=== PATIENT | male | born 1945 | race African-American/Black ===

== ENCOUNTER 2021-03-12 19:00 | Observation (INO) | payer MEDICARE, SELFPAY ==
[2021-02-08 14:55] VITALS: BMI 29.8
[2021-03-12] VITALS (11 sets, daily range): BP systolic 125–146; BP diastolic 75–96; PULSE 77–96; RESP 14–18; TEMP 36.1–37.2; O2SAT 92–100; BMI 26.8
[2021-03-12] MEDS: Lactated Ringers 1,000 ML 100 ML IV ×2 (11:31→14:15)
[2021-03-12 11:46] LABS: Bedside Glucose 103 mg/dL (70-110)
--- NOTE | 2021-03-12 12:00 | PILCYST_PTH ---
PATIENT: PETRA VEE LOC: MS3 U#:[id number] AGE/SX: 75/M ROOM: GA312 RE03/12/[address]: Dr. Mark Anthony Malcolm MD : 1945 BED: 1 DIS: 03/13/2021 SPEC #: [id number] RECD: 03/13/21 07:30 STATUS: SALAS TRINA #: [id number] AIDEN: 03/12/21 12:[address]: Mark Anthony Malcolm DEPT: SURGICAL PATHOLOGY RECD BY: Kailey Henderson ENTERED: 03/13/21 08:31 SP TYPE: Pilonidal OTHR DR: Dr. Patricio Ortega MD Tissues: PILONIDAL TISSUE Procedures: Surgery Specimen Level III HEADER OPERATION: Excision, complicated extensive pilonidal cyst PRE-OP DIAGNOSIS: Complicated extensive pilonidal cyst; hidradenitis bilateral perianal and perineal areas TISSUE SUBMITTED: Excision of complicated extensive pilonidal cyst MICROSCOPIC DIAGNOSIS Complicated and extensive pilonidal cyst, excision: Consistent with inflamed pilonidal cyst. Focal changes consistent with inflamed epidermal inclusion cyst. GABI:yayo 03/14/2021 MICROSCOPIC DESCRIPTION Slides are reviewed. GROSS DESCRIPTION Received in fixative is one container labeled with the patient's name and designated pilonidal cyst. The specimen consists of an irregular fragment of dark galarza skin with attached yellow fatty tissue measuring 12.5 x 7 x 2.5 cm. Sections reveal several subdermal cystic structures ranging in size from 1 to 5 cm in greatest dimension. A focal area of cutaneous ulceration is identified measuring 1.5 cm in greatest dimension. Prepress Specialist sections are submitted in two cassettes. / AM:yayo 03/13/21 TC:5 CPT: 36468
--- NOTE | 2021-03-12 12:54 | HP.PCM_ITS ---
History and Physical Date of Admission: 03/12/21 HISTORY OF PRESENT ILLNESS 75 year old man presents with persistent pain and intermittent drainage in his sacral area where a cyst was present. He also had issues with pain and intermittent drainage in his bilateral perianal and perineal areas but none at the present time. He denies fever. He denies trauma. He has intermittent drainage. He has never had surgery on his pilonidal cyst area. He has had antibiotics intermittently. He has diabetes mellitus and his last HgbA1c is in the 5 range according to the patient. He presents at this time for further evaluation and treatment. PAST MEDICAL HISTORY Cancer Hidradenitis suppurativa of anus History of prostate disorder Pilonidal cyst Smoker PAST SURGICAL HISTORY None. ALLERGIES acetaminophen MEDICATIONS Cialis Lupron Depot Nirav Lemon FAMILY HISTORY Other Cancer Diabetes SOCIAL HISTORY Smoking Status: Current every day smoker alcohol intake: current substance use type: does not use additional social history: Does Not Take Aspirin Does Not Take Ibuprofen REVIEW OF SYSTEMS General - Denies fever, fatigue, and weight loss. Eyes - Denies cataracts and glaucoma. ENT - Denies nasal congestion and sore throat. Endocrine - Denies excessive thirst and urination. Skin - Denies suspicious lesions and skin cancer. Musculoskeletal - Denies joint pain, weakness of muscles and joints, back pain, and arthritis. Has joint stiffness. Neuro - Denies headaches. Cardiovascular - Denies chest pain, fatigue, and shortness of breath with exertion. Psych - Denies anxiety and depression. Respiratory - Has chronic cough. Denies shortness of breath. Patient is a smoker. Gastrointestinal - Denies nausea, vomiting, diarrhea, and constipation. Hematologic - Denies abnormal bruising and bleeding. Genitourinary - Denies hematuria. Has urinary frequency. PHYSICAL EXAMINATION General - Alert and Oriented. HEENT - PERRL. EOMI. Throat is clear. Neck - Supple and nontender. No cervical adenopathy. Lungs - Clear to auscultation. Heart - Regular rate and rhythm. Abdomen - Soft and nondistended. Extremities - FROM. No axillary adenopathy. Radial pulses are palpable. Back - On is lower back in the sacral area is a palpable mass clinically consistent with a pilonidal cyst. Some ulceration noted. Could not express any drainage today. Some extension noted inferiorly. Measures 5 cm. Rectal - On his bilateral perianal areas and perineal area are areas of induration and scarring from previous episodes of hidradenitis. No acute infection noted at this time. Measures 8 cm on each buttock. Approximately 3-4 cm from the anal opening. Minimal tenderness at this time. Neuro - CN II-XII grossly intact. Psych - Normal mood and affect. ASSESSMENT 1. Complicated extensive pilonidal cyst. 2. Hidradenitis bilateral perianal and perineal areas. 3. Diabetes mellitus. 4. Smoker. PLAN Patient has multiple issues on his lower back and perianal areas, pilonidal cyst and hidradenitis. Recommend surgical excision of these areas (pilonidal cyst and hidradenitis). The pilonidal cyst is more symptomatic at the present time and will be done first. So will concentrate on that initially. After healing has occurred, can then address his complex hidradenitis. I am hesitant to do everything at once as it would lead to a much larger wound that would take a lot longer to heal and is at risk to intimidate the patient due to its large size. Surgery will be done under general anesthesia with a surgical observation overnight stay in the hospital. Will send tissue to Pathology for analysis to rule out carcinoma and to Microbiology for culture. A positive culture will necessitate antibiotic therapy. After discharge will followup at the [facility]. During the healing process, there is the risk of developing stool contamination. If that develops, then he will need a diverting colostomy to allow complete healing of the wound. If a colostomy is needed, and if there develops a plateau in the healing process, can proceed with delayed closure with skin grafting. A skin graft in that area is at increased risk for some compromise. He can then be evaluated at the [facility] Center for HBO treatments which are designed to salvag e any compromise to the skin graft. Before surgery and afterwards, will send in script for Doxycycline to be used for intermittent flare ups. He has diabetes mellitus and his last HgbA1c is in the 5 range according to the patient. Will check with his PCP's office. It needs to be less than 8 before proceeding with electivef procedures. Patient was informed of the risks and complications of the procedure including alternatives to surgery. These were discussed with the patient personally. Patient voices understanding and wishes to proceed. Some of the risks and complications were included in a form from the [employer]. Encouraged patient to stop smoking as it may have deleterious effects on wound healing. We discussed the current risks associated with COVID-19. While it is understood that there is a community spread of COVID-19, the risk of marion COVID-19 while at [facility] ([facility]) is very low; however, the risk cannot be completely mitigated because of the community spread of the disease. We discussed in detail the risk of exposure to and/or potential harm posed by the COVID-19 virus with having a surgery/procedure at this time versus the risk of delaying the surgery/procedure. It is not possible to know either the risk of delaying the surgery or procedure or chance of getting an infection with perfect accuracy, but a joint decision was made to proceed at this time with the scheduled surgery/procedure as indicated on the consent form. Patient was notified that we will need to comply with any screening or testing [facility] wishes to perform or that surgery may be delayed for any positive results. Procedure Criteria Procedure Type: Elective COVID Risk Discussion: The surgeon/proceduralist and patient have discussed in detail the risk of exposure to and/or potential harm posed by the COVID-19 virus with having a surgery/procedure at this time versus the risk of delaying the surgery/procedure. It is not possible to know either the risk of delaying the surgery or procedure or chance of getting an infection with perfect accuracy, but a joint decision was made between the patient and the surgeon/proceduralist to proceed at this time with the scheduled surgery/procedure as indicated on the consent form.
[2021-03-12] MEDS: Cefazolin 2 GM in 0.9% Normal Saline 100 ML IV (13:51)
[2021-03-12] MEDS: Lidocaine 1% /Epi 1:100 (50ml) 50 ML VIAL (14:21)
--- NOTE | 2021-03-12 14:53 | PCM.OPRPT ---
Problems Associated Problem List Diagnoses (1) Pilonidal cyst: (2) Open wound of sacroiliac region with complication: (3) Hidradenitis suppurativa of anus: (4) Type 2 diabetes mellitus with diabetic polyneuropathy: (5) Smoker: Report of Operation Date of Procedure: 03/12/21 Pre-Operative Diagnosis: 1. Complicated extensive pilonidal cyst. 2. Hidradenitis bilateral perianal and perineal areas. 3. Diabetes mellitus. 4. Smoker. Post-Operative Diagnosis: 1. Complicated extensive pilonidal cyst. 2. Open wound sacral area. 3. Hidradenitis bilateral perianal and perineal areas. 4. Diabetes mellitus. 5. Smoker. Surgery/Procedure Performed:: Surgical preparation sacral area with excision complicated extensive pilonidal cyst Description of Surgical Findings:: 75 year old man presents with persistent pain and intermittent drainage in his sacral area where a cyst was present. He also had issues with pain and intermittent drainage in his bilateral perianal and perineal areas but none at the present time. He denies fever. He denies trauma. He has intermittent drainage. He has never had surgery on his pilonidal cyst area. He has had antibiotics intermittently. He has diabetes mellitus and his last HgbA1c is in the 5 range according to the patient. Patient was informed of the risks and complications of the procedure including alternatives to surgery. These were discussed with the patient personally. Patient voices understanding and wishes to proceed. Some of the risks and complications were included in a form from the [employer]. Encouraged patient to stop smoking as it may have deleterious effects on wound healing. Size of defect sacral area - 16 x 6 x 3 cm. Surgeon: Mark Anthony Malcolm manager audio: None Type of Anesthesia: General Specimen's removed: Pilonidal cyst to Pathology and Microbiology. Drains: None. Estimated Blood Loss (mL): 50. Description of Procedure: Patient was taken to OR in supine position and was placed under general anesthesia. He was placed in the prone position. The sacral area was prepped and draped in the usual fashion. SCD's were not placed for DVT prophylaxis because of bilateral amputation. Will proceed with chemoprophylaxis with Lovenox after surgery. Perioperative antibiotics were given intravenously. A vasquez catheter was placed. Using xylocaine with epinephrine, the sacral area was infiltrated. After waiting 5 minutes for the anesthetic to take effect, I excised the complicated extensive pilonidal cyst down to the muscle laterally and the bone centrally. A lot of fat necrosis and extensive scar tissue was present and was excised and debrided. No exposed bone was seen. There was more extension on the left. There was also some inferior extension bilaterally. The tissue excised was sent to Pathology for analysis to rule out carcinoma and to Microbiology for culture. A positive culture will necessitate antibiotic therapy. Hemostasis was obtained with electrocautery. The wound was irrigated with saline. The size of the sacral defect after excision of this complicated extensive pilonidal cyst was 16 x 6 x 3 cm or 96 cm2. The wound was dressed with Mepitel nonadherent dressing followed by Kerlix gauze and Betadine and followed with a dry Kerlix gauze and ABD pads compression dressing. Patient tolerated the procedure well and was sent to PACU in satisfactory condition. Patient will be sent upstairs for continued postop care. The VAC will be placed tomorrow. After discharge, followup at the [facility]ound Center. Grafts/Implants Used: None. Complications None. Admit VTE Documentation VTE Present on Admission: No VTE Mechan Device Prophylaxis: SCD's VTE Pharm Prophylaxis ordered?: Yes Addendum Addendum: Surgery Charges CPT - 51063 ICD-10 - L05.91, S31.000A, L73.2, E11.42, F17.200
[2021-03-12 15:41] LABS: Bedside Glucose 86 mg/dL (70-110)
[2021-03-12 18:01] LABS: Bedside Glucose 105 mg/dL (70-110)
[2021-03-12] MEDS: Docusate Sodium 100 MG Capsule PO (20:35)
[2021-03-12] MEDS: Cefazolin 1 GM/50 ML BAG IV (20:54)
[2021-03-12 21:01] LABS: Bedside Glucose 114 mg/dL (70-110)
[2021-03-13 01:33] VITALS: BP 138/89; PULSE 92; RESP 16; TEMP 37.3; O2SAT 95
[2021-03-13] MEDS: oxyCODONE 5 MG Tablet 10 MG PO ×3 (03:10→13:57)
[2021-03-13] MEDS: Lactated Ringers 1,000 ML 60 ML IV (05:33)
[2021-03-13 05:34] VITALS: BP 137/81; PULSE 73; RESP 16; TEMP 36.4; O2SAT 94
[2021-03-13] MEDS: Cefazolin 1 GM/50 ML BAG IV ×2 (05:35→13:49)
[2021-03-13] MEDS: Enoxaparin 40 MG/0.4 ML Syringe SC (05:36)
[2021-03-13 06:35] LABS: Hematocrit 44.8 % (40-54); Hemoglobin 15.1 g/dL (13.0-16.5); Mean Corp Hgb Conc 33.7 g/dL (32-36); Mean Corpuscular Hgb 33.9 pg (27.0-32.0); Mean Corpuscular Volume 100.4 fL (80-94); Mean Platelet Vol. 9.6 fl (6.2-12.0); Platelet Count 126 K/mm3 (150-450); RBC Distribution Width CV 15.9 % (11.6-14.6); RBC Distribution Width SD 58.4 fl (35.1-43.9); Red Blood Count 4.46 M/mm3 (4.6-6.2); White Blood Count 11.9 K/mm3 (4.4-11.0)
[2021-03-13 07:17] LABS: Anion Gap 5 (5-15); BUN 6 mg/dL (7-18); Calcium,Total 8.3 mg/dL (8.5-10.1); Chloride 109 mmol/L (98-107); Creatinine, Serum 0.67 mg/dL (0.70-1.30); EST Glomerular Filtration Rate 124 mL/min (>60); Est Glom Filt Rate - Afr Amer 150 mL/min (>60); Estimated Creatinine Clearance 71.13 ml/min; Glucose 104 mg/dL (74-106); Potassium 3.7 mmol/L (3.5-5.1); Prealbumin 9.4 mg/dL (20.0-40.0); Sodium Level 139 mmol/L (136-145)
[2021-03-13 07:21] LABS: Bedside Glucose 113 mg/dL (70-110)
[2021-03-13] MEDS: Losartan Potassium 50 MG Tablet PO (09:11)
[2021-03-13] MEDS: Docusate Sodium 100 MG Capsule PO (09:11)
[2021-03-13 09:12] VITALS: BP 140/84; PULSE 83; RESP 16; TEMP 36.6; O2SAT 93
--- NOTE | 2021-03-13 09:26 | NURSING ---
wound photo: sacrum
[2021-03-13 11:45] LABS: Bedside Glucose 121 mg/dL (70-110)
--- NOTE | 2021-03-13 13:42 | PCM.WC.PN ---
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 He believes he might have bumped his leg, developed this ulcer, and it has been non-healing. Pt does not check his blood sugar at home. Saw his PCP who Rx clindamycin which he is currently taking along with silvadene. Has been taking clindamycin PO as Rx and applying silvadene with dry dressing daily to the R calf ulcer. Has home health ordered and they are going to start coming to his house this week. Denies N/V/F/C. Denies pain, redness, malodor, pus, increased warmth. Does admit to swelling of the R leg that is improved since starting clindamycin. Admits to smoking 1 pack of cigarettes per day and has done so for the past 50 years. 12/31--Pt has had joann, dry dressing with light compression spandagrip applied 3x/week by home health (once here, twice by home health on /Friday). He states he has tried to decrease smoking as much as possible. Denies N/V/F/C. Denies pain, redness, pus, malodor, warmth. LEAs, venous duplex, x-rays done. X-rays reveal no acute osseous abnormality, LEAs wnl, venous duplex show vein incompetence on the LEFT but not on the right. 01/14--Pt has had joann, dry dressing with spandagrip applied 3x/week by home health (once here, twice by home health on /Friday). He states he has tried to decrease smoking as much as possible. Denies N/V/F/C. Denies pain, redness, pus, malodor, warmth. LEAs, venous duplex, x-rays done. X-rays reveal no acute osseous abnormality, LEAs wnl, venous duplex show vein incompetence on the LEFT but not on the right. Labs drawn reveal elevated WBC, ESR. Forwarded to PCP. 01/21--Pt has had joann, dry dressing with spandagrip applied 3x/week by home health (once here, twice by home health on /Friday). He states he has tried to decrease smoking as much as possible as well as control his blood sugar, elevate his legs, eat more protein, and walk. Denies N/V/F/C. Denies pain, redness, pus, malodor, warmth. 01/28--Pt has had joann, dry dressing with spandagrip applied once this week by home health. He states he has tried to decrease smoking as much as possible as well as control his blood sugar, elevate his legs, eat more protein, and walk. Denies N/V/F/C. Denies pain, redness, pus, malodor, warmth. Objective Data Objective Data Vital Signs: Vital Signs Temp Pulse Resp BP Pulse Ox 97.8 F 83 16 140/84 H 93 03/13/21 09:12 03/13/21 09:12 03/13/21 09:12 03/13/21 09:12 03/13/21 09:12 Oxygen Delivery Method Room Air Weight: 197 lb 12.074 oz Body Mass Index (BMI) 26.8 Intake & Output: Intake and Output for Last 24 Hours 03/11/21 03/12/21 03/13/21 23:59 23:59 23:59 Intake Total 1701.67 / 1701.67 960.33 / 960.33 Output Total 500 / 500 775 / 775 Balance 1201.67 / 1201.67 185.33 / 185.33 Lab / Micro Data Result Diagrams: 03/13/21 06:06 03/13/21 06:06 Labs: Laboratory Results - last 24 hr 03/12/21 15:28: POC Glucose 86 03/12/21 17:57: POC Glucose 105 03/12/21 20:48: POC Glucose 114 H 03/13/21 06:06: WBC 11.9 H, RBC 4.46 L, Hgb 15.1, Hct 44.8, MCV 100.4 H, MCH 33.9 H, MCHC 33.7, RDW Std Deviation 58.4 H, RDW Coeff of Peter 15.9 H, Plt Count 126 L, MPV 9.6 03/13/21 06:06: Sodium 139, Potassium 3.7, Chloride 109 H, Carbon Dioxide 25.0, Anion Gap 5, BUN 6 L, Creatinine 0.67 L, Estim Creat Clear Calc 71.13, Est GFR (MDRD) Af Amer 150, Est GFR (MDRD) Non-Af 124, BUN/Creatinine Ratio 9.0 L, Glucose 104, Calcium 8.3 L, Prealbumin 9.4 L 03/13/21 07:16: POC Glucose 113 H 03/13/21 11:40: POC Glucose 121 H Micro: Microbiology 03/12/21 Unknown Tissue - Buttock Gram Stain - Final
--- NOTE | 2021-03-13 13:43 | PN.SURG_ITS ---
Subjective Subjective Postop #1 Patient sitting up in chair. States pain is well controlled. Objective Data Objective Data Vital Signs: Vital Signs Temp Pulse Resp BP Pulse Ox 97.8 F 83 16 140/84 H 93 03/13/21 09:12 03/13/21 09:12 03/13/21 09:12 03/13/21 09:12 03/13/21 09:12 Oxygen Delivery Method Room Air Weight: 197 lb 12.074 oz Body Mass Index (BMI) 26.8 Intake & Output: Intake and Output for Last 24 Hours 03/11/21 03/12/21 03/13/21 23:59 23:59 23:59 Intake Total 1701.67 / 1701.67 960.33 / 960.33 Output Total 500 / 500 775 / 775 Balance 1201.67 / 1201.67 185.33 / 185.33 Lab / Micro Data Result Diagrams: 03/13/21 06:06 03/13/21 06:06 Labs: Laboratory Results - last 24 hr 03/12/21 15:28: POC Glucose 86 03/12/21 17:57: POC Glucose 105 03/12/21 20:48: POC Glucose 114 H 03/13/21 06:06: WBC 11.9 H, RBC 4.46 L, Hgb 15.1, Hct 44.8, MCV 100.4 H, MCH 33.9 H, MCHC 33.7, RDW Std Deviation 58.4 H, RDW Coeff of Peter 15.9 H, Plt Count 126 L, MPV 9.6 03/13/21 06:06: Sodium 139, Potassium 3.7, Chloride 109 H, Carbon Dioxide 25.0, Anion Gap 5, BUN 6 L, Creatinine 0.67 L, Estim Creat Clear Calc 71.13, Est GFR (MDRD) Af Amer 150, Est GFR (MDRD) Non-Af 124, BUN/Creatinine Ratio 9.0 L, Glucose 104, Calcium 8.3 L, Prealbumin 9.4 L 03/13/21 07:16: POC Glucose 113 H 03/13/21 11:40: POC Glucose 121 H Micro: Microbiology 03/12/21 Unknown Tissue - Buttock Gram Stain - Final Physical Exam Const oriented x3 and no apparent distress Resp normal respiratory effort Cardio regular rate GI non-tender Extremity full ROM Skin Wound Narrative: Operative dressing was removed by wound care nurse. No active bleeding present. Wound is stable. Wound VAC dressing placed. Patient is tolerating it well. Psych Appearance: grossly normal Assessment & Plan Assessment/Plan (1) Pilonidal cyst: (2) Hidradenitis suppurativa of anus: (3) Open wound of sacroiliac region with complication: (4) Type 2 diabetes mellitus with diabetic polyneuropathy: QUALIFIERS: Diabetes mellitus correction insulin use: unspecified correction insulin use status Qualified Code(s): E11.42 - Type 2 diabetes mellitus with diabetic polyneuropathy (5) Smoker: PLAN: Patient is is doing well. Pain controlled on oral pain meds. Operative dressing removed today, no active bleeding. Wound is stable. Wound VAC dressing to 150 mmHg. The plan will be to have home health change it 3 times per week. Operative culture is pending. Currently on Cefazolin. Will plan on starting him on Doxycycline on discharge. Prealbumin 9.4. Encouraged increase protein intake with supplementation and in foods. He will [facility] up next 03[facility]19/[facility]. They will phone patient to discuss his appointment time.
[2021-03-13 13:50] VITALS: BP 130/76; PULSE 72; RESP 18; TEMP 36.7; O2SAT 95
--- NOTE | 2021-03-13 13:52 | CASEMGMT ---
Addendum entered by Jim Barr 03/13/21 15:32: Vinita @ [facility] aware pt being discharged home today. Addendum entered by Jim Barr 03/13/21 14:50: and pt made aware [facility] able to accept pt w/SOC on Friday. They are both aware wound vac approval is still pending and this will determine if pt able to be able to be discharged today or tomorrow. Addendum entered by Jim Barr 03/13/21 14:38: VM received from Vinita @ [facility]. They are able to accept pt w/SOC Friday. Call placed to [facility] wound nurse. Wound vac approval is still pending. Original Note: RN CM MATERIAL DAMAGE ADJUSTER CM to room to meet with patient for initial transition planning/care coordination assessment. TINY NIELSEN introduced self and role at [facility]. Pt voices understanding and consents to assessment at this time. Pt sitting up in recliner chair in room in no distress at this time. @ bedside. Pt is A/O at this time and answers all questions appropriately. Care providers, pharmacy, and demographics verified/updated at this time. PCP: Dr Ortega Specialists: Dr Malcolm--@ [facility]. Dr Ferrara-gato in [place] Preferred Pharmacy: [facility] Insurance: [employer] [facility] Prescription Benefit: Yes Living Will/HPOA: States does not have LW or HCPOA . Interested in more information and would like to talk to SW to complete paperwork. Provided information on advanced directives and given Social Service rac card with number to call if as an Out-pt, if SW is unable to meet w/him prior to pt being discharged to utilize [facility] social work for advanced directive completion. LNOK:, Rosamaria. 5 adult children Living Arrangements: Lives w/his in one-story duplex w/no steps to enter. Independent w/ADL's. completes home mgmt tasks and manages pt's medications and appts. Transportation: drives and states no transportation concerns at this time. DME: States has the following DME: shower chair, cane, hand held shower, glucometer, walker, rollator. Pt states no need for further DME at this time. HHC/SNF: No history of SNF. Has had HHC in the past. Pt/ would like for pt to have HHC @ d/c. They were provided with list of HHC providers including quality and resource use data and consistent with the patient's preferred geographic region, medical needs, and insurance network. Their preferred provider is [facility]. TC angel Talamantes @ [facility] and left w/referral and made aware anticipate pt will be ready for discharge home today. Wound vac was just applied today. Per [facility] wound nurse, [facility]HC for next would vac change could be either or Friday, w/ being preferable, and this info was provided on as well. Pt/ wish for pt to return home and state has no concerns with going home at time of discharge. CM to follow for any further discharge planning/needs. Pt/ voice no further concerns/needs at this time. Advised them to ask for CM if any further questions/concerns/needs arise. They voice understanding. PLAN[facility], PT/OT, pending acceptance. Robert HINKLEN RN CM
--- NOTE | 2021-03-13 14:41 | PCM.DC ---
Discharge Instructions Diet Discharge Diet: Carb Control Diet Activity Discharge Activity: Return to Normal Activity and May Not Shower May resume sexual activity in: No Restrictions Lifting Restrictions: 20 lb weight lifting restriction Dressing / Incision Call your doctor if your incision/area has: Continuous Slow Oozing, Sudden Increased Bleeding, Increased Pain/ Swelling, Increased Redness, Foul Smelling Discharge and Swelling at the incision site Call your doctor if you observe: Fever of 101 or Higher, Coldness, Increased Pain, Change in Color, Inability to urinate, Inability to have a bowel movement, Shortness of breath, Dizziness, Chest pain, Calf discomfort and Uncontrolled pain Change Dressing in: 2 days (Home health to change the wound VAC dressing in 1-2 days.) Cleanse incision/area with: Soap & Water and Keep Dressing Clean & Dry Additional Dressing/Incision Instructions:: Wound VAC dressing changes 3 times per week. At the time of dressing change, may remove wound VAC and shower. Wash wound and skin surrounding wound with soap and water at the time of dressing change. IF lose seal on wound VAC, notify home health. Follow Up Care Please Follow Up With: Lesa Benedict When: Friday, March 19, 2021. Wound center should call you with your appointment time. If you have not heard from them by 03/15/21, then call [phone] Test Results: Test results from this visit will be discussed in further detail at your follow-up appointment, if applicable. Pending Tests Upon Discharge: Operative cultures. Discharge Plan Admission Admit Date/Time: 03/12/21 19:00 Attending Provider: Mark Anthony Malcolm Primary Care Provider: Patricio Ortega Discharge Orders/Prescriptions Prescriptions: New oxycodone-acetaminophen [Percocet] 5-325 mg tablet 1 tab PO Q4H PRN (Reason: pain (scale score 7-10)) 7 Days Qty: 40 RF: 0 diazepam [Valium] 5 mg tablet 5 mg PO Q6H PRN (Reason: muscle spasm) 7 Days Qty: 30 RF: 0 doxycycline hyclate 100 mg tablet 100 mg PO BID 14 Days Qty: 28 RF: 0 Continued Cialis 10 mg PO PRN PRN (Reason: Erectile Dysfunction) RF: 0 losartan 50 mg Tablet 50 mg PO DAILY RF: 0 multivitamin Capsule 1 cap PO DAILY RF: 0 Referrals / Follow Up: Patricio Ortega MD [Primary Care Provider] - Disposition Disposition (needs filled in before D/C Order can be placed): Home, Self Care
--- NOTE | 2021-03-13 15:37 | CASEMGMT ---
Social Work Note SW received consult for Advanced Directives. SW in to speak with pt. SW introduced self and role at [facility]. Pt's Rosamaria present at [facility]. Pt agreeable to completing advanced directives. Pt completed documents, original provided back to pt and copy on pt's chart. Rosamaria asked this worker how she can complete documents. SAMMI encouraged Rosamaria to call number on [facility] Social Service rac card and schedule an outpatient appointment to complete documents. Rosamaria states understanding. Stephanie Abraham FOOD SAFETY TECHNICIAN, COOKIE BREAKER
--- NOTE | 2021-03-13 15:46 | NURSING ---
Home VAC approved. pt switched over to the home VAC at this time. reviewed alarms, etc. with patient and . both deny questions. proof of delivery form signed and faxed back to [facility]. Home health care had been arranged by [facility].
== END 2021-03-13 16:50 | disposition home health service (06) ==
LOC: SDC 22:06 → MS3 22:06
PROVIDERS: Admitting Provider Surgery; PCP Family Medicine; Referring Provider Surgery; Visit Provider Surgery
PROC: (CPT 11772; principal; 2021-03-12 11:45)
DX: L05.91 Pilonidal cyst without abscess (principal); E11.42 Type 2 diabetes mellitus with diabetic polyneuropathy; L73.2 Hidradenitis suppurativa; Z79.899 Other long term (current) drug therapy; F17.210 Nicotine dependence, cigarettes, uncomplicated
CPT/HCPCS: 00300; 11772; 36415; 80048; 82962; 84134; 85027; 87070; 87075; 87077; 87102; 87205; 87206; 88304; 96365; 96366; 96372; 97163; 97166; 97802; 99218; 99251; 99406; J7120; G0378; G0379; G0463; J2405

== ENCOUNTER 2021-03-26 13:30 | Outpatient (RCR) | payer MEDICARE, SELFPAY ==
[2021-03-12 17:42] VITALS: BMI 26.8
[2021-03-15 14:53] VITALS: BMI 26.8
[2021-03-19 14:12] VITALS: BP 138/80; PULSE 91; RESP 16; TEMP 36.3; BMI 26.7
--- NOTE | 2021-03-19 15:48 | PCM.WC.HP ---
History of Present Illness Date of Service: 03/19/21 Chief Complaint: Sacral wound after excision of pilonidal cyst History of Wound: 75 year old man presents with persistent pain and intermittent drainage in his sacral area where a cyst was present. He also had issues with pain and intermittent drainage in his bilateral perianal and perineal areas but none at the present time. He denies fever. He denies trauma. He has intermittent drainage. He has never had surgery on his pilonidal cyst area. He has had antibiotics intermittently. He has diabetes mellitus and his last HgbA1c is in the 5 range according to the patient. Surgery 03/12/21 - Surgical preparation sacral area with excision complicated extensive pilonidal cyst. Wound care - Wound VAC at 150 mmHg. Home health with assist with the dressing changes 3 times per week. Operative cultures were positive for Proprionibacterium acnes and Corynebacterium amycolatum. The Doxycycline he was on was discontinued and he was started on Augmentin. Prealbumin 9.4 on 03/13/21. Today he denies fever, chills, nausea. States his appetite is ok. Progress of Wound: Stable. [facility] Medical History Alcohol use Ambulates with cane Cancer Diabetes Dietary restriction Hidradenitis suppurativa of anus History of edema History of prostate disorder History of stress test Hypertension Pilonidal cyst Smoker Smoker Wears dentures Home Medications Cialis 10 mg PO PRN PRN 12/24/16 [History Last Taken Unknown] losartan 50 mg PO DAILY 03/07/21 [History Last Taken 03/12/21 10:00 50 mg] multivitamin 1 cap PO DAILY 03/07/21 [History Last Taken Unknown] diazepam [Valium] 5 mg PO Q6H PRN 7 Days #30 tab 03/13/21 [Rx Last Taken Unknown] doxycycline hyclate 100 mg PO BID 14 Days #28 tab 03/13/21 [Rx Last Taken Unknown] oxycodone-acetaminophen [Percocet] 1 tab PO Q4H PRN 7 Days #40 tab 03/13/21 [Rx Last Taken Unknown] amoxicillin-pot clavulanate [Augmentin] 1 tab PO BID 14 Days #28 tab 03/20/21 [Rx Last Taken Unknown] Allergy/AdvReac Type Severity Reaction Status Date / Time acetaminophen AdvReac Vomiting Verified 03/19/21 14:28 Family History (Reviewed 03/22/21 @ 18:06 by Lesa Benedict MANAGER DIGITAL AD OPERATIONS, MANAGER [employer]IG[employer]PERATIONS-C) Other Cancer Diabetes Surgical History (Reviewed 03/22/21 @ 18:06 by Lesa Benedict MANAGER DIGITAL AD OPERATIONS, MANAGER DIGITAL AD OPERATIONS-C) History of transurethral resection of prostate Hx of colonoscopy Hx of laparoscopic partial gastrectomy Social History (Reviewed 03/22/21 @ 18:06 by Lesa Benedict MANAGER DIGITAL AD OPERATIONS, MANAGER DIGITAL AD OPERATIONS-C) Smoking Status: Current every day smoker tobacco type: cigarettes alcohol intake: current substance use type: does not use additional social history: Does Not Take Aspirin Does Not Take Ibuprofen ROS Constitutional Constitutional: Reports fatigue Eyes Eyes: Reports none ENT HEENT: Reports none Cardiovascular Cardiovascular: Reports none Respiratory/Chest Respiratory/Chest: Reports none Gastrointestinal Gastrointestinal: Reports constipation Musculoskeletal Musculoskeletal: Reports joint stiffness and muscle spasms Integumentary Integumentary: Reports wounds Neurologic Neurologic: Reports none Psychiatric Psychiatric: Reports none Vital Signs Vital Signs Vital Signs: 03/19/21 14:12 Temperature 97.3 F L Temperature Source Temporal Pulse Rate 91 Respiratory Rate 16 Blood Pressure 138/80 H Blood Pressure Mean 99 Blood Pressure Source Monitor Blood Pressure Position Sitting Blood Pressure Location Left Arm Oxygen Delivery Method Room Air Weight Weight: 197 lb Body Mass Index (BMI) 26.7 Physical Exam Const alert and oriented x3 General Appearance: cooperative HEENT normocephalic Eyes PERRL Lymph Lymphatic: no lymphedema noted Resp normal air movement Effort and Inspection: able to speak in complete sentences Cardio regular rate GI soft to palpation and non-tender Extremity normal capillary refill Skin Wound Narrative: Sacral wound is pink, stable. No active bleeding. Neuro oriented x3 Psych mental status grossly normal Debridement Note Debridement Note Post-Debridement Measurements and Additional Note: Post-Debridement Measurements/Treatment - Nurse 1 - General Ulcer Assessment Start: 03/19/21 14:09 Freq: Status: Active Protocol: SUSY Activity Type Activity Date Activity User E-Sign Co-Sign Detail Recorded Client Recorded Date Recorded By Document 03/19/21 14:12 [facility] [id number] 03/19/21 14:27 [facility] 03/19/21 14:12 - Today's Visit Information Type of service Initial Visit Arrival Mode Ambulatory,Cane Transfer Assistance None Accompanied by Patient Identification Verified (Name & Yes ) Patient Requires Transmission-Based No Precautions Height and Weight Height 6 ft Weight 197 lb Weight in Pounds 197.0 lbs Weight Measurement Method Stated by Patient Body Mass Index (BMI) 26.7 BMI Classification Overweight BSA - Adeola 2.12 Vital Signs Temperature (97.8 F-99.1 F) 97.3 F L Temperature Source Temporal Pulse Rate (60-100) 91 Pulse Location Monitor Respiratory Rate (12-18) 16 Respiratory rate source Observation Oxygen Delivery Method Room Air Blood Pressure (90/60-120/80) 138/80 H Blood Pressure Mean 99 Source Monitor Position Sitting Blood Pressure Location Left Arm History Since Last Visit- (Skip if this is Patient's initial visit) Left Footwear Regular Shoe Right Footwear Regular Shoe WC - Nurse 1 - General Ulcer Measurement Start: 03/19/21 14:09 Freq: Status: Active Protocol: Activity Type Activity Date Activity User E-Sign Co-Sign Detail Recorded Client Recorded Date Recorded By Document 03/19/21 14:12 [facility] [id number] 03/19/21 14:27 [facility] 03/19/21 14:12 Wound Center Nurse 1 #2- PILONIDAL POST OP -Combined with other wound No -Current Size (cm) - Length 8.3 -Current Size (cm) - Width 12.2 -Current Size (cm) - Depth 3.6 -Total Square Cm 101.26 -Date of Last Picture (Recall this 03/19/21 field) -Photo Taken Yes -Epithelialization None Present -Tunneling No -Undermining/Tunneling No -Circular Undermining No -Exudate Amt Large -Exudate Type Sanguineous -Wound Margin Distinct, Outline Attached -Granulation Amt Large (67-100%) -Granulation Quality Red -Slough/Fibrin Yes -Necrosis Amt Small (1-33%) -Necrotic Tissue Type Adherent Slough -Texture (Sandi-wound Skin Appearance) Assessed, Scarring -Moisture (Sandi-wound Skin Appearance) Assessed -Color (Sandi-wound Skin Appearance) Assessed -Temperature (Sandi-wound Skin No Abnormality Appearance) (Pt Warm) -Tenderness on Palpation (Sandi-wound Yes Skin Appearance) -Ulcer Cleansing SOAPY WATER -Foul Odor after Cleansing No -Anesthetic Used 4% Lidocaine Solution WC - Nurse 3 - General Ulcer D/C NN Start: 03/19/21 14:09 Freq: Status: Active Protocol: Activity Type Activity Date Activity User E-Sign Co-Sign Detail Recorded Client Recorded Date Recorded By Document 03/19/21 14:55 [facility] [id number] 03/19/21 14:55 [facility] 03/19/21 14:55 Wound Care Nurse 3 -Ulcer Cleansing Rinsed/ Irrigated with Saline -Foul Odor after Cleansing No -Primary Dressing Applied Aquacel AG 4x4 -Primary Dressing Covered/Secured with Dry Gauze, Secured with Tape,Other -Other Covering ABD -Aquacel AG 4x4 1 Treatment Response Procedure Tolerated Well Pain Scale: 0-10 Numeric Is Patient Pain Free? Yes WC - Visit Discharge Discharge Condition Stable Ambulatory Status Ambulatory,Cane Transportation Private Auto Accompanied by Facility Type Home Health No debridement was completed: No debridement was completed today Charges/Coding Procedures Integumentary 111xxx-113xx: 64881 Global Visit Assessment/Plan Assessment/Plan (1) Open wound of sacroiliac region with complication: CODE(S): S31.000A - Unspecified open wound of lower back and pelvis without penetration into retroperitoneum, initial encounter QUALIFIERS: Encounter type: initial encounter Qualified Code(s): S31.000A - Unspecified open wound of lower back and pelvis without penetration into retroperitoneum, initial encounter (2) Hidradenitis suppurativa of anus: CODE(S): L73.2 - Hidradenitis suppurativa (3) Pilonidal cyst: CODE(S): L05.91 - Pilonidal cyst without abscess (4) Other acute postprocedural pain: CODE(S): G89.18 - Other acute postprocedural pain (5) Type 2 diabetes mellitus with diabetic polyneuropathy: CODE(S): E11.42 - Type 2 diabetes mellitus with diabetic polyneuropathy QUALIFIERS: Diabetes mellitus predatory animal exterminator insulin use: unspecified correction insulin use status Qualified Code(s): E11.42 - Type 2 diabetes mellitus with diabetic polyneuropathy (6) Smoker: CODE(S): F17.200 - Nicotine dependence, unspecified, uncomplicated (7) Malnutrition: CODE(S): E46 - Unspecified protein-calorie malnutrition QUALIFIERS: Malnutrition type: protein-calorie malnutrition Protein-calorie malnutrition severity: moderate Qualified Code(s): E44.0 - Moderate protein-calorie malnutrition PLAN: Wound care - Wound VAC at 150 mmHg. Will have home health apply either later today or tomorrow since he forgot his wound VAC supplies. Today we will place a Silver alginate dressing covered by ABDs. Continue Augmentin. Encouraged increase protein intake to help with wound healing. Prealbumin was 9.4 on 03/13/2021. Encouraged patient to stop smoking as it may have deleterious effects on wound healing. Follow up one week.
[2021-03-26 13:43] VITALS: BP 98/60; PULSE 100; TEMP 36.3; BMI 26.7
--- NOTE | 2021-03-26 14:54 | PN.PCM_ITS ---
History of Present Illness Date of Service: 03/26/21 Chief Complaint: Sacral wound after excision of pilonidal cyst History of Wound: 75 year old man presents with persistent pain and intermittent drainage in his sacral area where a cyst was present. He also had issues with pain and intermittent drainage in his bilateral perianal and perineal areas but none at the present time. He denies fever. He denies trauma. He has intermittent drainage. He has never had surgery on his pilonidal cyst area. He has had antibiotics intermittently. He has diabetes mellitus and his last HgbA1c is in the 5 range according to the patient. Surgery 03/12/21 - Surgical preparation sacral area with excision complicated extensive pilonidal cyst. Wound care - Wound VAC at 150 mmHg. Home health with assist with the dressing changes 3 times per week. Operative cultures were positive for Proprionibacterium acnes and Corynebacterium amycolatum. The Doxycycline he was on was discontinued and he was started on Augmentin. Prealbumin 9.4 on 03/13/21. Today he denies fever, chills, nausea. States his appetite is ok. Progress of Wound: Improved. Objective Data Objective Data Vital Signs: Vital Signs Temp Pulse Resp BP 97.4 F L 100 16 98/60 03/26/21 13:43 03/26/21 13:43 03/19/21 14:12 03/26/21 13:43 Oxygen Delivery Method Room Air Weight: 197 lb Body Mass Index (BMI) 26.7 Charges/Coding Procedures Integumentary 111xxx-113xx: 60689 Global Visit Physical Exam Const alert and oriented x3 General Appearance: cooperative HEENT normocephalic Eyes PERRL Lymph Lymphatic: no lymphedema noted Resp normal respiratory effort Cardio regular rate GI non-tender Palpation: soft Extremity normal capillary refill Skin Wound Narrative: Sacral wound is pink, stable. NO active bleeding. Into the muscle. Periwound is clean and dry. Neuro CN's II-XII intact bilaterally Psych Appearance: grossly normal Debridement Note Debridement Note Post-Debridement Measurements and Additional Note: Post-Debridement Measurements/Treatment PLACIDO - Nurse 1 - General Ulcer Assessment Start: 03/19/21 14:09 Freq: Status: Active Protocol: SUSY Activity Type Activity Date Activity User E-Sign Co-Sign Detail Recorded Client Recorded Date Recorded By Document 03/19/21 14:12 [facility] [id number] 03/19/21 14:27 [facility] Document 03/26/21 13:43 [place] [id number] 03/26/21 13:53 [facility] 03/19/21 03/26/21 14:12 13:43 - Today's Visit Information Type of service Initial Visit Follow-up Visit (Physician/STALLION KEEPER ) Arrival Mode Ambulatory,Cane Ambulatory Transfer Assistance None Accompanied by Patient Identification Verified (Name & Yes Yes ) Patient Requires Transmission-Based No Precautions Height and Weight Height 6 ft Weight 197 lb Weight in Pounds 197.0 lbs Weight Measurement Method Stated by Patient Body Mass Index (BMI) 26.7 26.7 BMI Classification Overweight Overweight BSA - Adeola 2.12 Vital Signs Temperature (97.8 F-99.1 F) 97.3 F L 97.4 F L Temperature Source Temporal Temporal Pulse Rate (60-100) 91 100 Pulse Location Monitor Monitor Respiratory Rate (12-18) 16 Respiratory rate source Observation Oxygen Delivery Method Room Air Blood Pressure (90/60-120/80) 138/80 H 98/60 Blood Pressure Mean (mm Hg) 99 72 Source Monitor Monitor Position Sitting Semi-Fowlers Blood Pressure Location Left Arm Left Arm Have you changed medications since your No last visit? Any new allergies or adverse reactions No Had a fall/change in ADL's that may No increase risk of falls Signs or symptoms of abuse and/or No neglect since last visit Have you been in the hospital since your No last visit? Has dressing in place as prescribed Yes Has compression in place as prescribed N/A Has offloadiing in place as prescribed N/A Experienced any changes in pain level or No management History Since Last Visit- (Skip if this is Patient's initial visit) Left Footwear Regular Shoe Regular Shoe Right Footwear Regular Shoe Regular Shoe Pain Scale: 0-10 Numeric Is Patient Pain Free? Yes - Nurse 1 - General Ulcer Measurement Start: 03/19/21 14:09 Freq: Status: Active Protocol: Activity Type Activity Date Activity User E-Sign Co-Sign Detail Recorded Client Recorded Date Recorded By Document 03/19/21 14:12 [facility] [id number] 03/19/21 14:27 [facility] Document 03/26/21 13:43 [facility] [id number] 03/26/21 13:53 [place] 03/19/21 03/26/21 14:12 13:43 Wound Center Nurse 1 #3 PILONIDAL POST OP -Combined with other wound No -Current Size (cm) - Length 8.3 8 -Current Size (cm) - Width 12.2 10 -Current Size (cm) - Depth 3.6 5 -Total Square Cm 101.26 80 -Date of Last Picture (Recall this 03/19/21 field) -Photo Taken Yes -Epithelialization None Present -Tunneling No -Undermining/Tunneling No -Circular Undermining No -Exudate Amt Large Large -Exudate Type Sanguineous Serosanguineous -Wound Margin Distinct, Distinct, Outline Outline Attached Attached -Granulation Amt Large (67-100%) Large (67-100%) -Granulation Quality Red Red -Slough/Fibrin Yes No -Necrosis Amt Small (1-33%) -Necrotic Tissue Type Adherent Slough -Structure Exposed Fat Layer Exposed -Texture (Sandi-wound Skin Appearance) Assessed, Assessed, Scarring Scarring -Moisture (Sandi-wound Skin Appearance) Assessed No Abnormality, Assessed -Color (Sandi-wound Skin Appearance) Assessed No Abnormality, Assessed -Temperature (Sandi-wound Skin No Abnormality No Abnormality Appearance) (Pt Warm) (Pt Warm) -Tenderness on Palpation (Sandi-wound Yes No Skin Appearance) -Ulcer Cleansing SOAPY WATER soap and water -Foul Odor after Cleansing No No -Anesthetic Used 4% Lidocaine 4% Lidocaine Solution Solution,5% Lidocaine Gel WC - Nurse 2 - General Ulcer CM Notes Start: 03/19/21 14:09 Freq: Status: Active Protocol: Activity Type Activity Date Activity User E-Sign Co-Sign Detail Recorded Client Recorded Date Recorded By Document 03/19/21 16:14 [facility] [id number] 03/19/21 16:14 PL Document 03/26/21 14:16 J[facility] [id number] 03/26/21 14:20 03/19/21 03/26/21 16:14 14:16 Wound Center Nurse 2 -Time 14:16 -Correct Patient Yes -Correct Side, Site, Position Yes -Correct Procedure Yes -Procedure Performed No Yes -Type of Procedure Debridement -Clinical Debridement Muscle / Fascia -Tissue Removed Muscle,Fascia -Post Debridement (cm) - Length 9 -Post Debridement (cm) - Width 12.3 -Post Debridement (cm) - Depth 5 -Total Square (Post) (cm) 110.7 -Area of Debridement (cm) - Length 9 -Area of Debridement (cm) - Width 12.3 -Total Square (Area) (cm) 110.7 -Tunneling No -Circular Undermining No -Wound/Ulcer Outcome Not Healed -Ulcer Cleansing Rinsed/ Irrigated with Saline -Foul Odor after Cleansing No -Bioengineered Tissue No -Bleeding Controlled with Pressure -Offloading No -Treatment Response Procedure Tolerated Well -Debridement - Muscle / Fascia, 1st Yes 20sq cm -Debridement, Muscle/Fascia, ea addt'l 5 20sq cm or part thereof Pain Scale: 0-10 Numeric Is Patient Pain Free? Yes - Nurse 3 - General Ulcer D/C NN Start: 03/19/21 14:09 Freq: Status: Active Protocol: Activity Type Activity Date Activity User E-Sign Co-Sign Detail Recorded Client Recorded Date Recorded By Document 03/19/21 14:55 [facility] [id number] 03/19/21 14:55 [facility] Document 03/26/21 14:38 [id number] 03/26/21 14:39 03/19/21 03/26/21 14:55 14:38 Wound Care Nurse 3 #3 PILONIDAL POST OP -Ulcer Cleansing Rinsed/ Irrigated with Saline -Foul Odor after Cleansing No Yes -Negative Pressure Wound Therapy Continue -Setting (mmHg) 150 -Negative Pressure is Continuous -Primary Dressing Applied Aquacel AG 4x4 -Primary Dressing Covered/Secured with Dry Gauze, Secured with Tape,Other -Other Covering ABD -NPWT Application Charge ($) NPWT </= 50 sq cm -Aquacel AG 4x4 1 Treatment Response Procedure Tolerated Well Pain Scale: 0-10 Numeric Is Patient Pain Free? Yes Yes - Visit Discharge Discharge Condition Stable Stable Ambulatory Status Ambulatory,Cane Ambulatory Transportation Private Auto Private Auto Accompanied by Facility Type Home Health Wound debrided: Sacral wound Laterality: Not Applicable Type of Debridement: Excisional debridement Anesthesia Used: 5% Lidocaine Gel Depth: Down to and including healthy tissue, in the subcutaneous layer and to muscle Percentage of wound debrided: 100 Instrument Used: 7mm curette Tissue Removed: Subcutaneous tissue and slough into the muscle. Severity: Fat Layer Exposed Amount of bleeding with debridement: Mild Bleeding Controlled with: Pressure Patient tolerated procedure: Patient tolerated procedure well Assessment/Plan Assessment/Plan (1) Open wound of sacroiliac region with complication: CODE(S): S31.000A - Unspecified open wound of lower back and pelvis without penetration into retroperitoneum, initial encounter QUALIFIERS: Encounter type: initial encounter Qualified Code(s): S31.000A - Unspecified open wound of lower back and pelvis without penetration into retroperitoneum, initial encounter (2) Hidradenitis suppurativa of anus: CODE(S): L73.2 - Hidradenitis suppurativa (3) Pilonidal cyst: CODE(S): L05.91 - Pilonidal cyst without abscess (4) Type 2 diabetes mellitus with diabetic polyneuropathy: CODE(S): E11.42 - Type 2 diabetes mellitus with diabetic polyneuropathy QUALIFIERS: Diabetes mellitus rn long term care insulin use: unspecified rn long term care insulin use status Qualified Code(s): E11.42 - Type 2 diabetes mellitus with diabetic polyneuropathy (5) Smoker: CODE(S): F17.200 - Nicotine dependence, unspecified, uncomplicated (6) Other acute postprocedural pain: CODE(S): G89.18 - Other acute postprocedural pain (7) Malnutrition: CODE(S): E46 - Unspecified protein-calorie malnutrition QUALIFIERS: Malnutrition type: protein-calorie malnutrition Protein-calorie malnutrition severity: moderate Qualified Code(s): E44.0 - Moderate protein-calorie malnutrition PLAN: Wound care - Wound VAC at 150 mmHg. The dressing will be changed three times per week. Continue Augmentin. Encouraged increase protein intake to help with wound healing. Prealbumin was 9.4 on 03/13/2021. Encouraged patient to stop smoking as it may have deleterious effects on wound healing. Follow up one week.
== END 2021-03-31 23:59 ==
LOC: WC 13:30
PROVIDERS: PCP Family Medicine; Visit Provider Nurse Practitioner Family
DX: L05.91 Pilonidal cyst without abscess (principal); L73.2 Hidradenitis suppurativa; I10 Essential (primary) hypertension; F17.210 Nicotine dependence, cigarettes, uncomplicated; E11.42 Type 2 diabetes mellitus with diabetic polyneuropathy; Z79.899 Other long term (current) drug therapy; S31.000A Unspecified open wound of lower back and pelvis without penetration into retroperitoneum, initial encounter; X58.XXXA Exposure to other specified factors, initial encounter
CPT/HCPCS: 11043; 11046; 97605; 97606; 99213; G0463

== ENCOUNTER 2021-04-30 14:00 | Outpatient (RCR) | payer MEDICARE, SELFPAY ==
[2021-04-01 00:38] VITALS: BP 98/60; PULSE 100; RESP 16; TEMP 36.3
[2021-04-02 14:02] VITALS: BP 108/70; PULSE 83; TEMP 36.2; BMI 26.7
--- NOTE | 2021-04-02 15:11 | PN.PCM_ITS ---
History of Present Illness Date of Service: 04/02/21 Chief Complaint: Sacral wound after excision of pilonidal cyst History of Wound: 75 year old man presents with persistent pain and intermittent drainage in his sacral area where a cyst was present. He also had issues with pain and intermittent drainage in his bilateral perianal and perineal areas but none at the present time. He denies fever. He denies trauma. He has intermittent drainage. He has never had surgery on his pilonidal cyst area. He has had antibiotics intermittently. He has diabetes mellitus and his last HgbA1c is in the 5 range according to the patient. Surgery 03/12/21 - Surgical preparation sacral area with excision complicated extensive pilonidal cyst. Wound care - Wound VAC at 150 mmHg. Home health with assist with the dressing changes 3 times per week. Operative cultures were positive for Proprionibacterium acnes and Corynebacterium amycolatum. The Doxycycline he was on was discontinued and he was started on Augmentin. Prealbumin 9.4 on 03/13/21. Today he denies fever, chills, nausea. States his appetite is ok. Progress of Wound: Improved Objective Data Objective Data Vital Signs: Vital Signs Temp Pulse Resp BP 97.2 F L 83 16 108/70 04/02/21 14:02 04/02/21 14:02 04/01/21 00:38 04/02/21 14:02 Weight: 197 lb Body Mass Index (BMI) 26.7 Charges/Coding Procedures Integumentary 111xxx-113xx: 15281 Global Visit Physical Exam Const alert and oriented x3 General Appearance: cooperative HEENT normocephalic Head and Scalp: atraumatic Eyes PERRL Lymph Lymphatic: no lymphedema noted Resp normal respiratory effort Cardio regular rate GI non-tender Palpation: soft Extremity normal capillary refill Skin Skin Narrative: Sacral ulcer is beefy pink. Granulation tissue visible. Periwound is clear. Neuro CN's II-XII intact bilaterally Psych Appearance: grossly normal Debridement Note Debridement Note Post-Debridement Measurements and Additional Note: Post-Debridement Measurements/Treatment PLACIDO - Nurse 1 - General Ulcer Assessment Start: 04/02/21 14:02 Freq: Status: Active Protocol: SUSY Activity Type Activity Date Activity User E-Sign Co-Sign Detail Recorded Client Recorded Date Recorded By Document 04/02/21 14:02 DL [id number] 04/02/21 14:15 DL 04/02/21 14:02 WC - Today's Visit Information Type of service Follow-up Visit (Physician/STUDIO ENGINEER ) Arrival Mode Ambulatory,Cane Patient Identification Verified (Name & Yes ) Height and Weight Body Mass Index (BMI) 26.7 BMI Classification Overweight Vital Signs Temperature (97.8 F-99.1 F) 97.2 F L Temperature Source Temporal Pulse Rate (60-100) 83 Pulse Location Monitor Blood Pressure (90/60-120/80) 108/70 Blood Pressure Mean (mm Hg) 82 Source Monitor History Since Last Visit- (Skip if this is Patient's initial visit) Have you changed medications since your No last visit? Any new allergies or adverse reactions No Had a fall/change in ADL's that may No increase risk of falls Signs or symptoms of abuse and/or No neglect since last visit Have you been in the hospital since your No last visit? Has dressing in place as prescribed Yes Has compression in place as prescribed N/A Has offloadiing in place as prescribed N/A Left Footwear Regular Shoe Right Footwear Regular Shoe Pain Scale: 0-10 Numeric Is Patient Pain Free? Yes - Nurse 1 - General Ulcer Measurement Start: 04/02/21 14:02 Freq: Status: Active Protocol: Activity Type Activity Date Activity User E-Sign Co-Sign Detail Recorded Client Recorded Date Recorded By Document 04/02/21 14:02 DL [id number] 04/02/21 14:15 04/02/21 14:02 Wound Center Nurse 1 #3 PILONIDAL POST OP -Combined with other wound No -Current Size (cm) - Length 7.7 -Current Size (cm) - Width 11.7 -Current Size (cm) - Depth 4 -Total Square Cm 90.09 -Photo Taken No -Epithelialization Medium 34-66% -Tunneling No -Undermining/Tunneling No -Exudate Amt Large -Exudate Type Serosanguineous -Wound Margin Distinct, Outline Attached -Granulation Amt Large (67-100%) -Granulation Quality Red -Slough/Fibrin No -Necrosis Amt None Present (0 %) -Texture (Sandi-wound Skin Appearance) Assessed, Scarring -Moisture (Sandi-wound Skin Appearance) No Abnormality, Assessed -Color (Sandi-wound Skin Appearance) No Abnormality, Assessed -Temperature (Sandi-wound Skin No Abnormality Appearance) (Pt Warm) -Tenderness on Palpation (Sandi-wound No Skin Appearance) -Ulcer Cleansing Rinsed/ Irrigated with Saline -Foul Odor after Cleansing No -Anesthetic Used 4% Lidocaine Solution - Nurse 2 - General Ulcer CM Notes Start: 04/02/21 14:02 Freq: Status: Active Protocol: Activity Type Activity Date Activity User E-Sign Co-Sign Detail Recorded Client Recorded Date Recorded By Document 04/02/21 14:32 ASHLEY [id number] 04/02/21 14:37 ASHLEY 04/02/21 14:32 Wound Center Nurse 2 -Time 14:34 -Correct Patient Yes -Correct Side, Site, Position Yes -Correct Procedure Yes -Procedure Performed Yes -Type of Procedure Debridement -Clinical Debridement Muscle / Fascia -Tissue Removed Muscle -Post Debridement (cm) - Length 8 -Post Debridement (cm) - Width 11.4 -Post Debridement (cm) - Depth 2.5 -Total Square (Post) (cm) 91.2 -Area of Debridement (cm) - Length 8 -Area of Debridement (cm) - Width 11.4 -Total Square (Area) (cm) 91.2 -Tunneling No -Undermining/Tunneling No -Circular Undermining No -Wound/Ulcer Outcome Not Healed -Ulcer Cleansing Rinsed/ Irrigated with Saline -Foul Odor after Cleansing No -Bioengineered Tissue No -Bleeding Controlled with Pressure -Offloading No -Treatment Response Procedure Tolerated Well -Debridement - Muscle / Fascia, 1st Yes 20sq cm -Debridement, Muscle/Fascia, ea addt'l 4 20sq cm or part thereof Pain Scale: 0-10 Numeric Is Patient Pain Free? Yes - Nurse 3 - General Ulcer D/C NN Start: 04/02/21 14:02 Freq: Status: Active Protocol: Activity Type Activity Date Activity User E-Sign Co-Sign Detail Recorded Client Recorded Date Recorded By Document 04/02/21 15:02 HARSHAL [id number] 04/02/21 15:07 HARSHAL 04/02/21 15:02 Wound Care Nurse 3 #3 PILONIDAL POST OP -Ulcer Cleansing Rinsed/ Irrigated with Saline -Foul Odor after Cleansing No -Other Dressing vac attached WC - Visit Discharge Discharge Condition Unstable Ambulatory Status Ambulatory, Walker Clinical Summary of Care Provided Yes Wound debrided: Sacral wound Laterality: Not Applicable Type of Debridement: Excisional debridement Anesthesia Used: 5% Lidocaine Gel Depth: Down to and including healthy tissue, in the subcutaneous layer and to muscle Percentage of wound debrided: 100 Instrument Used: 7mm curette Tissue Removed: Subcutaneous tissue and slough into the muscle Severity: Fat Layer Exposed Amount of bleeding with debridement: Mild Bleeding Controlled with: Pressure Patient tolerated procedure: Patient tolerated procedure well Assessment/Plan Assessment/Plan (1) Open wound of sacroiliac region with complication: CODE(S): S31.000A - Unspecified open wound of lower back and pelvis without penetration into retroperitoneum, initial encounter QUALIFIERS: Encounter type: initial encounter Qualified Code(s): S31.000A - Unspecified open wound of lower back and pelvis without penetration into retroperitoneum, initial encounter (2) Hidradenitis suppurativa of anus: CODE(S): L73.2 - Hidradenitis suppurativa (3) Pilonidal cyst: CODE(S): L05.91 - Pilonidal cyst without abscess (4) Type 2 diabetes mellitus with diabetic polyneuropathy: CODE(S): E11.42 - Type 2 diabetes mellitus with diabetic polyneuropathy QUALIFIERS: Diabetes mellitus senior living insulin use: unspecified senior living insulin use status Qualified Code(s): E11.42 - Type 2 diabetes mellitus with diabetic polyneuropathy (5) Other acute postprocedural pain: CODE(S): G89.18 - Other acute postprocedural pain (6) Malnutrition: CODE(S): E46 - Unspecified protein-calorie malnutrition QUALIFIERS: Malnutrition type: protein-calorie malnutrition Protein-calorie malnutrition severity: moderate Qualified Code(s): E44.0 - Moderate protein-calorie malnutrition PLAN: Wound care - Wound VAC at 150 mmHg. The dressing will be changed three times per week. Continue Augmentin. Encouraged increase protein intake to help with wound healing. Prealbumin was 9.4 on 03/13/2021. Encouraged patient to stop smoking as it may have deleterious effects on wound healing. Follow up two weeks.
[2021-04-16 14:04] VITALS: BP 125/79; PULSE 99; TEMP 36.1; BMI 26.7
--- NOTE | 2021-04-16 15:14 | PN.PCM_ITS ---
History of Present Illness Date of Service: 04/16/21 Chief Complaint: Sacral wound after excision of pilonidal cyst History of Wound: 75 year old man presents with persistent pain and intermittent drainage in his sacral area where a cyst was present. He also had issues with pain and intermittent drainage in his bilateral perianal and perineal areas but none at the present time. He denies fever. He denies trauma. He has intermittent drainage. He has never had surgery on his pilonidal cyst area. He has had antibiotics intermittently. He has diabetes mellitus and his last HgbA1c is in the 5 range according to the patient. Surgery 03/12/21 - Surgical preparation sacral area with excision complicated extensive pilonidal cyst. Wound care - Wound VAC at 150 mmHg. Vac holiday this week due to some matilde wound excoriation. Will do daily Aqucel- Ag covered by gauze or ABD daily after washi ng ulcer with soap and water. Operative cultures were positive for Proprionibacterium acnes and Corynebacterium amycolatum. The Doxycycline he was on was discontinued and he was started on Augmentin. Prealbumin 9.4 on 03/13/21. Today he denies fever, chills, nausea. States his appetite is ok. Progress of Wound: Improved Objective Data Objective Data Vital Signs: Vital Signs Temp Pulse Resp BP 96.9 F L 99 16 125/79 H 04/16/21 14:04 04/16/21 14:04 04/01/21 00:38 04/16/21 14:04 Weight: 197 lb Body Mass Index (BMI) 26.7 Charges/Coding Procedures Integumentary 111xxx-113xx: [id number] Global Visit Physical Exam Const alert and oriented x3 General Appearance: cooperative HEENT normocephalic Head and Scalp: atraumatic Eyes PERRL Lymph Lymphatic: no lymphedema noted Resp normal respiratory effort Cardio regular rate GI non-tender Palpation: soft Extremity normal capillary refill Skin Wound Narrative: Sacral ulcer is beefy pink. He has some mild excoriation of the matilde wound caused by removing tape. Neuro CN's II-XII intact bilaterally Psych Appearance: grossly normal Debridement Note Debridement Note Post-Debridement Measurements and Additional Note: Post-Debridement Measurements/Treatment WC - Nurse 1 - General Ulcer Assessment Start: 04/02/21 14:02 Freq: Status: Active Protocol: SUSY Activity Type Activity Date Activity User E-Sign Co-Sign Detail Recorded Client Recorded Date Recorded By Document 04/02/21 14:02 DL [id number] 04/02/21 14:15 DL Document 04/16/21 14:04 KR [id number] 04/16/21 14:21 KR 04/02/21 04/16/21 14:02 14:04 WC - Today's Visit Information Type of service Follow-up Visit Follow-up Visit (Physician/GENERAL LEDGER ACCOUNTANT (Physician/GENERAL LEDGER ACCOUNTANT ) ) Arrival Mode Ambulatory,Cane Ambulatory,Cane Patient Identification Verified (Name & Yes Yes ) Height and Weight Body Mass Index (BMI) 26.7 26.7 BMI Classification Overweight Overweight Vital Signs Temperature (97.8 F-99.1 F) 97.2 F L 96.9 F L Temperature Source Temporal Temporal Pulse Rate (60-100) 83 99 Pulse Location Monitor Monitor Blood Pressure (90/60-120/80) 108/70 125/79 H Blood Pressure Mean (mm Hg) 82 94 Source Monitor Monitor Position Semi-Fowlers Blood Pressure Location Right Arm History Since Last Visit- (Skip if this is Patient's initial visit) Have you changed medications since your No No last visit? Any new allergies or adverse reactions No No Had a fall/change in ADL's that may No No increase risk of falls Signs or symptoms of abuse and/or No No neglect since last visit Have you been in the hospital since your No No last visit? Has dressing in place as prescribed Yes Yes Has compression in place as prescribed N/A N/A Has offloadiing in place as prescribed N/A N/A Experienced any changes in pain level or No management Left Footwear Regular Shoe Regular Shoe Right Footwear Regular Shoe Regular Shoe Pain Scale: 0-10 Numeric Is Patient Pain Free? Yes Yes - Nurse 1 - General Ulcer Measurement Start: 04/02/21 14:02 Freq: Status: Active Protocol: Activity Type Activity Date Activity User E-Sign Co-Sign Detail Recorded Client Recorded Date Recorded By Document 04/02/21 14:02 DL [id number] 04/02/21 14:15 DL Document 04/16/21 14:04 KR [id number] 04/16/21 14:21 KR 08/02/21 08/16/21 14:02 14:04 Wound Center Nurse 1 #3 PILONIDAL POST OP -Combined with other wound No -Current Size (cm) - Length 7.7 6 -Current Size (cm) - Width 11.7 9 -Current Size (cm) - Depth 4 1.5 -Total Square Cm 90.09 54 -Photo Taken No -Epithelialization Medium 34-66% -Tunneling No -Undermining/Tunneling No -Exudate Amt Large Medium -Exudate Type Serosanguineous Serosanguineous -Wound Margin Distinct, Distinct, Outline Outline Attached Attached -Granulation Amt Large (67-100%) Large (67-100%) -Granulation Quality Red Red -Slough/Fibrin No -Necrosis Amt None Present (0 None Present (0 %) %) -Texture (Matilde-wound Skin Appearance) Assessed, Assessed,Not Scarring Assessed, Scarring -Moisture (Matilde-wound Skin Appearance) No Abnormality, Assessed -Color (Matilde-wound Skin Appearance) No Abnormality, No Abnormality, Assessed Assessed -Temperature (Matilde-wound Skin No Abnormality No Abnormality Appearance) (Pt Warm) (Pt Warm) -Tenderness on Palpation (Matilde-wound No No Skin Appearance) -Ulcer Cleansing Rinsed/ Rinsed/ Irrigated with Irrigated with Saline Saline -Foul Odor after Cleansing No No -Anesthetic Used 4% Lidocaine 5% Lidocaine Solution Gel - Nurse 2 - General Ulcer CM Notes Start: 04/02/21 14:02 Freq: Status: Active Protocol: Activity Type Activity Date Activity User E-Sign Co-Sign Detail Recorded Client Recorded Date Recorded By Document 04/02/21 14:32 [id number] 04/02/21 14:37 Document 04/16/21 14:26 [id number] 04/16/21 14:36 04/02/21 04/16/21 14:32 14:26 Wound Center Nurse 2 #3 PILONIDAL POST OP -Time 14:34 14:26 -Correct Patient Yes Yes -Correct Side, Site, Position Yes Yes -Correct Procedure Yes Yes -Procedure Performed Yes Yes -Type of Procedure Debridement Debridement -Clinical Debridement Muscle / Fascia Subcutaneous -Tissue Removed Muscle Subcutaneous -Post Debridement (cm) - Length 8 7 -Post Debridement (cm) - Width 11.4 10 -Post Debridement (cm) - Depth 2.5 0.8 -Total Square (Post) (cm) 91.2 70 -Area of Debridement (cm) - Length 8 7 -Area of Debridement (cm) - Width 11.4 10 -Total Square (Area) (cm) 91.2 70 -Tunneling No No -Undermining/Tunneling No No -Circular Undermining No No -Wound/Ulcer Outcome Not Healed Not Healed -Ulcer Cleansing Rinsed/ Rinsed/ Irrigated with Irrigated with Saline Saline -Foul Odor after Cleansing No No -Bioengineered Tissue No No -Bleeding Controlled with Pressure Pressure -Offloading No No -Treatment Response Procedure Procedure Tolerated Well Tolerated Well -Debridement - Subq, 1st 20sq cm Yes -Debridement, SubQ, ea addt'l 20sq cm 3 or part thereof -Debridement - Muscle / Fascia, 1st Yes 20sq cm -Debridement, Muscle/Fascia, ea addt'l 4 20sq cm or part thereof Pain Scale: 0-10 Numeric Is Patient Pain Free? Yes Yes WC - Nurse 3 - General Ulcer D/C NN Start: 04/02/21 14:02 Freq: Status: Active Protocol: Activity Type Activity Date Activity User E-Sign Co-Sign Detail Recorded Client Recorded Date Recorded By Document 04/02/21 15:02 AK [id number] 04/02/21 15:07 AK Edit Result 04/02/21 15:02 AK (1) [id number] 04/05/21 14:14 PL (1) #3 PILONIDAL POST OP - Negative Pressure Wound Therapy => Continue - Setting (mmHg) => 150 - Negative Pressure is => Continuous - NPWT Application Charge ($) => NPWT > 50 sq cm 04/02/21 15:02 Wound Care Nurse 3 #3 PILONIDAL POST OP -Ulcer Cleansing Rinsed/ Irrigated with Saline -Foul Odor after Cleansing No -Negative Pressure Wound Therapy Continue -Setting (mmHg) 150 -Negative Pressure is Continuous -Other Dressing vac attached -NPWT Application Charge ($) NPWT > 50 sq cm WC - Visit Discharge Discharge Condition Unstable Ambulatory Status Ambulatory, Walker Clinical Summary of Care Provided Yes Wound debrided: Sacral ulcer Type of Debridement: Excisional debridement Anesthesia Used: 5% Lidocaine Gel Depth: Down to and including healthy tissue and in the subcutaneous layer Percentage of wound debrided: 100 Instrument Used: 7mm curette Tissue Removed: Subcutaneous tissue and slough Severity: Fat Layer Exposed Amount of bleeding with debridement: Mild Bleeding Controlled with: Pressure and Compression and gauze Patient tolerated procedure: Patient tolerated procedure well Assessment/Plan Assessment/Plan (1) Ulcer of sacral region: CODE(S): L98.429 - Non-pressure chronic ulcer of back with unspecified severity (2) Type 2 diabetes mellitus with diabetic polyneuropathy: CODE(S): E11.42 - Type 2 diabetes mellitus with diabetic polyneuropathy QUALIFIERS: Diabetes mellitus fpc insulin use: unspecified middle or intermediate school principal insulin use status Qualified Code(s): E11.42 - Type 2 diabetes mellitus with diabetic polyneuropathy (3) Hidradenitis suppurativa of anus: CODE(S): L73.2 - Hidradenitis suppurativa (4) Pilonidal cyst: CODE(S): L05.91 - Pilonidal cyst without abscess (5) Smoker: CODE(S): F17.200 - Nicotine dependence, unspecified, uncomplicated PLAN: Wound care - Wound VAC holiday for one week. Will do daily Aquacel- Ag dressing changes covered by gauze. He may shower daily. Taking a break from the wound VAC to help clear up his periwound area. Will have home health restart his wound VAC on Friday04/23/21. Completed Augmentin. Encouraged increase protein intake to help with wound healing. Prealbumin was 9.4 on 03/13/2021. Encouraged patient to stop smoking as it may have deleterious effects on wound healing. Follow up two weeks.
[2021-04-30 13:57] VITALS: BP 114/81; PULSE 94; RESP 20; TEMP 36.4; BMI 26.7
--- NOTE | 2021-04-30 15:12 | PCM.WC.PN ---
History of Present Illness Date of Service: 04/30/21 Chief Complaint: Sacral wound after excision of pilonidal cyst History of Wound: 75 year old man presents with persistent pain and intermittent drainage in his sacral area where a cyst was present. He also had issues with pain and intermittent drainage in his bilateral perianal and perineal areas but none at the present time. He denies fever. He denies trauma. He has intermittent drainage. He has never had surgery on his pilonidal cyst area. He has had antibiotics intermittently. He has diabetes mellitus and his last HgbA1c is in the 5 range according to the patient. Surgery 03/12/21 - Surgical preparation sacral area with excision complicated extensive pilonidal cyst. Wound care - Stop the Wound VAC and start Dakin's 0.25% moistened gauze covered with ABD daily and as needed. Operative cultures were positive for Proprionibacterium acnes and Corynebacterium amycolatum. The Doxycycline he was on was discontinued and he was started on Augmentin. Prealbumin 9.4 on 03/13/21. Today he denies fever, chills, nausea. States his appetite is ok. Progress of Wound: Improved Objective Data Objective Data Vital Signs: Vital Signs Temp Pulse Resp BP 97.5 F L 94 20 H 114/81 H 04/30/21 13:57 04/30/21 13:57 04/30/21 13:57 04/30/21 13:57 Weight: 197 lb Body Mass Index (BMI) 26.7 Charges/Coding Procedures Integumentary 111xxx-113xx: 24681 Global Visit Physical Exam Const alert and oriented x3 General Appearance: cooperative HEENT normocephalic Head and Scalp: atraumatic Eyes PERRL Lymph Lymphatic: no lymphedema noted Resp normal respiratory effort Cardio regular rate GI non-tender Palpation: soft Extremity normal capillary refill Skin Wound Narrative: Sacral ulcer is beefy pink and depth is decreasing. It is no longer into the muscle but it is full thickness. Granulation tissue present. Stage IV ulcer. Periwound is clean and dry. Neuro CN's II-XII intact bilaterally Psych Appearance: grossly normal Debridement Note Debridement Note Post-Debridement Measurements and Additional Note: Post-Debridement Measurements/Treatment PLACIDO - Nurse 1 - General Ulcer Assessment Start: 04/02/21 14:02 Freq: Status: Active Protocol: PLACIDO.LOWEXT Activity Type Activity Date Activity User E-Sign Co-Sign Detail Recorded Client Recorded Date Recorded By Document 04/02/21 14:02 DL [id number] 04/02/21 14:15 DL Document 04/16/21 14:04 KR [id number] 04/16/21 14:21 KR Document 04/30/21 13:57 DL [id number] 04/30/21 14:04 DL 04/02/21 04/16/21 04/30/21 14:02 14:04 13:57 WC - Today's Visit Information Type of service Follow-up Visit Follow-up Visit Follow-up Visit (Physician/FIRE INFORMATION OFFICER (Physician/FIRE INFORMATION OFFICER (Physician/FIRE INFORMATION OFFICER ) ) ) Arrival Mode Ambulatory,Cane Ambulatory,Cane Ambulatory Transfer Assistance None Patient Identification Verified (Name & Yes Yes Yes ) Patient Requires Transmission-Based No Precautions Finger Stick Blood Sugar(mg/dl) (if not checked indicated): Blood Sugar Stated by Patient Height and Weight Body Mass Index (BMI) 26.7 26.7 26.7 BMI Classification Overweight Overweight Overweight Vital Signs Temperature (97.8 F-99.1 F) 97.2 F L 96.9 F L 97.5 F L Temperature Source Temporal Temporal Temporal Pulse Rate (60-100) 83 99 94 Pulse Location Monitor Monitor Monitor Respiratory Rate (12-18) 20 H Respiratory rate source Observation Blood Pressure (90/60-120/80) 108/70 125/79 H 114/81 H Blood Pressure Mean (mm Hg) 82 94 92 Source Monitor Monitor Monitor Position Semi-Fowlers Blood Pressure Location Right Arm History Since Last Visit- (Skip if this is Patient's initial visit) Have you changed medications since your No No No last visit? Any new allergies or adverse reactions No No No Had a fall/change in ADL's that may No No No increase risk of falls Signs or symptoms of abuse and/or No No No neglect since last visit Have you been in the hospital since your No No No last visit? Has dressing in place as prescribed Yes Yes Yes Has compression in place as prescribed N/A N/A N/A Has offloadiing in place as prescribed N/A N/A Yes Experienced any changes in pain level or No No management Left Footwear Regular Shoe Regular Shoe Right Footwear Regular Shoe Regular Shoe Pain Scale: 0-10 Numeric Is Patient Pain Free? Yes Yes Yes WC - Nurse 1 - General Ulcer Measurement Start: 04/02/21 14:02 Freq: Status: Active Protocol: Activity Type Activity Date Activity User E-Sign Co-Sign Detail Recorded Client Recorded Date Recorded By Document 04/02/21 14:02 DL [id number] 04/02/21 14:15 DL Document 04/16/21 14:04 KR [id number] 04/16/21 14:21 KR Document 04/30/21 13:57 DL [id number] 04/30/21 14:04 DL 04/02/21 04/16/21 04/30/21 14:02 14:04 13:57 Wound Center Nurse 1 #3 PILONIDAL POST OP -Combined with other wound No -Current Size (cm) - Length 7.7 6 5.7 -Current Size (cm) - Width 11.7 9 8 -Current Size (cm) - Depth 4 1.5 0.8 -Total Square Cm 90.09 54 45.6 -Photo Taken No No -Epithelialization Medium 34-66% -Tunneling No -Undermining/Tunneling No -Exudate Amt Large Medium Medium -Exudate Type Serosanguineous Serosanguineous Serosanguineous -Wound Margin Distinct, Distinct, Thickened & Outline Outline Rolled Under Attached Attached -Granulation Amt Large (67-100%) Large (67-100%) Large (67-100%) -Granulation Quality Red Red [place],Red -Slough/Fibrin No -Necrosis Amt None Present (0 None Present (0 Small (1-33%) %) %) -Necrotic Tissue Type Adherent Slough -Structure Exposed N/A -Texture (Snadi-wound Skin Appearance) Assessed, Assessed,Not Scarring Scarring Assessed, Scarring -Moisture (Sandi-wound Skin Appearance) No Abnormality, No Abnormality Assessed -Color (Sandi-wound Skin Appearance) No Abnormality, No Abnormality, No Abnormality Assessed Assessed -Temperature (Sandi-wound Skin No Abnormality No Abnormality No Abnormality Appearance) (Pt Warm) (Pt Warm) (Pt Warm) -Tenderness on Palpation (Sandi-wound No No No Skin Appearance) -Ulcer Cleansing Rinsed/ Rinsed/ Wound Cleanser Irrigated with Irrigated with Saline Saline -Foul Odor after Cleansing No No Yes, Due to Product Use -Anesthetic Used 4% Lidocaine 5% Lidocaine 4% Lidocaine Solution Gel Solution - Nurse 2 - General Ulcer CM Notes Start: 04/02/21 14:02 Freq: Status: Active Protocol: Activity Type Activity Date Activity User E-Sign Co-Sign Detail Recorded Client Recorded Date Recorded By Document 04/02/21 14:32 [id number] 04/02/21 14:37 Document 04/16/21 14:26 [id number] 04/16/21 14:36 Document 04/30/21 14:19 [id number] 04/30/21 14:21 04/02/21 04/16/21 04/30/21 14:32 14:26 14:19 Wound Center Nurse 2 #3 PILONIDAL POST OP -Time 14:34 14:26 14:19 -Correct Patient Yes Yes Yes -Correct Side, Site, Position Yes Yes Yes -Correct Procedure Yes Yes Yes -Procedure Performed Yes Yes Yes -Type of Procedure Debridement Debridement Incision & Drainage -Clinical Debridement Muscle / Fascia Subcutaneous Subcutaneous -Tissue Removed Muscle Subcutaneous Subcutaneous -Post Debridement (cm) - Length 8 7 5.2 -Post Debridement (cm) - Width 11.4 10 7.2 -Post Debridement (cm) - Depth 2.5 0.8 0.5 -Total Square (Post) (cm) 91.2 70 37.44 -Area of Debridement (cm) - Length 8 7 5.2 -Area of Debridement (cm) - Width 11.4 10 7.2 -Total Square (Area) (cm) 91.2 70 37.44 -Tunneling No No No -Undermining/Tunneling No No No -Circular Undermining No No No -Wound/Ulcer Outcome Not Healed Not Healed Not Healed -Ulcer Cleansing Rinsed/ Rinsed/ Rinsed/ Irrigated with Irrigated with Irrigated with Saline Saline Saline -Foul Odor after Cleansing No No No -Bioengineered Tissue No No No -Bleeding Controlled with Pressure Pressure Pressure -Offloading No No No -Treatment Response Procedure Procedure Procedure Tolerated Well Tolerated Well Tolerated Well -Debridement - Subq, 1st 20sq cm Yes Yes -Debridement, SubQ, ea addt'l 20sq cm 3 1 or part thereof -Debridement - Muscle / Fascia, 1st Yes 20sq cm -Debridement, Muscle/Fascia, ea addt'l 4 20sq cm or part thereof Pain Scale: 0-10 Numeric Is Patient Pain Free? Yes Yes Yes - Nurse 3 - General Ulcer D/C NN Start: 04/02/21 14:02 Freq: Status: Active Protocol: Activity Type Activity Date Activity User E-Sign Co-Sign Detail Recorded Client Recorded Date Recorded By Document 04/02/21 15:02 AK [id number] 04/02/21 15:07 AK Edit Result 04/02/21 15:02 AK (1) [id number] 04/05/21 14:14 PL Document 04/16/21 15:14 AK [id number] 04/16/21 15:15 AK (1) #3 PILONIDAL POST OP - Negative Pressure Wound Therapy => Continue - Setting (mmHg) => 150 - Negative Pressure is => Continuous - NPWT Application Charge ($) => NPWT > 50 sq cm 04/02/21 04/16/21 15:02 15:14 Wound Care Nurse 3 #3 PILONIDAL POST OP -Ulcer Cleansing Rinsed/ Rinsed/ Irrigated with Irrigated with Saline Saline -Foul Odor after Cleansing No No -Negative Pressure Wound Therapy Continue N/A -Setting (mmHg) 150 -Negative Pressure is Continuous -Primary Dressing Applied Aquacel AG 4x4 -Other Dressing vac attached -Primary Dressing Covered/Secured with Dry Gauze, Secured with Tape -Other Covering ABD -NPWT Application Charge ($) NPWT > 50 sq cm -Aquacel AG 4x4 2 WC - Visit Discharge Discharge Condition Unstable Stable Ambulatory Status Ambulatory, Ambulatory,Cane Walker Transportation Private Auto Accompanied by & nurse Clinical Summary of Care Provided Yes Yes Wound debrided: Sacral ulcer Laterality: Not Applicable Wound Grade/Stage: Stage IV Type of Debridement: Excisional debridement Anesthesia Used: 5% Lidocaine Gel Depth: Down to and including healthy tissue and in the subcutaneous layer Percentage of wound debrided: 100 Instrument Used: 7mm curette Tissue Removed: Subcutaneous tissue and slough Severity: Fat Layer Exposed Amount of bleeding with debridement: Mild Bleeding Controlled with: Pressure Patient tolerated procedure: Patient tolerated procedure well Assessment/Plan Assessment/Plan (1) Ulcer of sacral region: CODE(S): L98.429 - Non-pressure chronic ulcer of back with unspecified severity (2) Type 2 diabetes mellitus with diabetic polyneuropathy: CODE(S): E11.42 - Type 2 diabetes mellitus with diabetic polyneuropathy QUALIFIERS: Diabetes mellitus terminal operator insulin use: unspecified mcc insulin use status Qualified Code(s): E11.42 - Type 2 diabetes mellitus with diabetic polyneuropathy (3) Pilonidal cyst: CODE(S): L05.91 - Pilonidal cyst without abscess (4) Hidradenitis suppurativa of anus: CODE(S): L73.2 - Hidradenitis suppurativa (5) Smoker: CODE(S): F17.200 - Nicotine dependence, unspecified, uncomplicated PLAN: Wound care - Discontinue the Wound VAC. Will start daily Dakin's 0.25 % moistened gauze covered by gauze/ABD. Will do daily and PRN. Completed Augmentin. Encouraged increase protein intake to help with wound healing. Prealbumin was 9.4 on 03/13/2021. Encouraged patient to stop smoking as it may have deleterious effects on wound healing. Follow up two weeks
== END 2021-05-01 23:59 ==
LOC: WC 14:00
PROVIDERS: PCP Family Medicine; Visit Provider Nurse Practitioner Family
DX: L05.91 Pilonidal cyst without abscess (principal); E11.42 Type 2 diabetes mellitus with diabetic polyneuropathy; S31.000A Unspecified open wound of lower back and pelvis without penetration into retroperitoneum, initial encounter; X58.XXXA Exposure to other specified factors, initial encounter; L73.2 Hidradenitis suppurativa; E44.0 Moderate protein-calorie malnutrition; S30.810A Abrasion of lower back and pelvis, initial encounter; L98.422 Non-pressure chronic ulcer of back with fat layer exposed; F17.200 Nicotine dependence, unspecified, uncomplicated
CPT/HCPCS: 11042; 11043; 11045; 11046; 97606

== ENCOUNTER 2021-05-21 14:23 | Outpatient (RCR) | payer MEDICARE, SELFPAY ==
[2021-05-02 00:40] VITALS: BP 114/81; PULSE 94; RESP 20; TEMP 36.4; BMI 26.7
[2021-05-21 14:18] VITALS: BP 146/89; PULSE 99; RESP 16; TEMP 36.3; BMI 26.7
[2021-05-21 14:55] VITALS: BMI 26.7
--- NOTE | 2021-05-21 15:28 | PN.PCM_ITS ---
History of Present Illness Date of Service: 05/21/21 Chief Complaint: Sacral wound after excision of pilonidal cyst History of Wound: 75 year old man presents with persistent pain and intermittent drainage in his sacral area where a cyst was present. He also had issues with pain and intermittent drainage in his bilateral perianal and perineal areas but none at the present time. He denies fever. He denies trauma. He has intermittent drainage. He has never had surgery on his pilonidal cyst area. He has had antibiotics intermittently. He has diabetes mellitus and his last HgbA1c is in the 5 range according to the patient. Surgery 03/12/21 - Surgical preparation sacral area with excision complicated extensive pilonidal cyst. Wound care - Discontinue wound VAC. Daily Dakins 0.25% moistened covered by ABD daily after washing ulcer with soap and water. Operative cultures were positive for Proprionibacterium acnes and Corynebacterium amycolatum. The Doxycycline he was on was discontinued and he was started on Augmentin. Prealbumin 9.4 on 03/13/21. Today he denies fever, chills, nausea. States his appetite is ok. Progress of Wound: Improved ulcer. Objective Data Objective Data Vital Signs: Vital Signs Temp Pulse Resp BP 97.4 F L 99 16 146/89 H 05/21/21 14:18 05/21/21 14:18 05/21/21 14:18 05/21/21 14:18 Oxygen Delivery Method Room Air Weight: 197 lb Body Mass Index (BMI) 26.7 Charges/Coding Procedures Integumentary 111xxx-113xx: 21561 Global Visit Physical Exam Const alert and oriented x3 General Appearance: cooperative HEENT normocephalic Eyes PERRL Resp normal respiratory effort Cardio regular rate GI non-tender Palpation: soft Extremity normal capillary refill Skin Wound Narrative: Coccyx ulcer is beefy pink and improving in size. Neuro CN's II-XII intact bilaterally Psych Appearance: grossly normal Debridement Note Debridement Note Wound debrided: Sacral ulcer Laterality: Not Applicable Type of Debridement: Excisional debridement Anesthesia Used: 5% Lidocaine Gel Depth: Down to and including healthy tissue and in the subcutaneous layer Percentage of wound debrided: 100 Instrument Used: 5mm curette Tissue Removed: Subcutaneous tissue and slough Severity: Limited To Skin Breakdown Amount of bleeding with debridement: Mild Bleeding Controlled with: Pressure Patient tolerated procedure: Patient tolerated procedure well Post-Debridement Measurements and Additional Note: Post-Debridement Measurements/Treatment WC - Nurse 1 - General Ulcer Assessment Start: 05/21/21 14:17 Freq: Status: Active Protocol: SUSY Activity Type Activity Date Activity User E-Sign Co-Sign Detail Recorded Client Recorded Date Recorded By Document 05/21/21 14:18 [facility] [id number] 05/21/21 14:24 [facility] Document 05/21/21 14:55 CT [id number] 05/21/21 14:56 CT 05/21/21 05/21/21 14:18 14:55 WC - Today's Visit Information Type of service Follow-up Visit Follow-up Visit (Physician/AGRICULTURE EXTENSION SPECIALIST (Physician/AGRICULTURE EXTENSION SPECIALIST ) ) Arrival Mode Ambulatory Ambulatory, Walker Transfer Assistance None Accompanied by Patient Identification Verified (Name & Yes Yes ) Patient Requires Transmission-Based No No Precautions Safety Precautions NA Height and Weight Body Mass Index (BMI) 26.7 26.7 BMI Classification Overweight Overweight Vital Signs Temperature (97.8 F-99.1 F) 97.4 F L Temperature Source Temporal Pulse Rate (60-100) 99 Pulse Location Monitor Respiratory Rate (12-18) 16 Respiratory rate source Observation Oxygen Delivery Method Room Air Blood Pressure (90/60-120/80) 146/89 H Blood Pressure Mean (mm Hg) 108 Source Monitor Position Sitting Blood Pressure Location Left Arm History Since Last Visit- (Skip if this is Patient's initial visit) Have you changed medications since your Yes No last visit? Any new allergies or adverse reactions No No Had a fall/change in ADL's that may No No increase risk of falls Signs or symptoms of abuse and/or No No neglect since last visit Have you been in the hospital since your Yes No last visit? Has dressing in place as prescribed Yes Yes Has compression in place as prescribed N/A N/A Has offloadiing in place as prescribed N/A Yes Experienced any changes in pain level or No No management Left Footwear Diabetic Shoe Regular Shoe Right Footwear Diabetic Shoe Regular Shoe Pain Scale: 0-10 Numeric Is Patient Pain Free? Yes PLACIDO - Nurse 1 - General Ulcer Measurement Start: 05/21/21 14:17 Freq: Status: Active Protocol: Activity Type Activity Date Activity User E-Sign Co-Sign Detail Recorded Client Recorded Date Recorded By Document 05/21/21 14:18 [facility] [id number] 05/21/21 14:24 [facility] 05/21/21 14:18 Wound Center Nurse 1 #3 PILONIDAL POST OP -Combined with other wound No -Current Size (cm) - Length 4.8 -Current Size (cm) - Width 7 -Current Size (cm) - Depth 2.2 -Total Square Cm 33.6 -Epithelialization Small 1-33% -Tunneling No -Undermining/Tunneling No -Exudate Amt Medium -Exudate Type Serosanguineous -Wound Margin Distinct, Outline Attached -Granulation Amt Large (67-100%) -Granulation Quality Pale,Red -Slough/Fibrin Yes -Necrosis Amt Small (1-33%) -Necrotic Tissue Type Adherent Slough -Texture (Sandi-wound Skin Appearance) Assessed, Scarring -Moisture (Sandi-wound Skin Appearance) Assessed -Color (Sandi-wound Skin Appearance) Assessed -Temperature (Sandi-wound Skin No Abnormality Appearance) (Pt Warm) -Tenderness on Palpation (Sandi-wound No Skin Appearance) -Ulcer Cleansing Rinsed/ Irrigated with Saline -Foul Odor after Cleansing No -Anesthetic Used 4% Lidocaine Solution WC - Nurse 2 - General Ulcer CM Notes Start: 05/21/21 14:17 Freq: Status: Active Protocol: Activity Type Activity Date Activity User E-Sign Co-Sign Detail Recorded Client Recorded Date Recorded By Document 05/21/21 14:45 [id number] 05/21/21 14:46 05/21/21 14:45 Wound Center Nurse 2 -Time 14:45 -Correct Patient Yes -Correct Side, Site, Position Yes -Correct Procedure Yes -Procedure Performed Yes -Type of Procedure Debridement -Clinical Debridement Subcutaneous -Tissue Removed Subcutaneous -Post Debridement (cm) - Length 4 -Post Debridement (cm) - Width 5.5 -Post Debridement (cm) - Depth 0.5 -Total Square (Post) (cm) 22.0 -Area of Debridement (cm) - Length 4 -Area of Debridement (cm) - Width 5.5 -Total Square (Area) (cm) 22.0 -Tunneling No -Undermining/Tunneling No -Circular Undermining No -Wound/Ulcer Outcome Not Healed -Ulcer Cleansing Rinsed/ Irrigated with Saline -Foul Odor after Cleansing No -Bioengineered Tissue No -Bleeding Controlled with Pressure -Offloading No -Treatment Response Procedure Tolerated Well -Debridement - Subq, 1st 20sq cm Yes -Debridement, SubQ, ea addt'l 20sq cm 1 or part thereof Pain Scale: 0-10 Numeric Is Patient Pain Free? Yes - Nurse 3 - General Ulcer D/C NN Start: 05/21/21 14:17 Freq: Status: Active Protocol: Activity Type Activity Date Activity User E-Sign Co-Sign Detail Recorded Client Recorded Date Recorded By Document 05/21/21 14:56 HARSHAL [id number] 05/21/21 14:57 HARSHAL 05/21/21 14:56 Wound Care Nurse 3 #3 PILONIDAL POST OP -Ulcer Cleansing Rinsed/ Irrigated with Saline -Foul Odor after Cleansing No -Negative Pressure Wound Therapy N/A -Primary Dressing Covered/Secured with Dry Gauze, Secured with Tape WC - Visit Discharge Discharge Condition Stable Ambulatory Status Ambulatory, Walker Transportation Private Auto Accompanied by Medication Reconcilliation completed & No provided to patient/care provider Clinical Summary of Care Provided Yes Assessment/Plan Assessment/Plan (1) Ulcer of sacral region: CODE(S): L98.429 - Non-pressure chronic ulcer of back with unspecified severity (2) Malnutrition: CODE(S): E46 - Unspecified protein-calorie malnutrition QUALIFIERS: Malnutrition type: protein-calorie malnutrition Protein-calorie malnutrition severity: moderate Qualified Code(s): E44.0 - Moderate protein-calorie malnutrition (3) Type 2 diabetes mellitus with diabetic polyneuropathy: CODE(S): E11.42 - Type 2 diabetes mellitus with diabetic polyneuropathy QUALIFIERS: Diabetes mellitus nursing home insulin use: unspecified nursing home insulin use status Qualified Code(s): E11.42 - Type 2 diabetes mellitus with diabetic polyneuropathy (4) Pilonidal cyst: CODE(S): L05.91 - Pilonidal cyst without abscess (5) Hidradenitis suppurativa of anus: CODE(S): L73.2 - Hidradenitis suppurativa (6) Smoker: CODE(S): F17.200 - Nicotine dependence, unspecified, uncomplicated PLAN: Wound care - Daily Dakin's 0.25 % moistened gauze covered by gauze/ABD. Will do daily and PRN. Today will place Aquacel-ag covered with gauze since they didn't bring his Dakin's with them. Completed Augmentin. Encouraged increase protein intake to help with wound healing. Prealbumin was 9.4 on 03/13/2021. Encouraged patient to stop smoking as it may have deleterious effects on wound healing. Follow up two weeks
== END 2021-05-31 23:59 ==
LOC: WC 14:23
PROVIDERS: PCP Family Medicine; Visit Provider Nurse Practitioner Family
DX: L05.91 Pilonidal cyst without abscess (principal); E11.42 Type 2 diabetes mellitus with diabetic polyneuropathy; L98.421 Non-pressure chronic ulcer of back limited to breakdown of skin; E11.622 Type 2 diabetes mellitus with other skin ulcer; L73.2 Hidradenitis suppurativa; F17.200 Nicotine dependence, unspecified, uncomplicated
CPT/HCPCS: 11042; 11045

== ENCOUNTER 2021-06-18 14:00 | Outpatient (RCR) | payer MEDICARE, SELFPAY ==
[2021-06-01 00:30] VITALS: BP 146/89; PULSE 99; RESP 16; TEMP 36.3; BMI 26.7
[2021-06-04 14:04] VITALS: BP 134/77; PULSE 94; TEMP 35.8; BMI 26.7
--- NOTE | 2021-06-04 15:06 | PCM.WC.PN ---
History of Present Illness Date of Service: 06/04/21 Chief Complaint: Sacral wound after excision of pilonidal cyst History of Wound: 75 year old man presents with persistent pain and intermittent drainage in his sacral area where a cyst was present. He also had issues with pain and intermittent drainage in his bilateral perianal and perineal areas but none at the present time. He denies fever. He denies trauma. He has intermittent drainage. He has never had surgery on his pilonidal cyst area. He has had antibiotics intermittently. He has diabetes mellitus and his last HgbA1c is in the 5 range according to the patient. Surgery 03/12/21 - Surgical preparation sacral area with excision complicated extensive pilonidal cyst. Wound care - Stop dakins and start Jannet covered with foam silicone boarder daily or every other day. Operative cultures were positive for Proprionibacterium acnes and Corynebacterium amycolatum. The Doxycycline he was on was discontinued and he was started on Augmentin. Prealbumin 9.4 on 03/13/21. Today he denies fever, chills, nausea. States his appetite is ok. Progress of Wound: Improved. Objective Data Objective Data Vital Signs: Vital Signs Temp Pulse Resp BP 96.5 F L 94 16 134/77 H 06/04/21 14:04 06/04/21 14:04 06/01/21 00:30 06/04/21 14:04 Weight: 197 lb Body Mass Index (BMI) 26.7 Charges/Coding Procedures Integumentary 111xxx-113xx: 61499 Global Visit Physical Exam Const alert and oriented x3 General Appearance: cooperative HEENT normocephalic Resp normal respiratory effort Cardio regular rate GI non-tender Palpation: soft Extremity normal capillary refill Skin Wound Narrative: Sacral ulcer is beefy pink and improving in size. Neuro CN's II-XII intact bilaterally Psych Appearance: grossly normal Debridement Note Debridement Note Wound debrided: Sacral ulcer Laterality: Not Applicable Type of Debridement: Excisional debridement Anesthesia Used: 5% Lidocaine Gel Depth: Down to and including healthy tissue and in the subcutaneous layer Percentage of wound debrided: 100 Instrument Used: 5mm curette Tissue Removed: Subcutaneous tissue and slough Severity: Fat Layer Exposed Amount of bleeding with debridement: Mild Bleeding Controlled with: Pressure Patient tolerated procedure: Patient tolerated procedure well Post-Debridement Measurements and Additional Note: Post-Debridement Measurements/Treatment - Nurse 1 - General Ulcer Assessment Start: 06/04/21 14:03 Freq: Status: Active Protocol: SUSY Activity Type Activity Date Activity User E-Sign Co-Sign Detail Recorded Client Recorded Date Recorded By Document 06/04/21 14:04 HARSHAL [id number] 06/04/21 14:11 HARSHAL 06/04/21 14:04 WC - Today's Visit Information Type of service 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-up Visit (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 ) Arrival Mode Ambulatory, Walker Patient Identification Verified (Name & Yes ) Patient Requires Transmission-Based No Precautions Safety Precautions NA Finger Stick Blood Sugar(mg/dl) (if 102 indicated): Height and Weight Body Mass Index (BMI) 26.7 BMI Classification Overweight Vital Signs Temperature (97.8 F-99.1 F) 96.5 F L Temperature Source Temporal Pulse Rate (60-100) 94 Pulse Location Monitor Blood Pressure (90/60-120/80) 134/77 H Blood Pressure Mean (mm Hg) 96 Source Monitor History Since Last Visit- (Skip if this is Patient's initial visit) Have you changed medications since your No last visit? Any new allergies or adverse reactions No Had a fall/change in ADL's that may No increase risk of falls Signs or symptoms of abuse and/or No neglect since last visit Have you been in the hospital since your No last visit? Has dressing in place as prescribed Yes Has compression in place as prescribed N/A Has offloadiing in place as prescribed Yes Experienced any changes in pain level or No management Left Footwear Regular Shoe Right Footwear Regular Shoe - Nurse 1 - General Ulcer Measurement Start: 06/04/21 14:03 Freq: Status: Active Protocol: Activity Type Activity Date Activity User E-Sign Co-Sign Detail Recorded Client Recorded Date Recorded By Document 06/04/21 14:04 HARSHAL [id number] 06/04/21 14:11 HARSHAL 06/04/21 14:04 Wound Center Nurse 1 #3 PILONIDAL POST OP -Combined with other wound No -Current Size (cm) - Length 3 -Current Size (cm) - Width 4 -Current Size (cm) - Depth 2.8 -Total Square Cm 12 -Photo Taken No -Epithelialization Medium 34-66% -Tunneling No -Undermining/Tunneling No -Circular Undermining No -Classification - Thickness Full Thickness with Exposed Support Structure -Exudate Amt Medium -Exudate Type Serosanguineous -Wound Margin Distinct, Outline Attached -Granulation Amt Medium (34-66%) -Granulation Quality [place],Red -Slough/Fibrin Yes -Necrosis Amt Medium (34-66%) -Structure Exposed N/A -Texture (Sandi-wound Skin Appearance) No Abnormality, Assessed -Moisture (Sandi-wound Skin Appearance) No Abnormality, Assessed -Color (Sandi-wound Skin Appearance) No Abnormality, Assessed -Temperature (Sandi-wound Skin No Abnormality Appearance) (Pt Warm) -Tenderness on Palpation (Sandi-wound No Skin Appearance) -Ulcer Cleansing Soap and Water -Foul Odor after Cleansing No -Anesthetic Used 4% Lidocaine Solution PLACIDO - Nurse 2 - General Ulcer CM Notes Start: 06/04/21 14:03 Freq: Status: Active Protocol: Activity Type Activity Date Activity User E-Sign Co-Sign Detail Recorded Client Recorded Date Recorded By Document 06/04/21 14:40 ASHLEY [id number] 06/04/21 14:43 ASHLEY 06/04/21 14:40 Wound Center Nurse 2 -Time 14:40 -Correct Patient Yes -Correct Side, Site, Position Yes -Correct Procedure Yes -Procedure Performed Yes -Type of Procedure Debridement -Clinical Debridement Subcutaneous -Tissue Removed Subcutaneous -Post Debridement (cm) - Length 2.8 -Post Debridement (cm) - Width 4.3 -Post Debridement (cm) - Depth 0.3 -Total Square (Post) (cm) 12.04 -Area of Debridement (cm) - Length 2.8 -Area of Debridement (cm) - Width 4.3 -Total Square (Area) (cm) 12.04 -Tunneling No -Undermining/Tunneling No -Circular Undermining No -Wound/Ulcer Outcome Not Healed -Ulcer Cleansing Rinsed/ Irrigated with Saline -Foul Odor after Cleansing No -Bioengineered Tissue No -Bleeding Controlled with Pressure -Offloading No -Treatment Response Procedure Tolerated Well -Debridement - Subq, 1st 20sq cm Yes Pain Scale: 0-10 Numeric Is Patient Pain Free? Yes PLACIDO - Nurse 3 - General Ulcer D/C NN Start: 06/04/21 14:03 Freq: Status: Active Protocol: Activity Type Activity Date Activity User E-Sign Co-Sign Detail Recorded Client Recorded Date Recorded By Document 06/04/21 14:47 [id number] 06/04/21 14:47 JF 06/04/21 14:47 Wound Care Nurse 3 #3 PILONIDAL POST OP -Ulcer Cleansing Rinsed/ Irrigated with Saline -Foul Odor after Cleansing No -Primary Dressing Applied Mepilex Border, Promogran Jannet Matter -Mepilex Border 1 -Promogran Jannet Matter 1 Pain Scale: 0-10 Numeric Is Patient Pain Free? Yes WC - Visit Discharge Discharge Condition Stable Ambulatory Status Ambulatory, Walker Transportation Private Auto Medication Reconcilliation completed & Yes provided to patient/care provider Clinical Summary of Care Provided Yes Assessment/Plan Assessment/Plan (1) Ulcer of sacral region: CODE(S): L98.429 - Non-pressure chronic ulcer of back with unspecified severity (2) Malnutrition: CODE(S): E46 - Unspecified protein-calorie malnutrition QUALIFIERS: Malnutrition type: protein-calorie malnutrition Protein-calorie malnutrition severity: moderate Qualified Code(s): E44.0 - Moderate protein-calorie malnutrition (3) Type 2 diabetes mellitus with diabetic polyneuropathy: CODE(S): E11.42 - Type 2 diabetes mellitus with diabetic polyneuropathy QUALIFIERS: Diabetes mellitus vp platforms insulin use: unspecified intermediate insulin use status Qualified Code(s): E11.42 - Type 2 diabetes mellitus with diabetic polyneuropathy (4) Hidradenitis suppurativa of anus: CODE(S): L73.2 - Hidradenitis suppurativa (5) Pilonidal cyst: CODE(S): L05.91 - Pilonidal cyst without abscess (6) Smoker: CODE(S): F17.200 - Nicotine dependence, unspecified, uncomplicated PLAN: Wound care - Stop Dakin's moistened gauze and will start Jannet covered with mepilex daily or every other day. Completed Augmentin. Encouraged increase protein intake to help with wound healing. Prealbumin was 9.4 on 03/13/2021. Encouraged patient to stop smoking as it may have deleterious effects on wound healing. Follow up two weeks
[2021-06-18 14:06] VITALS: BP 114/57; PULSE 87; RESP 18; TEMP 36.1; BMI 26.7
--- NOTE | 2021-06-18 16:27 | PN.PCM_ITS ---
History of Present Illness Date of Service: 06/18/21 Chief Complaint: Sacral wound after excision of pilonidal cyst History of Wound: 75 year old man presents with persistent pain and intermittent drainage in his sacral area where a cyst was present. He also had issues with pain and intermittent drainage in his bilateral perianal and perineal areas but none at the present time. He denies fever. He denies trauma. He has intermittent drainage. He has never had surgery on his pilonidal cyst area. He has had antibiotics intermittently. He has diabetes mellitus and his last HgbA1c is in the 5 range according to the patient. Surgery 03/12/21 - Surgical preparation sacral area with excision complicated extensive pilonidal cyst. Wound care - Jannet (may moisten with saline if ulcer is dry)covered with foam silicone boarder daily or every other day. Operative cultures were positive for Proprionibacterium acnes and Corynebacterium amycolatum. The Doxycycline he was on was discontinued and he was started on Augmentin. Prealbumin 9.4 on 03/13/21. Today he denies fever, chills, nausea. States his appetite is ok. Progress of Wound: Improved. Objective Data Objective Data Vital Signs: Vital Signs Temp Pulse Resp BP 97 F L 87 18 114/57 L 06/18/21 14:06 06/18/21 14:06 06/18/21 14:06 06/18/21 14:06 Weight: 197 lb Body Mass Index (BMI) 26.7 Charges/Coding Procedures Integumentary 111xxx-113xx: 47382 Dena subq tissue 20 sq cm/< Physical Exam Const alert and oriented x3 General Appearance: cooperative HEENT normocephalic Resp normal respiratory effort Cardio regular rate GI non-tender Palpation: soft Extremity normal capillary refill Skin Wound Narrative: Sacral ulcer is beefy pink and improving in size. Neuro CN's II-XII intact bilaterally Psych Appearance: grossly normal Debridement Note Debridement Note Wound debrided: Sacral ulcer Laterality: Not Applicable Type of Debridement: Excisional debridement Anesthesia Used: 5% Lidocaine Gel Depth: Down to and including healthy tissue and in the subcutaneous layer Percentage of wound debrided: 100 Instrument Used: 5mm curette Tissue Removed: Subcutaneous tissue and slough Severity: Fat Layer Exposed Amount of bleeding with debridement: Mild Bleeding Controlled with: Pressure Patient tolerated procedure: Patient tolerated procedure well Post-Debridement Measurements and Additional Note: Post-Debridement Measurements/Treatment WC - Nurse 1 - General Ulcer Assessment Start: 06/04/21 14:03 Freq: Status: Active Protocol: SUSY Activity Type Activity Date Activity User E-Sign Co-Sign Detail Recorded Client Recorded Date Recorded By Document 06/04/21 14:04 AK [id number] 06/04/21 14:11 AK Document 06/18/21 14:06 DL [id number] 06/18/21 14:12 DL 06/04/21 06/18/21 14:04 14:06 WC - Today's Visit Information Type of service Follow-up Visit Follow-up Visit (Physician/CONFLICTS ANALYST (Physician/CONFLICTS ANALYST ) ) Arrival Mode Ambulatory, Ambulatory, Walker Walker Transfer Assistance None Patient Identification Verified (Name & Yes Yes ) Patient Requires Transmission-Based No No Precautions Safety Precautions NA Finger Stick Blood Sugar(mg/dl) (if 102 indicated): Height and Weight Body Mass Index (BMI) 26.7 26.7 BMI Classification Overweight Overweight Vital Signs Temperature (97.8 F-99.1 F) 96.5 F L 97 F L Temperature Source Temporal Temporal Pulse Rate (60-100) 94 87 Pulse Location Monitor Monitor Respiratory Rate (12-18) 18 Respiratory rate source Observation Blood Pressure (90/60-120/80) 134/77 H 114/57 L Blood Pressure Mean (mm Hg) 96 76 Source Monitor Monitor History Since Last Visit- (Skip if this is Patient's initial visit) Have you changed medications since your No No last visit? Any new allergies or adverse reactions No No Had a fall/change in ADL's that may No No increase risk of falls Signs or symptoms of abuse and/or No No neglect since last visit Have you been in the hospital since your No No last visit? Has dressing in place as prescribed Yes Yes Has compression in place as prescribed N/A N/A Has offloadiing in place as prescribed Yes Yes Experienced any changes in pain level or No No management Left Footwear Regular Shoe Right Footwear Regular Shoe Pain Scale: 0-10 Numeric Is Patient Pain Free? Yes PLACIDO - Nurse 1 - General Ulcer Measurement Start: 06/04/21 14:03 Freq: Status: Active Protocol: Activity Type Activity Date Activity User E-Sign Co-Sign Detail Recorded Client Recorded Date Recorded By Document 06/04/21 14:04 AK [id number] 06/04/21 14:11 AK Document 06/18/21 14:06 DL [id number] 06/18/21 14:12 DL 06/04/21 06/18/21 14:04 14:06 Wound Center Nurse 1 #3 PILONIDAL POST OP -Combined with other wound No -Current Size (cm) - Length 3 1.6 -Current Size (cm) - Width 4 1.6 -Current Size (cm) - Depth 2.8 0.1 -Total Square Cm 12 2.56 -Photo Taken No No -Epithelialization Medium 34-66% -Tunneling No -Undermining/Tunneling No -Circular Undermining No -Classification - Thickness Full Thickness with Exposed Support Structure -Exudate Amt Medium Small -Exudate Type Serosanguineous -Wound Margin Distinct, Distinct, Outline Outline Attached Attached -Granulation Amt Medium (34-66%) Large (67-100%) -Granulation Quality [place],Red [place] -Slough/Fibrin Yes -Necrosis Amt Medium (34-66%) Small (1-33%) -Necrotic Tissue Type Adherent Slough -Structure Exposed N/A N/A -Texture (Sandi-wound Skin Appearance) No Abnormality, Scarring Assessed -Moisture (Sandi-wound Skin Appearance) No Abnormality, No Abnormality Assessed -Color (Sandi-wound Skin Appearance) No Abnormality, No Abnormality Assessed -Temperature (Sandi-wound Skin No Abnormality No Abnormality Appearance) (Pt Warm) (Pt Warm) -Tenderness on Palpation (Sandi-wound No No Skin Appearance) -Ulcer Cleansing Soap and Water Rinsed/ Irrigated with Saline -Foul Odor after Cleansing No No -Anesthetic Used 4% Lidocaine 4% Lidocaine Solution Solution WC - Nurse 2 - General Ulcer CM Notes Start: 06/04/21 14:03 Freq: Status: Active Protocol: Activity Type Activity Date Activity User E-Sign Co-Sign Detail Recorded Client Recorded Date Recorded By Document 06/04/21 14:40 ASHLEY [id number] 06/04/21 14:43 Document 06/18/21 14:41 [id number] 06/18/21 14:43 JF 06/04/21 06/18/21 14:40 14:41 Wound Center Nurse 2 #3 PILONIDAL POST OP -Time 14:40 14:41 -Correct Patient Yes Yes -Correct Side, Site, Position Yes Yes -Correct Procedure Yes Yes -Procedure Performed Yes Yes -Type of Procedure Debridement Debridement -Clinical Debridement Subcutaneous Subcutaneous -Tissue Removed Subcutaneous Subcutaneous -Post Debridement (cm) - Length 2.8 2.4 -Post Debridement (cm) - Width 4.3 1.5 -Post Debridement (cm) - Depth 0.3 0.2 -Total Square (Post) (cm) 12.04 3.60 -Area of Debridement (cm) - Length 2.8 2.4 -Area of Debridement (cm) - Width 4.3 1.5 -Total Square (Area) (cm) 12.04 3.60 -Tunneling No No -Undermining/Tunneling No No -Circular Undermining No No -Wound/Ulcer Outcome Not Healed Not Healed -Ulcer Cleansing Rinsed/ Rinsed/ Irrigated with Irrigated with Saline Saline -Foul Odor after Cleansing No No -Bioengineered Tissue No No -Bleeding Controlled with Pressure Pressure -Offloading No No -Treatment Response Procedure Procedure Tolerated Well Tolerated Well -Debridement - Subq, 1st 20sq cm Yes Yes Pain Scale: 0-10 Numeric Is Patient Pain Free? Yes Yes - Nurse 3 - General Ulcer D/C NN Start: 06/04/21 14:03 Freq: Status: Active Protocol: Activity Type Activity Date Activity User E-Sign Co-Sign Detail Recorded Client Recorded Date Recorded By Document 06/04/21 14:47 [id number] 06/04/21 14:47 Document 06/18/21 14:47 ML [id number] 06/18/21 14:49 ML 06/04/21 06/18/21 14:47 14:47 Wound Care Nurse 3 #3 PILONIDAL POST OP -Ulcer Cleansing Rinsed/ Rinsed/ Irrigated with Irrigated with Saline Saline -Foul Odor after Cleansing No No -Primary Dressing Applied Mepilex Border, Promogran Promogran Jannet Matter Jannet Matter -Other Dressing bordered adhesive -Mepilex Border 1 -Promogran Jannet Matter 1 1 Pain Scale: 0-10 Numeric Is Patient Pain Free? Yes - Visit Discharge Discharge Condition Stable Stable Ambulatory Status Ambulatory, Ambulatory, Walker Walker Transportation Private Auto Private Auto Medication Reconcilliation completed & Yes No provided to patient/care provider Clinical Summary of Care Provided Yes Yes Assessment/Plan Assessment/Plan (1) Ulcer of sacral region: CODE(S): L98.429 - Non-pressure chronic ulcer of back with unspecified severity (2) Malnutrition: CODE(S): E46 - Unspecified protein-calorie malnutrition QUALIFIERS: Malnutrition type: protein-calorie malnutrition Protein-calorie malnutrition severity: moderate Qualified Code(s): E44.0 - Moderate protein-calorie malnutrition (3) Type 2 diabetes mellitus with diabetic polyneuropathy: CODE(S): E11.42 - Type 2 diabetes mellitus with diabetic polyneuropathy QUALIFIERS: Diabetes mellitus correction insulin use: unspecified [place] insulin use status Qualified Code(s): E11.42 - Type 2 diabetes mellitus with diabetic polyneuropathy (4) Hidradenitis suppurativa of anus: CODE(S): L73.2 - Hidradenitis suppurativa (5) Pilonidal cyst: CODE(S): L05.91 - Pilonidal cyst without abscess (6) Smoker: CODE(S): F17.200 - Nicotine dependence, unspecified, uncomplicated PLAN: Wound care - Jannet (may moisten with saline if ulcer is dry) covered with mepilex daily or every other day. Completed Augmentin. Encouraged increase protein intake to help with wound healing. Prealbumin was 9.4 on 03/13/2021. Encouraged patient to stop smoking as it may have deleterious effects on wound healing. Follow up two weeks
== END 2021-07-01 23:59 ==
LOC: WC 14:00
PROVIDERS: PCP Family Medicine; Visit Provider Nurse Practitioner Family
DX: L05.91 Pilonidal cyst without abscess (principal); L98.422 Non-pressure chronic ulcer of back with fat layer exposed; E11.42 Type 2 diabetes mellitus with diabetic polyneuropathy; L73.2 Hidradenitis suppurativa; E66.3 Overweight; Z68.26 Body mass index [BMI] 26.0-26.9, adult; F17.200 Nicotine dependence, unspecified, uncomplicated; Z79.899 Other long term (current) drug therapy
CPT/HCPCS: 11042

== ENCOUNTER 2021-07-16 13:15 | Outpatient (RCR) | payer MEDICARE, SELFPAY ==
[2021-07-02 00:24] VITALS: BP 114/57; PULSE 87; RESP 18; TEMP 36.1; BMI 26.7
[2021-07-02 14:08] VITALS: BP 132/89; PULSE 90; TEMP 35.9; BMI 26.7
--- NOTE | 2021-07-02 14:37 | PCM.WC.PN ---
History of Present Illness Date of Service: 07/02/21 Chief Complaint: Sacral wound after excision of pilonidal cyst History of Wound: 75 year old man presents with persistent pain and intermittent drainage in his sacral area where a cyst was present. He also had issues with pain and intermittent drainage in his bilateral perianal and perineal areas but none at the present time. He denies fever. He denies trauma. He has intermittent drainage. He has never had surgery on his pilonidal cyst area. He has had antibiotics intermittently. He has diabetes mellitus and his last HgbA1c is in the 5 range according to the patient. Surgery 03/12/21 - Surgical preparation sacral area with excision complicated extensive pilonidal cyst. Wound care - Jannet (may moisten with saline if ulcer is dry)covered with foam silicone boarder daily or every other day. Operative cultures were positive for Proprionibacterium acnes and Corynebacterium amycolatum. The Doxycycline he was on was discontinued and he was started on Augmentin. Prealbumin 9.4 on 03/13/21. Today he denies fever, chills, nausea. States his appetite is ok. Progress of Wound: Improved Objective Data Objective Data Vital Signs: Vital Signs Temp Pulse Resp BP 96.7 F L 90 18 132/89 H 07/02/21 14:08 07/02/21 14:08 07/02/21 00:24 07/02/21 14:08 Weight: 197 lb Body Mass Index (BMI) 26.7 Charges/Coding Multi Select Codes Integumentary Integumentary CPT Codes: 12357 Dena subq tissue 20 sq cm/< Physical Exam Const alert and oriented x3 General Appearance: cooperative HEENT normocephalic Head and Scalp: atraumatic Resp normal respiratory effort Cardio regular rate GI Palpation: soft Extremity normal capillary refill Skin Wound Narrative: Sacral ulcer is improving in size, it is much smaller today, it is beefy pink in color. Neuro CN's II-XII intact bilaterally Psych Appearance: grossly normal Debridement Note Debridement Note Wound debrided: Sacral ulcer Laterality: Not Applicable Type of Debridement: Excisional debridement Anesthesia Used: 5% Lidocaine Gel Depth: Down to and including healthy tissue and in the subcutaneous layer Percentage of wound debrided: 100 Instrument Used: 3mm curette Tissue Removed: Subcutaneous tissue and slough Severity: Fat Layer Exposed Amount of bleeding with debridement: Mild Bleeding Controlled with: Pressure Patient tolerated procedure: Patient tolerated procedure well Post-Debridement Measurements and Additional Note: Post-Debridement Measurements/Treatment - Nurse 1 - General Ulcer Assessment Start: 07/02/21 14:08 Freq: Status: Active Protocol: SUSY Activity Type Activity Date Activity User E-Sign Co-Sign Detail Recorded Client Recorded Date Recorded By Document 07/02/21 14:08 ALEXSANDRA [id number] 07/02/21 14:09 ALEXSANDRA 07/02/21 14:08 - Today's Visit Information Type of service Initial Visit Arrival Mode Ambulatory, Walker Patient Identification Verified (Name & Yes ) Height and Weight Body Mass Index (BMI) 26.7 BMI Classification Overweight Vital Signs Temperature (97.8 F-99.1 F) 96.7 F L Temperature Source Oral Pulse Rate (60-100) 90 Pulse Location Monitor Blood Pressure (90/60-120/80) 132/89 H Blood Pressure Mean (mm Hg) 103 Source Monitor Position Semi-Fowlers Blood Pressure Location Left Arm History Since Last Visit- (Skip if this is Patient's initial visit) Have you changed medications since your No last visit? Any new allergies or adverse reactions No Had a fall/change in ADL's that may No increase risk of falls Signs or symptoms of abuse and/or No neglect since last visit Have you been in the hospital since your No last visit? Has dressing in place as prescribed Yes Has compression in place as prescribed N/A Has offloadiing in place as prescribed N/A Experienced any changes in pain level or No management Left Footwear Regular Shoe Right Footwear Regular Shoe Pain Scale: 0-10 Numeric Is Patient Pain Free? Yes - Nurse 1 - General Ulcer Measurement Start: 07/02/21 14:08 Freq: Status: Active Protocol: Activity Type Activity Date Activity User E-Sign Co-Sign Detail Recorded Client Recorded Date Recorded By Document 07/02/21 14:08 ALEXSANDRA [id number] 07/02/21 14:09 ALEXSANDRA 07/02/21 14:08 Wound Center Nurse 1 #3 PILONIDAL POST OP -Current Size (cm) - Length 2.3 -Current Size (cm) - Width 1.2 -Current Size (cm) - Depth 0.2 -Total Square Cm 2.76 -Exudate Amt Small -Exudate Type Serosanguineous -Wound Margin Distinct, Outline Attached -Granulation Amt Small (1-33%) -Granulation Quality [place] -Necrosis Amt Small (1-33%) -Necrotic Tissue Type Adherent Slough -Texture (Sandi-wound Skin Appearance) Assessed, Scarring -Moisture (Sandi-wound Skin Appearance) Assessed,Dry/ Scaly -Color (Sandi-wound Skin Appearance) No Abnormality, Assessed -Temperature (Sandi-wound Skin No Abnormality Appearance) (Pt Warm) -Tenderness on Palpation (Sandi-wound No Skin Appearance) -Ulcer Cleansing Rinsed/ Irrigated with Saline -Foul Odor after Cleansing No -Anesthetic Used 5% Lidocaine Gel WC - Nurse 2 - General Ulcer CM Notes Start: 07/02/21 14:08 Freq: Status: Active Protocol: Activity Type Activity Date Activity User E-Sign Co-Sign Detail Recorded Client Recorded Date Recorded By Document 07/02/21 14:16 ASHLEY [id number] 07/02/21 14:18 ASHLEY 07/02/21 14:16 Wound Center Nurse 2 -Time 14:17 -Correct Patient Yes -Correct Side, Site, Position Yes -Correct Procedure Yes -Procedure Performed Yes -Type of Procedure Debridement -Clinical Debridement Subcutaneous -Tissue Removed Subcutaneous -Post Debridement (cm) - Length 1.8 -Post Debridement (cm) - Width 1.2 -Post Debridement (cm) - Depth 0.2 -Total Square (Post) (cm) 2.16 -Area of Debridement (cm) - Length 1.8 -Area of Debridement (cm) - Width 1.2 -Total Square (Area) (cm) 2.16 -Tunneling No -Undermining/Tunneling No -Circular Undermining No -Wound/Ulcer Outcome Not Healed -Ulcer Cleansing Rinsed/ Irrigated with Saline -Foul Odor after Cleansing Yes, Due to Product Use -Bioengineered Tissue No -Bleeding Controlled with Pressure -Offloading No -Treatment Response Procedure Tolerated Well -Debridement - Subq, 1st 20sq cm Yes Pain Scale: 0-10 Numeric Is Patient Pain Free? Yes PLACIDO - Nurse 3 - General Ulcer D/C NN Start: 07/02/21 14:08 Freq: Status: Active Protocol: Activity Type Activity Date Activity User E-Sign Co-Sign Detail Recorded Client Recorded Date Recorded By Document 07/02/21 14:28 TRISTEN [id number] 07/02/21 14:28 DL 07/02/21 14:28 Wound Care Nurse 3 #3 PILONIDAL POST OP -Ulcer Cleansing Wound Cleanser -Negative Pressure Wound Therapy Discontinue -Primary Dressing Applied Promogran Jannet Matter -Primary Dressing Covered/Secured with Dry Gauze, Secured with Tape -Promogran Jannet Matter 1 Treatment Response Procedure Tolerated Well Pain Scale: 0-10 Numeric Is Patient Pain Free? Yes WC - Visit Discharge Discharge Condition Stable Ambulatory Status Ambulatory Assessment/Plan Assessment/Plan (1) Ulcer of sacral region: CODE(S): L98.429 - Non-pressure chronic ulcer of back with unspecified severity (2) Type 2 diabetes mellitus with diabetic polyneuropathy: CODE(S): E11.42 - Type 2 diabetes mellitus with diabetic polyneuropathy QUALIFIERS: Diabetes mellitus termite control service representative insulin use: unspecified termite control service representative insulin use status Qualified Code(s): E11.42 - Type 2 diabetes mellitus with diabetic polyneuropathy (3) Hidradenitis suppurativa of anus: CODE(S): L73.2 - Hidradenitis suppurativa (4) Pilonidal cyst: CODE(S): L05.91 - Pilonidal cyst without abscess PLAN: Wound care - Jannet (may moisten with saline if ulcer is dry) covered with mepilex daily or every other day. Completed Augmentin. Encouraged increase protein intake to help with wound healing. Prealbumin was 9.4 on 03/13/2021. Encouraged patient to stop smoking as it may have deleterious effects on wound healing. Follow up two weeks
[2021-07-16 13:22] VITALS: BP 130/64; PULSE 94; TEMP 36.4; BMI 26.7
--- NOTE | 2021-07-16 15:35 | PN.PCM_ITS ---
History of Present Illness Date of Service: 07/16/21 Chief Complaint: Sacral wound after excision of pilonidal cyst History of Wound: 75 year old man presents with persistent pain and intermittent drainage in his sacral area where a cyst was present. He also had issues with pain and intermittent drainage in his bilateral perianal and perineal areas but none at the present time. He denies fever. He denies trauma. He has intermittent drainage. He has never had surgery on his pilonidal cyst area. He has had antibiotics intermittently. He has diabetes mellitus and his last HgbA1c is in the 5 range according to the patient. Surgery 03/12/21 - Surgical preparation sacral area with excision complicated extensive pilonidal cyst. Wound care - Collagen hydrogel covered with gauze daily. Operative cultures were positive for Proprionibacterium acnes and Corynebacterium amycolatum. The Doxycycline he was on was discontinued and he was started on Augmentin. Prealbumin 9.4 on 03/13/21. Today he denies fever, chills, nausea. States his appetite is ok. Progress of Wound: Improved Objective Data Objective Data Vital Signs: Vital Signs Temp Pulse Resp BP 97.5 F L 94 18 130/64 H 07/16/21 13:22 07/16/21 13:22 07/02/21 00:24 07/16/21 13:22 Weight: 197 lb Body Mass Index (BMI) 26.7 Charges/Coding Procedures Integumentary 111xxx-113xx: [id number] Dena subq tissue 20 sq cm/< Physical Exam Const alert and oriented x3 General Appearance: cooperative HEENT normocephalic Resp normal respiratory effort Cardio regular rate GI non-tender Extremity normal to inspection Skin Wound Narrative: Sacral ulcer is improving is size and depth. Neuro CN's II-XII intact bilaterally Psych Appearance: grossly normal Debridement Note Debridement Note Wound debrided: Sacral ulcer Laterality: Not Applicable Type of Debridement: Excisional debridement Anesthesia Used: 4% Lidocaine Solution Depth: Down to and including healthy tissue and in the subcutaneous layer Percentage of wound debrided: 100 Instrument Used: 3mm curette Tissue Removed: Subcutaneous tissue and slough Severity: Fat Layer Exposed Amount of bleeding with debridement: Mild Bleeding Controlled with: Pressure Patient tolerated procedure: Patient tolerated procedure well Post-Debridement Measurements and Additional Note: Post-Debridement Measurements/Treatment WC - Nurse 1 - General Ulcer Assessment Start: 07/02/21 14:08 Freq: Status: Active Protocol: SUSY Activity Type Activity Date Activity User E-Sign Co-Sign Detail Recorded Client Recorded Date Recorded By Document 07/02/21 14:08 ALEXSANDRA [id number] 07/02/21 14:09 KR Document 07/16/21 13:22 KR [id number] 07/16/21 13:24 KR 07/02/21 07/16/21 14:08 13:22 - Today's Visit Information Type of service Initial Visit Follow-up Visit (Physician/FIELD SERVICE CONSULTANT ) Arrival Mode Ambulatory, Walker Walker Patient Identification Verified (Name & Yes Yes ) Height and Weight Body Mass Index (BMI) 26.7 26.7 BMI Classification Overweight Overweight Vital Signs Temperature (97.8 F-99.1 F) 96.7 F L 97.5 F L Temperature Source Oral Temporal Pulse Rate (60-100) 90 94 Pulse Location Monitor Monitor Blood Pressure (90/60-120/80) 132/89 H 130/64 H Blood Pressure Mean (mm Hg) 103 86 Source Monitor Monitor Position Semi-Fowlers Sitting Blood Pressure Location Left Arm Right Arm History Since Last Visit- (Skip if this is Patient's initial visit) Have you changed medications since your No No last visit? Any new allergies or adverse reactions No No Had a fall/change in ADL's that may No No increase risk of falls Signs or symptoms of abuse and/or No No neglect since last visit Have you been in the hospital since your No No last visit? Has dressing in place as prescribed Yes Yes Has compression in place as prescribed N/A N/A Has offloadiing in place as prescribed N/A N/A Experienced any changes in pain level or No No management Left Footwear Regular Shoe Regular Shoe Right Footwear Regular Shoe Regular Shoe Pain Scale: 0-10 Numeric Is Patient Pain Free? Yes Yes - Nurse 1 - General Ulcer Measurement Start: 07/02/21 14:08 Freq: Status: Active Protocol: Activity Type Activity Date Activity User E-Sign Co-Sign Detail Recorded Client Recorded Date Recorded By Document 07/02/21 14:08 ALEXSANDRA [id number] 07/02/21 14:09 KR Document 07/16/21 13:22 KR [id number] 07/16/21 13:24 KR 07/02/21 07/16/21 14:08 13:22 Wound Center Nurse 1 #3 PILONIDAL POST OP -Current Size (cm) - Length 2.3 1.5 -Current Size (cm) - Width 1.2 1.3 -Current Size (cm) - Depth 0.2 0.2 -Total Square Cm 2.76 1.95 -Exudate Amt Small None Present -Exudate Type Serosanguineous -Wound Margin Distinct, Distinct, Outline Outline Attached Attached -Granulation Amt Small (1-33%) Medium (34-66%) -Granulation Quality [place] Pale -Necrosis Amt Small (1-33%) Small (1-33%) -Necrotic Tissue Type Adherent Slough Adherent Slough -Texture (Sandi-wound Skin Appearance) Assessed, Assessed, Scarring Scarring -Moisture (Sandi-wound Skin Appearance) Assessed,Dry/ Assessed,Dry/ Scaly Scaly -Color (Sandi-wound Skin Appearance) No Abnormality, No Abnormality, Assessed Assessed -Temperature (Sandi-wound Skin No Abnormality No Abnormality Appearance) (Pt Warm) (Pt Warm) -Tenderness on Palpation (Sandi-wound No No Skin Appearance) -Ulcer Cleansing Rinsed/ Rinsed/ Irrigated with Irrigated with Saline Saline -Foul Odor after Cleansing No No -Anesthetic Used 5% Lidocaine 5% Lidocaine Gel Gel WC - Nurse 2 - General Ulcer CM Notes Start: 07/02/21 14:08 Freq: Status: Active Protocol: Activity Type Activity Date Activity User E-Sign Co-Sign Detail Recorded Client Recorded Date Recorded By Document 07/02/21 14:16 [email or web address] 07/02/21 14:18 Document 07/16/21 13:33 [id number] 07/16/21 13:37 07/02/21 07/16/21 14:16 13:33 Wound Center Nurse 2 #3 PILONIDAL POST OP -Time 14:17 13:34 -Correct Patient Yes Yes -Correct Side, Site, Position Yes Yes -Correct Procedure Yes Yes -Procedure Performed Yes Yes -Type of Procedure Debridement Debridement -Clinical Debridement Subcutaneous Subcutaneous -Tissue Removed Subcutaneous Subcutaneous -Post Debridement (cm) - Length 1.8 0.9 -Post Debridement (cm) - Width 1.2 0.5 -Post Debridement (cm) - Depth 0.2 0.1 -Total Square (Post) (cm) 2.16 0.45 -Area of Debridement (cm) - Length 1.8 0.9 -Area of Debridement (cm) - Width 1.2 0.5 -Total Square (Area) (cm) 2.16 0.45 -Tunneling No No -Undermining/Tunneling No No -Circular Undermining No No -Wound/Ulcer Outcome Not Healed Not Healed -Ulcer Cleansing Rinsed/ Rinsed/ Irrigated with Irrigated with Saline Saline -Foul Odor after Cleansing Yes, Due to No Product Use -Bioengineered Tissue No No -Bleeding Controlled with Pressure Pressure -Offloading No No -Treatment Response Procedure Procedure Tolerated Well Tolerated Well -Debridement - Subq, 1st 20sq cm Yes Yes Pain Scale: 0-10 Numeric Is Patient Pain Free? Yes Yes - Nurse 3 - General Ulcer D/C NN Start: 07/02/21 14:08 Freq: Status: Active Protocol: Activity Type Activity Date Activity User E-Sign Co-Sign Detail Recorded Client Recorded Date Recorded By Document 07/02/21 14:28 DL [id number] 07/02/21 14:28 DL 07/02/21 14:28 Wound Care Nurse 3 #3 PILONIDAL POST OP -Ulcer Cleansing Wound Cleanser -Negative Pressure Wound Therapy Discontinue -Primary Dressing Applied Promogran Jannet Matter -Primary Dressing Covered/Secured with Dry Gauze, Secured with Tape -Promogran Jannet Matter 1 Treatment Response Procedure Tolerated Well Pain Scale: 0-10 Numeric Is Patient Pain Free? Yes - Visit Discharge Discharge Condition Stable Ambulatory Status Ambulatory Assessment/Plan Assessment/Plan (1) Ulcer of sacral region: CODE(S): L98.429 - Non-pressure chronic ulcer of back with unspecified severity (2) Type 2 diabetes mellitus with diabetic polyneuropathy: CODE(S): E11.42 - Type 2 diabetes mellitus with diabetic polyneuropathy QUALIFIERS: Diabetes mellitus computer terminal operator insulin use: unspecified computer terminal operator insulin use status Qualified Code(s): E11.42 - Type 2 diabetes mellitus with diabetic polyneuropathy (3) Hidradenitis suppurativa of anus: CODE(S): L73.2 - Hidradenitis suppurativa (4) Pilonidal cyst: CODE(S): L05.91 - Pilonidal cyst without abscess PLAN: Wound care - Start Collagen hydrogel covered with gauze daily. Completed Augmentin. Encouraged increase protein intake to help with wound healing. Prealbumin was 9.4 on 03/13/2021. Encouraged patient to stop smoking as it may have deleterious effects on wound healing. Follow up two weeks
== END 2021-07-31 23:59 ==
LOC: WC 13:15
PROVIDERS: PCP Family Medicine; Visit Provider Nurse Practitioner Family
DX: L05.91 Pilonidal cyst without abscess (principal); L98.422 Non-pressure chronic ulcer of back with fat layer exposed; L73.2 Hidradenitis suppurativa; E11.42 Type 2 diabetes mellitus with diabetic polyneuropathy; E66.3 Overweight; Z68.26 Body mass index [BMI] 26.0-26.9, adult; F17.200 Nicotine dependence, unspecified, uncomplicated; Z79.899 Other long term (current) drug therapy
CPT/HCPCS: 11042

== ENCOUNTER 2021-08-06 14:00 | Outpatient (RCR) | payer MEDICARE, SELFPAY ==
[2021-08-01 00:29] VITALS: BP 130/64; PULSE 94; RESP 18; TEMP 36.4; BMI 26.7
--- NOTE | 2021-08-06 14:39 | PCM.WC.PN ---
History of Present Illness Date of Service: 08/06/21 Chief Complaint: Sacral wound after excision of pilonidal cyst History of Wound: 75 year old man presents with persistent pain and intermittent drainage in his sacral area where a cyst was present. He also had issues with pain and intermittent drainage in his bilateral perianal and perineal areas but none at the present time. He denies fever. He denies trauma. He has intermittent drainage. He has never had surgery on his pilonidal cyst area. He has had antibiotics intermittently. He has diabetes mellitus and his last HgbA1c is in the 5 range according to the patient. Surgery 03/12/21 - Surgical preparation sacral area with excision complicated extensive pilonidal cyst. Wound care - He is healed today. Operative cultures were positive for Proprionibacterium acnes and Corynebacterium amycolatum. The Doxycycline he was on was discontinued and he was started on Augmentin. Prealbumin 9.4 on 03/13/21. Today he denies fever, chills, nausea. States his appetite is ok. Progress of Wound: He is healed today. Objective Data Objective Data Vital Signs: Vital Signs Temp Pulse Resp BP 97.5 F L 94 18 130/64 H 08/01/21 00:29 08/01/21 00:29 08/01/21 00:29 08/01/21 00:29 Weight: 197 lb Body Mass Index (BMI) 26.7 Charges/Coding Visit Charges Office Visits / Consults: 35660 OV L3 Est Physical Exam Const alert and oriented x3 HEENT normocephalic Eyes PERRL Lymph Lymphatic: no lymphedema noted Resp normal respiratory effort Cardio regular rate GI non-tender Palpation: soft Extremity normal capillary refill Skin Wound Narrative: sacral ulcer is healed today Neuro CN's II-XII intact bilaterally Psych Appearance: grossly normal Debridement Note Debridement Note No debridement was completed: No debridement was completed today Assessment/Plan Assessment/Plan (1) Ulcer of sacral region: CODE(S): L98.429 - Non-pressure chronic ulcer of back with unspecified severity (2) Hidradenitis suppurativa of anus: CODE(S): L73.2 - Hidradenitis suppurativa (3) Pilonidal cyst: CODE(S): L05.91 - Pilonidal cyst without abscess (4) Smoker: CODE(S): F17.200 - Nicotine dependence, unspecified, uncomplicated PLAN: He is healed today. Instructed him to massage lotion into the area 1-2 times per day to help soften scarring. Encouraged patient to stop smoking as it may have deleterious effects on wound healing. Follow up as needed.
== END 2021-08-06 14:24 | disposition home or self-care (01) ==
LOC: WC 14:00
PROVIDERS: PCP Family Medicine; Visit Provider Nurse Practitioner Family
DX: Z09 Encounter for follow-up examination after completed treatment for conditions other than malignant neoplasm (principal); E11.9 Type 2 diabetes mellitus without complications; F17.200 Nicotine dependence, unspecified, uncomplicated; Z79.899 Other long term (current) drug therapy
CPT/HCPCS: 99213; G0463

== ENCOUNTER 2021-10-01 13:00 | Outpatient (RCR) | payer MEDICARE, SELFPAY ==
[2021-10-01 13:12] VITALS: BP 138/78; PULSE 95; TEMP 35.9
--- NOTE | 2021-10-01 17:32 | PN.PCM_ITS ---
History of Present Illness Date of Service: 10/01/21 Chief Complaint: Sacral wound after excision of pilonidal cyst, which the ulcer has reopened after healing History of Wound: 76 year old man presents with persistent pain and intermittent drainage in his sacral area where a cyst was present. He also had issues with pain and intermittent drainage in his bilateral perianal and perineal areas but none at the present time. He denies fever. He denies trauma. He has intermittent drainage. He has never had surgery on his pilonidal cyst area. He has had antibiotics intermittently. He has diabetes mellitus and his last HgbA1c is in the 5 range according to the patient. Surgery 03/12/21 - Surgical preparation sacral area with excision complicated extensive pilonidal cyst. He was healed and his ulcer has recently reopened. Wound care - Collagen hydrogel covered with gauze daily. Operative cultures were positive for Proprionibacterium acnes and Corynebacterium amycolatum. The Doxycycline he was on was discontinued and he was started on Augmentin. Prealbumin 9.4 on 03/13/21. Today he denies fever, chills, nausea. States his appetite is ok. Progress of Wound: Sacral/pilonidal ulcer has reopened. It is very dry, scabby and painful. Objective Data Objective Data Vital Signs: Vital Signs Temp Pulse BP 96.6 F L 95 138/78 H 10/01/21 13:12 10/01/21 13:12 10/01/21 13:12 Charges/Coding Visit Charges Office Visits / Consults: 22078 OV L3 Est (25 modifier) Procedures Integumentary 111xxx-113xx: 89401 Dena subq tissue 20 sq cm/< Physical Exam Const alert and oriented x3 General Appearance: cooperative HEENT normocephalic Head and Scalp: atraumatic Resp normal respiratory effort and clear to auscultation bilaterally Cardio regular rate and regular rhythm GI normal to inspection, nondistended, normoactive bowel sounds Palpation: soft Extremity normal capillary refill General Extremity: Negative for edema Skin Wound Narrative: sacral/pilonidal ulcer has large dry scabbing that was able to be debrided off. There is a small ulcer present that is pink. He has pulling scar tissue surrounding the ulcer. Neuro CN's II-XII intact bilaterally Psych Appearance: grossly normal Debridement Note Debridement Note Wound debrided: sacral ulcer Laterality: Not Applicable Type of Debridement: Excisional debridement Anesthesia Used: 5% Lidocaine Gel Depth: Down to and including healthy tissue and in the subcutaneous layer Percentage of wound debrided: 100 Instrument Used: 3mm curette Tissue Removed: Non viable tissue and slough, dry scabbing. Severity: Fat Layer Exposed Amount of bleeding with debridement: Mild Bleeding Controlled with: Pressure Patient tolerated procedure: Patient tolerated procedure well Post-Debridement Measurements and Additional Note: Post-Debridement Measurements/Treatment - Nurse 1 - General Ulcer Assessment Start: 09/24/21 11:12 Freq: Status: Active Protocol: SUSY Activity Type Activity Date Activity User E-Sign Co-Sign Detail Recorded Client Recorded Date Recorded By Document 10/01/21 13:12 HARSHAL [id number] 10/01/21 13:16 HARSHAL 10/01/21 13:12 WC - Today's Visit Information Type of service Initial Visit Arrival Mode Ambulatory Patient Identification Verified (Name & Yes ) Patient Requires Transmission-Based No Precautions Safety Precautions NA Vital Signs Temperature (97.8 F-99.1 F) 96.6 F L Temperature Source Temporal Pulse Rate (60-100) 95 Pulse Location Monitor Blood Pressure (90/60-120/80) 138/78 H Blood Pressure Mean (mm Hg) 98 Source Monitor History Since Last Visit- (Skip if this is Patient's initial visit) Have you changed medications since your No last visit? Any new allergies or adverse reactions No Had a fall/change in ADL's that may No increase risk of falls Signs or symptoms of abuse and/or No neglect since last visit Have you been in the hospital since your No last visit? Has dressing in place as prescribed No Has compression in place as prescribed N/A Has offloadiing in place as prescribed N/A Experienced any changes in pain level or No management Left Footwear Regular Shoe Right Footwear Regular Shoe Pain Scale: 0-10 Numeric Is Patient Pain Free? Yes [facility] Nurse 1 - General Ulcer Measurement Start: 09/24/21 11:12 Freq: Status: Active Protocol: Activity Type Activity Date Activity User E-Sign Co-Sign Detail Recorded Client Recorded Date Recorded By Document 10/01/21 13:16 HARSHAL [id number] 10/01/21 13:17 AK 10/01/21 13:16 Wound Center Nurse 1 #4 Sacral -Current Size (cm) - Length 1.5 -Current Size (cm) - Width 1.5 -Current Size (cm) - Depth 0.1 -Total Square Cm 2.25 -Photo Taken No -Epithelialization None Present -Tunneling No -Undermining/Tunneling No -Circular Undermining No -Change in Wound Grade/Stage No -Exudate Amt None Present -Wound Margin Distinct, Outline Attached -Granulation Amt Small (1-33%) -Granulation Quality Pale,Coates -Slough/Fibrin No -Necrosis Amt None Present (0 %) -Structure Exposed N/A -Texture (Sandi-wound Skin Appearance) Assessed, Scarring -Moisture (Sandi-wound Skin Appearance) No Abnormality, Assessed -Color (Sandi-wound Skin Appearance) No Abnormality, Assessed -Temperature (Sandi-wound Skin No Abnormality Appearance) (Pt Warm) -Tenderness on Palpation (Sandi-wound No Skin Appearance) -Ulcer Cleansing Rinsed/ Irrigated with Saline -Foul Odor after Cleansing No -Anesthetic Used 5% Lidocaine Gel WC - Nurse 2 - General Ulcer CM Notes Start: 09/24/21 11:12 Freq: Status: Active Protocol: Activity Type Activity Date Activity User E-Sign Co-Sign Detail Recorded Client Recorded Date Recorded By Document 10/01/21 13:42 [id number] 10/01/21 13:46 ASHLEY 10/01/21 13:42 Wound Center Nurse 2 -Time 13:44 -Correct Patient Yes -Correct Side, Site, Position Yes -Correct Procedure Yes -Procedure Performed Yes -Type of Procedure Debridement -Clinical Debridement Subcutaneous -Tissue Removed Subcutaneous -Post Debridement (cm) - Length 0.4 -Post Debridement (cm) - Width 0.2 -Post Debridement (cm) - Depth 0.1 -Total Square (Post) (cm) 0.08 -Area of Debridement (cm) - Length 0.4 -Area of Debridement (cm) - Width 0.2 -Total Square (Area) (cm) 0.08 -Tunneling No -Undermining/Tunneling No -Circular Undermining No -Wound/Ulcer Outcome Not Healed -Ulcer Cleansing Rinsed/ Irrigated with Saline -Foul Odor after Cleansing No -Bioengineered Tissue No -Bleeding Controlled with Pressure -Offloading No -Treatment Response Procedure Tolerated Well -Debridement - Subq, 1st 20sq cm Yes Pain Scale: 0-10 Numeric Is Patient Pain Free? Yes - Nurse 3 - General Ulcer D/C NN Start: 09/24/21 11:12 Freq: Status: Active Protocol: Activity Type Activity Date Activity User E-Sign Co-Sign Detail Recorded Client Recorded Date Recorded By Document 10/01/21 14:37 [facility] [id number] 10/01/21 14:37 [facility] 10/01/21 14:37 Wound Care Nurse 3 #4 Sacral -Ulcer Cleansing Rinsed/ Irrigated with Saline -Foul Odor after Cleansing No -Primary Dressing Applied C Hydrogel ($) -Primary Dressing Covered/Secured with Dry Gauze, Secured with Tape Treatment Response Procedure Tolerated Well Pain Scale: 0-10 Numeric Is Patient Pain Free? Yes - Visit Discharge Discharge Condition Stable Ambulatory Status Ambulatory, Walker Transportation Private Auto Accompanied by Assessment/Plan Assessment/Plan (1) Ulcer of sacral region: CODE(S): L98.429 - Non-pressure chronic ulcer of back with unspecified severity (2) Type 2 diabetes mellitus with diabetic peripheral angiopathy without gangrene: CODE(S): E11.51 - Type 2 diabetes mellitus with diabetic peripheral angiopathy without gangrene QUALIFIERS: Diabetes mellitus intermodal customer service insulin use: without skilled nursing use Qualified Code(s): E11.51 - Type 2 diabetes mellitus with diabetic peripheral angiopathy without gangrene (3) Smoker: CODE(S): F17.200 - Nicotine dependence, unspecified, uncomplicated (4) Hidradenitis suppurativa of anus: CODE(S): L73.2 - Hidradenitis suppurativa (5) Pilonidal cyst: CODE(S): L05.91 - Pilonidal cyst without abscess PLAN: Patient was seen and evaluated at the wound healing center today for his sacral/pilonidal ulcer that has re-opened several weeks ago. They have used antibiotic ointment on the area which has been dry and scabby and pulling causing pain. A subcutaneous debridement was performed today. Wound care - Collagen hydrogel daily covered with gauze. Encouraged to massage the surrounding scar tissue with lotion daily. Stressed the importance of the manual massage to help soften the scarring to help prevent the scabbing and reopening of the ulcer. Patient and his verbalized understanding. Follow up 2 weeks, per patient and his 's choice not coming back next week.
== END 2021-10-01 23:59 ==
LOC: WC 13:00
PROVIDERS: PCP Family Medicine; Visit Provider Nurse Practitioner Family
DX: L73.2 Hidradenitis suppurativa (principal); E11.51 Type 2 diabetes mellitus with diabetic peripheral angiopathy without gangrene; L98.429 Non-pressure chronic ulcer of back with unspecified severity; L05.91 Pilonidal cyst without abscess; F17.200 Nicotine dependence, unspecified, uncomplicated
CPT/HCPCS: 11042; 99212; G0463

== ENCOUNTER 2021-10-29 09:15 | Outpatient (RCR) | payer MEDICARE, SELFPAY ==
[2021-10-02 00:49] VITALS: BP 138/78; PULSE 95; TEMP 35.9
[2021-10-22 13:14] VITALS: BP 133/83; PULSE 92; RESP 20; TEMP 37.1
--- NOTE | 2021-10-22 14:04 | PCM.WC.PN ---
History of Present Illness Date of Service: 10/22/21 Chief Complaint: Sacral wound after excision of pilonidal cyst, which the ulcer has reopened after healing History of Wound: 76 year old man presents with persistent pain and intermittent drainage in his sacral area where a cyst was present. He also had issues with pain and intermittent drainage in his bilateral perianal and perineal areas but none at the present time. He denies fever. He denies trauma. He has intermittent drainage. He has never had surgery on his pilonidal cyst area. He has had antibiotics intermittently. He has diabetes mellitus and his last HgbA1c is in the 5 range according to the patient. Surgery 03/12/21 - Surgical preparation sacral area with excision complicated extensive pilonidal cyst. He was healed and his ulcer has recently reopened. Wound care - Antibiotic ointment covered with gauze daily and as needed. Operative cultures were positive for Proprionibacterium acnes and Corynebacterium amycolatum. The Doxycycline he was on was discontinued and he was started on Augmentin. Prealbumin 9.4 on 03/13/21. Today he denies fever, chills, nausea. States his appetite is ok. Progress of Wound: He continues to get thick scabbing on the ulcer even with the collagen hydrogel. They state they are washing it daily with soap and water. There is a very small opening after the scabbing was removed. Will apply antibiotic ointment to the area to see if this will prevent it from scabbing over. Objective Data Objective Data Vital Signs: Vital Signs Temp Pulse Resp BP 98.7 F 92 20 H 133/83 H 10/22/21 13:14 10/22/21 13:14 10/22/21 13:14 10/22/21 13:14 Charges/Coding Procedures Integumentary 111xxx-113xx: 58621 Dena subq tissue 20 sq cm/< Physical Exam Const alert and oriented x3 HEENT normocephalic Resp normal respiratory effort Cardio regular rate Extremity normal capillary refill General Extremity: edema Skin Wound Narrative: Sacral ulcer is pink and almost healed with only a small opening present. Neuro CN's II-XII intact bilaterally Psych Appearance: grossly normal Debridement Note Debridement Note Wound debrided: sacaral ulcer Laterality: Not Applicable Type of Debridement: Excisional debridement Anesthesia Used: 5% Lidocaine Gel Depth: Down to and including healthy tissue and in the subcutaneous layer Percentage of wound debrided: 100 Instrument Used: 3mm curette Tissue Removed: Slough and nonviable tissue. Severity: Limited To Skin Breakdown Amount of bleeding with debridement: Mild Bleeding Controlled with: Pressure Patient tolerated procedure: Patient tolerated procedure well Post-Debridement Measurements and Additional Note: Post-Debridement Measurements/Treatment WC - Nurse 1 - General Ulcer Assessment Start: 10/22/21 13:14 Freq: Status: Active Protocol: SUSY Activity Type Activity Date Activity User E-Sign Co-Sign Detail Recorded Client Recorded Date Recorded By Document 10/22/21 13:14 DL [id number] 10/22/21 13:20 DL 10/22/21 13:14 WC - Today's Visit Information Type of service Follow-up Visit (Physician/NATURAL RESOURCES EXTENSION EDUCATOR ) Arrival Mode Ambulatory Transfer Assistance None Patient Identification Verified (Name & Yes ) Patient Requires Transmission-Based No Precautions Vital Signs Temperature (97.8 F-99.1 F) 98.7 F Temperature Source Temporal Pulse Rate (60-100) 92 Pulse Location Monitor Respiratory Rate (12-18) 20 H Respiratory rate source Observation Blood Pressure (90/60-120/80) 133/83 H Blood Pressure Mean (mm Hg) 99 Source Monitor History Since Last Visit- (Skip if this is Patient's initial visit) Have you changed medications since your No last visit? Any new allergies or adverse reactions No Had a fall/change in ADL's that may No increase risk of falls Signs or symptoms of abuse and/or No neglect since last visit Have you been in the hospital since your No last visit? Has dressing in place as prescribed Yes Has compression in place as prescribed N/A Has offloadiing in place as prescribed Yes Experienced any changes in pain level or No management Pain Scale: 0-10 Numeric Is Patient Pain Free? Yes - Nurse 1 - General Ulcer Measurement Start: 10/22/21 13:14 Freq: Status: Active Protocol: Activity Type Activity Date Activity User E-Sign Co-Sign Detail Recorded Client Recorded Date Recorded By Document 10/22/21 13:14 DL [id number] 10/22/21 13:20 DL 10/22/21 13:14 Wound Center Nurse 1 #4 Sacral -Current Size (cm) - Length 1.5 -Current Size (cm) - Width 1.5 -Current Size (cm) - Depth 0.1 -Total Square Cm 2.25 -Photo Taken No -Exudate Amt None Present -Wound Margin Thickened -Granulation Amt None Present (0 %) -Necrosis Amt Large (67-100%) -Necrotic Tissue Type Eschar -Structure Exposed N/A -Texture (Sandi-wound Skin Appearance) Scarring -Moisture (Sandi-wound Skin Appearance) Dry/Scaly -Color (Sandi-wound Skin Appearance) No Abnormality -Temperature (Sandi-wound Skin No Abnormality Appearance) (Pt Warm) -Ulcer Cleansing Soap and Water -Foul Odor after Cleansing No -Anesthetic Used 5% Lidocaine Gel WC - Nurse 2 - General Ulcer CM Notes Start: 10/22/21 13:14 Freq: Status: Active Protocol: Activity Type Activity Date Activity User E-Sign Co-Sign Detail Recorded Client Recorded Date Recorded By Document 10/22/21 13:41 [id number] 10/22/21 13:47 ASHLEY 10/22/21 13:41 Wound Center Nurse 2 -Time 13:46 -Correct Patient Yes -Correct Side, Site, Position Yes -Correct Procedure Yes -Procedure Performed Yes -Type of Procedure Debridement -Clinical Debridement Subcutaneous -Tissue Removed Subcutaneous -Post Debridement (cm) - Length 0.2 -Post Debridement (cm) - Width 0.2 -Post Debridement (cm) - Depth 0.1 -Total Square (Post) (cm) 0.04 -Area of Debridement (cm) - Length 0.2 -Area of Debridement (cm) - Width 0.2 -Total Square (Area) (cm) 0.04 -Tunneling No -Undermining/Tunneling No -Circular Undermining No -Wound/Ulcer Outcome Not Healed -Ulcer Cleansing Rinsed/ Irrigated with Saline -Foul Odor after Cleansing No -Bioengineered Tissue No -Bleeding Controlled with Pressure -Offloading No -Treatment Response Procedure Tolerated Well -Debridement - Subq, 1st 20sq cm Yes Pain Scale: 0-10 Numeric Is Patient Pain Free? Yes WC - Nurse 3 - General Ulcer D/C NN Start: 10/22/21 13:14 Freq: Status: Active Protocol: Activity Type Activity Date Activity User E-Sign Co-Sign Detail Recorded Client Recorded Date Recorded By Document 10/22/21 13:47 [id number] 10/22/21 13:47 JF 10/22/21 13:47 Wound Care Nurse 3 #4 Sacral -Ulcer Cleansing Wound Cleanser -Foul Odor after Cleansing No -Other Dressing bacitracin -Primary Dressing Covered/Secured with Dry Gauze Pain Scale: 0-10 Numeric Is Patient Pain Free? Yes WC - Visit Discharge Discharge Condition Stable Ambulatory Status Ambulatory Transportation Private Auto Accompanied by Medication Reconcilliation completed & Yes provided to patient/care provider Clinical Summary of Care Provided Yes Assessment/Plan Assessment/Plan (1) Ulcer of sacral region: CODE(S): L98.429 - Non-pressure chronic ulcer of back with unspecified severity (2) Type 2 diabetes mellitus with diabetic polyneuropathy: CODE(S): E11.42 - Type 2 diabetes mellitus with diabetic polyneuropathy QUALIFIERS: Diabetes mellitus decorator street and building insulin use: unspecified custodial insulin use status Qualified Code(s): E11.42 - Type 2 diabetes mellitus with diabetic polyneuropathy (3) Hidradenitis suppurativa of anus: CODE(S): L73.2 - Hidradenitis suppurativa (4) Pilonidal cyst: CODE(S): L05.91 - Pilonidal cyst without abscess (5) Smoker: CODE(S): F17.200 - Nicotine dependence, unspecified, uncomplicated PLAN: Patient was seen and evaluated at the wound healing center today for his sacral/pilonidal ulcer that has re-opened several weeks ago. They have used antibiotic ointment on the area which has been dry and scabby and pulling causing pain. A subcutaneous debridement was performed today. Wound care - Antibiotic ointment covered with gauze daily and as needed Encouraged to massage the surrounding scar tissue with lotion daily. Stressed the importance of the manual massage to help soften the scarring to help prevent the scabbing and reopening of the ulcer. Patient and his verbalized understanding. Follow up 1 week.
[2021-10-29 08:51] VITALS: BP 130/86; PULSE 94; RESP 16; TEMP 36.3
--- NOTE | 2021-10-29 13:47 | PN.PCM_ITS ---
History of Present Illness Date of Service: 10/29/21 Chief Complaint: Sacral wound after excision of pilonidal cyst, which the ulcer has reopened after healing History of Wound: 76 year old man presents with persistent pain and intermittent drainage in his sacral area where a cyst was present. He also had issues with pain and intermittent drainage in his bilateral perianal and perineal areas but none at the present time. He denies fever. He denies trauma. He has intermittent drainage. He has never had surgery on his pilonidal cyst area. He has had antibiotics intermittently. He has diabetes mellitus and his last HgbA1c is in the 5 range according to the patient. Surgery 03/12/21 - Surgical preparation sacral area with excision complicated extensive pilonidal cyst. He was healed and his ulcer has recently reopened. Wound care - Antibiotic ointment covered with gauze daily and as needed. Operative cultures were positive for Proprionibacterium acnes and Corynebacterium amycolatum. The Doxycycline he was on was discontinued and he was started on Augmentin. Prealbumin 9.4 on 03/13/21. Today he denies fever, chills, nausea. States his appetite is ok. Progress of Wound: He is healed today. I did have to remove the thickened scabb ing from around the ulcer to see that it was healed underneath. Objective Data Objective Data Vital Signs: Vital Signs Temp Pulse Resp BP 97.3 F L 94 16 130/86 H 10/29/21 08:51 10/29/21 08:51 10/29/21 08:51 10/29/21 08:51 Oxygen Delivery Method Room Air Charges/Coding Visit Charges Office Visits / Consults: 32995 OV L3 Est Physical Exam Const alert and oriented x3 General Appearance: cooperative HEENT normocephalic Resp normal respiratory effort Cardio regular rate GI non-tender Palpation: soft Extremity normal capillary refill Skin Wound Narrative: Sacral ulcer is healed today. There was dry scabbing that was easily removed and the ulcer was healed underneath. Neuro CN's II-XII intact bilaterally Psych Appearance: grossly normal Debridement Note Debridement Note No debridement was completed: No debridement was completed today Post-Debridement Measurements and Additional Note: Post-Debridement Measurements/Treatment PLACIDO - Nurse 1 - General Ulcer Assessment Start: 10/22/21 13:14 Freq: Status: Active Protocol: SUSY Activity Type Activity Date Activity User E-Sign Co-Sign Detail Recorded Client Recorded Date Recorded By Document 10/22/21 13:14 DL [id number] 10/22/21 13:20 DL Document 10/29/21 08:51 [facility] [id number] 10/29/21 08:55 BMF 10/22/21 10/29/21 13:14 08:51 - Today's Visit Information Type of service Follow-up Visit Follow-up Visit (Physician/CERTIFIED INDUSTRIAL HYGIENIST (Physician/CERTIFIED INDUSTRIAL HYGIENIST ) ) Arrival Mode Ambulatory Ambulatory, Walker Transfer Assistance None None Accompanied by Patient Identification Verified (Name & Yes Yes ) Patient Requires Transmission-Based No No Precautions Vital Signs Temperature (97.8 F-99.1 F) 98.7 F 97.3 F L Temperature Source Temporal Temporal Pulse Rate (60-100) 92 94 Pulse Location Monitor Monitor Respiratory Rate (12-18) 20 H 16 Respiratory rate source Observation Observation Oxygen Delivery Method Room Air Blood Pressure (90/60-120/80) 133/83 H 130/86 H Blood Pressure Mean (mm Hg) 99 100 Source Monitor Monitor Position Sitting Blood Pressure Location Left Arm History Since Last Visit- (Skip if this is Patient's initial visit) Have you changed medications since your No No last visit? Any new allergies or adverse reactions No No Had a fall/change in ADL's that may No No increase risk of falls Signs or symptoms of abuse and/or No No neglect since last visit Have you been in the hospital since your No No last visit? Has dressing in place as prescribed Yes Yes Has compression in place as prescribed N/A N/A Has offloadiing in place as prescribed Yes N/A Experienced any changes in pain level or No No management Left Footwear Regular Shoe Right Footwear Regular Shoe Pain Scale: 0-10 Numeric Is Patient Pain Free? Yes Yes - Nurse 1 - General Ulcer Measurement Start: 10/22/21 13:14 Freq: Status: Active Protocol: Activity Type Activity Date Activity User E-Sign Co-Sign Detail Recorded Client Recorded Date Recorded By Document 10/22/21 13:14 DL [id number] 10/22/21 13:20 DL Document 10/29/21 08:51 [facility] [id number] 10/29/21 08:55 BMF 10/22/21 10/29/21 13:14 08:51 Wound Center Nurse 1 #4 Sacral -Combined with other wound No -Current Size (cm) - Length 1.5 0 -Current Size (cm) - Width 1.5 0 -Current Size (cm) - Depth 0.1 0 -Total Square Cm 2.25 0 -Date of Last Picture (Recall this 10/29/21 field) -Photo Taken No Yes -Epithelialization Large 67-100% -Tunneling No -Undermining/Tunneling No -Circular Undermining No -Exudate Amt None Present None Present -Wound Margin Thickened -Granulation Amt None Present (0 %) -Necrosis Amt Large (67-100%) -Necrotic Tissue Type Eschar -Structure Exposed N/A -Texture (Sandi-wound Skin Appearance) Scarring Assessed, Scarring -Moisture (Sandi-wound Skin Appearance) Dry/Scaly Assessed,Dry/ Scaly -Color (Sandi-wound Skin Appearance) No Abnormality Assessed -Temperature (Sandi-wound Skin No Abnormality No Abnormality Appearance) (Pt Warm) (Pt Warm) -Tenderness on Palpation (Sandi-wound No Skin Appearance) -Ulcer Cleansing Soap and Water Rinsed/ Irrigated with Saline -Foul Odor after Cleansing No No -Anesthetic Used 5% Lidocaine 5% Lidocaine Gel Gel WC - Nurse 2 - General Ulcer CM Notes Start: 10/22/21 13:14 Freq: Status: Active Protocol: Activity Type Activity Date Activity User E-Sign Co-Sign Detail Recorded Client Recorded Date Recorded By Document 10/22/21 13:41 [id number] 10/22/21 13:47 Document 10/29/21 09:16 [id number] 10/29/21 09:19 10/22/21 10/29/21 13:41 09:16 Wound Center Nurse 2 #4 Sacral -Time 13:46 -Correct Patient Yes No -Correct Side, Site, Position Yes No -Correct Procedure Yes No -Procedure Performed Yes No -Type of Procedure Debridement -Clinical Debridement Subcutaneous -Tissue Removed Subcutaneous -Post Debridement (cm) - Length 0.2 0 -Post Debridement (cm) - Width 0.2 0 -Post Debridement (cm) - Depth 0.1 0 -Total Square (Post) (cm) 0.04 0 -Area of Debridement (cm) - Length 0.2 0 -Area of Debridement (cm) - Width 0.2 0 -Total Square (Area) (cm) 0.04 0 -Tunneling No No -Undermining/Tunneling No No -Circular Undermining No -Wound/Ulcer Outcome Not Healed Healed- Epithelialized -Ulcer Cleansing Rinsed/ Irrigated with Saline -Foul Odor after Cleansing No -Bioengineered Tissue No -Bleeding Controlled with Pressure -Offloading No -Treatment Response Procedure Tolerated Well -Debridement - Subq, 1st 20sq cm Yes Pain Scale: 0-10 Numeric Is Patient Pain Free? Yes Yes - Nurse 3 - General Ulcer D/C NN Start: 10/22/21 13:14 Freq: Status: Active Protocol: Activity Type Activity Date Activity User E-Sign Co-Sign Detail Recorded Client Recorded Date Recorded By Document 10/22/21 13:47 [id number] 10/22/21 13:47 Document 10/29/21 09:19 [id number] 10/29/21 09:19 10/22/21 10/29/21 13:47 09:19 Wound Care Nurse 3 #4 Sacral -Ulcer Cleansing Wound Cleanser -Foul Odor after Cleansing No -Other Dressing bacitracin -Primary Dressing Covered/Secured with Dry Gauze Pain Scale: 0-10 Numeric Is Patient Pain Free? Yes Yes - Visit Discharge Discharge Condition Stable Stable Ambulatory Status Ambulatory Ambulatory Transportation Private Auto Private Auto Accompanied by Medication Reconcilliation completed & Yes Yes provided to patient/care provider Clinical Summary of Care Provided Yes Yes Assessment/Plan Assessment/Plan (1) Ulcer of sacral region: CODE(S): L98.429 - Non-pressure chronic ulcer of back with unspecified severity (2) Pilonidal cyst: CODE(S): L05.91 - Pilonidal cyst without abscess (3) Hidradenitis suppurativa of anus: CODE(S): L73.2 - Hidradenitis suppurativa (4) Type 2 diabetes mellitus with diabetic polyneuropathy: CODE(S): E11.42 - Type 2 diabetes mellitus with diabetic polyneuropathy QUALIFIERS: Diabetes mellitus prison insulin use: unspecified prison insulin use status Qualified Code(s): E11.42 - Type 2 diabetes mellitus with diabetic polyneuropathy (5) Smoker: CODE(S): F17.200 - Nicotine dependence, unspecified, uncomplicated PLAN: Patient was seen and evaluated at the wound healing center today for his sacral/pilonidal ulcer that has re-opened several weeks ago. He is healed today. No debridement was performed. Encouraged to massage the surrounding scar tissue with lotion/aquaphor/vasoline 1-2 times a day. Stressed the importance of the manual massage to help soften the scarring to help prevent the scabbing and reopening of the ulcer. Patient and his verbalized understanding. Follow up as needed.
== END 2021-10-29 14:39 | disposition home or self-care (01) ==
LOC: WC 09:15
PROVIDERS: PCP Family Medicine; Visit Provider Nurse Practitioner Family
DX: L73.2 Hidradenitis suppurativa (principal); L97.421 Non-pressure chronic ulcer of left heel and midfoot limited to breakdown of skin; E11.42 Type 2 diabetes mellitus with diabetic polyneuropathy; L05.91 Pilonidal cyst without abscess; F17.200 Nicotine dependence, unspecified, uncomplicated
CPT/HCPCS: 11042; 99213; G0463

== ENCOUNTER 2022-06-26 09:21 | Outpatient (RCR) | payer MEDICARE, SELFPAY ==
[2022-06-26 10:15] VITALS: BP 132/75; PULSE 83; RESP 18
--- NOTE | 2022-06-26 12:35 | PCM.WC.HP ---
History of Present Illness Date of Service: 06/26/22 Chief Complaint: Sacral wound after excision of pilonidal cyst, which the ulcer has reopened after healing History of Wound: 76 year old man presents with persistent pain and intermittent drainage in his sacral area where a cyst was present. He also had issues with pain and intermittent drainage in his bilateral perianal and perineal areas but none at the present time. He denies fever. He denies trauma. He has intermittent drainage. He has never had surgery on his pilonidal cyst area. He has had antibiotics intermittently. He has diabetes mellitus and his last HgbA1c is in the 5 range according to the patient. Surgery 03/12/21 - Surgical preparation sacral area with excision complicated extensive pilonidal cyst. He was healed and his ulcer developed a scab several weeks ago. The scab recently fell off and there was an ulcer underneath it. Wound care - Dakin's moistened gauze covered with dry gauze or a superabsorber. Operative cultures were positive for Proprionibacterium acnes and Corynebacterium amycolatum. The Doxycycline he was on was discontinued and he was started on Augmentin. Prealbumin 9.4 on 03/13/21. Today he denies fever, chills, nausea. States his appetite is ok. Progress of Wound: Ulcer has some depth, the wound bed is pink. Sandi wound is stable. [facility] Medical History Acute and subacute hepatic failure without coma Alcohol dependence Alcohol use Altered mental status Ambulates with cane Cancer Chronic pain of left knee Diabetes Dietary restriction Erectile dysfunction Hidradenitis suppurativa of anus History of edema History of prostate disorder History of stress test Hx of completed stroke Hypertension Hyponatremia Microalbuminuria Open wound of sacroiliac region with complication PAD (peripheral artery disease) Pilonidal cyst Smoker Smoker Urinary retention Wears dentures Home Medications Cialis 10 mg PO PRN PRN Erectile Dysfunction 12/24/16 [History Last Taken Unknown] losartan 50 mg tablet 50 mg PO DAILY 03/07/21 [History Last Taken 03/12/21 10:00 50 mg] multivitamin 1 cap PO DAILY 03/07/21 [History Last Taken Unknown] diazepam 5 mg tablet (Valium) 5 mg PO Q6H PRN muscle spasm 7 days #30 tabs 03/13/21 [Rx Last Taken Unknown] doxycycline hyclate 100 mg tablet 100 mg PO BID 14 days #28 tabs 03/13/21 [Rx Last Taken Unknown] oxycodone-acetaminophen 5 mg-325 mg tablet (Percocet) 1 tab PO Q4H PRN pain (scale score 7-10) 7 days #40 tabs 03/13/21 [Rx Last Taken Unknown] amoxicillin 875 mg-potassium clavulanate 125 mg tablet (Augmentin) 1 tab PO BID 14 days #28 tabs 03/20/21 [Rx Last Taken Unknown] polyethylene glycol 3350 17 gram/dose oral powder 4 g PO DAILY 06/20/22 [History Last Taken Unknown] Allergy/AdvReac Type Severity Reaction Status Date / Time acetaminophen AdvReac Vomiting Verified 06/20/22 16:35 Family History Father Colon cancer Prostate cancer Mother CVA (cerebral vascular accident) Other Cancer Diabetes Surgical History History of transurethral resection of prostate Hx of colonoscopy Hx of laparoscopic partial gastrectomy Social History Smoking Status: Current every day smoker tobacco type: cigarettes alcohol intake: current alcohol intake frequency: 3 or more drinks per day Alcohol type: beer substance use type: does not use additional social history: Does Not Take Aspirin Does Not Take Ibuprofen ROS Constitutional Constitutional: Denies fever(s) or frequent falls Eyes Eyes: Reports systems reviewed and no addt'l complaints, except as documented ENT HEENT: Reports systems reviewed and no addt'l complaints, except as documented Cardiovascular Cardiovascular: Reports systems reviewed and no addt'l complaints, except as documented Respiratory/Chest Respiratory/Chest: Reports systems reviewed and no addt'l complaints, except as documented Gastrointestinal Gastrointestinal: Reports systems reviewed and no addt'l complaints, except as documented Genitourinary Genitourinary: Reports systems reviewed and no addt'l complaints, except as documented Musculoskeletal Musculoskeletal: Reports joint pain, joint stiffness and stiffness; Denies joint swelling Integumentary Integumentary: Reports skin ulcer Neurologic Neurologic: Reports systems reviewed and no addt'l complaints, except as documented Psychiatric Psychiatric: Reports systems reviewed and no addt'l complaints, except as documented Endocrine Endocrinology: Reports systems reviewed and no addt'l complaints, except as documented Hematologic/Lymphatic Hematologic/Lymphatic: Reports systems reviewed and no addt'l complaints, except as documented Vital Signs Vital Signs Vital Signs: 06/26/22 10:15 Temperature Source Temporal Pulse Rate 83 Respiratory Rate 18 Blood Pressure 132/75 H Blood Pressure Mean 94 Blood Pressure Source Monitor Blood Pressure Position Sitting Blood Pressure Location Right Arm Oxygen Delivery Method Room Air Physical Exam Const alert, oriented x3 and no apparent distress General Appearance: cooperative and well kempt Orientation / Consciousness: awake HEENT normocephalic and head/scalp atraumatic Eyes EOMs intact bilaterally General Eye: normal appearance of both eyes Neck full ROM Lymph Lymphatic: no lymphedema noted Resp normal respiratory effort, normal air movement and clear to auscultation bilaterally Effort and Inspection: able to speak in complete sentences Cardio regular rate and regular rhythm Peripheral Pulses: dorsalis pedis pulses present GI normal to inspection, nondistended, normoactive bowel sounds, soft to palpation and non-tender Extremity full ROM and normal capillary refill Skin Wound Narrative: Sacral ulcer with beefy pink wound bed with some depth. Neuro oriented x3 and moves all extremities Sensorium / Orientation: awake and alert Psych mental status grossly normal, thought process normal, cooperative and affect normal Debridement Note Debridement Note Wound debrided: Sacral ulcer Laterality: Not Applicable Wound Grade/Stage: Stage III Type of Debridement: Excisional debridement Anesthesia Used: 5% Lidocaine Gel Depth: Down to and including healthy tissue and in the subcutaneous layer Percentage of wound debrided: 100 Instrument Used: 5mm curette Tissue Removed: Devitalized tissue and slough Severity: Fat Layer Exposed Amount of bleeding with debridement: Mild Bleeding Controlled with: Compression and gauze Patient tolerated procedure: Patient tolerated procedure well Post-Debridement Measurements and Additional Note: Post-Debridement Measurements/Treatment PLACIDO - Nurse 1 - General Ulcer Assessment Start: 06/26/22 10:09 Freq: Status: Active Protocol: SUSY Activity Type Activity Date Activity User E-sign Co-sign Detail Recorded Client Recorded Date Recorded By Document 06/26/22 10:15 GA [id number] 06/26/22 10:34 GA 06/26/22 10:15 - Today's Visit Information Type of service Initial Visit Arrival Mode Ambulatory Patient Identification Verified (Name & Yes ) Vital Signs Temperature Source Temporal Pulse Rate (60-100) 83 Pulse Location Monitor Respiratory Rate (12-18) 18 Respiratory rate source Observation Oxygen Delivery Method Room Air Blood Pressure (90/60-120/80) 132/75 H Blood Pressure Mean 94 Source Monitor Position Sitting Blood Pressure Location Right Arm History Since Last Visit- (Skip if this is Patient's initial visit) Left Footwear Regular Shoe Right Footwear Regular Shoe Pain Scale: 0-10 Numeric Is Patient Pain Free? Yes WC - Nurse 1 - General Ulcer Measurement Start: 06/26/22 10:09 Freq: Status: Active Protocol: Activity Type Activity Date Activity User E-sign Co-sign Detail Recorded Client Recorded Date Recorded By Document 06/26/22 10:15 GA [id number] 06/26/22 10:34 GA 06/26/22 10:15 Wound Center Nurse 1 #5 Sacral -Current Size (cm) - Length 1.5 -Current Size (cm) - Width 1.4 -Current Size (cm) - Depth 0.7 -Total Square Cm 2.10 -Undermining/Tunneling Yes -Undermining/Tunneling Starts (O'clock 12 ) -Undermining/Tunneling Ends (O'clock) 12 -Maximum Distance (cm) 1.4 -Exudate Amt None Present -Wound Margin Flat & Intact -Granulation Amt Medium (34-66%) -Granulation Quality Pale,[place] -Necrosis Amt Small (1-33%) -Necrotic Tissue Type Adherent Slough -Texture (Sandi-wound Skin Appearance) Assessed -Moisture (Sandi-wound Skin Appearance) Assessed, Maceration -Color (Sandi-wound Skin Appearance) Assessed -Temperature (Sandi-wound Skin No Abnormality Appearance) (Pt Warm) -Tenderness on Palpation (Sandi-wound No Skin Appearance) -Ulcer Cleansing Rinsed/ Irrigated with Saline -Foul Odor after Cleansing No -Anesthetic Used 5% Lidocaine Gel Lower Limb Edema Present NA WC - Nurse 2 - General Ulcer CM Notes Start: 06/26/22 10:09 Freq: Status: Active Protocol: Activity Type Activity Date Activity User E-sign Co-sign Detail Recorded Client Recorded Date Recorded By Document 06/26/22 10:48 Laptop 06/26/22 10:52 06/26/22 10:48 Wound Center Nurse 2 #5 Sacral -Time 10:51 -Correct Patient Yes -Correct Side, Site, Position Yes -Correct Procedure Yes -Procedure Performed Yes -Type of Procedure Debridement -Clinical Debridement Subcutaneous -Tissue Removed Subcutaneous -Post Debridement (cm) - Length 1.5 -Post Debridement (cm) - Width 1.3 -Post Debridement (cm) - Depth 1.4 -Total Square (Post) (cm) 1.95 -Area of Debridement (cm) - Length 1.5 -Area of Debridement (cm) - Width 1.3 -Total Square (Area) (cm) 1.95 -Tunneling Yes -Tunneling Position (O'clock) 6 -Tunneling Distance (cm) 1 -Circular Undermining Yes -Wound/Ulcer Outcome Not Healed -Ulcer Cleansing Rinsed/ Irrigated with Saline -Foul Odor after Cleansing No -Bioengineered Tissue No -Bleeding Controlled with Pressure -Treatment Response Procedure Tolerated Well -Offloading No -Debridement - Subq, 1st 20sq cm Yes Pain Scale: 0-10 Numeric Is Patient Pain Free? Yes - Nurse 3 - General Ulcer D/C NN Start: 06/26/22 10:09 Freq: Status: Active Protocol: Activity Type Activity Date Activity User E-sign Co-sign Detail Recorded Client Recorded Date Recorded By Document 06/26/22 11:19 [id number] 06/26/22 11:20 06/26/22 11:19 Wound Care Nurse 3 #5 Sacral -Ulcer Cleansing Rinsed/ Irrigated with Saline -Primary Dressing Applied Hysept ($) -Primary Dressing Covered/Secured with Dry Gauze, Secured with Tape Treatment Response Procedure Tolerated Well Pain Scale: 0-10 Numeric Is Patient Pain Free? Yes Teaching: Wound Center Dressing Your Wound -Person Taught Patient,Family, Primary Caregiver -Teaching Method Discussion, Demonstration -Response to teaching Verbalize understanding WC - Visit Discharge Discharge Condition Stable Ambulatory Status Ambulatory, Walker Transportation Private Auto Medication Reconcilliation completed & No provided to patient/care provider Clinical Summary of Care Provided Yes Charges/Coding Visit Charges Office Visits / Consults: 84548 OV L3 Est (25 modifier) Procedures Integumentary 111xxx-113xx: [id number] Dena subq tissue 20 sq cm/< Assessment/Plan Assessment/Plan (1) Ulcer of sacral region: CODE(S): L98.429 - Non-pressure chronic ulcer of back with unspecified severity (2) Type 2 diabetes mellitus with diabetic polyneuropathy: CODE(S): E11.42 - Type 2 diabetes mellitus with diabetic polyneuropathy QUALIFIERS: Diabetes mellitus mcc insulin use: unspecified termite treater helper insulin use status Qualified Code(s): E11.42 - Type 2 diabetes mellitus with diabetic polyneuropathy (3) Smoker: CODE(S): F17.200 - Nicotine dependence, unspecified, uncomplicated (4) History of excision of pilonidal cyst: CODE(S): Z98.890 - Other specified postprocedural states (5) History of hidradenitis suppurativa: CODE(S): Z87.2 - Personal history of diseases of the skin and subcutaneous tissue PLAN: Plan Patient was evaluated at the wound center today. A subcutaneous debridement was performed. Wound care - To the sacral ulcer place moistened Dakins 0.25% gauze into the base of the ulcer and cover with dry gauze/ABD/Super absorber after washing the ulcer with soap and water daily. Wound culture obtained today, 06/26/22, depending on the results of the culture, it may necessitate the need for treatment with antibiotics. Encouraged patient to stop smoking as it may have deleterious effects on wound healing. Follow up one week. 25 minutes was spent with patient, reviewing records, planning care and documenting.
== END 2022-07-01 23:59 | disposition home or self-care (01) ==
LOC: WC 09:21
PROVIDERS: PCP Family Medicine; Visit Provider Nurse Practitioner Family
DX: L98.422 Non-pressure chronic ulcer of back with fat layer exposed (principal); E11.51 Type 2 diabetes mellitus with diabetic peripheral angiopathy without gangrene; E11.42 Type 2 diabetes mellitus with diabetic polyneuropathy; I10 Essential (primary) hypertension; M53.3 Sacrococcygeal disorders, not elsewhere classified; F17.210 Nicotine dependence, cigarettes, uncomplicated; Z79.899 Other long term (current) drug therapy; Z98.890 Other specified postprocedural states; Z87.2 Personal history of diseases of the skin and subcutaneous tissue
CPT/HCPCS: 11042; 87070; 87075; 87077; 87186; 87205; 99213; G0463

== ENCOUNTER 2022-07-31 11:15 | Outpatient (RCR) | payer MEDICARE, SELFPAY ==
[2022-07-02 00:43] VITALS: BP 132/75; PULSE 83; RESP 18
[2022-07-10 11:04] VITALS: BP 116/78; PULSE 78; RESP 18; TEMP 36.4
--- NOTE | 2022-07-10 12:43 | PN.PCM_ITS ---
History of Present Illness Date of Service: 07/10/22 Chief Complaint: Sacral wound after excision of pilonidal cyst, which the ulcer has reopened after healing History of Wound: 76 year old man presents with persistent pain and intermittent drainage in his sacral area where a cyst was present. He also had issues with pain and intermittent drainage in his bilateral perianal and perineal areas but none at the present time. He denies fever. He denies trauma. He has intermittent drainage. He has never had surgery on his pilonidal cyst area. He has had antibiotics intermittently. He has diabetes mellitus and his last HgbA1c is in the 5 range according to the patient. Surgery 03/12/21 - Surgical preparation sacral area with excision complicated extensive pilonidal cyst. He was healed and his ulcer has recently reopened. Wound care - Dakin's moistened gauze covered with dry gauze daily. Today he denies fever, chills, nausea. States his appetite is ok. Progress of Wound: Sacral ulcer is pink in the base, there is undermining around the entire ulcer. No odor present. Objective Data Objective Data Vital Signs: Vital Signs Temp Pulse Resp BP 97.5 F L 78 18 116/78 07/10/22 11:04 07/10/22 11:04 07/10/22 11:04 07/10/22 11:04 Charges/Coding Procedures Integumentary 111xxx-113xx: 96272 Dena subq tissue 20 sq cm/< Debridement Note Debridement Note Wound debrided: Sacral ulcer Laterality: Not Applicable Wound Grade/Stage: Stage III Type of Debridement: Excisional debridement Anesthesia Used: 5% Lidocaine Gel Depth: Down to and including healthy tissue and in the subcutaneous layer Percentage of wound debrided: 100 Instrument Used: 5mm curette Tissue Removed: Devitalized tissue and slough Severity: Fat Layer Exposed Amount of bleeding with debridement: Mild Bleeding Controlled with: Compression and gauze Patient tolerated procedure: Patient tolerated procedure well Post-Debridement Measurements and Additional Note: Post-Debridement Measurements/Treatment PLACIDO - Nurse 1 - General Ulcer Assessment Start: 07/10/22 11:04 Freq: Status: Active Protocol: SUSY Activity Type Activity Date Activity User E-sign Co-sign Detail Recorded Client Recorded Date Recorded By Document 07/10/22 11:04 TRISTEN [id number] 07/10/22 11:09 07/10/22 11:04 - Today's Visit Information Type of service Follow-up Visit (Physician/MOBILE HOME MECHANIC ) Arrival Mode Ambulatory, Walker Transfer Assistance None Patient Identification Verified (Name & Yes ) Patient Requires Transmission-Based No Precautions Vital Signs Temperature (97.8 F-99.1 F) 97.5 F L Temperature Source Temporal Pulse Rate (60-100) 78 Pulse Location Monitor Respiratory Rate (12-18) 18 Respiratory rate source Observation Blood Pressure (90/60-120/80) 116/78 Blood Pressure Mean (mm Hg) 90 Source Monitor History Since Last Visit- (Skip if this is Patient's initial visit) Have you changed medications since your No last visit? Any new allergies or adverse reactions No Had a fall/change in ADL's that may No increase risk of falls Signs or symptoms of abuse and/or No neglect since last visit Have you been in the hospital since your No last visit? Has dressing in place as prescribed Yes Has compression in place as prescribed N/A Has offloadiing in place as prescribed Yes Experienced any changes in pain level or No management Pain Scale: 0-10 Numeric Is Patient Pain Free? Yes - Nurse 1 - General Ulcer Measurement Start: 07/10/22 11:04 Freq: Status: Active Protocol: Activity Type Activity Date Activity User E-sign Co-sign Detail Recorded Client Recorded Date Recorded By Document 07/10/22 11:04 [id number] 07/10/22 11:09 07/10/22 11:04 Wound Center Nurse 1 #5 Sacral -Current Size (cm) - Length 1.6 -Current Size (cm) - Width 1.3 -Current Size (cm) - Depth 0.4 -Total Square Cm 2.08 -Photo Taken No -Maximum Distance #2 (cm) 1 -Circular Undermining Yes -Exudate Amt Medium -Exudate Type Serosanguineous -Wound Margin Distinct, Outline Attached -Granulation Amt Large (67-100%) -Granulation Quality [address] -Necrosis Amt Small (1-33%) -Necrotic Tissue Type Adherent Slough -Structure Exposed N/A -Texture (Sandi-wound Skin Appearance) Scarring -Moisture (Sandi-wound Skin Appearance) Maceration -Color (Sandi-wound Skin Appearance) No Abnormality -Temperature (Sandi-wound Skin No Abnormality Appearance) (Pt Warm) -Tenderness on Palpation (Sandi-wound No Skin Appearance) -Ulcer Cleansing Rinsed/ Irrigated with Saline -Anesthetic Used 5% Lidocaine Gel WC - Nurse 2 - General Ulcer CM Notes Start: 07/10/22 11:04 Freq: Status: Active Protocol: Activity Type Activity Date Activity User E-sign Co-sign Detail Recorded Client Recorded Date Recorded By Document 07/10/22 11:34 MW [id number] 07/10/22 11:40 MW 07/10/22 11:34 Wound Center Nurse 2 -Time 11:34 -Correct Patient Yes -Correct Side, Site, Position Yes -Correct Procedure Yes -Procedure Performed Yes -Type of Procedure Debridement -Clinical Debridement Subcutaneous -Tissue Removed Subcutaneous -Post Debridement (cm) - Length 2.0 -Post Debridement (cm) - Width 1.4 -Post Debridement (cm) - Depth 0.5 -Total Square (Post) (cm) 2.80 -Area of Debridement (cm) - Length 2.0 -Area of Debridement (cm) - Width 1.4 -Total Square (Area) (cm) 2.80 -Tunneling No -Undermining/Tunneling No -Circular Undermining Yes -Wound/Ulcer Outcome Not Healed -Ulcer Cleansing Rinsed/ Irrigated with Saline -Foul Odor after Cleansing No -Bioengineered Tissue No -Bleeding Controlled with Pressure -Treatment Response Procedure Tolerated Well -Offloading No -Debridement - Subq, 1st 20sq cm Yes Pain Scale: 0-10 Numeric Is Patient Pain Free? Yes WC - Nurse 3 - General Ulcer D/C NN Start: 07/10/22 11:04 Freq: Status: Active Protocol: Activity Type Activity Date Activity User E-sign Co-sign Detail Recorded Client Recorded Date Recorded By Document 07/10/22 11:50 RB [id number] 07/10/22 11:51 RB 07/10/22 11:50 Wound Care Nurse 3 #5 Sacral -Primary Dressing Applied Mepilex Border -Other Dressing dakins moistened gauze packed into wound -Mepilex Border 1 Treatment Response Procedure Tolerated Well Pain Scale: 0-10 Numeric Is Patient Pain Free? Yes Teaching: Wound Center Dressing Your Wound -Person Taught Patient,Family -Teaching Method Discussion, Demonstration -Response to teaching Verbalize understanding WC - Visit Discharge Discharge Condition Stable Ambulatory Status Ambulatory, Walker Transportation Private Auto Medication Reconcilliation completed & No provided to patient/care provider Clinical Summary of Care Provided Yes Assessment/Plan Assessment/Plan (1) Ulcer of sacral region: CODE(S): L98.429 - Non-pressure chronic ulcer of back with unspecified severity (2) Type 2 diabetes mellitus with diabetic polyneuropathy: CODE(S): E11.42 - Type 2 diabetes mellitus with diabetic polyneuropathy QUALIFIERS: Diabetes mellitus residential insulin use: 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 A subcutaneous debridement was performed. Wound care - To the sacral ulcer place moistened Dakins 0.25% gauze into the base of the ulcer and cover with dry gauze/ABD/Super absorber after washing the ulcer with soap and water daily. Wound culture obtained on 06/26/22 which was positive for Streptococcus agalactiae (B) and Corynebacterium striatum. He was started on Augmentin. Encouraged to increase his protein intake to help with wound healing and to eat yogurt or take a probiotic to reduce side effects from the antibiotic. Encouraged patient to stop smoking as it may have deleterious effects on wound healing. Follow up one week.
[2022-07-17 11:15] VITALS: BP 141/71; PULSE 88; RESP 20; TEMP 35.9
--- NOTE | 2022-07-17 11:57 | PN.PCM_ITS ---
History of Present Illness Date of Service: 07/17/22 Chief Complaint: Sacral wound after excision of pilonidal cyst, which the ulcer has reopened after healing History of Wound: 76 year old man presents with persistent pain and intermittent drainage in his sacral area where a cyst was present. He also had issues with pain and intermittent drainage in his bilateral perianal and perineal areas but none at the present time. He denies fever. He denies trauma. He has intermittent drainage. He has never had surgery on his pilonidal cyst area. He has had antibiotics intermittently. He has diabetes mellitus and his last HgbA1c is in the 5 range according to the patient. Surgery 03/12/21 - Surgical preparation sacral area with excision complicated extensive pilonidal cyst. He was healed and his ulcer has recently reopened. Wound care - Dakin's moistened gauze covered with dry gauze daily. Today he denies fever, chills, nausea. States his appetite is ok. Progress of Wound: Sacral ulcer is pink in the base, there is undermining around the entire ulcer. No odor present. Objective Data Objective Data Vital Signs: Vital Signs Temp Pulse Resp BP 96.7 F L 88 20 H 141/71 H 07/17/22 11:15 07/17/22 11:15 07/17/22 11:15 07/17/22 11:15 Charges/Coding Procedures Integumentary 111xxx-113xx: [id number] Dena subq tissue 20 sq cm/< Debridement Note Debridement Note Wound debrided: Sacral ulcer Laterality: Not Applicable Wound Grade/Stage: Stage III Type of Debridement: Excisional debridement Anesthesia Used: 5% Lidocaine Gel Depth: Down to and including healthy tissue and in the subcutaneous layer Percentage of wound debrided: 100 Instrument Used: 5mm curette Tissue Removed: Devitalized tissue and slough Severity: Fat Layer Exposed Amount of bleeding with debridement: Mild Bleeding Controlled with: Compression and gauze Patient tolerated procedure: Patient tolerated procedure well Post-Debridement Measurements and Additional Note: Post-Debridement Measurements/Treatment PLACIDO - Nurse 1 - General Ulcer Assessment Start: 07/10/22 11:04 Freq: Status: Active Protocol: SUSY Activity Type Activity Date Activity User E-sign Co-sign Detail Recorded Client Recorded Date Recorded By Document 07/10/22 11:04 TRISTEN [id number] 07/10/22 11:09 DL Document 07/17/22 11:15 DL [id number] 07/17/22 11:24 DL 07/10/22 07/17/22 11:04 11:15 - Today's Visit Information Type of service Follow-up Visit Follow-up Visit (Physician/PSYCH THERAPIST (Physician/PSYCH THERAPIST ) ) Arrival Mode Ambulatory, Ambulatory, Walker Walker Transfer Assistance None None Patient Identification Verified (Name & Yes Yes ) Patient Requires Transmission-Based No No Precautions Vital Signs Temperature (97.8 F-99.1 F) 97.5 F L 96.7 F L Temperature Source Temporal Temporal Pulse Rate (60-100) 78 88 Pulse Location Monitor Monitor Respiratory Rate (12-18) 18 20 H Respiratory rate source Observation Observation Blood Pressure (90/60-120/80) 116/78 141/71 H Blood Pressure Mean (mm Hg) 90 94 Source Monitor Monitor History Since Last Visit- (Skip if this is Patient's initial visit) Have you changed medications since your No No last visit? Any new allergies or adverse reactions No No Had a fall/change in ADL's that may No No increase risk of falls Signs or symptoms of abuse and/or No No neglect since last visit Have you been in the hospital since your No No last visit? Has dressing in place as prescribed Yes Yes Has compression in place as prescribed N/A No Has offloadiing in place as prescribed Yes Yes Experienced any changes in pain level or No No management Pain Scale: 0-10 Numeric Is Patient Pain Free? Yes Yes - Nurse 1 - General Ulcer Measurement Start: 07/10/22 11:04 Freq: Status: Active Protocol: Activity Type Activity Date Activity User E-sign Co-sign Detail Recorded Client Recorded Date Recorded By Document 07/10/22 11:04 DL [id number] 07/10/22 11:09 DL Document 07/17/22 11:15 DL [id number] 07/17/22 11:24 DL 07/10/22 07/17/22 11:04 11:15 Wound Center Nurse 1 #5 Sacral -Current Size (cm) - Length 1.6 1.6 -Current Size (cm) - Width 1.3 1.4 -Current Size (cm) - Depth 0.4 0.5 -Total Square Cm 2.08 2.24 -Photo Taken No Yes -Maximum Distance #2 (cm) 1 -Circular Undermining Yes -Exudate Amt Medium Medium -Exudate Type Serosanguineous Serosanguineous -Wound Margin Distinct, Thickened & Outline Rolled Under Attached -Granulation Amt Large (67-100%) Large (67-100%) -Granulation Quality [place],Red -Necrosis Amt Small (1-33%) Small (1-33%) -Necrotic Tissue Type Adherent Slough Adherent Slough -Structure Exposed N/A N/A -Texture (Sandi-wound Skin Appearance) Scarring Scarring -Moisture (Sandi-wound Skin Appearance) Maceration Maceration -Color (Sandi-wound Skin Appearance) No Abnormality No Abnormality -Temperature (Sandi-wound Skin No Abnormality No Abnormality Appearance) (Pt Warm) (Pt Warm) -Tenderness on Palpation ([place]ndi-wound No No Skin Appearance) -Ulcer Cleansing Rinsed/ Soap and Water Irrigated with Saline -Foul Odor after Cleansing No -Anesthetic Used 5% Lidocaine 5% Lidocaine Gel Gel WC - Nurse 2 - General Ulcer CM Notes Start: 07/10/22 11:04 Freq: Status: Active Protocol: Activity Type Activity Date Activity User E-sign Co-sign Detail Recorded Client Recorded Date Recorded By Document 07/10/22 11:34 MW [id number] 07/10/22 11:40 MW Document 07/17/22 11:46 [id number] 07/17/22 11:49 07/10/22 07/17/22 11:34 11:46 Wound Center Nurse 2 #5 Sacral -Time 11:34 11:46 -Correct Patient Yes Yes -Correct Side, Site, Position Yes Yes -Correct Procedure Yes Yes -Procedure Performed Yes Yes -Type of Procedure Debridement Debridement -Clinical Debridement Subcutaneous Subcutaneous -Tissue Removed Subcutaneous Subcutaneous -Post Debridement (cm) - Length 2.0 1.7 -Post Debridement (cm) - Width 1.4 1.7 -Post Debridement (cm) - Depth 0.5 0.4 -Total Square (Post) (cm) 2.80 2.89 -Area of Debridement (cm) - Length 2.0 1.7 -Area of Debridement (cm) - Width 1.4 1.7 -Total Square (Area) (cm) 2.80 2.89 -Tunneling No Yes -Tunneling Position (O'clock) 3 -Tunneling Distance (cm) 1.3 -Undermining/Tunneling No No -Circular Undermining Yes Yes -Wound/Ulcer Outcome Not Healed Not Healed -Ulcer Cleansing Rinsed/ Rinsed/ Irrigated with Irrigated with Saline Saline -Foul Odor after Cleansing No No -Bioengineered Tissue No No -Bleeding Controlled with Pressure Pressure -Treatment Response Procedure Procedure Tolerated Well Tolerated Well -Offloading No No -Debridement - Subq, 1st 20sq cm Yes Yes Pain Scale: 0-10 Numeric Is Patient Pain Free? Yes Yes - Nurse 3 - General Ulcer D/C NN Start: 07/10/22 11:04 Freq: Status: Active Protocol: Activity Type Activity Date Activity User E-sign Co-sign Detail Recorded Client Recorded Date Recorded By Document 07/10/22 11:50 RB [id number] 07/10/22 11:51 RB 07/10/22 11:50 Wound Care Nurse 3 #5 Sacral -Primary Dressing Applied Mepilex Border -Other Dressing dakins moistened gauze packed into wound -Mepilex Border 1 Treatment Response Procedure Tolerated Well Pain Scale: 0-10 Numeric Is Patient Pain Free? Yes Teaching: Wound Center Dressing Your Wound -Person Taught Patient,Family -Teaching Method Discussion, Demonstration -Response to teaching Verbalize understanding WC - Visit Discharge Discharge Condition Stable Ambulatory Status Ambulatory, Walker Transportation Private Auto Medication Reconcilliation completed & No provided to patient/care provider Clinical Summary of Care Provided Yes Assessment/Plan Assessment/Plan (1) Ulcer of sacral region: CODE(S): L98.429 - Non-pressure chronic ulcer of back with unspecified severity (2) Type 2 diabetes mellitus with diabetic polyneuropathy: CODE(S): E11.42 - Type 2 diabetes mellitus with diabetic polyneuropathy QUALIFIERS: Diabetes mellitus skilled nursing insulin use: 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 A subcutaneous debridement was performed. Wound care - To the sacral ulcer place moistened Dakins 0.25% gauze into the base of the ulcer and cover with dry gauze/ABD/Super absorber after washing the ulcer with soap and water daily. Concerned that he may need an operative debridement due to the amount of undermining that is present. Patient really does not want to have another surgery. Instructed patient's how to pack the gauze into the undermined area. Wound culture obtained on 06/26/22 which was positive for Streptococcus agalactiae (B) and Corynebacterium striatum. He is taking Augmentin. Encouraged to increase his protein intake to help with wound healing and to eat yogurt or take a probiotic to reduce side effects from the antibiotic. Encouraged patient to stop smoking as it may have deleterious effects on wound healing. Follow up two weeks, due to the holiday. Call or come in sooner if develop any concerns.
[2022-07-31 11:22] VITALS: BP 130/71; PULSE 84; RESP 18; TEMP 36.1
--- NOTE | 2022-07-31 14:34 | PN.PCM_ITS ---
History of Present Illness Date of Service: 07/31/22 Chief Complaint: Sacral wound after excision of pilonidal cyst, which the ulcer has reopened after healing History of Wound: 76 year old man presents with persistent pain and intermittent drainage in his sacral area where a cyst was present. He also had issues with pain and intermittent drainage in his bilateral perianal and perineal areas but none at the present time. He denies fever. He denies trauma. He has intermittent drainage. He has never had surgery on his pilonidal cyst area. He has had antibiotics intermittently. He has diabetes mellitus and his last HgbA1c is in the 5 range according to the patient. Surgery 03/12/21 - Surgical preparation sacral area with excision complicated extensive pilonidal cyst. He was healed and his ulcer has recently reopened. Wound care - Dakin's moistened gauze covered with dry gauze daily. Today he denies fever, chills, nausea. States his appetite is ok. Progress of Wound: Sacral ulcer is beefy pink in the base, the undermining has decreased. Objective Data Objective Data Vital Signs: Vital Signs Temp Pulse Resp BP 97 F L 84 18 130/71 H 07/31/22 11:22 07/31/22 11:22 07/31/22 11:22 07/31/22 11:22 Charges/Coding Procedures Integumentary 111xxx-113xx: [id number] Dena subq tissue 20 sq cm/< Debridement Note Debridement Note Wound debrided: Sacral ulcer Laterality: Not Applicable Wound Grade/Stage: Stage III Type of Debridement: Excisional debridement Anesthesia Used: 5% Lidocaine Gel Depth: Down to and including healthy tissue and in the subcutaneous layer Percentage of wound debrided: 100 Instrument Used: 5mm curette Tissue Removed: Devitalized tissue and slough Severity: Fat Layer Exposed Amount of bleeding with debridement: Mild Bleeding Controlled with: Compression and gauze Patient tolerated procedure: Patient tolerated procedure well Post-Debridement Measurements and Additional Note: Post-Debridement Measurements/Treatment PLACIDO - Nurse 1 - General Ulcer Assessment Start: 07/10/22 11:04 Freq: Status: Active Protocol: SUSY Activity Type Activity Date Activity User E-sign Co-sign Detail Recorded Client Recorded Date Recorded By Document 07/10/22 11:04 TRISTEN [id number] 07/10/22 11:09 DL Document 07/17/22 11:15 DL [id number] 07/17/22 11:24 DL Document 07/31/22 11:22 RB [id number] 07/31/22 11:24 RB 07/10/22 07/17/22 07/31/22 11:04 11:15 11:22 - Today's Visit Information Type of service Follow-up Visit Follow-up Visit Follow-up Visit (Physician/PUBLICATIONS DISTRIBUTION CLERK (Physician/PUBLICATIONS DISTRIBUTION CLERK (Physician/PUBLICATIONS DISTRIBUTION CLERK ) ) ) Arrival Mode Ambulatory, Ambulatory, Ambulatory Walker Walker Transfer Assistance None None None Patient Identification Verified (Name & Yes Yes Yes ) Patient Requires Transmission-Based No No No Precautions Vital Signs Temperature (97.8 F-99.1 F) 97.5 F L 96.7 F L 97 F L Temperature Source Temporal Temporal Temporal Pulse Rate (60-100) 78 88 84 Pulse Location Monitor Monitor Monitor Respiratory Rate (12-18) 18 20 H 18 Respiratory rate source Observation Observation Observation Blood Pressure (90/60-120/80) 116/78 141/71 H 130/71 H Blood Pressure Mean (mm Hg) 90 94 90 Source Monitor Monitor Monitor Position Semi-Fowlers Blood Pressure Location Left Arm History Since Last Visit- (Skip if this is Patient's initial visit) Have you changed medications since your No No No last visit? Any new allergies or adverse reactions No No No Had a fall/change in ADL's that may No No No increase risk of falls Signs or symptoms of abuse and/or No No No neglect since last visit Have you been in the hospital since your No No No last visit? Has dressing in place as prescribed Yes Yes Yes Has compression in place as prescribed N/A No No Has offloadiing in place as prescribed Yes Yes No Experienced any changes in pain level or No No No management Pain Scale: 0-10 Numeric Is Patient Pain Free? Yes Yes Yes - Nurse 1 - General Ulcer Measurement Start: 07/10/22 11:04 Freq: Status: Active Protocol: Activity Type Activity Date Activity User E-sign Co-sign Detail Recorded Client Recorded Date Recorded By Document 07/10/22 11:04 DL [id number] 07/10/22 11:09 DL Document 07/17/22 11:15 DL [id number] 07/17/22 11:24 DL Document 07/31/22 11:22 RB [id number] 07/31/22 11:24 RB 07/10/22 07/17/22 07/31/22 11:04 11:15 11:22 Wound Center Nurse 1 #5 Sacral -Combined with other wound No -Current Size (cm) - Length 1.6 1.6 1 -Current Size (cm) - Width 1.3 1.4 0.8 -Current Size (cm) - Depth 0.4 0.5 0.8 -Total Square Cm 2.08 2.24 0.8 -Photo Taken No Yes Yes -Tunneling No -Undermining/Tunneling No -Maximum Distance #2 (cm) 1 -Circular Undermining Yes No -Exudate Amt Medium Medium Medium -Exudate Type Serosanguineous Serosanguineous Serosanguineous -Wound Margin Distinct, Thickened & Distinct, Outline Rolled Under Outline Attached Attached -Granulation Amt Large (67-100%) Large (67-100%) Medium (34-66%) -Granulation Quality Oretta Oretta,Red Oretta,Red -Slough/Fibrin Yes -Necrosis Amt Small (1-33%) Small (1-33%) Small (1-33%) -Necrotic Tissue Type Adherent Slough Adherent Slough Adherent Slough -Structure Exposed N/A N/A N/A -Texture (Sandi-wound Skin Appearance) Scarring Scarring Assessed -Moisture (Sandi-wound Skin Appearance) Maceration Maceration Assessed -Color (Asndi-wound Skin Appearance) No Abnormality No Abnormality Assessed -Temperature (Sandi-wound Skin No Abnormality No Abnormality No Abnormality Appearance) (Pt Warm) (Pt Warm) (Pt Warm) -Tenderness on Palpation (Sandi-wound No No No Skin Appearance) -Ulcer Cleansing Rinsed/ Soap and Water Wound Cleanser Irrigated with Saline -Foul Odor after Cleansing No No -Anesthetic Used 5% Lidocaine 5% Lidocaine 5% Lidocaine Gel Gel Gel WC - Nurse 2 - General Ulcer CM Notes Start: 07/10/22 11:04 Freq: Status: Active Protocol: Activity Type Activity Date Activity User E-sign Co-sign Detail Recorded Client Recorded Date Recorded By Document 07/10/22 11:34 MW [id number] 07/10/22 11:40 MW Document 07/17/22 11:46 [id number] 07/17/22 11:49 JF Document 07/31/22 11:41 [id number] 07/31/22 11:42 JF 07/10/22 07/17/22 07/31/22 11:34 11:46 11:41 Wound Center Nurse 2 #5 Sacral -Time 11:34 11:46 11:42 -Correct Patient Yes Yes Yes -Correct Side, Site, Position Yes Yes Yes -Correct Procedure Yes Yes Yes -Procedure Performed Yes Yes Yes -Type of Procedure Debridement Debridement Debridement -Clinical Debridement Subcutaneous Subcutaneous Subcutaneous -Tissue Removed Subcutaneous Subcutaneous Subcutaneous -Post Debridement (cm) - Length 2.0 1.7 1.3 -Post Debridement (cm) - Width 1.4 1.7 1.0 -Post Debridement (cm) - Depth 0.5 0.4 0.4 -Total Square (Post) (cm) 2.80 2.89 1.30 -Area of Debridement (cm) - Length 2.0 1.7 1.3 -Area of Debridement (cm) - Width 1.4 1.7 1.0 -Total Square (Area) (cm) 2.80 2.89 1.30 -Tunneling No Yes No -Tunneling Position (O'clock) 3 -Tunneling Distance (cm) 1.3 -Undermining/Tunneling No No No -Circular Undermining Yes Yes No -Wound/Ulcer Outcome Not Healed Not Healed Not Healed -Ulcer Cleansing Rinsed/ Rinsed/ Rinsed/ Irrigated with Irrigated with Irrigated with Saline Saline Saline -Foul Odor after Cleansing No No No -Bioengineered Tissue No No No -Bleeding Controlled with Pressure Pressure Pressure -Treatment Response Procedure Procedure Procedure Tolerated Well Tolerated Well Tolerated Well -Offloading No No No -Debridement - Subq, 1st 20sq cm Yes Yes Yes Pain Scale: 0-10 Numeric Is Patient Pain Free? Yes Yes Yes WC - Nurse 3 - General Ulcer D/C NN Start: 07/10/22 11:04 Freq: Status: Active Protocol: Activity Type Activity Date Activity User E-sign Co-sign Detail Recorded Client Recorded Date Recorded By Document 07/10/22 11:50 RB [id number] 07/10/22 11:51 RB Document 07/17/22 12:04 DL [id number] 07/17/22 12:05 DL 07/10/22 07/17/22 11:50 12:04 Wound Care Nurse 3 #5 Sacral -Ulcer Cleansing Rinsed/ Irrigated with Saline -Foul Odor after Cleansing No -Primary Dressing Applied Mepilex Border -Other Dressing dakins dankins moistened gauze packed into wound -Primary Dressing Covered/Secured with Dry Gauze, Secured with Tape -Mepilex Border 1 Treatment Response Procedure Procedure Tolerated Well Tolerated Well Pain Scale: 0-10 Numeric Is Patient Pain Free? Yes Yes Teaching: Wound Center Dressing Your Wound -Person Taught Patient,Family -Teaching Method Discussion, Demonstration -Response to teaching Verbalize understanding WC - Visit Discharge Discharge Condition Stable Stable Ambulatory Status Ambulatory, Ambulatory, Walker Walker Transportation Private Auto Private Auto Medication Reconcilliation completed & No provided to patient/care provider Clinical Summary of Care Provided Yes Notes: Dressing applied per today. Assessment/Plan Assessment/Plan (1) Ulcer of sacral region: CODE(S): L98.429 - Non-pressure chronic ulcer of back with unspecified severity (2) Type 2 diabetes mellitus with diabetic polyneuropathy: CODE(S): E11.42 - Type 2 diabetes mellitus with diabetic polyneuropathy QUALIFIERS: Diabetes mellitus detention insulin use: unspecified long distance operator insulin use status Qualified Code(s): E11.42 - Type 2 diabetes mellitus with diabetic polyneuropathy (3) Smoker: CODE(S): F17.200 - Nicotine dependence, unspecified, uncomplicated (4) History of excision of pilonidal cyst: CODE(S): Z98.890 - Other specified postprocedural states (5) History of hidradenitis suppurativa: CODE(S): Z87.2 - Personal history of diseases of the skin and subcutaneous tissue PLAN: Plan Patient was evaluated at the wound center today. A subcutaneous debridement was performed. Wound care - To the sacral ulcer place moistened Dakins 0.25% gauze into the base of the ulcer and cover with dry gauze/ABD/Super absorber after washing the ulcer with soap and water daily. Patient's is doing a good job packing the gauze into the undermined area. Wound culture obtained on 06/26/22 which was positive for Streptococcus agalactiae (B) and Corynebacterium striatum. He completed Augmentin. Encouraged to increase his protein intake to help with wound healing and to eat yogurt or take a probiotic to reduce side effects from the antibiotic. Encouraged patient to stop smoking as it may have deleterious effects on wound healing. Follow up two weeks. Call or come in sooner if develop any concerns.
== END 2022-07-31 23:59 | disposition home or self-care (01) ==
LOC: WC 11:15
PROVIDERS: PCP Family Medicine; Visit Provider Nurse Practitioner Family
DX: L98.422 Non-pressure chronic ulcer of back with fat layer exposed (principal); E11.42 Type 2 diabetes mellitus with diabetic polyneuropathy; L05.91 Pilonidal cyst without abscess; F17.200 Nicotine dependence, unspecified, uncomplicated; Z79.899 Other long term (current) drug therapy; Z98.890 Other specified postprocedural states
CPT/HCPCS: 11042

== ENCOUNTER 2022-08-28 10:30 | Outpatient (RCR) | payer MEDICARE, SELFPAY ==
[2022-08-01 00:36] VITALS: BP 130/71; PULSE 84; RESP 18; TEMP 36.1
[2022-08-14 10:59] VITALS: RESP 18; TEMP 36.3
--- NOTE | 2022-08-14 13:01 | PCM.WC.PN ---
History of Present Illness Date of Service: 08/14/22 Chief Complaint: Sacral wound after excision of pilonidal cyst, which the ulcer has reopened after healing History of Wound: 76 year old man presents with persistent pain and intermittent drainage in his sacral area where a cyst was present. He also had issues with pain and intermittent drainage in his bilateral perianal and perineal areas but none at the present time. He denies fever. He denies trauma. He has intermittent drainage. He has never had surgery on his pilonidal cyst area. He has had antibiotics intermittently. He has diabetes mellitus and his last HgbA1c is in the 5 range according to the patient. Surgery 03/12/21 - Surgical preparation sacral area with excision complicated extensive pilonidal cyst. He was healed and his ulcer has recently reopened. Wound care - Dakin's moistened gauze covered with dry gauze daily. Today he denies fever, chills, nausea. States his appetite is ok. Progress of Wound: Sacral ulcer is beefy pink in the base, continues to have undermining. Objective Data Objective Data Vital Signs: Vital Signs Temp Pulse Resp BP 97.3 F L 84 18 130/71 H 08/14/22 10:59 08/01/22 00:36 08/14/22 10:59 08/01/22 00:36 Charges/Coding Procedures Integumentary 111xxx-113xx: [id number] Dena subq tissue 20 sq cm/< Debridement Note Debridement Note Wound debrided: Sacral ulcer Laterality: Not Applicable Wound Grade/Stage: Stage III Type of Debridement: Excisional debridement Anesthesia Used: 5% Lidocaine Gel Depth: Down to and including healthy tissue and in the subcutaneous layer Percentage of wound debrided: 100 Instrument Used: 5mm curette Tissue Removed: Devitalized tissue and slough Severity: Fat Layer Exposed Amount of bleeding with debridement: Mild Bleeding Controlled with: Compression and gauze Patient tolerated procedure: Patient tolerated procedure well Post-Debridement Measurements and Additional Note: Post-Debridement Measurements/Treatment PLACIDO - Nurse 1 - General Ulcer Assessment Start: 08/14/22 10:59 Freq: Status: Active Protocol: SUSY Activity Type Activity Date Activity User E-sign Co-sign Detail Recorded Client Recorded Date Recorded By Document 08/14/22 10:59 DL [id number] 08/14/22 11:05 DL 12/14/22 10:59 - Today's Visit Information Type of service Follow-up Visit (Physician/GRINDING MILL OPERATOR ) Arrival Mode Ambulatory, Walker Transfer Assistance None Patient Identification Verified (Name & Yes ) Patient Requires Transmission-Based No Precautions Vital Signs Temperature (97.8 F-99.1 F) 97.3 F L Temperature Source Temporal Respiratory Rate (12-18) 18 Respiratory rate source Observation History Since Last Visit- (Skip if this is Patient's initial visit) Have you changed medications since your No last visit? Any new allergies or adverse reactions No Had a fall/change in ADL's that may No increase risk of falls Signs or symptoms of abuse and/or No neglect since last visit Have you been in the hospital since your No last visit? Has dressing in place as prescribed Yes Has compression in place as prescribed N/A Has offloadiing in place as prescribed Yes Experienced any changes in pain level or No management Pain Scale: 0-10 Numeric Is Patient Pain Free? Yes - Nurse 1 - General Ulcer Measurement Start: 08/14/22 10:59 Freq: Status: Active Protocol: Activity Type Activity Date Activity User E-sign Co-sign Detail Recorded Client Recorded Date Recorded By Document 08/14/22 10:59 [id number] 08/14/22 11:05 08/14/22 10:59 Wound Center Nurse 1 #5 Sacral -Current Size (cm) - Length 1 -Current Size (cm) - Width 0.9 -Current Size (cm) - Depth 0.3 -Total Square Cm 0.9 -Photo Taken Yes -Undermining/Tunneling Starts (O'clock 1 ) -Undermining/Tunneling Ends (O'clock) 5 -Maximum Distance (cm) 1.1 -Exudate Amt Medium -Exudate Type Serous -Wound Margin Thickened & Rolled Under -Granulation Amt Medium (34-66%) -Granulation Quality Red -Necrosis Amt Medium (34-66%) -Necrotic Tissue Type Adherent Slough -Structure Exposed N/A -Texture (Sandi-wound Skin Appearance) Scarring -Moisture (Sandi-wound Skin Appearance) Maceration -Color (Sandi-wound Skin Appearance) No Abnormality -Temperature (Sandi-wound Skin No Abnormality Appearance) (Pt Warm) -Tenderness on Palpation (Sandi-wound No Skin Appearance) -Ulcer Cleansing Soap and Water -Foul Odor after Cleansing No -Anesthetic Used 4% Lidocaine Solution - Nurse 2 - General Ulcer CM Notes Start: 08/14/22 10:59 Freq: Status: Active Protocol: Activity Type Activity Date Activity User E-sign Co-sign Detail Recorded Client Recorded Date Recorded By Document 08/14/22 11:17 [id number] 08/14/22 11:20 ASHLEY 08/14/22 11:17 Wound Center Nurse 2 -Time 11:17 -Correct Patient Yes -Correct Side, Site, Position Yes -Correct Procedure Yes -Procedure Performed Yes -Type of Procedure Debridement -Clinical Debridement Subcutaneous -Tissue Removed Subcutaneous -Post Debridement (cm) - Length 1.9 -Post Debridement (cm) - Width 0.9 -Post Debridement (cm) - Depth 0.2 -Total Square (Post) (cm) 1.71 -Area of Debridement (cm) - Length 1.9 -Area of Debridement (cm) - Width 0.9 -Total Square (Area) (cm) 1.71 -Tunneling No -Undermining/Tunneling Yes -Undermining/Tunneling Starts (O'clock 1 ) -Undermining/Tunneling Ends (O'clock) 5 -Maximum Distance (cm) 0.8 -Circular Undermining No -Wound/Ulcer Outcome Not Healed -Ulcer Cleansing Rinsed/ Irrigated with Saline -Bioengineered Tissue No -Bleeding Controlled with Pressure -Treatment Response Procedure Tolerated Well -Debridement - Subq, 1st 20sq cm Yes Pain Scale: 0-10 Numeric Is Patient Pain Free? Yes - Nurse 3 - General Ulcer D/C NN Start: 08/14/22 10:59 Freq: Status: Active Protocol: Activity Type Activity Date Activity User E-sign Co-sign Detail Recorded Client Recorded Date Recorded By Document 08/14/22 12:23 [id number] 08/14/22 12:24 RB 08/14/22 12:23 Wound Care Nurse 3 #5 Sacral -Ulcer Cleansing Rinsed/ Irrigated with Saline -Other Dressing dakin moistened gauze -Primary Dressing Covered/Secured with Dry Gauze, Secured with Tape Treatment Response Procedure Tolerated Well Pain Scale: 0-10 Numeric Is Patient Pain Free? Yes - Visit Discharge Discharge Condition Stable Ambulatory Status Ambulatory, Wheelchair Transportation Private Auto Medication Reconcilliation completed & No provided to patient/care provider Clinical Summary of Care Provided Yes Assessment/Plan Assessment/Plan (1) Ulcer of sacral region: CODE(S): L98.429 - Non-pressure chronic ulcer of back with unspecified severity (2) Type 2 diabetes mellitus with diabetic polyneuropathy: CODE(S): E11.42 - Type 2 diabetes mellitus with diabetic polyneuropathy QUALIFIERS: Diabetes mellitus [facility] insulin use: unspecified terminal supervisor insulin use status Qualified Code(s): E11.42 - Type 2 diabetes mellitus with diabetic polyneuropathy (3) Smoker: CODE(S): F17.200 - Nicotine dependence, unspecified, uncomplicated (4) History of excision of pilonidal cyst: CODE(S): Z98.890 - Other specified postprocedural states (5) History of hidradenitis suppurativa: CODE(S): Z87.2 - Personal history of diseases of the skin and subcutaneous tissue PLAN: Plan Patient was evaluated at the wound center today. Wound care - To the sacral ulcer place moistened Dakins 0.25% gauze into the base of the ulcer and cover with dry gauze/ABD/Super absorber after washing the ulcer with soap and water daily. Will plan on removing the undermining at his next appointment. This should expose the entire ulcer and help with wound care. Wound culture obtained on 06/26/22 which was positive for Streptococcus agalactiae (B) and Corynebacterium striatum. He completed Augmentin. Encouraged to increase his protein intake to help with wound healing and to eat yogurt or take a probiotic to reduce side effects from the antibiotic. Encouraged patient to stop smoking as it may have deleterious effects on wound healing. Follow up two weeks. Call or come in sooner if develop any concerns.
[2022-08-28 10:27] VITALS: BP 129/89; PULSE 86; RESP 18; TEMP 36.8
--- NOTE | 2022-08-28 12:02 | PCM.WC.PN ---
History of Present Illness Date of Service: 08/28/22 Chief Complaint: Sacral wound after excision of pilonidal cyst, which the ulcer has reopened after healing History of Wound: 76 year old man presents with persistent pain and intermittent drainage in his sacral area where a cyst was present. He also had issues with pain and intermittent drainage in his bilateral perianal and perineal areas but none at the present time. He denies fever. He denies trauma. He has intermittent drainage. He has never had surgery on his pilonidal cyst area. He has had antibiotics intermittently. He has diabetes mellitus and his last HgbA1c is in the 5 range according to the patient. Surgery 03/12/21 - Surgical preparation sacral area with excision complicated extensive pilonidal cyst. He was healed and his ulcer has recently reopened. Wound care - Dakin's moistened gauze covered with dry gauze daily. Today he denies fever, chills, nausea. States his appetite is ok. Progress of Wound: Sacral ulcer is beefy pink in the base, continues to have undermining. Ulcer is in the center of his scar tissue. His states that he does sit a lot without moving when asking if he is off loading. Objective Data Objective Data Vital Signs: Vital Signs Temp Pulse Resp BP O2 Del Method 98.2 F 86 18 129/89 H Room Air 08/28/22 10:27 08/28/22 10:27 08/28/22 10:27 08/28/22 10:27 08/28/22 10:27 Oxygen Delivery Method Room Air Charges/Coding Procedures Integumentary 111xxx-113xx: 57233 Dena subq tissue 20 sq cm/< Debridement Note Debridement Note Wound debrided: Sacral ulcer Laterality: Not Applicable Wound Grade/Stage: Stage III Type of Debridement: Excisional debridement Anesthesia Used: 5% Lidocaine Gel and - (Lidocaine 2 % - 5 ml injected in the surrounding tissue, waited 15 minutes before debridement) Depth: Down to and including healthy tissue and in the subcutaneous layer Percentage of wound debrided: 100 Instrument Used: 5mm curette, #15 blade and - (scissors and pickups) Tissue Removed: Devitalized tissue and slough Severity: Fat Layer Exposed Amount of bleeding with debridement: Mild Bleeding Controlled with: Pressure, Compression and gauze and Silver Nitrate Patient tolerated procedure: Patient tolerated procedure well Debridement Free Text: Unroofed the undermining that is surrounding the ulcer after injecting the surrounding tissue with lidocaine 2%, 5 ml and waiting 15 minutes for full numbing effect to take place. Using #15 blade and pickups and then sharp scissors and pickups, able to remove the majority of the tissue causing the undermining. Used compression and then silver nitrate to help control the bleeding. Patient tolerated the procedure well. Post-Debridement Measurements and Additional Note: Post-Debridement Measurements/Treatment - Nurse 1 - General Ulcer Assessment Start: 08/14/22 10:59 Freq: Status: Active Protocol: WC.LOWEXT Activity Type Activity Date Activity User E-sign Co-sign Detail Recorded Client Recorded Date Recorded By Document 08/14/22 10:59 DL [id number] 08/14/22 11:05 DL Document 08/28/22 10:27 BM [id number] 08/28/22 10:36 BMF 08/14/22 08/28/22 10:59 10:27 - Today's Visit Information Type of service Follow-up Visit Follow-up Visit (Physician/ART THERAPY CERTIFIED SUPERVISOR (Physician/ART THERAPY CERTIFIED SUPERVISOR ) ) Arrival Mode Ambulatory, Ambulatory, Walker Walker Transfer Assistance None None Accompanied by Patient Identification Verified (Name & Yes Yes ) Patient Requires Transmission-Based No No Precautions Vital Signs Temperature (97.8 F-99.1 F) 97.3 F L 98.2 F Temperature Source Temporal Temporal Pulse Rate (60-100) 86 Pulse Location Monitor Respiratory Rate (12-18) 18 18 Respiratory rate source Observation Observation Oxygen Delivery Method Room Air Blood Pressure (90/60-120/80) 129/89 H Blood Pressure Mean (mm Hg) 102 Source Monitor Position Sitting Blood Pressure Location Left Arm History Since Last Visit- (Skip if this is Patient's initial visit) Have you changed medications since your No No last visit? Any new allergies or adverse reactions No No Had a fall/change in ADL's that may No No increase risk of falls Signs or symptoms of abuse and/or No No neglect since last visit Have you been in the hospital since your No No last visit? Has dressing in place as prescribed Yes Yes Has compression in place as prescribed N/A N/A Has offloadiing in place as prescribed Yes N/A Experienced any changes in pain level or No No management Left Footwear Regular Shoe Right Footwear Regular Shoe Pain Scale: 0-10 Numeric Is Patient Pain Free? Yes Yes WC - Nurse 1 - General Ulcer Measurement Start: 08/14/22 10:59 Freq: Status: Active Protocol: Activity Type Activity Date Activity User E-sign Co-sign Detail Recorded Client Recorded Date Recorded By Document 08/14/22 10:59 DL [id number] 08/14/22 11:05 DL Document 08/28/22 10:27 BM [id number] 08/28/22 10:36 BMF 08/14/22 08/28/22 10:59 10:27 Wound Center Nurse 1 #5 Sacral -Combined with other wound No -Current Size (cm) - Length 1 0.6 -Current Size (cm) - Width 0.9 0.3 -Current Size (cm) - Depth 0.3 0.1 -Total Square Cm 0.9 0.18 -Date of Last Picture (Recall this 08/28/22 field) -Photo Taken Yes Yes -Epithelialization None Present -Tunneling No -Undermining/Tunneling No -Undermining/Tunneling Starts (O'clock 1 ) -Undermining/Tunneling Ends (O'clock) 5 -Maximum Distance (cm) 1.1 -Circular Undermining No -Exudate Amt Medium Small -Exudate Type Serous Serosanguineous -Wound Margin Thickened & Thickened Rolled Under -Granulation Amt Medium (34-66%) Large (67-100%) -Granulation Quality Red Red -Slough/Fibrin No -Necrosis Amt Medium (34-66%) None Present (0 %) -Necrotic Tissue Type Adherent Slough -Structure Exposed N/A -Texture (Sandi-wound Skin Appearance) Scarring Assessed -Moisture (Sandi-wound Skin Appearance) Maceration Assessed,Dry/ Scaly -Color (Sandi-wound Skin Appearance) No Abnormality Assessed -Temperature (Sandi-wound Skin No Abnormality No Abnormality Appearance) (Pt Warm) (Pt Warm) -Tenderness on Palpation (Sandi-wound No No Skin Appearance) -Ulcer Cleansing Soap and Water Rinsed/ Irrigated with Saline -Foul Odor after Cleansing No No -Anesthetic Used 4% Lidocaine 5% Lidocaine Solution Gel WC - Nurse 2 - General Ulcer CM Notes Start: 08/14/22 10:59 Freq: Status: Active Protocol: Activity Type Activity Date Activity User E-sign Co-sign Detail Recorded Client Recorded Date Recorded By Document 08/14/22 11:17 [id number] 08/14/22 11:20 JF Document 08/28/22 11:19 [id number] 08/28/22 11:35 JF 08/14/22 08/28/22 11:17 11:19 Wound Center Nurse 2 #5 Sacral -Time 11:17 11:20 -Correct Patient Yes Yes -Correct Side, Site, Position Yes Yes -Correct Procedure Yes Yes -Procedure Performed Yes Yes -Type of Procedure Debridement Debridement -Clinical Debridement Subcutaneous Subcutaneous -Tissue Removed Subcutaneous Subcutaneous -Post Debridement (cm) - Length 1.9 1.5 -Post Debridement (cm) - Width 0.9 1.8 -Post Debridement (cm) - Depth 0.2 0.9 -Total Square (Post) (cm) 1.71 2.70 -Area of Debridement (cm) - Length 1.9 1.5 -Area of Debridement (cm) - Width 0.9 1.8 -Total Square (Area) (cm) 1.71 2.70 -Tunneling No No -Undermining/Tunneling Yes No -Undermining/Tunneling Starts (O'clock 1 ) -Undermining/Tunneling Ends (O'clock) 5 -Maximum Distance (cm) 0.8 -Circular Undermining No No -Wound/Ulcer Outcome Not Healed Not Healed -Ulcer Cleansing Rinsed/ Rinsed/ Irrigated with Irrigated with Saline Saline -Foul Odor after Cleansing Yes, Due to Product Use -Bioengineered Tissue No No -Bleeding Controlled with Pressure Pressure,Silver Nitrate -Treatment Response Procedure Procedure Tolerated Well Tolerated Well -Offloading No -Debridement - Subq, 1st 20sq cm Yes Yes Pain Scale: 0-10 Numeric Is Patient Pain Free? Yes Yes WC - Nurse 3 - General Ulcer D/C NN Start: 08/14/22 10:59 Freq: Status: Active Protocol: Activity Type Activity Date Activity User E-sign Co-sign Detail Recorded Client Recorded Date Recorded By Document 08/14/22 12:23 RB [id number] 08/14/22 12:24 RB Document 08/28/22 11:42 DL [id number] 08/28/22 11:43 DL 08/14/22 08/28/22 12:23 11:42 Wound Care Nurse 3 #5 Sacral -Ulcer Cleansing Rinsed/ Rinsed/ Irrigated with Irrigated with Saline Saline -Foul Odor after Cleansing No -Other Dressing dakin moistened dakins gauze -Primary Dressing Covered/Secured with Dry Gauze, Dry Gauze, Secured with Secured with Tape Tape Treatment Response Procedure Procedure Tolerated Well Tolerated Well Pain Scale: 0-10 Numeric Is Patient Pain Free? Yes Yes WC - Visit Discharge Discharge Condition Stable Stable Ambulatory Status Ambulatory, Ambulatory Wheelchair Transportation Private Auto Private Auto Medication Reconcilliation completed & No provided to patient/care provider Clinical Summary of Care Provided Yes Assessment/Plan Assessment/Plan (1) Ulcer of sacral region: CODE(S): L98.429 - Non-pressure chronic ulcer of back with unspecified severity (2) Type 2 diabetes mellitus with diabetic polyneuropathy: CODE(S): E11.42 - Type 2 diabetes mellitus with diabetic polyneuropathy QUALIFIERS: Diabetes mellitus retirement insulin use: unspecified salvage determiner insulin use status Qualified Code(s): E11.42 - Type 2 diabetes mellitus with diabetic polyneuropathy (3) Smoker: CODE(S): F17.200 - Nicotine dependence, unspecified, uncomplicated (4) History of excision of pilonidal cyst: CODE(S): Z98.890 - Other specified postprocedural states (5) History of hidradenitis suppurativa: CODE(S): Z87.2 - Personal history of diseases of the skin and subcutaneous tissue PLAN: Plan Patient was evaluated at the wound center today. Wound care - To the sacral ulcer place moistened Dakins 0.25% gauze into the base of the ulcer and cover with dry gauze/ABD/Super absorber after washing the ulcer with soap and water daily. He tolerated the unroofing of the ulcer to remove the tissue causing the undermining. Wound culture obtained on 06/26/22 which was positive for Streptococcus agalactiae (B) and Corynebacterium striatum. He completed Augmentin. Encouraged to increase his protein intake to help with wound healing and to eat yogurt or take a probiotic to reduce side effects from the antibiotic. Encouraged patient to stop smoking as it may have deleterious effects on wound healing. Will prescribe Percocet (8 tabs) for pain. Follow up two weeks. Call or come in sooner if develop any concerns.
== END 2022-08-31 23:59 | disposition home or self-care (01) ==
LOC: WC 10:30
PROVIDERS: PCP Family Medicine; Visit Provider Nurse Practitioner Family
DX: L98.422 Non-pressure chronic ulcer of back with fat layer exposed (principal); E11.42 Type 2 diabetes mellitus with diabetic polyneuropathy; M53.3 Sacrococcygeal disorders, not elsewhere classified; L90.5 Scar conditions and fibrosis of skin; F17.200 Nicotine dependence, unspecified, uncomplicated; Z79.899 Other long term (current) drug therapy; Z98.890 Other specified postprocedural states; Z87.2 Personal history of diseases of the skin and subcutaneous tissue
CPT/HCPCS: 11042

== ENCOUNTER 2022-09-18 09:30 | Outpatient (RCR) | payer MEDICARE, SELFPAY ==
[2022-09-01 00:29] VITALS: BP 129/89; PULSE 86; RESP 18; TEMP 36.8
[2022-09-11 11:00] VITALS: BP 140/65; PULSE 89; RESP 16; TEMP 35.4
--- NOTE | 2022-09-11 12:15 | PN.PCM_ITS ---
History of Present Illness Date of Service: 09/11/22 Chief Complaint: Sacral wound after excision of pilonidal cyst, which the ulcer has reopened after healing History of Wound: 77 year old man presents with persistent pain and intermittent drainage in his sacral area where a cyst was present. He also had issues with pain and intermittent drainage in his bilateral perianal and perineal areas but none at the present time. He denies fever. He denies trauma. He has intermittent drainage. He has never had surgery on his pilonidal cyst area. He has had antibiotics intermittently. He has diabetes mellitus and his last HgbA1c is in the 5 range according to the patient. Surgery 03/12/21 - Surgical preparation sacral area with excision complicated extensive pilonidal cyst. He was healed and his ulcer has recently reopened. Wound care - Dakin's moistened gauze covered with dry gauze daily. Today he denies fever, chills, nausea. States his appetite is ok. Progress of Wound: Sacral ulcer is beefy pink in the base, undermining was removed. He does have thickened scar tissue surrounding the ulcer. Objective Data Objective Data Vital Signs: Vital Signs Temp Pulse Resp BP 95.8 F L 89 16 140/65 H 09/11/22 11:00 09/11/22 11:00 09/11/22 11:00 09/11/22 11:00 Lab / Micro Data Result Diagrams: 09/11/22 13:31 09/11/22 13:31 Charges/Coding Procedures Integumentary 111xxx-113xx: 53187 Dena subq tissue 20 sq cm/< Debridement Note Debridement Note Wound debrided: Sacral ulcer Laterality: Not Applicable Wound Grade/Stage: Stage III Type of Debridement: Excisional debridement Anesthesia Used: 5% Lidocaine Gel Depth: Down to and including healthy tissue and in the subcutaneous layer Percentage of wound debrided: 100 Instrument Used: 5mm curette Tissue Removed: Devitalized tissue and slough Severity: Fat Layer Exposed Amount of bleeding with debridement: Mild Bleeding Controlled with: Pressure, Compression and gauze and Silver Nitrate Patient tolerated procedure: Patient tolerated procedure well Post-Debridement Measurements and Additional Note: Post-Debridement Measurements/Treatment PLACIDO - Nurse 1 - General Ulcer Assessment Start: 09/11/22 10:58 Freq: Status: Active Protocol: SUSY Activity Type Activity Date Activity User E-sign Co-sign Detail Recorded Client Recorded Date Recorded By Document 09/11/22 11:00 [id number] 09/11/22 11:02 09/11/22 11:00 - Today's Visit Information Type of service Follow-up Visit (Physician/PHARMACEUTICAL SALES REPRESENTATIVE ) Arrival Mode Ambulatory, Walker Transfer Assistance Manual Accompanied by daughter and Patient Identification Verified (Name & Yes ) Patient Requires Transmission-Based No Precautions Vital Signs Temperature (97.8 F-99.1 F) 95.8 F L Temperature Source Temporal Pulse Rate (60-100) 89 Pulse Location Monitor Respiratory Rate (12-18) 16 Respiratory rate source Observation Blood Pressure (90/60-120/80) 140/65 H Blood Pressure Mean (mm Hg) 90 Source Monitor Position Sitting Blood Pressure Location Left Arm History Since Last Visit- (Skip if this is Patient's initial visit) Have you changed medications since your No last visit? Any new allergies or adverse reactions No Had a fall/change in ADL's that may No increase risk of falls Signs or symptoms of abuse and/or No neglect since last visit Have you been in the hospital since your No last visit? Has dressing in place as prescribed Yes Has compression in place as prescribed N/A Has offloadiing in place as prescribed N/A Experienced any changes in pain level or No management Left Footwear Regular Shoe Right Footwear Regular Shoe Pain Scale: 0-10 Numeric Is Patient Pain Free? Yes - Nurse 1 - General Ulcer Measurement Start: 09/11/22 10:58 Freq: Status: Active Protocol: Activity Type Activity Date Activity User E-sign Co-sign Detail Recorded Client Recorded Date Recorded By Document 09/11/22 11:00 [id number] 09/11/22 11:02 JF 09/11/22 11:00 Wound Center Nurse 1 #5 Sacral -Combined with other wound No -Current Size (cm) - Length 1.8 -Current Size (cm) - Width 2.0 -Current Size (cm) - Depth 0.5 -Total Square Cm 3.60 -Photo Taken Yes -Epithelialization Small 1-33% -Tunneling No -Undermining/Tunneling No -Circular Undermining No -Exudate Amt Small -Exudate Type Sanguineous -Wound Margin Thickened & Rolled Under -Granulation Amt Large (67-100%) -Granulation Quality Red -Slough/Fibrin Yes -Necrosis Amt Small (1-33%) -Necrotic Tissue Type Adherent Slough -Structure Exposed N/A -Texture (Sandi-wound Skin Appearance) Assessed -Moisture (Sandi-wound Skin Appearance) Assessed,Dry/ Scaly -Color (Sandi-wound Skin Appearance) Assessed -Temperature (Sandi-wound Skin No Abnormality Appearance) (Pt Warm) -Tenderness on Palpation (Sandi-wound Yes Skin Appearance) -Ulcer Cleansing Rinsed/ Irrigated with Saline -Foul Odor after Cleansing No -Anesthetic Used 5% Lidocaine Gel Lower Limb Edema Present NA PLACIDO - Nurse 2 - General Ulcer CM Notes Start: 09/11/22 10:58 Freq: Status: Active Protocol: Activity Type Activity Date Activity User E-sign Co-sign Detail Recorded Client Recorded Date Recorded By Document 09/11/22 11:02 ASHLEY [id number] 09/11/22 11:06 ASHLEY 09/11/22 11:02 Wound Center Nurse 2 #5 Sacral -Time 11:02 -Correct Patient Yes -Correct Side, Site, Position Yes -Correct Procedure Yes -Procedure Performed Yes -Type of Procedure Debridement -Clinical Debridement Subcutaneous -Tissue Removed Subcutaneous -Post Debridement (cm) - Length 2.0 -Post Debridement (cm) - Width 2.4 -Post Debridement (cm) - Depth 0.7 -Total Square (Post) (cm) 4.80 -Area of Debridement (cm) - Length 2.0 -Area of Debridement (cm) - Width 2.4 -Total Square (Area) (cm) 4.80 -Tunneling No -Undermining/Tunneling No -Circular Undermining No -Wound/Ulcer Outcome Not Healed -Ulcer Cleansing Rinsed/ Irrigated with Saline -Foul Odor after Cleansing No -Bioengineered Tissue No -Bleeding Controlled with Pressure -Treatment Response Procedure Tolerated Well -Offloading No -Debridement - Subq, 1st 20sq cm Yes Pain Scale: 0-10 Numeric Is Patient Pain Free? Yes - Nurse 3 - General Ulcer D/C NN Start: 09/11/22 10:58 Freq: Status: Active Protocol: Activity Type Activity Date Activity User E-sign Co-sign Detail Recorded Client Recorded Date Recorded By Document 09/11/22 11:23 TRISTEN [id number] 09/11/22 11:24 DL 09/11/22 11:23 Wound Care Nurse 3 #5 Sacral -Ulcer Cleansing Rinsed/ Irrigated with Saline -Foul Odor after Cleansing No -Primary Dressing Applied Mepilex Border, Promogran Jannet Matter -Mepilex Border 1 -Promogran Jannet Matter 1 Treatment Response Procedure Tolerated Well Pain Scale: 0-10 Numeric Is Patient Pain Free? Yes WC - Visit Discharge Discharge Condition Stable Ambulatory Status Ambulatory, Walker Transportation Private Auto Facility Type Home Health Orders Sent Yes Assessment/Plan Assessment/Plan (1) Ulcer of sacral region: CODE(S): L98.429 - Non-pressure chronic ulcer of back with unspecified severity (2) Type 2 diabetes mellitus with diabetic polyneuropathy: CODE(S): E11.42 - Type 2 diabetes mellitus with diabetic polyneuropathy QUALIFIERS: Diabetes mellitus residential insulin use: unspecified terminal supervisor insulin use status Qualified Code(s): E11.42 - Type 2 diabetes mellitus with diabetic polyneuropathy (3) Smoker: CODE(S): F17.200 - Nicotine dependence, unspecified, uncomplicated (4) History of excision of pilonidal cyst: CODE(S): Z98.890 - Other specified postprocedural states (5) History of hidradenitis suppurativa: CODE(S): Z87.2 - Personal history of diseases of the skin and subcutaneous tissue PLAN: Plan Patient was evaluated at the wound center today. Wound care - To the sacral ulcer place Jannet covered by [employer] daily. Had an extensive conversation with patient about off loading and avoiding sitting for long periods of time. Wound culture obtained on 06/26/22 which was positive for Streptococcus agalactiae (B) and Corynebacterium striatum. He completed Augmentin. Encouraged to increase his protein intake to help with wound healing and to eat yogurt or take a probiotic to reduce side effects from the antibiotic. Encouraged patient to stop smoking as it may have deleterious effects on wound healing. Follow up one week. Call or come in sooner if develop any concerns.
[2022-09-11 14:31] LABS: Erythrocyte Sedimentation Rate 88 mm/hr (0-20)
[2022-09-11 14:33] LABS: Absolute Lymphocyte Count 1.85 X10^3/uL (0.83-4.51); Absolute Neutrophil Count 10.1 X10^3/uL (2.0-7.7); Basophil# 0.09 X10^3/uL; Basophil% 0.7 % (0-1); Eosinophils% 1.5 % (0-5); Hematocrit 39.8 % (40-54); Hemoglobin 13.5 g/dL (13.0-16.5); Lymphocyte # 1.85 X10^3/ul (0.83-4.51); Lymphocyte % 13.9 % (19-41); Mean Corp Hgb Conc 33.9 g/dL (32-36); Mean Corpuscular Hgb 32.8 pg (27.0-32.0); Mean Corpuscular Volume 96.6 fL (80-94); Mean Platelet Vol. 9.7 fl (6.2-12.0); Monocyte# 0.99 X10^3/uL; Monocyte% 7.5 % (0-10); NRBC Flagged by Analyzer 0 % (0-5); Neutrophil # 10.09 X10^3/uL (2.7-7.7); Neutrophil % 75.9 % (47-70); Platelet Count 198 K/mm3 (150-450); RBC Distribution Width CV 14.5 % (11.6-14.6); RBC Distribution Width SD 51.3 fl (35.1-43.9); Red Blood Count 4.12 M/mm3 (4.6-6.2); White Blood Count 13.3 K/mm3 (4.4-11.0)
[2022-09-11 14:42] LABS: International Normalized Ratio 1.1; Prothrombin Time (Protime)PT. 14.1 SECONDS (11.7-14.9)
[2022-09-11 15:17] LABS: ALB/GLOB Ratio 0.7 RATIO (0.9-2.4); AST(SGOT) 12 U/L (15-37); Alanine Aminotransfer ALT/SGPT 13 U/L (16-61); Alkaline Phosphatase 98 U/L (45-117); Anion Gap 7 (5-15); BUN 11 mg/dL (7-18); BUN/Creat Ratio 12.4 RATIO (10-20); Calcium,Total 8.9 mg/dL (8.5-10.1); Chloride 110 mmol/L (98-107); Creatinine, Serum 0.89 mg/dL (0.70-1.30); EST Glomerular Filtration Rate 88 mL/min (>60); Est Glom Filt Rate - Afr Amer 107 mL/min (>60); Ferritin 252 ng/mL (26-388); Globulin 4.6 g/dL (2.2-4.2); Glucose 111 mg/dL (74-106); LDH 202 U/L (87-241); Potassium 3.7 mmol/L (3.5-5.1); Protein, Total 7.6 g/dL (6.4-8.2); Sodium Level 142 mmol/L (136-145)
[2022-09-11 15:23] LABS: Hemoglobin A1c 5.3 % (3.8-5.6)
[2022-09-11 15:30] LABS: HIV - WCH Non-Reactive (Nonreactive)
[2022-09-11 15:45] LABS: Prealbumin 11.8 mg/dL (20.0-40.0)
[2022-09-13 15:08] LABS: Anti-Centromere B Ab <0.2 AI (0.0-0.9); Anti-Chromatin <0.2 AI (0.0-0.9); Anti-Jo <0.2 AI (0.0-0.9); Anti-Scleroderma-70 AB <0.2 AI (0.0-0.9); RNP Ab 0.2 AI (0.0-0.9); SJOGREN'S Anti-SS-A test < 0.2 AI (0.0-0.9); SJOGREN'S Anti-SS-B test < 0.2 AI (0.0-0.9); Smith Ab <0.2 AI (0.0-0.9)
[2022-09-13 17:16] LABS: Anti-Mitochondrial AB <20.0 Units (0.0-20.0); Anti-dsDNA Ab <1 IU/mL (0-9)
[2022-09-18 04:03] LABS: Angiotensin Convert Enzyme 49 U/L (14-82); Ceruloplasmin 29.1 mg/dL (16.0-31.0); HEPATITIS B SURFACE AG Negative (Negative); Hep C Antibodies <0.1 s/co ratio (0.0-0.9); Hepatitis A IgM Antibody Negative (Negative); Hepatitis B Core AB IgM Negative (Negative)
[2022-09-18 09:29] VITALS: BP 148/79; PULSE 86; RESP 18; TEMP 35.7
[2022-09-18 09:39] LABS: Anti-Smooth Muscle ABS 33 Units (0-19); Copper, Serum or Plasma 116 ug/dL (69-132); Haptoglobin 224 mg/dL (34-355); Perinuclear Ab (P-ANCA) <1:20 titer (Neg:<1:20)
--- NOTE | 2022-09-18 12:14 | PCM.WC.PN ---
History of Present Illness Date of Service: 09/18/22 Chief Complaint: Sacral wound after excision of pilonidal cyst, which the ulcer has reopened after healing History of Wound: 77 year old man presents with persistent pain and intermittent drainage in his sacral area where a cyst was present. He also had issues with pain and intermittent drainage in his bilateral perianal and perineal areas but none at the present time. He denies fever. He denies trauma. He has intermittent drainage. He has never had surgery on his pilonidal cyst area. He has had antibiotics intermittently. He has diabetes mellitus and his last HgbA1c is in the 5 range according to the patient. Surgery 03/12/21 - Surgical preparation sacral area with excision complicated extensive pilonidal cyst. He was healed and his ulcer has recently reopened. Wound care - Dakin's moistened gauze covered with dry gauze daily. Today he denies fever, chills, nausea. States his appetite is ok. Progress of Wound: Sacral ulcer is beefy pink in the base. He does have thickened scar tissue surrounding the ulcer. He does state that he sits a lot without off loading. Objective Data Objective Data Vital Signs: Vital Signs Temp Pulse Resp BP 96.3 F L 86 18 148/79 H 09/18/22 09:29 09/18/22 09:29 09/18/22 09:29 09/18/22 09:29 Lab / Micro Data Result Diagrams: 09/11/22 13:31 09/11/22 13:31 Labs: Laboratory Results - last 24 hr 09/11/22 13:31: Haptoglobin 224, Ceruloplasmin 29.1, Angiotensin Convert Enz 49, Serum Copper 116, c-ANCA Antibody 1:80 H, Atypical p-ANCA <1:20, p-ANCA Antibody <1:20, Anti-Smooth Muscle Ab 33 H, Hepatitis A IgM Ab Negative, Hep Bs Antigen Negative, Hep B Core IgM Ab Negative, Hepatitis C Ab (EIA) <0.1, Hep C Ab Comment Comment Charges/Coding Procedures Integumentary 111xxx-113xx: [id number] Dena subq tissue 20 sq cm/< Debridement Note Debridement Note Wound debrided: Sacral ulcer Laterality: Not Applicable Wound Grade/Stage: Stage III Type of Debridement: Excisional debridement Anesthesia Used: 5% Lidocaine Gel Depth: Down to and including healthy tissue and in the subcutaneous layer Percentage of wound debrided: 100 Instrument Used: 5mm curette Tissue Removed: Devitalized tissue and slough Severity: Fat Layer Exposed Amount of bleeding with debridement: Mild Bleeding Controlled with: Pressure, Compression and gauze and Silver Nitrate Patient tolerated procedure: Patient tolerated procedure well Post-Debridement Measurements and Additional Note: Post-Debridement Measurements/Treatment PLACIDO - Nurse 1 - General Ulcer Assessment Start: 09/11/22 10:58 Freq: Status: Active Protocol: SUSY Activity Type Activity Date Activity User E-sign Co-sign Detail Recorded Client Recorded Date Recorded By Document 09/11/22 11:00 JF [id number] 09/11/22 11:02 JF Document 09/18/22 09:29 DL [id number] 09/18/22 09:37 DL 09/11/22 09/18/22 11:00 09:29 PLACIDO - Today's Visit Information Type of service Follow-up Visit Follow-up Visit (Physician/CUPOLA TAPPER HELPER (Physician/CUP[employer]A TAPPER HELPER ) ) Arrival Mode Ambulatory, Ambulatory Walker Transfer Assistance Manual None Accompanied by daughter and Patient Identification Verified (Name & Yes Yes ) Patient Requires Transmission-Based No No Precautions Vital Signs Temperature (97.8 F-99.1 F) 95.8 F L 96.3 F L Temperature Source Temporal Temporal Pulse Rate (60-100) 89 86 Pulse Location Monitor Monitor Respiratory Rate (12-18) 16 18 Respiratory rate source Observation Observation Blood Pressure (90/60-120/80) 140/65 H 148/79 H Blood Pressure Mean (mm Hg) 90 102 Source Monitor Monitor Position Sitting Sitting Blood Pressure Location Left Arm Left Arm History Since Last Visit- (Skip if this is Patient's initial visit) Have you changed medications since your No No last visit? Any new allergies or adverse reactions No No Had a fall/change in ADL's that may No No increase risk of falls Signs or symptoms of abuse and/or No No neglect since last visit Have you been in the hospital since your No No last visit? Has dressing in place as prescribed Yes Yes Has compression in place as prescribed N/A No Has offloadiing in place as prescribed N/A Experienced any changes in pain level or No No management Left Footwear Regular Shoe Right Footwear Regular Shoe Pain Scale: 0-10 Numeric Is Patient Pain Free? Yes Yes WC - Nurse 1 - General Ulcer Measurement Start: 09/11/22 10:58 Freq: Status: Active Protocol: Activity Type Activity Date Activity User E-sign Co-sign Detail Recorded Client Recorded Date Recorded By Document 09/11/22 11:00 JF [id number] 09/11/22 11:02 JF Document 09/18/22 09:29 DL [id number] 09/18/22 09:37 DL 09/11/22 09/18/22 11:00 09:29 Wound Center Nurse 1 #5 Sacral -Combined with other wound No No -Current Size (cm) - Length 1.8 1.5 -Current Size (cm) - Width 2.0 1.8 -Current Size (cm) - Depth 0.5 0.6 -Total Square Cm 3.60 2.70 -Photo Taken Yes Yes -Epithelialization Small 1-33% -Tunneling No No -Undermining/Tunneling No Yes -Undermining/Tunneling Starts (O'clock 12 ) -Undermining/Tunneling Ends (O'clock) 12 -Maximum Distance (cm) 1 -Circular Undermining No Yes -Exudate Amt Small Large -Exudate Type Sanguineous Serosanguineous -Wound Margin Thickened & Thickened & Rolled Under Rolled Under -Granulation Amt Large (67-100%) Medium (34-66%) -Granulation Quality Red [place] -Slough/Fibrin Yes Yes -Necrosis Amt Small (1-33%) Medium (34-66%) -Necrotic Tissue Type Adherent Slough Adherent Slough -Structure Exposed N/A N/A -Texture (Sandi-wound Skin Appearance) Assessed Assessed, Scarring -Moisture (Sandi-wound Skin Appearance) Assessed,Dry/ Assessed Scaly -Color (Sandi-wound Skin Appearance) Assessed Assessed -Temperature (Sandi-wound Skin No Abnormality No Abnormality Appearance) (Pt Warm) (Pt Warm) -Tenderness on Palpation (Sandi-wound Yes No Skin Appearance) -Ulcer Cleansing Rinsed/ Wound Cleanser Irrigated with Saline -Foul Odor after Cleansing No No -Anesthetic Used 5% Lidocaine 5% Lidocaine Gel Gel Lower Limb Edema Present NA WC - Nurse 2 - General Ulcer CM Notes Start: 09/11/22 10:58 Freq: Status: Active Protocol: Activity Type Activity Date Activity User E-sign Co-sign Detail Recorded Client Recorded Date Recorded By Document 09/11/22 11:02 [id number] 09/11/22 11:06 JF Document 09/18/22 09:45 JF [id number] 09/18/22 09:54 JF 09/11/22 09/18/22 11:02 09:45 Wound Center Nurse 2 #5 Sacral -Time 11:02 09:45 -Correct Patient Yes Yes -Correct Side, Site, Position Yes Yes -Correct Procedure Yes Yes -Procedure Performed Yes Yes -Type of Procedure Debridement Debridement -Clinical Debridement Subcutaneous Subcutaneous -Tissue Removed Subcutaneous Subcutaneous -Post Debridement (cm) - Length 2.0 2.0 -Post Debridement (cm) - Width 2.4 2.0 -Post Debridement (cm) - Depth 0.7 0.6 -Total Square (Post) (cm) 4.80 4.00 -Area of Debridement (cm) - Length 2.0 2.0 -Area of Debridement (cm) - Width 2.4 2.0 -Total Square (Area) (cm) 4.80 4.00 -Tunneling No No -Undermining/Tunneling No No -Circular Undermining No No -Wound/Ulcer Outcome Not Healed Not Healed -Ulcer Cleansing Rinsed/ Rinsed/ Irrigated with Irrigated with Saline Saline -Foul Odor after Cleansing No No -Bioengineered Tissue No No -Bleeding Controlled with Pressure Pressure -Treatment Response Procedure Procedure Tolerated Well Tolerated Well -Offloading No No -Debridement - Subq, 1st 20sq cm Yes Yes Pain Scale: 0-10 Numeric Is Patient Pain Free? Yes Yes WC - Nurse 3 - General Ulcer D/C NN Start: 09/11/22 10:58 Freq: Status: Active Protocol: Activity Type Activity Date Activity User E-sign Co-sign Detail Recorded Client Recorded Date Recorded By Document 09/11/22 11:23 [id number] 09/11/22 11:24 DL Document 09/18/22 09:55 JF [id number] 09/18/22 09:56 JF 09/11/22 09/18/22 11:23 09:55 Wound Care Nurse 3 #5 Sacral -Ulcer Cleansing Rinsed/ Rinsed/ Irrigated with Irrigated with Saline Saline -Foul Odor after Cleansing No No -Primary Dressing Applied Mepilex Border, Mepilex Border, Promogran Promogran Jannet Matter Jannet Matter -Mepilex Border 1 1 -Promogran Jannet Matter 1 1 Treatment Response Procedure Tolerated Well Pain Scale: 0-10 Numeric Is Patient Pain Free? Yes Yes WC - Visit Discharge Discharge Condition Stable Stable Ambulatory Status Ambulatory, Ambulatory, Walker Wheelchair Transportation Private Auto Private Auto Accompanied by Medication Reconcilliation completed & Yes provided to patient/care provider Clinical Summary of Care Provided Yes Facility Type Home Health Orders Sent Yes Assessment/Plan Assessment/Plan (1) Ulcer of sacral region: CODE(S): L98.429 - Non-pressure chronic ulcer of back with unspecified severity (2) Type 2 diabetes mellitus with diabetic polyneuropathy: CODE(S): E11.42 - Type 2 diabetes mellitus with diabetic polyneuropathy QUALIFIERS: Diabetes mellitus [facility] insulin use: unspecified superintendent container terminal insulin use status Qualified Code(s): E11.42 - Type 2 diabetes mellitus with diabetic polyneuropathy (3) Smoker: CODE(S): F17.200 - Nicotine dependence, unspecified, uncomplicated (4) History of excision of pilonidal cyst: CODE(S): Z98.890 - Other specified postprocedural states (5) History of hidradenitis suppurativa: CODE(S): Z87.2 - Personal history of diseases of the skin and subcutaneous tissue PLAN: Plan Patient was evaluated at the wound center today. Wound care - To the sacral ulcer place Jannet covered by [employer] daily. Had an extensive conversation with patient about off loading and avoiding sitting for long periods of time. (His states that he has not been off loading) Wound culture obtained on 06/26/22 which was positive for Streptococcus agalactiae (B) and Corynebacterium striatum. He completed Augmentin. Prealbumin 11.8 from 09/11/22. Encouraged to increase his protein intake to help with wound healing. Discussed what are protein sources and why he needs to increase his protein intake. He has been drinking 1-2 Ensure shakes per day. Stressed that eating food is the important nutritional source and to supplement after meals. Encouraged patient to stop smoking as it may have deleterious effects on wound healing. Follow up two weeks. Call or come in sooner if develop any concerns.
== END 2022-10-01 23:59 | disposition home or self-care (01) ==
LOC: WC 09:30
PROVIDERS: Internal Medicine Gastroenterology; PCP Family Medicine; Visit Provider Nurse Practitioner Family
DX: L98.412 Non-pressure chronic ulcer of buttock with fat layer exposed (principal); E11.51 Type 2 diabetes mellitus with diabetic peripheral angiopathy without gangrene; E44.0 Moderate protein-calorie malnutrition; E11.42 Type 2 diabetes mellitus with diabetic polyneuropathy; M53.3 Sacrococcygeal disorders, not elsewhere classified; B19.20 Unspecified viral hepatitis C without hepatic coma; K76.9 Liver disease, unspecified; F17.200 Nicotine dependence, unspecified, uncomplicated; Z79.899 Other long term (current) drug therapy; Z98.890 Other specified postprocedural states; Z87.2 Personal history of diseases of the skin and subcutaneous tissue
CPT/HCPCS: 11042; 36415; 80053; 80074; 82140; 82164; 82390; 82525; 82728; 83010; 83036; 83516; 83615; 84134; 85025; 85610; 85652; 86140; 86225; 86235; 86256; 86703

== ENCOUNTER → 2022-09-24 | Outpatient (CLI) | payer MEDICARE, SELFPAY ==
--- NOTE | 2022-09-24 08:30 | US_ITS ---
STUDY: ABDOMINAL ULTRASOUND - ELASTOGRAPHY REASON FOR VISIT: Male, 77 years old. Viral hepatitis. TECHNIQUE: Liver stiffness measurements were obtained on a [employer] RS 85 ultrasound machine using a CA 1-7 probe following the SRU guidelines. 3 measurements were obtained using a 2-D-SWE method. The IQR/M was 14 % suggesting a quality data set. TECHNICAL QUALITY: Adequate. COMPARISON: None. FINDINGS: Liver: There is no demonstrated mass lesion. Median liver stiffness measured 9.5 kPa. US/Elastography Parenchyma/Organ IMPRESSION: Liver stiffness measures 9.5 kPa compatible with F2-F3 (Mild to moderate liver fibrosis) Metavir score. Electronically Signed: Hebert Cruz MD at 15:35 EST ,
--- NOTE | 2022-09-24 08:30 | US_ITS ---
STUDY: ABDOMINAL ULTRASOUND - RIGHT UPPER QUADRANT REASON FOR VISIT: Male, 77 years old . History of hepatitis C. TECHNIQUE: Ultrasound evaluation of the right upper quadrant was performed with real-time and static joshi-scale imaging. TECHNICAL QUALITY: Adequate. COMPARISON: None. FINDINGS: Liver: The liver measures 16 cm. There is a heterogeneous echogenicity of the liver. The bile ducts are within normal limits. There is hepatic color flow. The direction of portal flow is hepatopetal. There is no demonstrated mass lesion. Gallbladder: Normal distended gallbladder. The gallbladder wall measures 1 mm. There is a negative sonographic Clinton''s sign. There is no pericholecystic fluid. There are multiple echogenic structures within the gallbladder, consistent with multiple gallstones. Common Bile Duct (C.B.D.): The common bile duct measures 9 mm. Pancreas: Normal size of the head, body and tail of the pancreas. There is heterogeneous echogenicity of the pancreas. There is no demonstrated pancreatic mass or cyst. Right Kidney: Normal size of the right kidney. The right kidney measures 10.3 cm x 5.7 cm x 5.6 cm. Normal renal cortex. The right cortex measures 1.7 cm. There is no demonstrated renal mass or cyst. There is no right hydronephrosis. US/Abdomen Limited IMPRESSION: Heterogeneous hepatic echotexture. Multiple gallstones. Electronically Signed: Hebert Cruz MD at 14:45 EST ,
== END | disposition home or self-care (01) ==
PROVIDERS: PCP Family Medicine; Referring Provider Internal Medicine Gastroenterology; Visit Provider Internal Medicine Gastroenterology
DX: B19.20 Unspecified viral hepatitis C without hepatic coma (principal); K76.9 Liver disease, unspecified
CPT/HCPCS: 76705; 76981

== ENCOUNTER 2022-10-23 10:30 | Outpatient (RCR) | payer MEDICARE, SELFPAY ==
[2022-10-02 00:32] VITALS: BP 148/79; PULSE 86; RESP 18; TEMP 35.7
[2022-10-09 09:59] VITALS: BP 128/53; PULSE 42; RESP 20; TEMP 36.4
--- NOTE | 2022-10-09 10:44 | PCM.WC.PN ---
History of Present Illness Date of Service: 10/09/22 Chief Complaint: Sacral wound after excision of pilonidal cyst, which the ulcer has reopened after healing History of Wound: 77 year old man presents with persistent pain and intermittent drainage in his sacral area where a cyst was present. He also had issues with pain and intermittent drainage in his bilateral perianal and perineal areas but none at the present time. He denies fever. He denies trauma. He has intermittent drainage. He has never had surgery on his pilonidal cyst area. He has had antibiotics intermittently. He has diabetes mellitus and his last HgbA1c is in the 5 range according to the patient. Surgery 03/12/21 - Surgical preparation sacral area with excision complicated extensive pilonidal cyst. He was healed and his ulcer has recently reopened. Today he denies fever, chills, nausea. States his appetite is ok. Progress of Wound: Sacral ulcer is beefy pink in the base. He does have thickened scar tissue surrounding the ulcer. He states he has been trying to off load. Objective Data Objective Data Vital Signs: Vital Signs Temp Pulse Resp BP 97.6 F L 42 L 20 H 128/53 H 10/09/22 09:59 10/09/22 09:59 10/09/22 09:59 10/09/22 09:59 Charges/Coding Procedures Integumentary 111xxx-113xx: [id number] Dena subq tissue 20 sq cm/< Debridement Note Debridement Note Wound debrided: Sacral ulcer Laterality: Not Applicable Wound Grade/Stage: Stage III Type of Debridement: Excisional debridement Anesthesia Used: 5% Lidocaine Gel Depth: Down to and including healthy tissue and in the subcutaneous layer Percentage of wound debrided: 100 Instrument Used: 5mm curette Tissue Removed: Devitalized tissue and slough Severity: Fat Layer Exposed Amount of bleeding with debridement: Mild Bleeding Controlled with: Pressure, Compression and gauze and Silver Nitrate Patient tolerated procedure: Patient tolerated procedure well Post-Debridement Measurements and Additional Note: Post-Debridement Measurements/Treatment PLACIDO - Nurse 1 - General Ulcer Assessment Start: 10/09/22 09:58 Freq: Status: Active Protocol: SUSY Activity Type Activity Date Activity User E-sign Co-sign Detail Recorded Client Recorded Date Recorded By Document 10/09/22 09:59 DL [id number] 10/09/22 10:07 DL 10/09/22 09:59 - Today's Visit Information Type of service Follow-up Visit (Physician/[employer]ER ) Arrival Mode Ambulatory Transfer Assistance None Patient Identification Verified (Name & Yes ) Patient Requires Transmission-Based No Precautions Vital Signs Temperature (97.8 F-99.1 F) 97.6 F L Temperature Source Temporal Pulse Rate (60-100) 42 L Pulse Location Monitor Respiratory Rate (12-18) 20 H Respiratory rate source Observation Blood Pressure (90/60-120/80) 128/53 H Blood Pressure Mean (mm Hg) 78 Source Monitor History Since Last Visit- (Skip if this is Patient's initial visit) Have you changed medications since your No last visit? Any new allergies or adverse reactions No Had a fall/change in ADL's that may No increase risk of falls Signs or symptoms of abuse and/or No neglect since last visit Have you been in the hospital since your No last visit? Has dressing in place as prescribed Yes Has compression in place as prescribed N/A Has offloadiing in place as prescribed Yes Experienced any changes in pain level or No management Pain Scale: 0-10 Numeric Is Patient Pain Free? Yes - Nurse 1 - General Ulcer Measurement Start: 10/09/22 09:58 Freq: Status: Active Protocol: Activity Type Activity Date Activity User E-sign Co-sign Detail Recorded Client Recorded Date Recorded By Document 10/09/22 09:59 DL [id number] 10/09/22 10:07 DL 10/09/22 09:59 Wound Center Nurse 1 #5 Sacral -Current Size (cm) - Length 1 -Current Size (cm) - Width 0.4 -Current Size (cm) - Depth 0.8 -Total Square Cm 0.4 -Photo Taken Yes -Exudate Amt Small -Exudate Type Serosanguineous -Wound Margin Thickened & Rolled Under -Granulation Amt Large (67-100%) -Granulation Quality Red -Necrosis Amt None Present (0 %) -Structure Exposed N/A -Texture (Sandi-wound Skin Appearance) Scarring -Moisture (Sandi-wound Skin Appearance) No Abnormality -Color (Sandi-wound Skin Appearance) No Abnormality -Temperature (Sandi-wound Skin No Abnormality Appearance) (Pt Warm) -Tenderness on Palpation (Sandi-wound No Skin Appearance) -Ulcer Cleansing Rinsed/ Irrigated with Saline -Foul Odor after Cleansing No -Anesthetic Used 5% Lidocaine Gel WC - Nurse 2 - General Ulcer CM Notes Start: 10/09/22 09:58 Freq: Status: Active Protocol: Activity Type Activity Date Activity User E-sign Co-sign Detail Recorded Client Recorded Date Recorded By Document 10/09/22 10:28 ASHLEY [id number] 10/09/22 10:31 ASHLEY 10/09/22 10:28 Wound Center Nurse 2 -Time 10:30 -Correct Patient Yes -Correct Side, Site, Position Yes -Correct Procedure Yes -Procedure Performed Yes -Type of Procedure Debridement -Clinical Debridement Subcutaneous -Tissue Removed Subcutaneous -Post Debridement (cm) - Length 1.5 -Post Debridement (cm) - Width 0.8 -Post Debridement (cm) - Depth 0.9 -Total Square (Post) (cm) 1.20 -Area of Debridement (cm) - Length 1.5 -Area of Debridement (cm) - Width 0.8 -Total Square (Area) (cm) 1.20 -Tunneling No -Undermining/Tunneling No -Circular Undermining No -Wound/Ulcer Outcome Not Healed -Ulcer Cleansing Rinsed/ Irrigated with Saline -Foul Odor after Cleansing No -Bioengineered Tissue No -Bleeding Controlled with Pressure -Treatment Response Procedure Tolerated Well -Offloading No -Debridement - Subq, 1st 20sq cm Yes Pain Scale: 0-10 Numeric Is Patient Pain Free? 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 Wound care - To the sacral ulcer place Jannet covered by [employer] daily. Stressed importance of continuing to off load. Wound culture obtained on 06/26/22 which was positive for Streptococcus agalactiae (B) and Corynebacterium striatum. He completed Augmentin. Prealbumin 11.8 from 09/11/22. Encouraged to increase his protein intake to help with wound healing. Discussed what are protein sources and why he needs to increase his protein intake. He has been drinking 1-2 Ensure shakes per day. Stressed that eating food is the important nutritional source and to supplement after meals. Encouraged patient to stop smoking as it may have deleterious effects on wound healing. Follow up two weeks. Call or come in sooner if develop any concerns.
[2022-10-23 10:34] VITALS: BP 133/83; PULSE 83; RESP 16; TEMP 36.4
--- NOTE | 2022-10-23 11:25 | PCM.WC.PN ---
History of Present Illness Date of Service: 10/23/22 Chief Complaint: Sacral wound after excision of pilonidal cyst, which the ulcer has reopened after healing History of Wound: 77 year old man presents with persistent pain and intermittent drainage in his sacral area where a cyst was present. He also had issues with pain and intermittent drainage in his bilateral perianal and perineal areas but none at the present time. He denies fever. He denies trauma. He has intermittent drainage. He has never had surgery on his pilonidal cyst area. He has had antibiotics intermittently. He has diabetes mellitus and his last HgbA1c is in the 5 range according to the patient. Surgery 03/12/21 - Surgical preparation sacral area with excision complicated extensive pilonidal cyst. He was healed and his ulcer has recently reopened. Today he denies fever, chills, nausea. States his appetite is ok. Progress of Wound: Sacral ulcer is beefy pink in the base. It is smaller in size but there is undermining from 1-6 o'clock. Objective Data Objective Data Vital Signs: Vital Signs Temp Pulse Resp BP 97.5 F L 83 16 133/83 H 10/23/22 10:34 10/23/22 10:34 10/23/22 10:34 10/23/22 10:34 Charges/Coding Procedures Integumentary 111xxx-113xx: 15044 Dena subq tissue 20 sq cm/< Debridement Note Debridement Note Wound debrided: Sacral ulcer Laterality: Not Applicable Wound Grade/Stage: Stage III Type of Debridement: Excisional debridement Anesthesia Used: 5% Lidocaine Gel Depth: Down to and including healthy tissue and in the subcutaneous layer Percentage of wound debrided: 100 Instrument Used: 3mm curette Tissue Removed: Devitalized tissue and slough Severity: Fat Layer Exposed Amount of bleeding with debridement: Mild Bleeding Controlled with: Pressure, Compression and gauze and Silver Nitrate Patient tolerated procedure: Patient tolerated procedure well Post-Debridement Measurements and Additional Note: Post-Debridement Measurements/Treatment PLACIDO - Nurse 1 - General Ulcer Assessment Start: 10/09/22 09:58 Freq: Status: Active Protocol: SUSY Activity Type Activity Date Activity User E-sign Co-sign Detail Recorded Client Recorded Date Recorded By Document 10/09/22 09:59 DL [id number] 10/09/22 10:07 DL Document 10/23/22 10:34 ML [id number] 10/23/22 10:40 ML 10/09/22 10/23/22 09:59 10:34 - Today's Visit Information Type of service Follow-up Visit Follow-up Visit (Physician/CRYSTAL ATTACHER (Physician/CRYSTAL ATTACHER ) ) Arrival Mode Ambulatory Walker Transfer Assistance None None Patient Identification Verified (Name & Yes Yes ) Patient Requires Transmission-Based No No Precautions Safety Precautions NA Vital Signs Temperature (97.8 F-99.1 F) 97.6 F L 97.5 F L Temperature Source Temporal Temporal Pulse Rate (60-100) 42 L 83 Pulse Location Monitor Monitor Respiratory Rate (12-18) 20 H 16 Respiratory rate source Observation Observation Blood Pressure (90/60-120/80) 128/53 H 133/83 H Blood Pressure Mean (mm Hg) 78 99 Source Monitor Monitor Position Sitting Blood Pressure Location Left Arm History Since Last Visit- (Skip if this is Patient's initial visit) Have you changed medications since your No No last visit? Any new allergies or adverse reactions No No Had a fall/change in ADL's that may No No increase risk of falls Signs or symptoms of abuse and/or No No neglect since last visit Have you been in the hospital since your No No last visit? Has dressing in place as prescribed Yes No Has compression in place as prescribed N/A N/A Has offloadiing in place as prescribed Yes N/A Experienced any changes in pain level or No No management Left Footwear Regular Shoe Right Footwear Regular Shoe Pain Scale: 0-10 Numeric Is Patient Pain Free? Yes Yes - Nurse 1 - General Ulcer Measurement Start: 10/09/22 09:58 Freq: Status: Active Protocol: Activity Type Activity Date Activity User E-sign Co-sign Detail Recorded Client Recorded Date Recorded By Document 10/09/22 09:59 DL [id number] 10/09/22 10:07 DL Document 10/23/22 10:34 ML [id number] 10/23/22 10:40 ML 10/09/22 10/23/22 09:59 10:34 Wound Center Nurse 1 #5 Sacral -Current Size (cm) - Length 1 0.5 -Current Size (cm) - Width 0.4 0.5 -Current Size (cm) - Depth 0.8 1 -Total Square Cm 0.4 0.25 -Photo Taken Yes -Undermining/Tunneling Yes -Undermining/Tunneling Starts (O'clock 1 ) -Undermining/Tunneling Ends (O'clock) 4 -Maximum Distance (cm) 0.7 -Exudate Amt Small Medium -Exudate Type Serosanguineous Serosanguineous -Wound Margin Thickened & Distinct, Rolled Under Outline Attached -Granulation Amt Large (67-100%) -Granulation Quality Red -Slough/Fibrin Yes -Necrosis Amt None Present (0 Small (1-33%) %) -Necrotic Tissue Type Adherent Slough -Structure Exposed N/A -Texture (Sandi-wound Skin Appearance) Scarring Assessed -Moisture (Sandi-wound Skin Appearance) No Abnormality Assessed -Color (Sandi-wound Skin Appearance) No Abnormality Assessed -Temperature (Sandi-wound Skin No Abnormality No Abnormality Appearance) (Pt Warm) (Pt Warm) -Tenderness on Palpation (Sandi-wound No No Skin Appearance) -Ulcer Cleansing Rinsed/ Rinsed/ Irrigated with Irrigated with Saline Saline -Foul Odor after Cleansing No No -Anesthetic Used 5% Lidocaine 5% Lidocaine Gel Gel WC - Nurse 2 - General Ulcer CM Notes Start: 10/09/22 09:58 Freq: Status: Active Protocol: Activity Type Activity Date Activity User E-sign Co-sign Detail Recorded Client Recorded Date Recorded By Document 10/09/22 10:28 [id number] 10/09/22 10:31 Document 10/23/22 11:09 [id number] 10/23/22 11:14 10/09/22 10/23/22 10:28 11:09 Wound Center Nurse 2 #5 Sacral -Time 10:30 11:10 -Correct Patient Yes Yes -Correct Side, Site, Position Yes Yes -Correct Procedure Yes Yes -Procedure Performed Yes Yes -Type of Procedure Debridement Debridement -Clinical Debridement Subcutaneous Subcutaneous -Tissue Removed Subcutaneous Subcutaneous -Post Debridement (cm) - Length 1.5 1.3 -Post Debridement (cm) - Width 0.8 1.0 -Post Debridement (cm) - Depth 0.9 0.5 -Total Square (Post) (cm) 1.20 1.30 -Area of Debridement (cm) - Length 1.5 1.3 -Area of Debridement (cm) - Width 0.8 1.0 -Total Square (Area) (cm) 1.20 1.30 -Tunneling No No -Undermining/Tunneling No Yes -Undermining/Tunneling Starts (O'clock 1 ) -Undermining/Tunneling Ends (O'clock) 6 -Maximum Distance (cm) 1.1 -Circular Undermining No No -Wound/Ulcer Outcome Not Healed Not Healed -Ulcer Cleansing Rinsed/ Rinsed/ Irrigated with Irrigated with Saline Saline -Foul Odor after Cleansing No No -Bioengineered Tissue No No -Bleeding Controlled with Pressure Pressure -Treatment Response Procedure Procedure Tolerated Well Tolerated Well -Offloading No No -Debridement - Subq, 1st 20sq cm Yes Yes Pain Scale: 0-10 Numeric Is Patient Pain Free? Yes Yes - Nurse 3 - General Ulcer D/C NN Start: 10/09/22 09:58 Freq: Status: Active Protocol: Activity Type Activity Date Activity User E-sign Co-sign Detail Recorded Client Recorded Date Recorded By Document 10/09/22 10:45 [id number] 10/09/22 10:46 RB Document 10/23/22 11:14 [id number] 10/23/22 11:15 10/09/22 10/23/22 10:45 11:14 Wound Care Center Nurse 3 #5 Sacral -Ulcer Cleansing Rinsed/ Rinsed/ Irrigated with Irrigated with Saline Saline -Foul Odor after Cleansing No -Primary Dressing Applied Promogran Promogran Jannet Matter, Jannet Matter, Mepilex Border Mepilex Border -Mepilex Border 1 1 -Promogran Jannet Matter 1 1 Treatment Response Procedure Tolerated Well Pain Scale: 0-10 Numeric Is Patient Pain Free? Yes Yes - Visit Discharge Discharge Condition Stable Stable Ambulatory Status Ambulatory, Ambulatory, Walker Walker Transportation Private Auto Private Auto Accompanied by Medication Reconcilliation completed & No Yes provided to patient/care provider Clinical Summary of Care Provided Yes Yes Assessment/Plan Assessment/Plan (1) Ulcer of sacral region: CODE(S): L98.429 - Non-pressure chronic ulcer of back with unspecified severity (2) Type 2 diabetes mellitus with diabetic polyneuropathy: CODE(S): E11.42 - Type 2 diabetes mellitus with diabetic polyneuropathy QUALIFIERS: Diabetes mellitus nursing home insulin use: unspecified long chain beamer insulin use status Qualified Code(s): E11.42 - Type 2 diabetes mellitus with diabetic polyneuropathy (3) Smoker: CODE(S): F17.200 - Nicotine dependence, unspecified, uncomplicated (4) History of excision of pilonidal cyst: CODE(S): Z98.890 - Other specified postprocedural states (5) History of hidradenitis suppurativa: CODE(S): Z87.2 - Personal history of diseases of the skin and subcutaneous tissue PLAN: Plan Patient was evaluated at the wound center today. Wound care - To the sacral ulcer place moistened Jannet covered by [place] [employer] daily. Continues to have undermining from 1-6 o'clock. Stressed importance of continuing to off load. Wound culture obtained on 06/26/22 which was positive for Streptococcus agalactiae (B) and Corynebacterium striatum. He completed Augmentin. Prealbumin 11.8 from 09/11/22. Encouraged to increase his protein intake to help with wound healing. Discussed what are protein sources and why he needs to increase his protein intake. He has been drinking 1-2 Ensure shakes per day. Stressed that eating food is the important nutritional source and to supplement after meals. Encouraged patient to stop smoking as it may have deleterious effects on wound healing. Follow up two weeks. Call or come in sooner if develop any concerns.
== END 2022-10-29 23:59 | disposition home or self-care (01) ==
LOC: WC 10:30
PROVIDERS: PCP Family Medicine; Visit Provider Nurse Practitioner Family
DX: L98.422 Non-pressure chronic ulcer of back with fat layer exposed (principal); E11.42 Type 2 diabetes mellitus with diabetic polyneuropathy; M53.3 Sacrococcygeal disorders, not elsewhere classified; F17.200 Nicotine dependence, unspecified, uncomplicated; Z79.899 Other long term (current) drug therapy; Z79.890 Hormone replacement therapy; Z87.2 Personal history of diseases of the skin and subcutaneous tissue
CPT/HCPCS: 11042

== ENCOUNTER 2022-11-13 10:30 | Outpatient (RCR) | payer MEDICARE, SELFPAY ==
[2022-10-30 00:22] VITALS: BP 133/83; PULSE 83; RESP 16; TEMP 36.4
[2022-11-06 11:19] VITALS: BP 145/76; PULSE 80; RESP 18; TEMP 36.1
--- NOTE | 2022-11-06 11:56 | PN.PCM_ITS ---
History of Present Illness Date of Service: 11/06/22 Chief Complaint: Sacral wound after excision of pilonidal cyst, which the ulcer has reopened after healing History of Wound: 77 year old man presents with persistent pain and intermittent drainage in his sacral area where a cyst was present. He also had issues with pain and intermittent drainage in his bilateral perianal and perineal areas but none at the present time. He denies fever. He denies trauma. He has intermittent drainage. He has never had surgery on his pilonidal cyst area. He has had antibiotics intermittently. He has diabetes mellitus and his last HgbA1c is in the 5 range according to the patient. Surgery 03/12/21 - Surgical preparation sacral area with excision complicated extensive pilonidal cyst. He was healed and his ulcer has recently reopened. Today he denies fever, chills, nausea. States his appetite is ok. Progress of Wound: Sacral ulcer is beefy pink in the base. It is smaller in size but there is undermining is now circumferential. Objective Data Objective Data Vital Signs: Vital Signs Temp Pulse Resp BP 97 F L 80 18 145/76 H 11/06/22 11:19 11/06/22 11:19 11/06/22 11:19 11/06/22 11:19 Charges/Coding Procedures Integumentary 111xxx-113xx: 33160 Dena subq tissue 20 sq cm/< Debridement Note Debridement Note Wound debrided: Sacral ulcer Laterality: Not Applicable Wound Grade/Stage: Stage III Type of Debridement: Excisional debridement Anesthesia Used: 5% Lidocaine Gel Depth: Down to and including healthy tissue and in the subcutaneous layer Percentage of wound debrided: 100 Instrument Used: 3mm curette Tissue Removed: Devitalized tissue and slough Severity: Fat Layer Exposed Amount of bleeding with debridement: Mild Bleeding Controlled with: Pressure, Compression and gauze and Silver Nitrate Patient tolerated procedure: Patient tolerated procedure well Debridement Free Text: Focused on the edges of the ulcer opening to help prevent the edges from curving in. Post-Debridement Measurements and Additional Note: Post-Debridement Measurements/Treatment PLACIDO - Nurse 1 - General Ulcer Assessment Start: 11/06/22 11:19 Freq: Status: Active Protocol: SUSY Activity Type Activity Date Activity User E-sign Co-sign Detail Recorded Client Recorded Date Recorded By Document 11/06/22 11:19 RB [id number] 11/06/22 11:21 11/06/22 11:19 WC - Today's Visit Information Type of service Follow-up Visit (Physician/PULLEY MAN ) Arrival Mode Ambulatory, Walker Transfer Assistance None Patient Identification Verified (Name & Yes ) Patient Requires Transmission-Based No Precautions Vital Signs Temperature (97.8 F-99.1 F) 97 F L Temperature Source Temporal Pulse Rate (60-100) 80 Pulse Location Monitor Respiratory Rate (12-18) 18 Respiratory rate source Observation Blood Pressure (90/60-120/80) 145/76 H Blood Pressure Mean (mm Hg) 99 Source Monitor Position Semi-Fowlers Blood Pressure Location Left Arm History Since Last Visit- (Skip if this is Patient's initial visit) Have you changed medications since your No last visit? Any new allergies or adverse reactions No Had a fall/change in ADL's that may No increase risk of falls Signs or symptoms of abuse and/or No neglect since last visit Have you been in the hospital since your No last visit? Has dressing in place as prescribed Yes Has compression in place as prescribed No Has offloadiing in place as prescribed No Experienced any changes in pain level or No management Pain Scale: 0-10 Numeric Is Patient Pain Free? Yes - Nurse 1 - General Ulcer Measurement Start: 11/06/22 11:19 Freq: Status: Active Protocol: Activity Type Activity Date Activity User E-sign Co-sign Detail Recorded Client Recorded Date Recorded By Document 11/06/22 11:19 [id number] 11/06/22 11:21 11/06/22 11:19 Wound Center Nurse 1 #5 Sacral -Combined with other wound No -Current Size (cm) - Length 0.5 -Current Size (cm) - Width 0.5 -Current Size (cm) - Depth 0.8 -Total Square Cm 0.25 -Photo Taken No -Tunneling No -Undermining/Tunneling No -Circular Undermining No -Exudate Amt Medium -Exudate Type Serosanguineous -Wound Margin Thickened & Rolled Under -Granulation Amt Medium (34-66%) -Granulation Quality [place] -Slough/Fibrin Yes -Necrosis Amt Medium (34-66%) -Necrotic Tissue Type Adherent Slough -Structure Exposed N/A -Texture (Sandi-wound Skin Appearance) Assessed, Scarring -Moisture (Sandi-wound Skin Appearance) Assessed, Maceration -Color (Sandi-wound Skin Appearance) Assessed -Temperature (Sandi-wound Skin No Abnormality Appearance) (Pt Warm) -Tenderness on Palpation (Sandi-wound No Skin Appearance) -Ulcer Cleansing Wound Cleanser -Foul Odor after Cleansing No -Anesthetic Used 5% Lidocaine Gel WC - Nurse 2 - General Ulcer CM Notes Start: 11/06/22 11:19 Freq: Status: Active Protocol: Activity Type Activity Date Activity User E-sign Co-sign Detail Recorded Client Recorded Date Recorded By Document 11/06/22 11:30 ASHLEY [id number] 11/06/22 11:36 JF 11/06/22 11:30 Wound Center Nurse 2 -Time 11:30 -Correct Patient Yes -Correct Side, Site, Position Yes -Correct Procedure Yes -Procedure Performed Yes -Type of Procedure Debridement -Clinical Debridement Subcutaneous -Tissue Removed Subcutaneous -Post Debridement (cm) - Length 1.0 -Post Debridement (cm) - Width 0.7 -Post Debridement (cm) - Depth 0.8 -Total Square (Post) (cm) 0.70 -Area of Debridement (cm) - Length 1.0 -Area of Debridement (cm) - Width 0.7 -Total Square (Area) (cm) 0.70 -Tunneling No -Undermining/Tunneling Yes -Undermining/Tunneling Starts (O'clock 1 ) -Undermining/Tunneling Ends (O'clock) 7 -Maximum Distance (cm) 1.2 -Circular Undermining No -Wound/Ulcer Outcome Not Healed -Ulcer Cleansing Rinsed/ Irrigated with Saline -Foul Odor after Cleansing No -Bioengineered Tissue No -Bleeding Controlled with Pressure -Treatment Response Procedure Tolerated Well -Offloading No -Debridement - Subq, 1st 20sq cm Yes Pain Scale: 0-10 Numeric Is Patient Pain Free? Yes PLACIDO - Nurse 3 - General Ulcer D/C NN Start: 11/06/22 11:19 Freq: Status: Active Protocol: Activity Type Activity Date Activity User E-sign Co-sign Detail Recorded Client Recorded Date Recorded By Document 11/06/22 11:54 RB [id number] 11/06/22 11:55 RB 11/06/22 11:54 Wound Care Center Nurse 3 #5 Sacral -Ulcer Cleansing Wound Cleanser -Primary Dressing Applied Promogran Jannet Matter, Mepilex Border -Mepilex Border 1 -Promogran Jannet Matter 1 Treatment Response Procedure Tolerated Well Pain Scale: 0-10 Numeric Is Patient Pain Free? Yes WC - Visit Discharge Discharge Condition Stable Ambulatory Status Ambulatory, Walker Transportation Private Auto Medication Reconcilliation completed & No provided to patient/care provider Clinical Summary of Care Provided Yes Assessment/Plan Assessment/Plan (1) Ulcer of sacral region: CODE(S): L98.429 - Non-pressure chronic ulcer of back with unspecified severity (2) Type 2 diabetes mellitus with diabetic polyneuropathy: CODE(S): E11.42 - Type 2 diabetes mellitus with diabetic polyneuropathy QUALIFIERS: Diabetes mellitus long term care administrator insulin use: unspecified long term care administrator insulin use status Qualified Code(s): E11.42 - Type 2 diabetes mellitus with diabetic polyneuropathy (3) Smoker: CODE(S): F17.200 - Nicotine dependence, unspecified, uncomplicated (4) History of excision of pilonidal cyst: CODE(S): Z98.890 - Other specified postprocedural states (5) History of hidradenitis suppurativa: CODE(S): Z87.2 - Personal history of diseases of the skin and subcutaneous tissue PLAN: Plan Patient was evaluated at the wound center today. Wound care - To the sacral ulcer place moistened Jannet covered by [place] [employer] daily. Continues to have undermining now circumferential. Stressed importance of continuing to off load. Discussed that the ulcer base is not improving but the opening is getting smaller. This is most likely because of the scar tissue. Aggressive debridement this week on the edges. Will re evaluate next week. If there is not much improvement, I may need to refer him to Dr. Malcolm to discuss operative debridement. The patient is not wanting further surgery but understands that it may have to be considered. Wound culture obtained on 06/26/22 which was positive for Streptococcus agalactiae (B) and Corynebacterium striatum. He completed Augmentin. Prealbumin 11.8 from 09/11/22. Encouraged to increase his protein intake to help with wound healing. Discussed what are protein sources and why he needs to increase his protein intake. He has been drinking 1-2 Ensure shakes per day. Stressed that eating food is the important nutritional source and to supplement after meals. Encouraged patient to stop smoking as it may have deleterious effects on wound healing. Follow up two weeks. Call or come in sooner if develop any concerns.
[2022-11-13 10:43] VITALS: BP 122/67; PULSE 79; RESP 18; TEMP 36.2
--- NOTE | 2022-11-13 11:53 | PCM.WC.PN ---
History of Present Illness Date of Service: 11/13/22 Chief Complaint: Sacral wound after excision of pilonidal cyst, which the ulcer has reopened after healing History of Wound: 77 year old man presents with persistent pain and intermittent drainage in his sacral area where a cyst was present. He also had issues with pain and intermittent drainage in his bilateral perianal and perineal areas but none at the present time. He denies fever. He denies trauma. He has intermittent drainage. He has never had surgery on his pilonidal cyst area. He has had antibiotics intermittently. He has diabetes mellitus and his last HgbA1c is in the 5 range according to the patient. Surgery 03/12/21 - Surgical preparation sacral area with excision complicated extensive pilonidal cyst. He was healed and his ulcer has recently reopened. Wound cultures from 11/06/22 positive for Streptococcus group B, Corynebacterium striatum, Actinomyces odontolyticus, and Anaerobic cocci. Started on Augmentin. Today he denies fever, chills, nausea. States his appetite is ok. Progress of Wound: Sacral ulcer is beefy pink in the base. It is smaller in size but there is undermining is circumferential. The deepest part of the undermining is around 3 o'clock. Objective Data Objective Data Vital Signs: Vital Signs Temp Pulse Resp BP 97.2 F L 79 18 122/67 H 11/13/22 10:43 11/13/22 10:43 11/13/22 10:43 11/13/22 10:43 Lab / Micro Data Micro: Microbiology 11/06/22 11:34 Wound Abcess - Sacral Gram Stain - Final 11/06/22 11:34 Wound Abcess - Sacral Wound Culture - Final Streptococcus group B Corynebacterium striatum Actinomyces odontolyticus 11/06/22 11:34 Wound Abcess - Sacral Anaerobic Culture - Final Anaerobic cocci Charges/Coding Procedures Integumentary 111xxx-113xx: 62100 Dena subq tissue 20 sq cm/< Debridement Note Debridement Note Wound debrided: Sacral ulcer Laterality: Not Applicable Wound Grade/Stage: Stage III Type of Debridement: Excisional debridement Anesthesia Used: 5% Lidocaine Gel Depth: Down to and including healthy tissue and in the subcutaneous layer Percentage of wound debrided: 100 Instrument Used: 3mm curette Tissue Removed: Devitalized tissue and slough Severity: Fat Layer Exposed Amount of bleeding with debridement: Mild Bleeding Controlled with: Pressure, Compression and gauze and Silver Nitrate Patient tolerated procedure: Patient tolerated procedure well Debridement Free Text: Focused on the edges of the ulcer opening to help prevent the edges from curving in. Post-Debridement Measurements and Additional Note: Post-Debridement Measurements/Treatment PLACIDO - Nurse 1 - General Ulcer Assessment Start: 11/06/22 11:19 Freq: Status: Active Protocol: SUSY Activity Type Activity Date Activity User E-sign Co-sign Detail Recorded Client Recorded Date Recorded By Document 11/06/22 11:19 RB [id number] 11/06/22 11:21 RB Document 11/13/22 10:43 DL [id number] 11/13/22 10:48 DL 11/06/22 11/13/22 11:19 10:43 WC - Today's Visit Information Type of service Follow-up Visit Follow-up Visit (Physician/CARDIOVASCULAR DISEASE SPECIALIST (Physician/CARDIOVASCULAR DISEASE SPECIALIST ) ) Arrival Mode Ambulatory, Ambulatory, Walker Walker Transfer Assistance None None Patient Identification Verified (Name & Yes Yes ) Patient Requires Transmission-Based No No Precautions Vital Signs Temperature (97.8 F-99.1 F) 97 F L 97.2 F L Temperature Source Temporal Temporal Pulse Rate (60-100) 80 79 Pulse Location Monitor Monitor Respiratory Rate (12-18) 18 18 Respiratory rate source Observation Observation Blood Pressure (90/60-120/80) 145/76 H 122/67 H Blood Pressure Mean (mm Hg) 99 85 Source Monitor Monitor Position Semi-Fowlers Blood Pressure Location Left Arm History Since Last Visit- (Skip if this is Patient's initial visit) Have you changed medications since your No No last visit? Any new allergies or adverse reactions No No Had a fall/change in ADL's that may No No increase risk of falls Signs or symptoms of abuse and/or No No neglect since last visit Have you been in the hospital since your No No last visit? Has dressing in place as prescribed Yes Yes Has compression in place as prescribed No N/A Has offloadiing in place as prescribed No Yes Experienced any changes in pain level or No No management Pain Scale: 0-10 Numeric Is Patient Pain Free? Yes Yes PLACIDO Jones Nurse 1 - General Ulcer Measurement Start: 11/06/22 11:19 Freq: Status: Active Protocol: Activity Type Activity Date Activity User E-sign Co-sign Detail Recorded Client Recorded Date Recorded By Document 11/06/22 11:19 RB [id number] 11/06/22 11:21 RB Document 11/13/22 10:43 DL [id number] 11/13/22 10:48 DL 11/06/22 11/13/22 11:19 10:43 Wound Center Nurse 1 #5 Sacral -Combined with other wound No -Current Size (cm) - Length 0.5 0.7 -Current Size (cm) - Width 0.5 0.7 -Current Size (cm) - Depth 0.8 1.2 -Total Square Cm 0.25 0.49 -Photo Taken No Yes -Tunneling No -Undermining/Tunneling No -Undermining/Tunneling Starts (O'clock 1 ) -Undermining/Tunneling Ends (O'clock) 7 -Maximum Distance (cm) 1.2 -Circular Undermining No -Exudate Amt Medium Medium -Exudate Type Serosanguineous Serosanguineous -Wound Margin Thickened & Thickened & Rolled Under Rolled Under -Granulation Amt Medium (34-66%) Small (1-33%) -Granulation Quality [place] Pale[place] -Slough/Fibrin Yes -Necrosis Amt Medium (34-66%) Small (1-33%) -Necrotic Tissue Type Adherent Slough Adherent Slough -Structure Exposed N/A N/A -Texture (Sandi-wound Skin Appearance) Assessed, Scarring Scarring -Moisture (Sandi-wound Skin Appearance) Assessed, Dry/Scaly Maceration -Color (Sandi-wound Skin Appearance) Assessed No Abnormality -Temperature (Sandi-wound Skin No Abnormality No Abnormality Appearance) (Pt Warm) (Pt Warm) -Tenderness on Palpation (Sandi-wound No No Skin Appearance) -Ulcer Cleansing Wound Cleanser Rinsed/ Irrigated with Saline -Foul Odor after Cleansing No No -Anesthetic Used 5% Lidocaine 5% Lidocaine Gel Gel WC - Nurse 2 - General Ulcer CM Notes Start: 11/06/22 11:19 Freq: Status: Active Protocol: Activity Type Activity Date Activity User E-sign Co-sign Detail Recorded Client Recorded Date Recorded By Document 11/06/22 11:30 [id number] 11/06/22 11:36 Document 11/13/22 10:58 [id number] 11/13/22 11:01 11/06/22 11/13/22 11:30 10:58 Wound Center Nurse 2 #5 Sacral -Time 11:30 10:58 -Correct Patient Yes Yes -Correct Side, Site, Position Yes Yes -Correct Procedure Yes Yes -Procedure Performed Yes Yes -Type of Procedure Debridement Debridement -Clinical Debridement Subcutaneous Subcutaneous -Tissue Removed Subcutaneous Subcutaneous -Post Debridement (cm) - Length 1.0 1.0 -Post Debridement (cm) - Width 0.7 0.7 -Post Debridement (cm) - Depth 0.8 0.7 -Total Square (Post) (cm) 0.70 0.70 -Area of Debridement (cm) - Length 1.0 1.0 -Area of Debridement (cm) - Width 0.7 0.7 -Total Square (Area) (cm) 0.70 0.70 -Tunneling No No -Undermining/Tunneling Yes Yes -Undermining/Tunneling Starts (O'clock 1 1 ) -Undermining/Tunneling Ends (O'clock) 7 7 -Maximum Distance (cm) 1.2 1.7 -Circular Undermining No No -Wound/Ulcer Outcome Not Healed Not Healed -Ulcer Cleansing Rinsed/ Rinsed/ Irrigated with Irrigated with Saline Saline -Foul Odor after Cleansing No No -Bioengineered Tissue No No -Bleeding Controlled with Pressure Pressure -Treatment Response Procedure Procedure Tolerated Well Tolerated Well -Offloading No No -Debridement - Subq, 1st 20sq cm Yes Yes Pain Scale: 0-10 Numeric Is Patient Pain Free? Yes Yes - Nurse 3 - General Ulcer D/C NN Start: 11/06/22 11:19 Freq: Status: Active Protocol: Activity Type Activity Date Activity User E-sign Co-sign Detail Recorded Client Recorded Date Recorded By Document 11/06/22 11:54 RB [id number] 11/06/22 11:55 RB Document 11/13/22 11:12 DL [id number] 11/13/22 11:16 DL 11/06/22 11/13/22 11:54 11:12 Wound Care Center Nurse 3 #5 Sacral -Ulcer Cleansing Wound Cleanser Rinsed/ Irrigated with Saline -Foul Odor after Cleansing No -Primary Dressing Applied Promogran Aquacel AG 4x4, Jannet Matter, Mepilex Border Mepilex Border -Aquacel AG 4x4 1 -Mepilex Border 1 1 -Promogran Jannet Matter 1 Treatment Response Procedure Procedure Tolerated Well Tolerated Well Pain Scale: 0-10 Numeric Is Patient Pain Free? Yes Yes WC - Visit Discharge Discharge Condition Stable Stable Ambulatory Status Ambulatory, Ambulatory, Walker Walker Transportation Private Auto Private Auto Medication Reconcilliation completed & No provided to patient/care provider Clinical Summary of Care Provided Yes Notes: instructed on packing wound. Assessment/Plan Assessment/Plan (1) Ulcer of sacral region: CODE(S): L98.429 - Non-pressure chronic ulcer of back with unspecified severity (2) Type 2 diabetes mellitus with diabetic polyneuropathy: CODE(S): E11.42 - Type 2 diabetes mellitus with diabetic polyneuropathy QUALIFIERS: Diabetes mellitus penitentiary insulin use: unspecified penitentiary insulin use status Qualified Code(s): E11.42 - Type 2 diabetes mellitus with diabetic polyneuropathy (3) Smoker: CODE(S): F17.200 - Nicotine dependence, unspecified, uncomplicated (4) History of excision of pilonidal cyst: CODE(S): Z98.890 - Other specified postprocedural states (5) History of hidradenitis suppurativa: CODE(S): Z87.2 - Personal history of diseases of the skin and subcutaneous tissue PLAN: Plan Patient was evaluated at the wound center today. Wound care - To the sacral ulcer stop Jannet and start placing Aquacel-Ag covered by [employer] SAP daily. Continues to have undermining now circumferential. Wash with soap and water at the time of the dressing change, pat dry. Stressed importance of continuing to off load. Discussed that the ulcer base is not improving but the opening is getting smaller. This is most likely because of the scar tissue. If there is not much improvement with treatment of wound cultures and change in dressings, I may need to consult Dr. Malcolm to discuss operative debridement. The patient is not wanting further surgery but understands that it may have to be considered. Wound culture obtained on 06/26/22 which was positive for Streptococcus agalactiae (B) and Corynebacterium striatum. He completed Augmentin. Wound cultures from 11/06/22 positive for Streptococcus group B, Corynebacterium striatum, Actinomyces odontolyticus, and Anaerobic cocci. Started on Augmentin and probiotic. Prealbumin 11.8 from 09/11/22. Encouraged to increase his protein intake to help with wound healing. Discussed what are protein sources and why he needs to increase his protein intake. He has been drinking 1-2 Ensure shakes per day. Stressed that eating food is the important nutritional source and to supplement after meals. Encouraged patient to stop smoking as it may have deleterious effects on wound healing. Follow up three weeks. Call or come in sooner if develop any concerns. He has concerns about frequent visits due to the financial cost of coming to the wound center.
== END 2022-11-29 23:59 | disposition home or self-care (01) ==
LOC: WC 10:30
PROVIDERS: PCP Family Medicine; Visit Provider Nurse Practitioner Family
DX: L98.422 Non-pressure chronic ulcer of back with fat layer exposed (principal); E11.42 Type 2 diabetes mellitus with diabetic polyneuropathy; F17.200 Nicotine dependence, unspecified, uncomplicated; Z79.899 Other long term (current) drug therapy; Z98.890 Other specified postprocedural states; Z87.2 Personal history of diseases of the skin and subcutaneous tissue
CPT/HCPCS: 11042; 87070; 87075; 87077; 87186; 87205

== ENCOUNTER 2022-12-18 10:30 | Outpatient (RCR) | payer MEDICARE, SELFPAY ==
[2022-11-30 01:40] VITALS: BP 122/67; PULSE 79; RESP 18; TEMP 36.2
[2022-12-04 10:35] VITALS: BP 119/66; PULSE 82; RESP 20; TEMP 36.1
--- NOTE | 2022-12-04 11:18 | PCM.WC.PN ---
History of Present Illness Date of Service: 12/04/22 Chief Complaint: Sacral wound after excision of pilonidal cyst, which the ulcer has reopened after healing History of Wound: 77 year old man presents with persistent pain and intermittent drainage in his sacral area where a cyst was present. He also had issues with pain and intermittent drainage in his bilateral perianal and perineal areas but none at the present time. He denies fever. He denies trauma. He has intermittent drainage. He has never had surgery on his pilonidal cyst area. He has had antibiotics intermittently. He has diabetes mellitus and his last HgbA1c is in the 5 range according to the patient. Surgery 03/12/21 - Surgical preparation sacral area with excision complicated extensive pilonidal cyst. He was healed and his ulcer has recently reopened. Wound cultures from 11/06/22 positive for Streptococcus group B, Corynebacterium striatum, Actinomyces odontolyticus, and Anaerobic cocci. Completed Augmentin. Today he denies fever, chills, nausea. States his appetite is ok. Progress of Wound: Sacral ulcer is beefy pink in the base. It is smaller in size but there is undermining is circumferential. Objective Data Objective Data Vital Signs: Vital Signs Temp Pulse Resp BP 97 F L 82 20 H 119/66 12/04/22 10:35 12/04/22 10:35 12/04/22 10:35 12/04/22 10:35 Charges/Coding Procedures Integumentary 111xxx-113xx: 43848 Dena subq tissue 20 sq cm/< Debridement Note Debridement Note Wound debrided: Sacral ulcer Laterality: Not Applicable Wound Grade/Stage: Stage III Type of Debridement: Excisional debridement Anesthesia Used: 5% Lidocaine Gel Depth: Down to and including healthy tissue and in the subcutaneous layer Percentage of wound debrided: 100 Instrument Used: 3mm curette and 5mm curette Tissue Removed: Devitalized tissue and slough Severity: Fat Layer Exposed Amount of bleeding with debridement: Mild Bleeding Controlled with: Pressure, Compression and gauze and Silver Nitrate Patient tolerated procedure: Patient tolerated procedure well Debridement Free Text: Ulcer opening starting to close but there continues to be undermining. Focused on the edges and making the ulcer opening large enough to be able to pack into the undermining without difficulty. Post-Debridement Measurements and Additional Note: Post-Debridement Measurements/Treatment WC - Nurse 1 - General Ulcer Assessment Start: 12/04/22 10:35 Freq: Status: Active Protocol: SUSY Activity Type Activity Date Activity User E-sign Co-sign Detail Recorded Client Recorded Date Recorded By Document 12/04/22 10:35 DL [id number] 12/04/22 10:41 DL 12/04/22 10:35 WC - Today's Visit Information Type of service Follow-up Visit (Physician/KEG VARNISHER ) Arrival Mode Ambulatory, Walker Transfer Assistance None Patient Identification Verified (Name & Yes ) Patient Requires Transmission-Based No Precautions Vital Signs Temperature (97.8 F-99.1 F) 97 F L Temperature Source Temporal Pulse Rate (60-100) 82 Pulse Location Monitor Respiratory Rate (12-18) 20 H Respiratory rate source Observation Blood Pressure (90/60-120/80) 119/66 Blood Pressure Mean (mm Hg) 83 Source Monitor History Since Last Visit- (Skip if this is Patient's initial visit) Have you changed medications since your No last visit? Any new allergies or adverse reactions No Had a fall/change in ADL's that may No increase risk of falls Signs or symptoms of abuse and/or No neglect since last visit Have you been in the hospital since your No last visit? Has dressing in place as prescribed Yes Has compression in place as prescribed N/A Has offloadiing in place as prescribed Yes Experienced any changes in pain level or No management Pain Scale: 0-10 Numeric Is Patient Pain Free? Yes - Nurse 1 - General Ulcer Measurement Start: 12/04/22 10:35 Freq: Status: Active Protocol: Activity Type Activity Date Activity User E-sign Co-sign Detail Recorded Client Recorded Date Recorded By Document 12/04/22 10:35 DL [id number] 12/04/22 10:41 DL 12/04/22 10:35 Wound Center Nurse 1 #5 Sacral -Current Size (cm) - Length 0.3 -Current Size (cm) - Width 0.2 -Current Size (cm) - Depth 0.6 -Total Square Cm 0.06 -Photo Taken No -Undermining/Tunneling Starts (O'clock 12 ) -Undermining/Tunneling Ends (O'clock) 6 -Maximum Distance (cm) 1.4 -Exudate Amt Small -Exudate Type Serosanguineous -Wound Margin Thickened -Granulation Amt Small (1-33%) -Granulation Quality [place] -Necrosis Amt Small (1-33%) -Necrotic Tissue Type Adherent Slough -Structure Exposed N/A -Texture (Sandi-wound Skin Appearance) Scarring -Moisture (Sandi-wound Skin Appearance) Dry/Scaly -Color (Sandi-wound Skin Appearance) No Abnormality -Temperature (Sandi-wound Skin No Abnormality Appearance) (Pt Warm) -Tenderness on Palpation (Sandi-wound No Skin Appearance) -Ulcer Cleansing Soap and Water -Foul Odor after Cleansing No -Anesthetic Used 5% Lidocaine Gel WC - Nurse 2 - General Ulcer CM Notes Start: 12/04/22 10:35 Freq: Status: Active Protocol: Activity Type Activity Date Activity User E-sign Co-sign Detail Recorded Client Recorded Date Recorded By Document 12/04/22 10:53 ASHLEY [id number] 12/04/22 11:00 ASHLEY 12/04/22 10:53 Wound Center Nurse 2 -Time 10:53 -Correct Patient Yes -Correct Side, Site, Position Yes -Correct Procedure Yes -Procedure Performed Yes -Type of Procedure Debridement -Clinical Debridement Subcutaneous -Tissue Removed Subcutaneous -Post Debridement (cm) - Length 1 -Post Debridement (cm) - Width 0.8 -Post Debridement (cm) - Depth 0.8 -Total Square (Post) (cm) 0.8 -Area of Debridement (cm) - Length 1 -Area of Debridement (cm) - Width 0.8 -Total Square (Area) (cm) 0.8 -Tunneling Yes -Tunneling Position (O'clock) 3 -Tunneling Distance (cm) 0.8 -Undermining/Tunneling No -Circular Undermining No -Wound/Ulcer Outcome Not Healed -Ulcer Cleansing Rinsed/ Irrigated with Saline -Foul Odor after Cleansing No -Bioengineered Tissue No -Bleeding Controlled with Pressure -Treatment Response Procedure Tolerated Well -Offloading No -Assistive Device(s) Walker -Debridement - Subq, 1st 20sq cm Yes Pain Scale: 0-10 Numeric Is Patient Pain Free? Yes - Nurse 3 - General Ulcer D/C NN Start: 12/04/22 10:35 Freq: Status: Active Protocol: Activity Type Activity Date Activity User E-sign Co-sign Detail Recorded Client Recorded Date Recorded By Document 12/04/22 11:10 TRISTEN [id number] 12/04/22 11:14 DL 12/04/22 11:10 Wound Care Center Nurse 3 #5 Sacral -Ulcer Cleansing Rinsed/ Irrigated with Saline -Foul Odor after Cleansing No -Primary Dressing Applied Aquacel AG 4x4 -Primary Dressing Covered/Secured with Dry Gauze, Secured with Tape -Aquacel AG 4x4 1 Treatment Response Procedure Tolerated Well Pain Scale: 0-10 Numeric Is Patient Pain Free? Yes WC - Visit Discharge Discharge Condition Stable Ambulatory Status Ambulatory, Walker Transportation Private Auto Assessment/Plan Assessment/Plan (1) Ulcer of sacral region: CODE(S): L98.429 - Non-pressure chronic ulcer of back with unspecified severity (2) Type 2 diabetes mellitus with diabetic polyneuropathy: CODE(S): E11.42 - Type 2 diabetes mellitus with diabetic polyneuropathy QUALIFIERS: Diabetes mellitus group home insulin use: unspecified group home insulin use status Qualified Code(s): E11.42 - Type 2 diabetes mellitus with diabetic polyneuropathy (3) Smoker: CODE(S): F17.200 - Nicotine dependence, unspecified, uncomplicated (4) History of excision of pilonidal cyst: CODE(S): Z98.890 - Other specified postprocedural states (5) History of hidradenitis suppurativa: CODE(S): Z87.2 - Personal history of diseases of the skin and subcutaneous tissue PLAN: Plan Patient was evaluated at the wound center today. Wound care - To the sacral ulcer place moistened Aquacel-Ag covered by [employer] SAP daily. Continues to have undermining now circumferential. Wash with soap and water at the time of the dressing change, pat dry. Stressed importance of continuing to off load. Discussed that the ulcer base is not improving but the opening is getting smaller. This is most likely because of the scar tissue. If there is not much improvement with treatment of wound cultures and change in dressings, I may need to consult Dr. Malcolm to discuss operative debridement. The patient is not wanting further surgery but understands that it may have to be considered. Wound culture obtained on 06/26/22 which was positive for Streptococcus agalactiae (B) and Corynebacterium striatum. He completed Augmentin. Wound cultures from 11/06/22 positive for Streptococcus group B, Corynebacterium striatum, Actinomyces odontolyticus, and Anaerobic cocci. Started on Augmentin and probiotic. Prealbumin 11.8 from 09/11/22. Encouraged to increase his protein intake to help with wound healing. Discussed what are protein sources and why he needs to increase his protein intake. He has been drinking 1-2 Ensure shakes per day. Stressed that eating food is the important nutritional source and to supplement after meals. Encouraged patient to stop smoking as it may have deleterious effects on wound healing. Follow up two weeks. Call or come in sooner if develop any concerns.
[2022-12-18 10:40] VITALS: BP 130/76; PULSE 84; RESP 20; TEMP 36.4
--- NOTE | 2022-12-18 11:28 | PN.PCM_ITS ---
History of Present Illness Date of Service: 12/18/22 Chief Complaint: Sacral wound after excision of pilonidal cyst, which the ulcer has reopened after healing History of Wound: 77 year old man presents with persistent pain and intermittent drainage in his sacral area where a cyst was present. He also had issues with pain and intermittent drainage in his bilateral perianal and perineal areas but none at the present time. He denies fever. He denies trauma. He has intermittent drainage. He has never had surgery on his pilonidal cyst area. He has had antibiotics intermittently. He has diabetes mellitus and his last HgbA1c is in the 5 range according to the patient. Surgery 03/12/21 - Surgical preparation sacral area with excision complicated extensive pilonidal cyst. He was healed and his ulcer has recently reopened. Wound cultures from 11/06/22 positive for Streptococcus group B, Corynebacterium striatum, Actinomyces odontolyticus, and Anaerobic cocci. Completed Augmentin. Today he denies fever, chills, nausea. States his appetite is ok. Progress of Wound: Sacral ulcer is beefy pink in the base. The opening is smaller but it continues to have undermining circumferentially but is slightly smaller this week. Objective Data Objective Data Vital Signs: Vital Signs Temp Pulse Resp BP 97.6 F L 84 20 H 130/76 H 12/18/22 10:40 12/18/22 10:40 12/18/22 10:40 12/18/22 10:40 Charges/Coding Procedures Integumentary 111xxx-113xx: [id number] Dena subq tissue 20 sq cm/< Debridement Note Debridement Note Wound debrided: Sacral ulcer Laterality: Not Applicable Wound Grade/Stage: Stage III Type of Debridement: Excisional debridement Anesthesia Used: 5% Lidocaine Gel Depth: Down to and including healthy tissue and in the subcutaneous layer Percentage of wound debrided: 100 Instrument Used: 3mm curette Tissue Removed: Devitalized tissue and slough Severity: Fat Layer Exposed Amount of bleeding with debridement: Mild Bleeding Controlled with: Pressure, Compression and gauze and Silver Nitrate Patient tolerated procedure: Patient tolerated procedure well Debridement Free Text: Ulcer opening starting to close but there continues to be undermining. Focused on the edges and making the ulcer opening large enough to be able to pack into the undermining without difficulty. 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 (Physician/FOREST FIRE FIGHTERS DISPATCHER ) ) Arrival Mode Ambulatory, Ambulatory Walker Transfer Assistance None None Patient Identification Verified (Name & Yes Yes ) Patient Requires Transmission-Based No No Precautions Vital Signs Temperature (97.8 F-99.1 F) 97 F L 97.6 F L Temperature Source Temporal Temporal Pulse Rate (60-100) 82 84 Pulse Location Monitor Monitor Respiratory Rate (12-18) 20 H 20 H Respiratory rate source Observation Observation Blood Pressure (90/60-120/80) 119/66 130/76 H Blood Pressure Mean (mm Hg) 83 94 Source Monitor Monitor History Since Last Visit- (Skip if this is Patient's initial visit) Have you changed medications since your No No last visit? Any new allergies or adverse reactions No No Had a fall/change in ADL's that may No No increase risk of falls Signs or symptoms of abuse and/or No No neglect since last visit Have you been in the hospital since your No No last visit? Has dressing in place as prescribed Yes Yes Has compression in place as prescribed N/A Has offloadiing in place as prescribed Yes Yes Experienced any changes in pain level or No No management Pain Scale: 0-10 Numeric Is Patient Pain Free? Yes Yes - Nurse 1 - General Ulcer Measurement Start: 12/04/22 10:35 Freq: Status: Active Protocol: Activity Type Activity Date Activity User E-sign Co-sign Detail Recorded Client Recorded Date Recorded By Document 12/04/22 10:35 DL [id number] 12/04/22 10:41 DL Document 12/18/22 10:40 DL [id number] 12/18/22 10:43 DL 12/04/22 12/18/22 10:35 10:40 Wound Center Nurse 1 #5 Sacral -Current Size (cm) - Length 0.3 0.4 -Current Size (cm) - Width 0.2 0.3 -Current Size (cm) - Depth 0.6 0.5 -Total Square Cm 0.06 0.12 -Photo Taken No Yes -Undermining/Tunneling Starts (O'clock 12 1 ) -Undermining/Tunneling Ends (O'clock) 6 6 -Maximum Distance (cm) 1.4 0.5 -Exudate Amt Small Medium -Exudate Type Serosanguineous Serosanguineous -Wound Margin Thickened Thickened & Rolled Under -Granulation Amt Small (1-33%) Large (67-100%) -Granulation Quality [place] -Necrosis Amt Small (1-33%) None Present (0 %) -Necrotic Tissue Type Adherent Slough -Structure Exposed N/A N/A -Texture (Sandi-wound Skin Appearance) Scarring Scarring -Moisture (Sandi-wound Skin Appearance) Dry/Scaly Dry/Scaly -Color (Sandi-wound Skin Appearance) No Abnormality No Abnormality -Temperature (Sandi-wound Skin No Abnormality No Abnormality Appearance) (Pt Warm) (Pt Warm) -Tenderness on Palpation (Sandi-wound No No Skin Appearance) -Ulcer Cleansing Soap and Water Soap and Water -Foul Odor after Cleansing No No -Anesthetic Used 5% Lidocaine 4% Lidocaine Gel Solution WC - Nurse 2 - General Ulcer CM Notes Start: 12/04/22 10:35 Freq: Status: Active Protocol: Activity Type Activity Date Activity User E-sign Co-sign Detail Recorded Client Recorded Date Recorded By Document 12/04/22 10:53 [id number] 12/04/22 11:00 Document 12/18/22 11:08 ASHLEY [id number] 12/18/22 11:11 12/04/22 12/18/22 10:53 11:08 Wound Center Nurse 2 #5 Sacral -Time 10:53 11:08 -Correct Patient Yes Yes -Correct Side, Site, Position Yes Yes -Correct Procedure Yes Yes -Procedure Performed Yes Yes -Type of Procedure Debridement Debridement -Clinical Debridement Subcutaneous Subcutaneous -Tissue Removed Subcutaneous Subcutaneous -Post Debridement (cm) - Length 1 0.7 -Post Debridement (cm) - Width 0.8 0.5 -Post Debridement (cm) - Depth 0.8 0.4 -Total Square (Post) (cm) 0.8 0.35 -Area of Debridement (cm) - Length 1 0.7 -Area of Debridement (cm) - Width 0.8 0.5 -Total Square (Area) (cm) 0.8 0.35 -Tunneling Yes No -Tunneling Position (O'clock) 3 -Tunneling Distance (cm) 0.8 -Undermining/Tunneling No No -Circular Undermining No No -Wound/Ulcer Outcome Not Healed Not Healed -Ulcer Cleansing Rinsed/ Rinsed/ Irrigated with Irrigated with Saline Saline -Foul Odor after Cleansing No No -Bioengineered Tissue No No -Bleeding Controlled with Pressure Pressure -Treatment Response Procedure Procedure Tolerated Well Tolerated Well -Offloading No No -Assistive Device(s) Walker -Debridement - Subq, 1st 20sq cm Yes Yes Pain Scale: 0-10 Numeric Is Patient Pain Free? Yes Yes - Nurse 3 - General Ulcer D/C NN Start: 12/04/22 10:35 Freq: Status: Active Protocol: Activity Type Activity Date Activity User E-sign Co-sign Detail Recorded Client Recorded Date Recorded By Document 12/04/22 11:10 DL [id number] 12/04/22 11:14 DL Document 12/18/22 11:15 DL [id number] 12/18/22 11:16 DL 12/04/22 12/18/22 11:10 11:15 Wound Care Center Nurse 3 #5 Sacral -Ulcer Cleansing Rinsed/ Rinsed/ Irrigated with Irrigated with Saline Saline -Foul Odor after Cleansing No No -Primary Dressing Applied Aquacel AG 4x4 Aquacel AG 4x4, Mepilex Border -Primary Dressing Covered/Secured with Dry Gauze, Secured with Tape -Aquacel AG 4x4 1 1 -Mepilex Border 1 Treatment Response Procedure Procedure Tolerated Well Tolerated Well Pain Scale: 0-10 Numeric Is Patient Pain Free? Yes Yes - Visit Discharge Discharge Condition Stable Stable Ambulatory Status Ambulatory, Ambulatory, Walker Walker Transportation Private Auto Private Auto Assessment/Plan Assessment/Plan (1) Ulcer of sacral region: CODE(S): L98.429 - Non-pressure chronic ulcer of back with unspecified severity (2) Type 2 diabetes mellitus with diabetic polyneuropathy: CODE(S): E11.42 - Type 2 diabetes mellitus with diabetic polyneuropathy QUALIFIERS: Diabetes mellitus long-term insulin use: unspecified long-term insulin use status Qualified Code(s): E11.42 - Type 2 diabetes mellitus with diabetic polyneuropathy (3) Smoker: CODE(S): F17.200 - Nicotine dependence, unspecified, uncomplicated (4) History of excision of pilonidal cyst: CODE(S): Z98.890 - Other specified postprocedural states (5) History of hidradenitis suppurativa: CODE(S): Z87.2 - Personal history of diseases of the skin and subcutaneous tissue PLAN: Plan Patient was evaluated at the wound center today. Wound care - To the sacral ulcer place moistened Aquacel-Ag covered by [place] SAP daily. Continues to have undermining now circumferential. Wash with soap and water at the time of the dressing change, pat dry. Stressed importance of continuing to off load. Wound culture obtained on 06/26/22 which was positive for Streptococcus agalactiae (B) and Corynebacterium striatum. He completed Augmentin. Wound cultures from 11/06/22 positive for Streptococcus group B, Corynebacterium striatum, Actinomyces odontolyticus, and Anaerobic cocci. Completed Augmentin and probiotic. Prealbumin 11.8 from 09/11/22. Encouraged to increase his protein intake to help with wound healing. Discussed what are protein sources and why he needs to increase his protein intake. He has been drinking 1-2 Ensure shakes per day. Stressed that eating food is the important nutritional source and to supplement after meals. Encouraged patient to stop smoking as it may have deleterious effects on wound healing. Follow up three weeks per patient request because of the cost of co pays. Call or come in sooner if develop any concerns.
== END 2022-12-29 23:59 | disposition home or self-care (01) ==
LOC: WC 10:30
PROVIDERS: PCP Family Medicine; Visit Provider Nurse Practitioner Family
DX: L98.422 Non-pressure chronic ulcer of back with fat layer exposed (principal); E11.42 Type 2 diabetes mellitus with diabetic polyneuropathy; M53.3 Sacrococcygeal disorders, not elsewhere classified; F17.200 Nicotine dependence, unspecified, uncomplicated; Z79.899 Other long term (current) drug therapy; Z98.890 Other specified postprocedural states; Z87.2 Personal history of diseases of the skin and subcutaneous tissue
CPT/HCPCS: 11042

== ENCOUNTER 2023-01-23 13:00 | Outpatient (RCR) | payer MEDICARE, SELFPAY ==
[2022-12-30 00:32] VITALS: BP 130/76; PULSE 84; RESP 20; TEMP 36.4
[2023-01-08 10:53] VITALS: BP 130/67; PULSE 82; RESP 18; TEMP 36.4
--- NOTE | 2023-01-08 12:41 | PN.PCM_ITS ---
History of Present Illness Date of Service: 01/08/23 Chief Complaint: Sacral wound after excision of pilonidal cyst, which the ulcer has reopened after healing History of Wound: 77 year old man presents with persistent pain and intermittent drainage in his sacral area where a cyst was present. He also had issues with pain and intermittent drainage in his bilateral perianal and perineal areas but none at the present time. He denies fever. He denies trauma. He has intermittent drainage. He has never had surgery on his pilonidal cyst area. He has had antibiotics intermittently. He has diabetes mellitus and his last HgbA1c is in the 5 range according to the patient. Surgery 03/12/21 - Surgical preparation sacral area with excision complicated extensive pilonidal cyst. He was healed and his ulcer has recently reopened. Wound cultures from 11/06/22 positive for Streptococcus group B, Corynebacterium striatum, Actinomyces odontolyticus, and Anaerobic cocci. Completed Augmentin. Today he denies fever, chills, nausea. States his appetite is ok. Progress of Wound: Sacral ulcer opening is almost closed shut with scar tissue. The base is beefy pink, the undermining is improving, the depth is stable. Objective Data Objective Data Vital Signs: Vital Signs Temp Pulse Resp BP 97.5 F L 82 18 130/67 H 01/08/23 10:53 01/08/23 10:53 01/08/23 10:53 01/08/23 10:53 Charges/Coding Procedures Integumentary 111xxx-113xx: [id number] Dena subq tissue 20 sq cm/< Debridement Note Debridement Note Wound debrided: Sacral ulcer Laterality: Not Applicable Wound Grade/Stage: Stage III Type of Debridement: Excisional debridement Anesthesia Used: 5% Lidocaine Gel Depth: Down to and including healthy tissue and in the subcutaneous layer Percentage of wound debrided: 100 Instrument Used: 3mm curette Tissue Removed: Devitalized tissue and slough Severity: Fat Layer Exposed Amount of bleeding with debridement: Mild Bleeding Controlled with: Pressure, Compression and gauze and Silver Nitrate Patient tolerated procedure: Patient tolerated procedure well Debridement Free Text: Ulcer opening starting to close but able to unroof the top. The undermining is improving. The wound depth is stable. 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 Any new allergies or adverse reactions No Had a fall/change in ADL's that may No increase risk of falls Signs or symptoms of abuse and/or No neglect since last visit Have you been in the hospital since your Yes last visit? Has dressing in place as prescribed Yes Has compression in place as prescribed N/A Has offloadiing in place as prescribed No Experienced any changes in pain level or No management Left Footwear Regular Shoe Right Footwear Regular Shoe Pain Scale: 0-10 Numeric Is Patient Pain Free? Yes - Nurse 1 - General Ulcer Measurement Start: 01/08/23 10:52 Freq: Status: Active Protocol: Activity Type Activity Date Activity User E-sign Co-sign Detail Recorded Client Recorded Date Recorded By Document 01/08/23 10:53 DL [id number] 01/08/23 10:56 DL 01/08/23 10:53 Wound Center Nurse 1 #5 Sacral -Combined with other wound No -Current Size (cm) - Length 0.3 -Current Size (cm) - Width 0.3 -Current Size (cm) - Depth 1.1 -Total Square Cm 0.09 -Photo Taken No -Epithelialization None Present -Tunneling No -Undermining/Tunneling No -Circular Undermining Yes -Exudate Amt Small -Exudate Type Serosanguineous -Wound Margin Indistinct, Non -Visible -Granulation Amt None Present (0 %) -Slough/Fibrin Yes -Necrosis Amt Large (67-100%) -Necrotic Tissue Type Adherent Slough -Structure Exposed N/A -Texture (Sandi-wound Skin Appearance) Assessed, Scarring -Moisture (Sandi-wound Skin Appearance) Assessed,Dry/ Scaly -Color (Sandi-wound Skin Appearance) Assessed -Temperature (Sandi-wound Skin No Abnormality Appearance) (Pt Warm) -Tenderness on Palpation (Sandi-wound No Skin Appearance) -Ulcer Cleansing Rinsed/ Irrigated with Saline -Foul Odor after Cleansing No -Anesthetic Used 5% Lidocaine Gel Lower Limb Edema Present NA WC - Nurse 2 - General Ulcer CM Notes Start: 01/08/23 10:52 Freq: Status: Active Protocol: Activity Type Activity Date Activity User E-sign Co-sign Detail Recorded Client Recorded Date Recorded By Document 01/08/23 11:02 SHIRA [id number] 01/08/23 11:11 SHIRA 01/08/23 11:02 Wound Center Nurse 2 #5 Sacral -Time 11:05 -Correct Patient Yes -Correct Side, Site, Position Yes -Correct Procedure Yes -Procedure Performed Yes -Type of Procedure Debridement -Clinical Debridement Subcutaneous -Tissue Removed Subcutaneous -Post Debridement (cm) - Length 0.7 -Post Debridement (cm) - Width 0.6 -Post Debridement (cm) - Depth 0.8 -Total Square (Post) (cm) 0.42 -Area of Debridement (cm) - Length 0.7 -Area of Debridement (cm) - Width 0.8 -Total Square (Area) (cm) 0.56 -Tunneling No -Undermining/Tunneling No -Circular Undermining No -Wound/Ulcer Outcome Not Healed -Ulcer Cleansing Rinsed/ Irrigated with Saline -Foul Odor after Cleansing No -Bioengineered Tissue No -Bleeding Controlled with Pressure -Treatment Response Procedure Tolerated Well -Debridement - Subq, 1st 20sq cm Yes Pain Scale: 0-10 Numeric Is Patient Pain Free? Yes Assessment/Plan Assessment/Plan (1) Ulcer of sacral region: CODE(S): L98.429 - Non-pressure chronic ulcer of back with unspecified severity (2) Type 2 diabetes mellitus with diabetic polyneuropathy: CODE(S): E11.42 - Type 2 diabetes mellitus with diabetic polyneuropathy QUALIFIERS: Diabetes mellitus senior living insulin use: unspecified environmental safety specialist insulin use status Qualified Code(s): E11.42 - Type 2 diabetes mellitus with diabetic polyneuropathy (3) Smoker: CODE(S): F17.200 - Nicotine dependence, unspecified, uncomplicated (4) History of excision of pilonidal cyst: CODE(S): Z98.890 - Other specified postprocedural states (5) History of hidradenitis suppurativa: CODE(S): Z87.2 - Personal history of diseases of the skin and subcutaneous tissue PLAN: Plan Patient was evaluated at the wound center today. Wound care - To the sacral ulcer place moistened Aquacel-Ag covered by [place] SAP daily. Continues to have undermining now circumferential. Wash with soap and water at the time of the dressing change, pat dry. Stressed importance of continuing to off load. Wound culture obtained on 06/26/22 which was positive for Streptococcus agalactiae (B) and Corynebacterium striatum. He completed Augmentin. Wound cultures from 11/06/22 positive for Streptococcus group B, Corynebacterium striatum, Actinomyces odontolyticus, and Anaerobic cocci. Completed Augmentin and probiotic. Prealbumin 11.8 from 09/11/22. Encouraged to increase his protein intake to help with wound healing. Discussed what are protein sources and why he needs to increase his protein intake. He has been drinking 1-2 Ensure shakes per day. Stressed that eating food is the i mportant nutritional source and to supplement after meals. Encouraged patient to stop smoking as it may have deleterious effects on wound healing. He will follow up in 2 weeks to be evaluated by Dr. Malcolm to discuss other options to help with the ulcer healing.
[2023-01-23 13:08] VITALS: BP 150/74; PULSE 80; RESP 18; TEMP 36.6
--- NOTE | 2023-01-23 19:43 | PCM.WC.HP ---
History of Present Illness Date of Service: 01/23/23 Chief Complaint: Recurrent pilonidal cyst ulcer sacral area. History of Wound: 77 year old man with a history of diabetes mellitus underwent surgery on 03/12/21 where he underwent surgical preparation sacral area with excision complicated extensive pilonidal cyst. With wound care, good nutrition, and some antibiotics, the sacral wound healed. It has since recurred. Wound care instituted with Silver dressing changes. Wound cultures from 11/06/22 positive for Streptococcus group B, Corynebacterium striatum, Actinomyces odontolyticus, and Anaerobic cocci. He was treated with Augmentin and has finished them. Today he denies fever, chills, nausea. States his appetite is ok. I was asked to evaluate this patient for surgical options for treatment. Progress of Wound: Another wound occurred to the left and superior to the recurrent ulcer. The recurrent ulcer sacral area shows no improvement as I probe it with a cotton tipped applicator down to the bone. [facility] Medical History (Updated 01/25/23 @ 23:[address] 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, stage 4 Urinary retention Wears dentures Home Medications Cialis 10 mg PO PRN PRN Erectile Dysfunction 12/24/16 [History Last Taken Unknown] losartan 50 mg tablet 50 mg PO DAILY 03/07/21 [History Last Taken 03/12/21 10:00 50 mg] multivitamin 1 cap PO DAILY 03/07/21 [History Last Taken Unknown] diazepam 5 mg tablet (Valium) 5 mg PO Q6H PRN muscle spasm 7 days #30 tabs 03/13/21 [Rx Last Taken Unknown] polyethylene glycol 3350 17 gram/dose oral powder 4 g PO DAILY 06/20/22 [History Last Taken Unknown] Lactobacillus acidophilus 10 billion cell capsule (Probiotic) 10,000 mmu cells PO DAILY 15 days #15 caps 07/04/22 [Rx Last Taken Unknown] oxycodone-acetaminophen 5 mg-325 mg tablet (Percocet) 1 tab PO Q6H PRN pain (scale score 7-10) 2 days #8 tabs 08/28/22 [Rx Last Taken Unknown] Lactobacillus acidophilus 10 billion cell capsule (Probiotic) 10,000 mmu cells PO DAILY 30 days #30 caps 11/13/22 [Rx Last Taken Unknown] amoxicillin 875 mg-potassium clavulanate 125 mg tablet 1 tab PO Q12H 14 days #28 tabs 11/14/22 [Rx Last Taken Unknown] ursodiol 300 mg capsule 300 mg PO BID #60 caps 01/07/23 [Rx Last Taken Unknown] Allergy/AdvReac Type Severity Reaction Status Date / Time acetaminophen AdvReac Vomiting Verified 06/20/22 16:35 Family History Father Colon cancer Prostate cancer Mother CVA (cerebral vascular accident) Other Cancer Diabetes Surgical History History of excision of pilonidal cyst History of transurethral resection of prostate Hx of colonoscopy Hx of laparoscopic partial gastrectomy Social History Smoking Status: Current every day smoker tobacco type: cigarettes alcohol intake: current alcohol intake frequency: 3 or more drinks per day Alcohol type: beer substance use type: does not use additional social history: Does Not Take Aspirin Does Not Take Ibuprofen ROS ROS Narrative General - Denies fever, fatigue, and weight loss. Eyes - Denies cataracts and glaucoma. ENT - Denies nasal congestion and sore throat. Endocrine - Denies excessive thirst and urination. Skin - Denies suspicious lesions and skin cancer. Has recurrent pilonidal cyst ulcer sacral area. Musculoskeletal - Denies joint pain, weakness of muscles and joints, back pain, and arthritis.? Has joint stiffness. Neuro - Denies headaches. Cardiovascular - Denies chest pain, fatigue, and shortness of breath with exertion. Psych - Denies anxiety and depression. Respiratory - Has chronic cough.? Denies shortness of breath.? Patient is a smoker. Gastrointestinal - Denies nausea, vomiting, diarrhea, and constipation. Hematologic - Denies abnormal bruising and bleeding. Genitourinary - Denies hematuria.? Has urinary frequency. Vital Signs Vital Signs Vital Signs: 01/23/23 13:08 Temperature 97.8 F Temperature Source Temporal Pulse Rate 80 Respiratory Rate 18 Blood Pressure 150/74 H Blood Pressure Mean 99 Blood Pressure Source Monitor Blood Pressure Position Semi-Fowlers Blood Pressure Location Left Arm Physical Exam Narrative General - Alert and Oriented. HEENT - PERRL. EOMI.? Throat is clear. Neck - Supple and nontender.? No cervical adenopathy. Lungs - Clear to auscultation. Heart - Regular rate and rhythm. Abdomen - Soft and nondistended. Extremities - FROM. No axillary adenopathy.? Radial pulses are palpable. Back - On his lower back in the sacral area is a recurrent ulcer. Extends to the bone. Bone is not exposed. It is palpable. There is some undermining about 2-3 cm mostly to the sides (lateral) and superiorly. There is a new ulcer to the left and superior to the recurrent pilonidal cyst ulcer. I anticipate that both ulcers will communicate below the skin bridge. Rectal - On his bilateral perianal areas and perineal area are areas of induration and scarring from previous episodes of hidradenitis.? No acute infection noted at this time.? Measures 8 cm on each buttock.? Approximately 3-4 cm from the anal opening.? Minimal tenderness at this time. Neuro - CN II-XII grossly intact. Psych - Normal mood and affect. Debridement Note Debridement Note Wound debrided: #5 Sacral area. Laterality: Not Applicable Wound Grade/Stage: 4. Type of Debridement: Excisional debridement Anesthesia Used: 4% Lidocaine Solution Depth: Down to and including healthy tissue, in the subcutaneous layer, to muscle and to bone (bone is palpable but not exposed.) Percentage of wound debrided: 100 Instrument Used: 5mm curette Tissue Removed: subcutaneous tissue and muscle. Severity: Fat Layer Exposed (muscle is exposed. bone is palpable but not exposed.) Amount of bleeding with debridement: Mild Bleeding Controlled with: Pressure and Compression and gauze Patient tolerated procedure: Patient tolerated procedure well Post-Debridement Measurements and Additional Note: Post-Debridement Measurements/Treatment PLACIDO - Nurse 1 - General Ulcer Assessment Start: 01/08/23 10:52 Freq: Status: Active Protocol: SUSY Activity Type Activity Date Activity User E-sign Co-sign Detail Recorded Client Recorded Date Recorded By Document 01/08/23 10:53 DL [id number] 01/08/23 10:56 DL Document 01/23/23 13:08 [id number] 01/23/23 13:14 JF 01/08/23 01/23/23 10:53 13:08 - Today's Visit Information Type of service Follow-up Visit Follow-up Visit (Physician/PECAN HULLER (Physician/PECAN HULLER ) ) Arrival Mode Ambulatory, Ambulatory, Wheelchair Walker Patient Identification Verified (Name & Yes Yes ) Patient Requires Transmission-Based No No Precautions Vital Signs Temperature (97.8 F-99.1 F) 97.5 F L 97.8 F Temperature Source Temporal Temporal Pulse Rate (60-100) 82 80 Pulse Location Monitor Monitor Respiratory Rate (12-18) 18 18 Respiratory rate source Observation Observation Blood Pressure (90/60-120/80) 130/67 H 150/74 H Blood Pressure Mean 88 99 Source Monitor Monitor Position Sitting Semi-Fowlers Blood Pressure Location Left Arm Left Arm History Since Last Visit- (Skip if this is Patient's initial visit) Have you changed medications since your No No last visit? Any new allergies or adverse reactions No No Had a fall/change in ADL's that may No No increase risk of falls Signs or symptoms of abuse and/or No No neglect since last visit Have you been in the hospital since your Yes No last visit? Has dressing in place as prescribed Yes Yes Has compression in place as prescribed N/A N/A Has offloadiing in place as prescribed No N/A Experienced any changes in pain level or No No management Left Footwear Regular Shoe Regular Shoe Right Footwear Regular Shoe Regular Shoe Pain Scale: 0-10 Numeric Is Patient Pain Free? Yes Yes - Nurse 1 - General Ulcer Measurement Start: 01/08/23 10:52 Freq: Status: Active Protocol: Activity Type Activity Date Activity User E-sign Co-sign Detail Recorded Client Recorded Date Recorded By Document 01/08/23 10:53 DL [id number] 01/08/23 10:56 DL Document 01/23/23 13:08 [id number] 01/23/23 13:14 01/08/23 01/23/23 10:53 13:08 Wound Center Nurse 1 6-left buttuck -Combined with other wound No -Current Size (cm) - Length 0.7 -Current Size (cm) - Width 0.3 -Current Size (cm) - Depth 0.5 -Total Square Cm 0.21 -Photo Taken Yes -Epithelialization Small 1-33% -Tunneling No -Undermining/Tunneling No -Circular Undermining Yes -Classification - Thickness Full Thickness without Exposed Support Structure -Wound Margin Flat & Intact -Granulation Amt Medium (34-66%) -Granulation Quality [place] -Slough/Fibrin Yes -Necrosis Amt Small (1-33%) -Necrotic Tissue Type Adherent Slough -Structure Exposed N/A -Texture (Sandi-wound Skin Appearance) Assessed -Moisture (Sandi-wound Skin Appearance) Assessed,Dry/ Scaly -Color (Sandi-wound Skin Appearance) Assessed -Temperature (Sandi-wound Skin No Abnormality Appearance) (Pt Warm) -Tenderness on Palpation (Sandi-wound No Skin Appearance) -Ulcer Cleansing Rinsed/ Irrigated with Saline -Foul Odor after Cleansing No -Anesthetic Used 5% Lidocaine Gel #5 Sacral -Combined with other wound No No -Current Size (cm) - Length 0.3 0.2 -Current Size (cm) - Width 0.3 0.2 -Current Size (cm) - Depth 1.1 1.2 -Total Square Cm 0.09 0.04 -Photo Taken No Yes -Epithelialization None Present None Present -Tunneling No No -Undermining/Tunneling No No -Circular Undermining Yes Yes -Exudate Amt Small Small -Exudate Type Serosanguineous Serosanguineous -Wound Margin Indistinct, Non Flat & Intact -Visible -Granulation Amt None Present (0 None Present (0 %) %) -Slough/Fibrin Yes Yes -Necrosis Amt Large (67-100%) Large (67-100%) -Necrotic Tissue Type Adherent Slough Adherent Slough -Structure Exposed N/A N/A -Texture (Sandi-wound Skin Appearance) Assessed, Assessed,Callus Scarring -Moisture (Sandi-wound Skin Appearance) Assessed,Dry/ Assessed,Dry/ Scaly Scaly -Color (Sandi-wound Skin Appearance) Assessed Assessed -Temperature (Sandi-wound Skin No Abnormality No Abnormality Appearance) (Pt Warm) (Pt Warm) -Tenderness on Palpation (Sandi-wound No No Skin Appearance) -Ulcer Cleansing Rinsed/ Rinsed/ Irrigated with Irrigated with Saline Saline -Foul Odor after Cleansing No No -Anesthetic Used 5% Lidocaine 5% Lidocaine Gel Gel Lower Limb Edema Present NA NA WC - Nurse 2 - General Ulcer CM Notes Start: 01/08/23 10:52 Freq: Status: Active Protocol: Activity Type Activity Date Activity User E-sign Co-sign Detail Recorded Client Recorded Date Recorded By Document 01/08/23 11:02 PL [id number] 01/08/23 11:11 PL Document 01/23/23 13:32 JF Desktop 01/23/23 13:40 JF 01/08/23 01/23/23 11:02 13:32 Wound Center Nurse 2 6-left buttuck -Time 13:34 -Correct Patient Yes -Correct Side, Site, Position Yes -Correct Procedure Yes -Procedure Performed Yes -Type of Procedure Debridement -Clinical Debridement Subcutaneous -Tissue Removed Subcutaneous -Post Debridement (cm) - Length 0.8 -Post Debridement (cm) - Width 0.4 -Post Debridement (cm) - Depth 0.5 -Total Square (Post) (cm) 0.32 -Area of Debridement (cm) - Length 0.8 -Area of Debridement (cm) - Width 0.4 -Total Square (Area) (cm) 0.32 -Tunneling No -Undermining/Tunneling No -Circular Undermining No -Wound/Ulcer Outcome Not Healed -Ulcer Cleansing Rinsed/ Irrigated with Saline -Foul Odor after Cleansing No -Bioengineered Tissue No -Bleeding Controlled with Pressure -Treatment Response Procedure Tolerated Well -Offloading No -Debridement - Subq, 1st 20sq cm Yes #5 Sacral -Time 11:05 13:34 -Correct Patient Yes Yes -Correct Side, Site, Position Yes Yes -Correct Procedure Yes Yes -Procedure Performed Yes Yes -Type of Procedure Debridement Debridement -Clinical Debridement Subcutaneous Muscle / Fascia -Tissue Removed Subcutaneous Muscle,Fascia -Post Debridement (cm) - Length 0.7 0.5 -Post Debridement (cm) - Width 0.6 0.4 -Post Debridement (cm) - Depth 0.8 1.2 -Total Square (Post) (cm) 0.42 0.20 -Area of Debridement (cm) - Length 0.7 0.5 -Area of Debridement (cm) - Width 0.8 0.4 -Total Square (Area) (cm) 0.56 0.20 -Tunneling No No -Undermining/Tunneling No No -Circular Undermining No No -Wound/Ulcer Outcome Not Healed Not Healed -Ulcer Cleansing Rinsed/ Rinsed/ Irrigated with Irrigated with Saline Saline -Foul Odor after Cleansing No No -Bioengineered Tissue No No -Bleeding Controlled with Pressure Pressure -Treatment Response Procedure Procedure Tolerated Well Tolerated Well -Offloading No -Debridement - Subq, 1st 20sq cm Yes No -Debridement - Muscle / Fascia, 1st Yes 20sq cm Pain Scale: 0-10 Numeric Is Patient Pain Free? Yes Yes - Nurse 3 - General Ulcer D/C NN Start: 01/08/23 10:52 Freq: Status: Active Protocol: Activity Type Activity Date Activity User E-sign Co-sign Detail Recorded Client Recorded Date Recorded By Document 01/23/23 14:02 [facility] [id number] 01/23/23 14:03 [facility] 01/23/23 14:02 Wound Care Center Nurse 3 6-left buttuck -Ulcer Cleansing Rinsed/ Irrigated with Saline -Foul Odor after Cleansing No -Primary Dressing Applied Aquacel AG 4x4, Mepilex Border -Aquacel AG 4x4 1 -Mepilex Border 1 #5 Sacral -Ulcer Cleansing Rinsed/ Irrigated with Saline -Foul Odor after Cleansing No -Primary Dressing Applied Aquacel AG 4x4, Mepilex Border -Aquacel AG 4x4 0 -Mepilex Border 0 Treatment Response Procedure Tolerated Well Pain Scale: 0-10 Numeric Is Patient Pain Free? Yes - Visit Discharge Discharge Condition Stable Ambulatory Status Ambulatory, Walker Transportation Private Auto Accompanied by Additional Wound Wound debrided: #6 Left buttock. Laterality: Left Wound Grade/Stage: 2. Type of Debridement: Excisional debridement Anesthesia Used: 4% Lidocaine Solution Depth: Down to and including healthy tissue and in the subcutaneous layer Percentage of wound debrided: 100 Instrument Used: 3mm curette Tissue Removed: subcutaneous tissue. Severity: Fat Layer Exposed Amount of bleeding with debridement: Mild Bleeding Controlled with: Pressure and Compression and gauze Patient tolerated procedure: Patient tolerated procedure well Lab / Micro Data Attestation: I reviewed the patient's lab results. Charges/Coding Visit Charges Office Visits / Consults: 82242 OV L4 Est (25 Modifier ICD-10 - L98.429, S31.829A, E11.42, Z98.890, L73.2, F17.200) Procedures Integumentary 111xxx-113xx: [id number] Dena musc/fascia 20 sq cm/< ( ICD-10 - L98.429, S31.829A, E11.42, Z98.890, L73.2, F17.200) Multi Select Codes Integumentary Integumentary CPT Codes: 08264 Dena subq tissue 20 sq cm/< ( ICD-10 - S31.829A, L98.429, E11.42, Z98.890, L73.2, F17.200) Assessment/Plan Assessment/Plan (1) Ulcer of sacral region, stage 4: CODE(S): L98.429 - Non-pressure chronic ulcer of back with unspecified severity (2) Open wound of left buttock: CODE(S): S31.829A - Unspecified open wound of left buttock, initial encounter (3) Type 2 diabetes mellitus with diabetic polyneuropathy: CODE(S): E11.42 - Type 2 diabetes mellitus with diabetic polyneuropathy QUALIFIERS: Diabetes mellitus custodial insulin use: unspecified custodial insulin use status Qualified Code(s): E11.42 - Type 2 diabetes mellitus with diabetic polyneuropathy (4) History of excision of pilonidal cyst: CODE(S): Z98.890 - Other specified postprocedural states (5) Hidradenitis suppurativa of anus: CODE(S): L73.2 - Hidradenitis suppurativa (6) Smoker: CODE(S): F17.200 - Nicotine dependence, unspecified, uncomplicated PLAN: Plan Patient has a recurrence of his pilonidal cyst that was excised in March,. Just recently another wound opened up to the left and superior to the sacral ulcer. The sacral ulcer has a very small opening making wound care packing difficult. It is impossible to know how adequate the dressing changes are. I made the opening bigger with aggressive excisional debridement. The depth of the ulcer extends to the bone. It is palpable, but not exposed. Another operative excision and debridement would help this ulcer. Would also take a piece of bone as a partial ostectomy to evaluate for osteomyelitis. I anticipate that the new wound probably communicates with the recurrent sacral ulcer deeper down in the ulcer. Tissue that is removed will be sent to Pathology for analysis to rule out carcinoma and to Microbiology for culture. A positive culture would necessitate antibiotic therapy. There is also the possibility that some feces got into the ulcer which led to its recurrence. A temporary diverting colostomy may be necessary if wound healing issues arise again leading to another recurrence. After the ulcer heals and stays healed for a year, then he can have a discussion with the General Surgeon regarding reversing the colostomy. After surgery will try the VAC for wound care. If difficulties arise, then will switch to Dakin's dressing changes daily. His ulcer will not heal as it stands now because there is abnormal scar tissue that is getting in the way of healing. Recommend operative intervention with surgical preparation sacral area with excision recurrent complicated extensive pilonidal cyst ulcer and partial ostectomy for osteomyelitis. Surgery will be done under general anesthesia with a surgical observation overnight stay in the hospital. Will try and place the VAC the next day. I anticipate that both ulcers will communicate beneath the skin bridge into one larger wound. Patient was informed of the risks and complications of the procedure including alternatives to surgery. These were discussed with the patient personally. Patient voices understanding and wishes to proceed. Potential risks and complications included but not inclusive of bleeding, infection, hematoma, bruising, swelling, loss of sensation to skin, wound breakdown, need for wound care, poor scarring, poor aesthetic outcome, intra operative cardiac or neurologic events, DVT, PE, and reaction to anesthesia. Encouraged patient to stop smoking as it may have deleterious effects on wound healing. Followup Wound Center one week.
== END 2023-01-29 23:59 | disposition home or self-care (01) ==
LOC: WC 13:00
PROVIDERS: PCP Family Medicine; Visit Provider Surgery
DX: L98.425 Non-pressure chronic ulcer of back with muscle involvement without evidence of necrosis (principal); E11.51 Type 2 diabetes mellitus with diabetic peripheral angiopathy without gangrene; L98.412 Non-pressure chronic ulcer of buttock with fat layer exposed; E11.42 Type 2 diabetes mellitus with diabetic polyneuropathy; M53.3 Sacrococcygeal disorders, not elsewhere classified; I10 Essential (primary) hypertension; L73.2 Hidradenitis suppurativa; F17.210 Nicotine dependence, cigarettes, uncomplicated; Z98.890 Other specified postprocedural states; Z87.2 Personal history of diseases of the skin and subcutaneous tissue
CPT/HCPCS: 11042; 11043

== ENCOUNTER 2023-03-24 14:00 | Outpatient (RCR) | payer MEDICARE, SELFPAY ==
[2023-01-30 00:29] VITALS: BP 150/74; PULSE 80; RESP 18; TEMP 36.6
[2023-03-05 10:12] VITALS: BP 127/75; PULSE 75; RESP 16; TEMP 36.2
--- NOTE | 2023-03-05 11:05 | PCM.WC.PN ---
History of Present Illness Date of Service: 03/05/23 Chief Complaint: Recurrent pilonidal cyst ulcer sacral area. History of Wound: 77 year old man with a history of diabetes mellitus underwent surgery on 03/12/21 where he underwent surgical preparation sacral area with excision complicated extensive pilonidal cyst. With wound care, good nutrition, and some antibiotics, the sacral wound healed. It has since recurred. Wound care instituted with Silver dressing changes. Wound cultures from 11/06/22 positive for Streptococcus group B, Corynebacterium striatum, Actinomyces odontolyticus, and Anaerobic cocci. He was treated with Augmentin and has finished them. Today he denies fever, chills, nausea. States his appetite is ok. Progress of Wound: He was scheduled for a surgical debridement that had to be postponed due to a recent hospitalization at [facility] for elevated Ammonia level. He is having further medical workup before having further surgery. His sacral ulcer is still present and stable. Left buttock ulcer is healed. He states that he had labwork drawn within the past few days and was told his WBC count was elevated and they think it is coming from his ulcer. On exam of his ulcer, has 2 areas on his right buttocks of hidradenitis that is draining thick, white drainge. Objective Data Objective Data Vital Signs: Vital Signs Temp Pulse Resp BP O2 Del Method 97.2 F L 75 16 127/75 H Room Air 03/05/23 10:12 03/05/23 10:12 03/05/23 10:12 03/05/23 10:12 03/05/23 10:12 Oxygen Delivery Method Room Air Charges/Coding Procedures Integumentary 111xxx-113xx: 21026 Dena musc/fascia 20 sq cm/< Debridement Note Debridement Note Wound debrided: #5 Sacral area. Laterality: Not Applicable Wound Grade/Stage: 4. Type of Debridement: Excisional debridement Anesthesia Used: 4% Lidocaine Solution Depth: Down to and including healthy tissue, in the subcutaneous layer, to muscle and to bone (bone is palpable but not exposed.) Percentage of wound debrided: 100 Instrument Used: 5mm curette Tissue Removed: subcutaneous tissue and muscle. Severity: Fat Layer Exposed (muscle is exposed. bone is palpable but not exposed.) Amount of bleeding with debridement: Mild Bleeding Controlled with: Pressure and Compression and gauze Patient tolerated procedure: Patient tolerated procedure well Post-Debridement Measurements and Additional Note: Post-Debridement Measurements/Treatment PLACIDO - Nurse 1 - General Ulcer Assessment Start: 03/05/23 10:12 Freq: Status: Active Protocol: SUSY Activity Type Activity Date Activity User E-sign Co-sign Detail Recorded Client Recorded Date Recorded By Document 03/05/23 10:12 ROSALES [id number] 03/05/23 10:29 03/05/23 10:12 WC - Today's Visit Information Type of service Follow-up Visit (Physician/R AND D LAB TECHNICIAN ) Arrival Mode Ambulatory, Walker Accompanied by Patient Identification Verified (Name & Yes ) Patient Requires Transmission-Based Yes Precautions Safety Precautions Fall Prevention Vital Signs Temperature (97.8 F-99.1 F) 97.2 F L Temperature Source Temporal Pulse Rate (60-100) 75 Pulse Location Monitor Respiratory Rate (12-18) 16 Respiratory rate source Observation Oxygen Delivery Method Room Air Blood Pressure (90/60-120/80) 127/75 H Blood Pressure Mean (mm Hg) 92 Source Monitor Position Sitting Blood Pressure Location Left Arm History Since Last Visit- (Skip if this is Patient's initial visit) Have you changed medications since your Yes last visit? Any new allergies or adverse reactions No Had a fall/change in ADL's that may No increase risk of falls Signs or symptoms of abuse and/or No neglect since last visit Have you been in the hospital since your Yes last visit? Has dressing in place as prescribed Yes Has compression in place as prescribed N/A Has offloadiing in place as prescribed N/A Experienced any changes in pain level or No management Left Footwear Regular Shoe Right Footwear Regular Shoe Pain Scale: 0-10 Numeric Is Patient Pain Free? Yes - Nurse 1 - General Ulcer Measurement Start: 03/05/23 10:12 Freq: Status: Active Protocol: Activity Type Activity Date Activity User E-sign Co-sign Detail Recorded Client Recorded Date Recorded By Document 03/05/23 10:12 ROSALES [id number] 03/05/23 10:29 03/05/23 10:12 Wound Center Nurse 1 6-left buttuck -Current Size (cm) - Length 0.3 -Current Size (cm) - Width 0.3 -Current Size (cm) - Depth 0.1 -Total Square Cm 0.09 -Photo Taken No -Tunneling No -Undermining/Tunneling No -Circular Undermining No -Exudate Amt Small -Exudate Type Serosanguineous -Wound Margin Distinct, Outline Attached -Granulation Amt Small (1-33%) -Granulation Quality [place] -Necrosis Amt Small (1-33%) -Texture (Sandi-wound Skin Appearance) Assessed -Moisture (Sandi-wound Skin Appearance) Assessed,Dry/ Scaly -Color (Sandi-wound Skin Appearance) Assessed -Temperature (Sandi-wound Skin No Abnormality Appearance) (Pt Warm) -Ulcer Cleansing Rinsed/ Irrigated with Saline -Anesthetic Used 4% Lidocaine Solution #5 Sacral -Current Size (cm) - Length 0.3 -Current Size (cm) - Width 0.3 -Current Size (cm) - Depth 0.3 -Total Square Cm 0.09 -Epithelialization Small 1-33% -Tunneling No -Undermining/Tunneling No -Circular Undermining No -Wound Margin Distinct, Outline Attached -Granulation Amt Small (1-33%) -Granulation Quality Pale,[place] -Necrosis Amt None Present (0 %) -Texture (Sandi-wound Skin Appearance) Assessed -Moisture (Sandi-wound Skin Appearance) Assessed -Color (Sandi-wound Skin Appearance) Assessed -Ulcer Cleansing Rinsed/ Irrigated with Saline -Anesthetic Used 5% Lidocaine Gel Lower Limb Edema Present NA - Nurse 2 - General Ulcer CM Notes Start: 03/05/23 10:12 Freq: Status: Active Protocol: Activity Type Activity Date Activity User E-sign Co-sign Detail Recorded Client Recorded Date Recorded By Document 03/05/23 10:45 ASHLEY [id number] 03/05/23 10:48 ASHLEY 03/05/23 10:45 Wound Center Nurse 2 6-left buttuck -Time 10:46 -Correct Patient No -Correct Side, Site, Position No -Correct Procedure No -Procedure Performed No -Tunneling No -Undermining/Tunneling No -Circular Undermining No -Wound/Ulcer Outcome Not Healed -Ulcer Cleansing Rinsed/ Irrigated with Saline -Foul Odor after Cleansing No -Bioengineered Tissue No -Bleeding Controlled with Pressure -Treatment Response Procedure Tolerated Well -Offloading No -Debridement - Subq, 1st 20sq cm Yes #5 Sacral -Time 10:47 -Correct Patient Yes -Correct Side, Site, Position Yes -Correct Procedure Yes -Procedure Performed Yes -Type of Procedure Debridement -Clinical Debridement Muscle / Fascia -Tissue Removed Muscle -Post Debridement (cm) - Length 0.7 -Post Debridement (cm) - Width 0.7 -Post Debridement (cm) - Depth 0.7 -Total Square (Post) (cm) 0.49 -Area of Debridement (cm) - Length 0.7 -Area of Debridement (cm) - Width 0.7 -Total Square (Area) (cm) 0.49 -Tunneling Yes -Tunneling Position (O'clock) 3 -Tunneling Distance (cm) 0.9 -Undermining/Tunneling No -Circular Undermining No -Wound/Ulcer Outcome Not Healed -Ulcer Cleansing Rinsed/ Irrigated with Saline -Foul Odor after Cleansing No -Bioengineered Tissue No -Bleeding Controlled with Pressure -Treatment Response Procedure Tolerated Well -Offloading No -Debridement - Subq, 1st 20sq cm No -Debridement - Muscle / Fascia, 1st Yes 20sq cm Pain Scale: 0-10 Numeric Is Patient Pain Free? Yes - Nurse 3 - General Ulcer D/C NN Start: 03/05/23 10:12 Freq: Status: Active Protocol: Activity Type Activity Date Activity User E-sign Co-sign Detail Recorded Client Recorded Date Recorded By Document 03/05/23 10:50 [id number] 03/05/23 10:51 03/05/23 10:50 Wound Care Center Nurse 3 6-left buttuck -Ulcer Cleansing Rinsed/ Irrigated with Saline -Foul Odor after Cleansing No #5 Sacral -Ulcer Cleansing Rinsed/ Irrigated with Saline -Foul Odor after Cleansing No -Primary Dressing Applied Aquacel AG 2x2, Mepilex Border -Aquacel AG 2x2 1 -Mepilex Border 1 Pain Scale: 0-10 Numeric Is Patient Pain Free? Yes - Visit Discharge Discharge Condition Stable Ambulatory Status Ambulatory, Walker Transportation Private Auto Medication Reconcilliation completed & No provided to patient/care provider Clinical Summary of Care Provided Yes Additional Wound Tissue Removed: subcutaneous tissue. Assessment/Plan Assessment/Plan (1) Ulcer of sacral region, stage 4: CODE(S): L98.429 - Non-pressure chronic ulcer of back with unspecified severity (2) Open wound of left buttock: CODE(S): S31.829A - Unspecified open wound of left buttock, initial encounter (3) Type 2 diabetes mellitus with diabetic polyneuropathy: CODE(S): E11.42 - Type 2 diabetes mellitus with diabetic polyneuropathy QUALIFIERS: Diabetes mellitus continuous churn buttermaker insulin use: unspecified continuous churn buttermaker insulin use status Qualified Code(s): E11.42 - Type 2 diabetes mellitus with diabetic polyneuropathy (4) History of excision of pilonidal cyst: CODE(S): Z98.890 - Other specified postprocedural states (5) Hidradenitis suppurativa of anus: CODE(S): L73.2 - Hidradenitis suppurativa (6) Smoker: CODE(S): F17.200 - Nicotine dependence, unspecified, uncomplicated PLAN: Plan Patient was evaluated at the wound center today. Wound care - To the sacral ulcer place moistened Aquacel-Ag covered by [place] SAP daily. Continues to have undermining now circumferential. Wash with soap and water at the time of the dressing change, pat dry. Stressed importance of continuing to off load. A wound culture was obtained today of the sacral ulcer.? A positive culture will necessitate antibiotic therapy. Right buttocks with two areas of active hidradenitis that are draining white drainage. Will start him on Doxycycline today. This antibiotic may need to be changed or added to depending on the wound culture results. Wound culture obtained on 06/26/22 which was positive for Streptococcus agalactiae (B) and Corynebacterium striatum. He completed Augmentin. Wound cultures from 11/06/22 positive for Streptococcus group B, Corynebacterium striatum, Actinomyces odontolyticus, and Anaerobic cocci. Completed Augmentin and probiotic. Prealbumin 11.8 from 09/11/22. Encouraged to increase his protein intake to help with wound healing. Discussed what are protein sources and why he needs to increase his protein intake. He has been drinking 1-2 Ensure shakes per day. Stressed that eating food is the important nutritional source and to supplement after meals. Encouraged patient to stop smoking as it may have deleterious effects on wound healing. He will have an operative debridement in the future after he has a further medical work up. Follow up 2 weeks. Call or come in sooner if develop any concerns. Dr. Malcolm's consult note: Patient has a recurrence of his pilonidal cyst that was excised in March,. Just recently another wound opened up to the left and superior to the sacral ulcer. The sacral ulcer has a very small opening making wound care packing difficult. It is impossible to know how adequate the dressing changes are. I made the opening bigger with aggressive excisional debridement. The depth of the ulcer extends to the bone. It is palpable, but not exposed. Another operative excision and debridement would help this ulcer. Would also take a piece of bone as a partial ostectomy to evaluate for osteomyelitis. I anticipate that the new wound probably communicates with the recurrent sacral ulcer deeper down in the ulcer. Tissue that is removed will be sent to Pathology for analysis to rule out carcinoma and to Microbiology for culture. A positive culture would necessitate antibiotic therapy. There is also the possibility that some feces got into the ulcer which led to its recurrence. A temporary diverting colostomy may be necessary if wound healing issues arise again leading to another recurrence. After the ulcer heals and stays healed for a year, then he can have a discussion with the General Surgeon regarding reversing the colostomy. After surgery will try the VAC for wound care. If difficulties arise, then will switch to Dakin's dressing changes daily. His ulcer will not heal as it stands now because there is abnormal scar tissue that is getting in the way of healing. Recommend operative intervention with surgical preparation sacral area with excision recurrent complicated extensive pilonidal cyst ulcer and partial ostectomy for osteomyelitis. Surgery will be done under general anesthesia with a surgical observation overnight stay in the hospital. Will try and place the VAC the next day. I anticipate that both ulcers will communicate beneath the skin bridge into one larger wound. Patient was informed of the risks and complications of the procedure including alternatives to surgery. These were discussed with the patient personally. Patient voices understanding and wishes to proceed. Potential risks and complications included but not inclusive of bleeding, infection, hematoma, bruising, swelling, loss of sensation to skin, wound breakdown, need for wound care, poor scarring, poor aesthetic outcome, intra operative cardiac or neurologic events, DVT, PE, and reaction to anesthesia. Encouraged patient to stop smoking as it may have deleterious effects on wound healing.
--- NOTE | 2023-03-07 10:28 | WC ---
Notified Rosamaria, of patient to update her on a new ATB that was called in to [facility] for his positive Proteus wound culture. Advised her to hold off on giving him Doxycycline that was previously ordered and to start the new Augmentin order and a renewel of probiotic was sent in also. Rosamaria verbalized understanding.
[2023-03-24 13:51] VITALS: BP 134/56; PULSE 43; RESP 16; TEMP 36.4
--- NOTE | 2023-03-24 15:51 | PCM.WC.PN ---
History of Present Illness Date of Service: 03/24/23 Chief Complaint: Recurrent pilonidal cyst ulcer sacral area. History of Wound: 77 year old man with a history of diabetes mellitus underwent surgery on 03/12/21 where he underwent surgical preparation sacral area with excision complicated extensive pilonidal cyst. With wound care, good nutrition, and some antibiotics, the sacral wound healed. It has since recurred. Wound care instituted with Silver dressing changes. Wound cultures from 11/06/22 positive for Streptococcus group B, Corynebacterium striatum, Actinomyces odontolyticus, and Anaerobic cocci. He was treated with Augmentin and has finished them. Today he denies fever, chills, nausea. States his appetite is ok. Progress of Wound: He was scheduled for a surgical debridement that had to be postponed due to a recent hospitalization at [place] for elevated Ammonia level. He is having further medical workup before having further surgery. His sacral ulcer is still present and stable, the opening is smaller with undermining present. Left buttock ulcer is healed. Objective Data Objective Data Vital Signs: Vital Signs Temp Pulse Resp BP O2 Del Method 97.6 F L 43 L 16 134/56 H Room Air 03/24/23 13:51 03/24/23 13:51 03/24/23 13:51 03/24/23 13:51 03/24/23 13:51 Oxygen Delivery Method Room Air Lab / Micro Data Micro: Microbiology 03/05/23 10:42 Wound - Sacral Gram Stain - Final 03/05/23 10:42 Wound - Sacral Wound Culture - Final Proteus mirabilis Corynebacterium striatum Staphylococcus epidermidis 03/05/23 10:42 Wound - Sacral Anaerobic Culture - Final No anaerobic bacteria isolated. Charges/Coding Procedures Integumentary 111xxx-113xx: [id number] Dena musc/fascia 20 sq cm/< Debridement Note Debridement Note Wound debrided: #5 Sacral area. Laterality: Not Applicable Wound Grade/Stage: 4. Type of Debridement: Excisional debridement Anesthesia Used: 4% Lidocaine Solution Depth: Down to and including healthy tissue, in the subcutaneous layer, to muscle and to bone (bone is palpable but not exposed.) Percentage of wound debrided: 100 Instrument Used: 3mm curette Tissue Removed: subcutaneous tissue and muscle. Severity: Fat Layer Exposed (muscle is exposed. bone is palpable but not exposed.) Amount of bleeding with debridement: Mild Bleeding Controlled with: Pressure and Compression and gauze Patient tolerated procedure: Patient tolerated procedure well Debridement Free Text: Attempted to unroof as much of the undermining as possible with a curette. Post-Debridement Measurements and Additional Note: Post-Debridement Measurements/Treatment - Nurse 1 - General Ulcer Assessment Start: 03/05/23 10:12 Freq: Status: Active Protocol: SUSY Activity Type Activity Date Activity User E-sign Co-sign Detail Recorded Client Recorded Date Recorded By Document 03/05/23 10:12 [id number] 03/05/23 10:29 KW Document 03/24/23 13:51 [facility] [id number] 03/24/23 13:59 BM 03/05/23 03/24/23 10:12 13:51 - Today's Visit Information Type of service Follow-up Visit Follow-up Visit (Physician/BOOK ILLUSTRATOR (Physician/BOOK ILLUSTRATOR ) ) Arrival Mode Ambulatory, Ambulatory, Walker Walker Transfer Assistance None Accompanied by Patient Identification Verified (Name & Yes Yes ) Patient Requires Transmission-Based Yes No Precautions Safety Precautions Fall Prevention Vital Signs Temperature (97.8 F-99.1 F) 97.2 F L 97.6 F L Temperature Source Temporal Temporal Pulse Rate (60-100) 75 43 L Pulse Location Monitor Monitor Respiratory Rate (12-18) 16 16 Respiratory rate source Observation Observation Oxygen Delivery Method Room Air Room Air Blood Pressure (90/60-120/80) 127/75 H 134/56 H Blood Pressure Mean (mm Hg) 92 82 Source Monitor Monitor Position Sitting Sitting Blood Pressure Location Left Arm Right Arm History Since Last Visit- (Skip if this is Patient's initial visit) Have you changed medications since your Yes No last visit? Any new allergies or adverse reactions No No Had a fall/change in ADL's that may No No increase risk of falls Signs or symptoms of abuse and/or No No neglect since last visit Have you been in the hospital since your Yes No last visit? Has dressing in place as prescribed Yes Yes Has compression in place as prescribed N/A N/A Has offloadiing in place as prescribed N/A N/A Experienced any changes in pain level or No No management Left Footwear Regular Shoe Regular Shoe Right Footwear Regular Shoe Regular Shoe Pain Scale: 0-10 Numeric Is Patient Pain Free? Yes Yes WC - Nurse 1 - General Ulcer Measurement Start: 03/05/23 10:12 Freq: Status: Active Protocol: Activity Type Activity Date Activity User E-sign Co-sign Detail Recorded Client Recorded Date Recorded By Document 03/05/23 10:12 KW [id number] 03/05/23 10:29 KW Document 03/24/23 13:51 [facility] [id number] 03/24/23 13:59 [facility] 03/05/23 03/24/23 10:12 13:51 Wound Center Nurse 1 6-left buttuck -Combined with other wound No -Current Size (cm) - Length 0.3 0.1 -Current Size (cm) - Width 0.3 0.1 -Current Size (cm) - Depth 0.1 0.3 -Total Square Cm 0.09 0.01 -Date of Last Picture (Recall this 03/24/23 field) -Photo Taken No No -Epithelialization Large 67-100% -Tunneling No No -Undermining/Tunneling No No -Circular Undermining No No -Exudate Amt Small -Exudate Type Serosanguineous -Wound Margin Distinct, Outline Attached -Granulation Amt Small (1-33%) -Granulation Quality [place] -Necrosis Amt Small (1-33%) -Texture (Sandi-wound Skin Appearance) Assessed Assessed, Scarring -Moisture (Sandi-wound Skin Appearance) Assessed,Dry/ Assessed,Dry/ Scaly Scaly -Color (Sandi-wound Skin Appearance) Assessed Assessed -Temperature (Sandi-wound Skin No Abnormality Appearance) (Pt Warm) -Ulcer Cleansing Rinsed/ Rinsed/ Irrigated with Irrigated with Saline Saline -Foul Odor after Cleansing No -Anesthetic Used 4% Lidocaine 5% Lidocaine Solution Gel #5 Sacral -Combined with other wound No -Current Size (cm) - Length 0.3 0.3 -Current Size (cm) - Width 0.3 0.2 -Current Size (cm) - Depth 0.3 0.3 -Total Square Cm 0.09 0.06 -Date of Last Picture (Recall this 03/24/23 field) -Photo Taken Yes -Epithelialization Small 1-33% Small 1-33% -Tunneling No No -Undermining/Tunneling No No -Circular Undermining No No -Exudate Amt Medium -Exudate Type Serosanguineous -Wound Margin Distinct, Distinct, Outline Outline Attached Attached -Granulation Amt Small (1-33%) Large (67-100%) -Granulation Quality Pale,[place] Red -Slough/Fibrin No -Necrosis Amt None Present (0 None Present (0 %) %) -Texture (Sandi-wound Skin Appearance) Assessed Assessed, Scarring -Moisture (Sandi-wound Skin Appearance) Assessed Assessed,Dry/ Scaly -Color (Sandi-wound Skin Appearance) Assessed Assessed -Ulcer Cleansing Rinsed/ Rinsed/ Irrigated with Irrigated with Saline Saline -Foul Odor after Cleansing No -Anesthetic Used 5% Lidocaine 5% Lidocaine Gel Gel Lower Limb Edema Present NA WC - Nurse 2 - General Ulcer CM Notes Start: 03/05/23 10:12 Freq: Status: Active Protocol: Activity Type Activity Date Activity User E-sign Co-sign Detail Recorded Client Recorded Date Recorded By Document 03/05/23 10:45 [id number] 03/05/23 10:48 Document 03/24/23 14:45 MW [id number] 03/24/23 14:54 MW 03/05/23 03/24/23 10:45 14:45 Wound Center Nurse 2 6-left buttuck -Time 10:46 14:46 -Correct Patient No Yes -Correct Side, Site, Position No Yes -Correct Procedure No Yes -Procedure Performed No No -Clinical Debridement Muscle / Fascia -Tissue Removed Muscle,Fascia -Post Debridement (cm) - Length 0 -Post Debridement (cm) - Width 0 -Post Debridement (cm) - Depth 0 -Total Square (Post) (cm) 0 -Area of Debridement (cm) - Length 0 -Tunneling No No -Undermining/Tunneling No No -Circular Undermining No No -Wound/Ulcer Outcome Not Healed Healed- Epithelialized -Ulcer Cleansing Rinsed/ Irrigated with Saline -Foul Odor after Cleansing No -Bioengineered Tissue No -Bleeding Controlled with Pressure -Treatment Response Procedure Tolerated Well -Offloading No -Debridement - Subq, 1st 20sq cm Yes #5 Sacral -Time 10:47 14:47 -Correct Patient Yes Yes -Correct Side, Site, Position Yes Yes -Correct Procedure Yes Yes -Procedure Performed Yes Yes -Type of Procedure Debridement Debridement -Clinical Debridement Muscle / Fascia Muscle / Fascia -Tissue Removed Muscle Muscle,Fascia -Post Debridement (cm) - Length 0.7 0.5 -Post Debridement (cm) - Width 0.7 0.5 -Post Debridement (cm) - Depth 0.7 0.4 -Total Square (Post) (cm) 0.49 0.25 -Area of Debridement (cm) - Length 0.7 0.5 -Area of Debridement (cm) - Width 0.7 0.5 -Total Square (Area) (cm) 0.49 0.25 -Tunneling Yes Yes -Tunneling Position (O'clock) 3 3 -Tunneling Distance (cm) 0.9 0.9 -Undermining/Tunneling No No -Circular Undermining No No -Wound/Ulcer Outcome Not Healed Not Healed -Ulcer Cleansing Rinsed/ Rinsed/ Irrigated with Irrigated with Saline Saline -Foul Odor after Cleansing No -Bioengineered Tissue No -Bleeding Controlled with Pressure -Treatment Response Procedure Tolerated Well -Offloading No -Debridement - Subq, 1st 20sq cm No -Debridement - Muscle / Fascia, 1st Yes Yes 20sq cm Pain Scale: 0-10 Numeric Is Patient Pain Free? Yes Yes - Nurse 3 - General Ulcer D/C NN Start: 03/05/23 10:12 Freq: Status: Active Protocol: Activity Type Activity Date Activity User E-sign Co-sign Detail Recorded Client Recorded Date Recorded By Document 03/05/23 10:50 KW [id number] 03/05/23 10:51 KW Document 03/24/23 14:59 DL [id number] 03/24/23 15:00 DL 03/05/23 03/24/23 10:50 14:59 Wound Care Center Nurse 3 6-left buttuck -Ulcer Cleansing Rinsed/ Irrigated with Saline -Foul Odor after Cleansing No #5 Sacral -Ulcer Cleansing Rinsed/ Rinsed/ Irrigated with Irrigated with Saline Saline -Foul Odor after Cleansing No No -Primary Dressing Applied Aquacel AG 2x2, Aquacel AG 4x4, Mepilex Border Mepilex Border -Aquacel AG 2x2 1 -Aquacel AG 4x4 1 -Mepilex Border 1 1 Treatment Response Procedure Tolerated Well Pain Scale: 0-10 Numeric Is Patient Pain Free? Yes Yes - Visit Discharge Discharge Condition Stable Stable Ambulatory Status Ambulatory, Ambulatory, Walker Walker Transportation Private Auto Private Auto Medication Reconcilliation completed & No provided to patient/care provider Clinical Summary of Care Provided Yes Additional Wound Tissue Removed: subcutaneous tissue. 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 Wound care - To the sacral ulcer place moistened Aquacel-Ag covered by Moore SAP daily. Continues to have undermining now circumferential. Wash with soap and water at the time of the dressing change, pat dry. Stressed importance of continuing to off load. Wound culture obtained on 06/26/22 which was positive for Streptococcus agalactiae (B) and Corynebacterium striatum. He completed Augmentin. Wound cultures from 11/06/22 positive for Streptococcus group B, Corynebacterium striatum, Actinomyces odontolyticus, and Anaerobic cocci. Completed Augmentin and probiotic. A wound culture was obtained on 03/05/23 which was positive for Proteus mirabilis, Corynebacterium striatum and Staphylococcus epidermidis. He is being treated with Augmentin. Prealbumin 11.8 from 09/11/22. Encouraged to increase his protein intake to help with wound healing. Discussed what are protein sources and why he needs to increase his protein intake. He has been drinking 1-2 Ensure shakes per day. Stressed that eating food is the important nutritional source and to supplement after meals. Encouraged patient to stop smoking as it may have deleterious effects on wound healing. He will have an operative debridement in the future after he has a further medical work up. Follow up 2 weeks. Call or come in sooner if develop any concerns. Dr. Malcolm's consult note: Patient has a recurrence of his pilonidal cyst that was excised in March,. Just recently another wound opened up to the left and superior to the sacral ulcer. The sacral ulcer has a very small opening making wound care packing difficult. It is impossible to know how adequate the dressing changes are. I made the opening bigger with aggressive excisional debridement. The depth of the ulcer extends to the bone. It is palpable, but not exposed. Another operative excision and debridement would help this ulcer. Would also take a piece of bone as a partial ostectomy to evaluate for osteomyelitis. I anticipate that the new wound probably communicates with the recurrent sacral ulcer deeper down in the ulcer. Tissue that is removed will be sent to Pathology for analysis to rule out carcinoma and to Microbiology for culture. A positive culture would necessitate antibiotic therapy. There is also the possibility that some feces got into the ulcer which led to its recurrence. A temporary diverting colostomy may be necessary if wound healing issues arise again leading to another recurrence. After the ulcer heals and stays healed for a year, then he can have a discussion with the General Surgeon regarding reversing the colostomy. After surgery will try the VAC for wound care. If difficulties arise, then will switch to Dakin's dressing changes daily. His ulcer will not heal as it stands now because there is abnormal scar tissue that is getting in the way of healing. Recommend operative intervention with surgical preparation sacral area with excision recurrent complicated extensive pilonidal cyst ulcer and partial ostectomy for osteomyelitis. Surgery will be done under general anesthesia with a surgical observation overnight stay in the hospital. Will try and place the VAC the next day. I anticipate that both ulcers will communicate beneath the skin bridge into one larger wound. Patient was informed of the risks and complications of the procedure including alternatives to surgery. These were discussed with the patient personally. Patient voices understanding and wishes to proceed. Potential risks and complications included but not inclusive of bleeding, infection, hematoma, bruising, swelling, loss of sensation to skin, wound breakdown, need for wound care, poor scarring, poor aesthetic outcome, intra operative cardiac or neurologic events, DVT, PE, and reaction to anesthesia. Encouraged patient to stop smoking as it may have deleterious effects on wound healing.
== END 2023-03-31 23:59 | disposition home or self-care (01) ==
LOC: WC 14:00
PROVIDERS: PCP Family Medicine; Visit Provider Surgery
DX: L98.422 Non-pressure chronic ulcer of back with fat layer exposed (principal); E11.42 Type 2 diabetes mellitus with diabetic polyneuropathy; L73.2 Hidradenitis suppurativa; Z79.82 Long term (current) use of aspirin; Z79.899 Other long term (current) drug therapy; F17.200 Nicotine dependence, unspecified, uncomplicated; L05.91 Pilonidal cyst without abscess
CPT/HCPCS: 11042; 11043; 87070; 87075; 87077; 87186; 87205

== ENCOUNTER 2023-04-21 10:22 | Outpatient (RCR) | payer MEDICARE, SELFPAY ==
[2023-04-01 00:05] VITALS: BP 134/56; PULSE 43; RESP 16; TEMP 36.4
[2023-04-21 10:25] VITALS: BP 122/73; PULSE 89; RESP 20; TEMP 36.4
--- NOTE | 2023-04-21 12:02 | PCM.WC.PN ---
History of Present Illness Date of Service: 04/21/23 Chief Complaint: Recurrent pilonidal cyst ulcer sacral area. History of Wound: 77 year old man with a history of diabetes mellitus underwent surgery on 03/12/21 where he underwent surgical preparation sacral area with excision complicated extensive pilonidal cyst. With wound care, good nutrition, and some antibiotics, the sacral wound healed. It has since recurred. Wound care instituted with Silver dressing changes. Wound cultures from 11/06/22 positive for Streptococcus group B, Corynebacterium striatum, Actinomyces odontolyticus, and Anaerobic cocci. He was treated with Augmentin and has finished them. Today he denies fever, chills, nausea. States his appetite is ok. Progress of Wound: He was scheduled for a surgical debridement that had to be postponed due to a recent hospitalization at [place] for elevated Ammonia level. He is having further medical workup before having further surgery. He needs to see a supervisor post wave in [place] for his arrhythmias he has been experiencing. His sacral ulcer is still present and stable, the opening is smaller with undermining present. He has an area of Hidradenitis on his right buttock that his states oozes white drainage occasionally. Today there is a small amount of white drainage from one of the areas. No erythema. Objective Data Objective Data Vital Signs: Vital Signs Temp Pulse Resp BP 97.5 F L 89 20 H 122/73 H 04/21/23 10:25 04/21/23 10:25 04/21/23 10:25 04/21/23 10:25 Charges/Coding Procedures Integumentary [id number]: [id number] Dena musc/fascia 20 sq cm/< Debridement Note Debridement Note Wound debrided: #5 Sacral area. Laterality: Not Applicable Wound Grade/Stage: 4. Type of Debridement: Excisional debridement Anesthesia Used: 4% Lidocaine Solution Depth: Down to and including healthy tissue, in the subcutaneous layer, to muscle and to bone (bone is palpable but not exposed.) Percentage of wound debrided: 100 Instrument Used: 3mm curette Tissue Removed: subcutaneous tissue and muscle. Severity: Fat Layer Exposed (muscle is exposed. bone is palpable but not exposed.) Amount of bleeding with debridement: Mild Bleeding Controlled with: Pressure and Compression and gauze Patient tolerated procedure: Patient tolerated procedure well Debridement Free Text: Attempted to unroof as much of the undermining as possible with a curette to make packing the ulcer easier. Post-Debridement Measurements and Additional Note: Post-Debridement Measurements/Treatment - Nurse 1 - General Ulcer Assessment Start: 04/21/23 10:23 Freq: Status: Active Protocol: SUSY Activity Type Activity Date Activity User E-sign Co-sign Detail Recorded Client Recorded Date Recorded By Document 04/21/23 10:25 DL [id number] 04/21/23 10:30 DL 04/21/23 10:25 WC - Today's Visit Information Type of service Follow-up Visit (Physician/TESTER OPERATOR HELPER ) Arrival Mode Ambulatory, Walker Transfer Assistance None Patient Identification Verified (Name & Yes ) Patient Requires Transmission-Based No Precautions Vital Signs Temperature (97.8 F-99.1 F) 97.5 F L Temperature Source Temporal Pulse Rate (60-100) 89 Pulse Location Monitor Respiratory Rate (12-18) 20 H Respiratory rate source Observation Blood Pressure (90/60-120/80) 122/73 H Blood Pressure Mean (mm Hg) 89 Source Monitor History Since Last Visit- (Skip if this is Patient's initial visit) Have you changed medications since your No last visit? Any new allergies or adverse reactions No Had a fall/change in ADL's that may No increase risk of falls Signs or symptoms of abuse and/or No neglect since last visit Have you been in the hospital since your No last visit? Has dressing in place as prescribed Yes Has compression in place as prescribed N/A Has offloadiing in place as prescribed Yes Experienced any changes in pain level or No management Pain Scale: 0-10 Numeric Is Patient Pain Free? Yes - Nurse 1 - General Ulcer Measurement Start: 04/21/23 10:23 Freq: Status: Active Protocol: Activity Type Activity Date Activity User E-sign Co-sign Detail Recorded Client Recorded Date Recorded By Document 04/21/23 10:25 DL [id number] 04/21/23 10:30 DL 04/21/23 10:25 Wound Center Nurse 1 #5 Sacral -Current Size (cm) - Length 0.2 -Current Size (cm) - Width 0.2 -Current Size (cm) - Depth 0.9 -Total Square Cm 0.04 -Undermining/Tunneling Starts (O'clock 10 ) -Undermining/Tunneling Ends (O'clock) 4 -Maximum Distance (cm) 0.5 -Exudate Amt Small -Exudate Type Serosanguineous -Wound Margin Thickened -Granulation Amt Small (1-33%) -Granulation Quality [place] -Necrosis Amt None Present (0 %) -Structure Exposed N/A -Texture (Sandi-wound Skin Appearance) Scarring -Moisture (Sandi-wound Skin Appearance) Dry/Scaly -Color (Sandi-wound Skin Appearance) Hemosiderin Staining -Temperature (Sandi-wound Skin No Abnormality Appearance) (Pt Warm) -Tenderness on Palpation (Sandi-wound No Skin Appearance) -Ulcer Cleansing Soap and Water -Foul Odor after Cleansing No -Anesthetic Used 5% Lidocaine Gel WC - Nurse 2 - General Ulcer CM Notes Start: 04/21/23 10:23 Freq: Status: Active Protocol: Activity Type Activity Date Activity User E-sign Co-sign Detail Recorded Client Recorded Date Recorded By Document 04/21/23 10:58 ASHLEY [id number] 04/21/23 11:03 ASHLEY 04/21/23 10:58 Wound Center Nurse 2 -Time 10:58 -Correct Patient Yes -Correct Side, Site, Position Yes -Correct Procedure Yes -Procedure Performed Yes -Type of Procedure Debridement -Clinical Debridement Muscle / Fascia -Tissue Removed Muscle,Fascia -Post Debridement (cm) - Length 0.6 -Post Debridement (cm) - Width 0.5 -Post Debridement (cm) - Depth 0.5 -Total Square (Post) (cm) 0.30 -Area of Debridement (cm) - Length 0.6 -Area of Debridement (cm) - Width 0.5 -Total Square (Area) (cm) 0.30 -Tunneling No -Undermining/Tunneling Yes -Undermining/Tunneling Starts (O'clock 12 ) -Undermining/Tunneling Ends (O'clock) 3 -Maximum Distance (cm) 0.7 -Circular Undermining No -Wound/Ulcer Outcome Not Healed -Ulcer Cleansing Rinsed/ Irrigated with Saline -Foul Odor after Cleansing No -Bioengineered Tissue No -Bleeding Controlled with Pressure -Treatment Response Procedure Tolerated Well -Offloading No -Debridement - Muscle / Fascia, 1st Yes 20sq cm Pain Scale: 0-10 Numeric Is Patient Pain Free? Yes WC - Nurse 3 - General Ulcer D/C NN Start: 04/21/23 10:23 Freq: Status: Active Protocol: Activity Type Activity Date Activity User E-sign Co-sign Detail Recorded Client Recorded Date Recorded By Document 04/21/23 11:17 SHIRA [id number] 04/21/23 11:18 PL 04/21/23 11:17 Wound Care Center Nurse 3 #5 Sacral -Ulcer Cleansing Rinsed/ Irrigated with Saline -Primary Dressing Applied Aquacel AG 2x2, Mepilex Border -Aquacel AG 2x2 1 -Mepilex Border 1 Pain Scale: 0-10 Numeric Is Patient Pain Free? Yes WC - Visit Discharge Discharge Condition Stable Ambulatory Status Ambulatory, Walker Assessment/Plan Assessment/Plan (1) Ulcer of sacral region, stage 4: CODE(S): L98.429 - Non-pressure chronic ulcer of back with unspecified severity (2) Open wound of left buttock: CODE(S): S31.829A - Unspecified open wound of left buttock, initial encounter (3) Type 2 diabetes mellitus with diabetic polyneuropathy: CODE(S): E11.42 - Type 2 diabetes mellitus with diabetic polyneuropathy QUALIFIERS: Diabetes mellitus brick tester insulin use: unspecified brick tester insulin use status Qualified Code(s): E11.42 - Type 2 diabetes mellitus with diabetic polyneuropathy (4) History of excision of pilonidal cyst: CODE(S): Z98.890 - Other specified postprocedural states (5) Hidradenitis suppurativa of anus: CODE(S): L73.2 - Hidradenitis suppurativa (6) Smoker: CODE(S): F17.200 - Nicotine dependence, unspecified, uncomplicated PLAN: Plan Patient was evaluated at the wound center today. Wound care - To the sacral ulcer place moistened Aquacel-Ag covered by [employer] daily. Continues to have undermining now circumferential. Wash with soap and water at the time of the dressing change, pat dry. Stressed importance of continuing to off load. Wound culture obtained on 06/26/22 which was positive for Streptococcus agalactiae (B) and Corynebacterium striatum. He completed Augmentin. Wound cultures from 11/06/22 positive for Streptococcus group B, Corynebacterium striatum, Actinomyces odontolyticus, and Anaerobic cocci. Completed Augmentin and probiotic. A wound culture was obtained on 03/05/23 which was positive for Proteus mirabilis, Corynebacterium striatum and Staphylococcus epidermidis. He completed Augmentin. Prealbumin 11.8 from 09/11/22. Encouraged to increase his protein intake to help with wound healing. Discussed what are protein sources and why he needs to increase his protein intake. He has been drinking 1-2 Ensure shakes per day. Stressed that eating food is the important nutritional source and to supplement after meals. Encouraged patient to stop smoking as it may have deleterious effects on wound healing. He will have an operative debridement in the future after he has a further medical work up. He is scheduled at the end of the month to see a supervisor post wave in [place] for further work up for his heart arrhythmia Follow up 3 weeks. Call or come in sooner if develop any concerns. Dr. Malcolm's consult note: Patient has a recurrence of his pilonidal cyst that was excised in March,. Just recently another wound opened up to the left and superior to the sacral ulcer. The sacral ulcer has a very small opening making wound care packing difficult. It is impossible to know how adequate the dressing changes are. I made the opening bigger with aggressive excisional debridement. The depth of the ulcer extends to the bone. It is palpable, but not exposed. Another operative excision and debridement would help this ulcer. Would also take a piece of bone as a partial ostectomy to evaluate for osteomyelitis. I anticipate that the new wound probably communicates with the recurrent sacral ulcer deeper down in the ulcer. Tissue that is removed will be sent to Pathology for analysis to rule out carcinoma and to Microbiology for culture. A positive culture would necessitate antibiotic therapy. There is also the possibility that some feces got into the ulcer which led to its recurrence. A temporary diverting colostomy may be necessary if wound healing issues arise again leading to another recurrence. After the ulcer heals and stays healed for a year, then he can have a discussion with the General Surgeon regarding reversing the colostomy. After surgery will try the VAC for wound care. If difficulties arise, then will switch to Dakin's dressing changes daily. His ulcer will not heal as it stands now because there is abnormal scar tissue that is getting in the way of healing. Recommend operative intervention with surgical preparation sacral area with excision recurrent complicated extensive pilonidal cyst ulcer and partial ostectomy for osteomyelitis. Surgery will be done under general anesthesia with a surgical observation overnight stay in the hospital. Will try and place the VAC the next day. I anticipate that both ulcers will communicate beneath the skin bridge into one larger wound. Patient was informed of the risks and complications of the procedure including alternatives to surgery. These were discussed with the patient personally. Patient voices understanding and wishes to proceed. Potential risks and complications included but not inclusive of bleeding, infection, hematoma, bruising, swelling, loss of sensation to skin, wound breakdown, need for wound care, poor scarring, poor aesthetic outcome, intra operative cardiac or neurologic events, DVT, PE, and reaction to anesthesia. Encouraged patient to stop smoking as it may have deleterious effects on wound healing.
== END 2023-05-01 23:59 | disposition home or self-care (01) ==
LOC: WC 10:22
PROVIDERS: PCP Family Medicine; Referring Provider Family Medicine; Visit Provider Nurse Practitioner Family
DX: L98.422 Non-pressure chronic ulcer of back with fat layer exposed (principal); E11.42 Type 2 diabetes mellitus with diabetic polyneuropathy; L05.91 Pilonidal cyst without abscess; L73.2 Hidradenitis suppurativa; Z79.82 Long term (current) use of aspirin; Z79.899 Other long term (current) drug therapy; F17.200 Nicotine dependence, unspecified, uncomplicated
CPT/HCPCS: 11043

== ENCOUNTER 2023-05-12 10:22 | Outpatient (RCR) | payer MEDICARE, SELFPAY ==
[2023-05-02 00:09] VITALS: BP 122/73; PULSE 89; RESP 20; TEMP 36.4
[2023-05-12 10:39] VITALS: BP 115/65; PULSE 66; RESP 20; TEMP 35.8
--- NOTE | 2023-05-12 12:41 | PCM.WC.PN ---
History of Present Illness Date of Service: 05/12/23 Chief Complaint: Recurrent pilonidal cyst ulcer sacral area. History of Wound: 77 year old man with a history of diabetes mellitus underwent surgery on 03/12/21 where he underwent surgical preparation sacral area with excision complicated extensive pilonidal cyst. With wound care, good nutrition, and some antibiotics, the sacral wound healed. It has since recurred. Wound care instituted with Silver dressing changes. Wound cultures from 11/06/22 positive for Streptococcus group B, Corynebacterium striatum, Actinomyces odontolyticus, and Anaerobic cocci. He was treated with Augmentin and has finished them. Today he denies fever, chills, nausea. States his appetite is ok. Progress of Wound: He was scheduled for a surgical debridement that had to be postponed due to a recent hospitalization at [facility] for elevated Ammonia level. He is having further medical workup before having further surgery. He needs to see a learning disabilities teacher in [place] for his arrhythmias he has been experiencing. His sacral ulcer is still present and stable. The outer skin becomes smaller but there is undermining present. He has an area of Hidradenitis on his right buttock that his states oozes white drainage occasionally but looks healed today. Objective Data Objective Data Vital Signs: Vital Signs Temp Pulse Resp BP 96.5 F L 66 20 H 115/65 05/12/23 10:39 05/12/23 10:39 05/12/23 10:39 05/12/23 10:39 Charges/Coding Procedures Integumentary 111xxx-113xx: [id number] Dena musc/fascia 20 sq cm/< Debridement Note Debridement Note Wound debrided: #5 Sacral area. Laterality: Not Applicable Wound Grade/Stage: 4. Type of Debridement: Excisional debridement Anesthesia Used: 4% Lidocaine Solution Depth: Down to and including healthy tissue, in the subcutaneous layer, to muscle and to bone (bone is palpable but not exposed.) Percentage of wound debrided: 100 Instrument Used: 3mm curette Tissue Removed: subcutaneous tissue and muscle. Severity: Fat Layer Exposed (muscle is exposed. bone is palpable but not exposed.) Amount of bleeding with debridement: Mild Bleeding Controlled with: Pressure and Compression and gauze Patient tolerated procedure: Patient tolerated procedure well Debridement Free Text: Attempted to unroof as much of the undermining as possible with a curette to make packing the ulcer easier. Post-Debridement Measurements and Additional Note: Post-Debridement Measurements/Treatment - Nurse 1 - General Ulcer Assessment Start: 05/12/23 10:35 Freq: Status: Active Protocol: SUSY Activity Type Activity Date Activity User E-sign Co-sign Detail Recorded Client Recorded Date Recorded By Document 05/12/23 10:39 DL [id number] 05/12/23 10:45 DL 05/12/23 10:39 WC - Today's Visit Information Type of service Follow-up Visit (Physician/DAT INSTRUCTOR ) Arrival Mode Ambulatory, Walker Transfer Assistance None Patient Identification Verified (Name & Yes ) Patient Requires Transmission-Based No Precautions Vital Signs Temperature (97.8 F-99.1 F) 96.5 F L Temperature Source Temporal Pulse Rate (60-100) 66 Pulse Location Monitor Respiratory Rate (12-18) 20 H Respiratory rate source Observation Blood Pressure (90/60-120/80) 115/65 Blood Pressure Mean (mm Hg) 81 Source Monitor History Since Last Visit- (Skip if this is Patient's initial visit) Have you changed medications since your No last visit? Any new allergies or adverse reactions No Had a fall/change in ADL's that may No increase risk of falls Signs or symptoms of abuse and/or No neglect since last visit Have you been in the hospital since your No last visit? Has dressing in place as prescribed Yes Has compression in place as prescribed N/A Has offloadiing in place as prescribed Yes Experienced any changes in pain level or No management Pain Scale: 0-10 Numeric Is Patient Pain Free? Yes - Nurse 1 - General Ulcer Measurement Start: 05/12/23 10:35 Freq: Status: Active Protocol: Activity Type Activity Date Activity User E-sign Co-sign Detail Recorded Client Recorded Date Recorded By Document 05/12/23 10:39 DL [id number] 05/12/23 10:45 DL 05/12/23 10:39 Wound Center Nurse 1 #5 Sacral -Current Size (cm) - Length 0.3 -Current Size (cm) - Width 0.2 -Current Size (cm) - Depth 0.5 -Total Square Cm 0.06 -Maximum Distance #2 (cm) 0.4 -Circular Undermining Yes -Exudate Amt Small -Exudate Type Serosanguineous -Wound Margin Distinct, Outline Attached -Granulation Amt Large (67-100%) -Granulation Quality [place] -Necrosis Amt None Present (0 %) -Structure Exposed N/A -Texture (Sandi-wound Skin Appearance) Scarring -Moisture (Sandi-wound Skin Appearance) Maceration -Color (Sandi-wound Skin Appearance) No Abnormality -Temperature (Sandi-wound Skin No Abnormality Appearance) (Pt Warm) -Ulcer Cleansing Soap and Water -Foul Odor after Cleansing No -Anesthetic Used 5% Lidocaine Gel WC - Nurse 2 - General Ulcer CM Notes Start: 05/12/23 10:35 Freq: Status: Active Protocol: Activity Type Activity Date Activity User E-sign Co-sign Detail Recorded Client Recorded Date Recorded By Document 05/12/23 11:08 ASHLEY [id number] 05/12/23 11:13 ASHLEY 05/12/23 11:08 Wound Center Nurse 2 -Time 11:09 -Correct Patient Yes -Correct Side, Site, Position Yes -Correct Procedure Yes -Procedure Performed Yes -Type of Procedure Debridement -Clinical Debridement Muscle / Fascia -Tissue Removed Muscle,Fascia -Post Debridement (cm) - Length 0.7 -Post Debridement (cm) - Width 0.7 -Post Debridement (cm) - Depth 0.5 -Total Square (Post) (cm) 0.49 -Area of Debridement (cm) - Length 0.7 -Area of Debridement (cm) - Width 0.7 -Total Square (Area) (cm) 0.49 -Tunneling No -Undermining/Tunneling Yes -Undermining/Tunneling Starts (O'clock 12 ) -Undermining/Tunneling Ends (O'clock) 3 -Maximum Distance (cm) 0.8 -Circular Undermining No -Wound/Ulcer Outcome Not Healed -Ulcer Cleansing Rinsed/ Irrigated with Saline -Foul Odor after Cleansing No -Bioengineered Tissue No -Bleeding Controlled with Pressure -Treatment Response Procedure Tolerated Well -Offloading No -Debridement - Muscle / Fascia, 1st Yes 20sq cm Pain Scale: 0-10 Numeric Is Patient Pain Free? Yes PLACIDO - Nurse 3 - General Ulcer D/C NN Start: 05/12/23 10:35 Freq: Status: Active Protocol: Activity Type Activity Date Activity User E-sign Co-sign Detail Recorded Client Recorded Date Recorded By Document 05/12/23 11:13 ASHLEY [id number] 05/12/23 11:17 ASHLEY 05/12/23 11:13 Wound Care Center Nurse 3 #5 Sacral -Ulcer Cleansing Rinsed/ Irrigated with Saline -Foul Odor after Cleansing No -Primary Dressing Applied Aquacel AG 2x2, Mepilex Border -Aquacel AG 2x2 1 -Mepilex Border 1 Pain Scale: 0-10 Numeric Is Patient Pain Free? Yes WC - Visit Discharge Discharge Condition Stable Ambulatory Status Ambulatory, Walker Transportation Private Auto Accompanied by Medication Reconcilliation completed & Yes provided to patient/care provider Clinical Summary of Care Provided Yes Assessment/Plan Assessment/Plan (1) Ulcer of sacral region, stage 4: CODE(S): L98.429 - Non-pressure chronic ulcer of back with unspecified severity (2) Open wound of left buttock: CODE(S): S31.829A - Unspecified open wound of left buttock, initial encounter (3) Type 2 diabetes mellitus with diabetic polyneuropathy: CODE(S): E11.42 - Type 2 diabetes mellitus with diabetic polyneuropathy QUALIFIERS: Diabetes mellitus rat exterminator insulin use: unspecified shelter insulin use status Qualified Code(s): E11.42 - Type 2 diabetes mellitus with diabetic polyneuropathy (4) History of excision of pilonidal cyst: CODE(S): Z98.890 - Other specified postprocedural states (5) Hidradenitis suppurativa of anus: CODE(S): L73.2 - Hidradenitis suppurativa (6) Smoker: CODE(S): F17.200 - Nicotine dependence, unspecified, uncomplicated PLAN: Plan Patient was evaluated at the wound center today. Wound care - To the sacral ulcer place moistened Aquacel-Ag covered by [place] [employer] daily. Continues to have undermining now circumferential. Wash with soap and water at the time of the dressing change, pat dry. Stressed importance of continuing to off load. Wound culture obtained on 06/26/22 which was positive for Streptococcus agalactiae (B) and Corynebacterium striatum. He completed Augmentin. Wound cultures from 11/06/22 positive for Streptococcus group B, Corynebacterium striatum, Actinomyces odontolyticus, and Anaerobic cocci. Completed Augmentin and probiotic. A wound culture was obtained on 03/05/23 which was positive for Proteus mirabilis, Corynebacterium striatum and Staphylococcus epidermidis. He completed Augmentin. Prealbumin 11.8 from 09/11/22. Encouraged to increase his protein intake to help with wound healing. Discussed what are protein sources and why he needs to increase his protein intake. He has been drinking 1-2 Ensure shakes per day. Stressed that eating food is the important nutritional source and to supplement after meals. Encouraged patient to stop smoking as it may have deleterious effects on wound healing. He will have an operative debridement in the future after he has a further medical work up. He is scheduled at the end of the month to see a learning disabilities teacher in [place] for further work up for his heart arrhythmia at the end of May. Follow up 3 weeks. Call or come in sooner if develop any concerns. Dr. Malcolm's consult note: Patient has a recurrence of his pilonidal cyst that was excised in March,. Just recently another wound opened up to the left and superior to the sacral ulcer. The sacral ulcer has a very small opening making wound care packing difficult. It is impossible to know how adequate the dressing changes are. I made the opening bigger with aggressive excisional debridement. The depth of the ulcer extends to the bone. It is palpable, but not exposed. Another operative excision and debridement would help this ulcer. Would also take a piece of bone as a partial ostectomy to evaluate for osteomyelitis. I anticipate that the new wound probably communicates with the recurrent sacral ulcer deeper down in the ulcer. Tissue that is removed will be sent to Pathology for analysis to rule out carcinoma and to Microbiology for culture. A positive culture would necessitate antibiotic therapy. There is also the possibility that some feces got into the ulcer which led to its recurrence. A temporary diverting colostomy may be necessary if wound healing issues arise again leading to another recurrence. After the ulcer heals and stays healed for a year, then he can have a discussion with the General Surgeon regarding reversing the colostomy. After surgery will try the VAC for wound care. If difficulties arise, then will switch to Dakin's dressing changes daily. His ulcer will not heal as it stands now because there is abnormal scar tissue that is getting in the way of healing. Recommend operative intervention with surgical preparation sacral area with excision recurrent complicated extensive pilonidal cyst ulcer and partial ostectomy for osteomyelitis. Surgery will be done under general anesthesia with a surgical observation overnight stay in the hospital. Will try and place the VAC the next day. I anticipate that both ulcers will communicate beneath the skin bridge into one larger wound. Patient was informed of the risks and complications of the procedure including alternatives to surgery. These were discussed with the patient personally. Patient voices understanding and wishes to proceed. Potential risks and complications included but not inclusive of bleeding, infection, hematoma, bruising, swelling, loss of sensation to skin, wound breakdown, need for wound care, poor scarring, poor aesthetic outcome, intra operative cardiac or neurologic events, DVT, PE, and reaction to anesthesia. Encouraged patient to stop smoking as it may have deleterious effects on wound healing.
== END 2023-05-31 23:59 | disposition home or self-care (01) ==
LOC: WC 10:22
PROVIDERS: PCP Family Medicine; Referring Provider Family Medicine; Visit Provider Nurse Practitioner Family
DX: L98.422 Non-pressure chronic ulcer of back with fat layer exposed (principal); E11.42 Type 2 diabetes mellitus with diabetic polyneuropathy; S31.829A Unspecified open wound of left buttock, initial encounter; L73.2 Hidradenitis suppurativa; F17.200 Nicotine dependence, unspecified, uncomplicated; Z98.890 Other specified postprocedural states; Z79.82 Long term (current) use of aspirin; Z79.899 Other long term (current) drug therapy
CPT/HCPCS: 11043

== ENCOUNTER 2023-06-30 09:30 | Outpatient (RCR) | payer MEDICARE, SELFPAY ==
[2023-06-01 00:34] VITALS: BP 115/65; PULSE 66; RESP 20; TEMP 35.8
[2023-06-02 10:47] VITALS: BP 111/65; PULSE 74; RESP 18; TEMP 36.1
--- NOTE | 2023-06-02 12:53 | PN.PCM_ITS ---
History of Present Illness Date of Service: 06/02/23 Chief Complaint: Recurrent pilonidal cyst ulcer sacral area. History of Wound: 77 year old man with a history of diabetes mellitus underwent surgery on 03/12/21 where he underwent surgical preparation sacral area with excision complicated extensive pilonidal cyst. With wound care, good nutrition, and some antibiotics, the sacral wound healed. It has since recurred. Wound care instituted with Silver dressing changes. Wound cultures from 11/06/22 positive for Streptococcus group B, Corynebacterium striatum, Actinomyces odontolyticus, and Anaerobic cocci. He was treated with Augmentin and has finished them. Today he denies fever, chills, nausea. States his appetite is ok. Progress of Wound: He was scheduled for a surgical debridement that had to be postponed due to a recent hospitalization at [facility] for elevated Ammonia level. He is having further medical workup before having further surgery. He saw a cardiac arrhythmia specialist, Dr. Fletcher in [place], on 05/27/23, for cardiac issues he has been experiencing. He suggested placement of a loop recorder and further neurological work up. Patient is scheduled for EEG in the near future. Nothing was stated about him being able to have operative debridement. His sacral ulcer is still present and stable. The outer skin becomes smaller but there is undermining present. He has an area of Hidradenitis on his right buttock that his states oozes white drainage occasionally but looks stable today. Objective Data Objective Data Vital Signs: Vital Signs Temp Pulse Resp BP 97.0 F L 74 18 111/65 06/02/23 10:47 06/02/23 10:47 06/02/23 10:47 06/02/23 10:47 Charges/Coding Procedures Integumentary [id number]: [id number] Dena musc/fascia 20 sq cm/< Debridement Note Debridement Note Wound debrided: #5 Sacral area. Laterality: Not Applicable Wound Grade/Stage: 4. Type of Debridement: Excisional debridement Anesthesia Used: 4% Lidocaine Solution Depth: Down to and including healthy tissue, in the subcutaneous layer, to muscle and to bone (bone is palpable but not exposed.) Percentage of wound debrided: 100 Instrument Used: 5mm curette Tissue Removed: subcutaneous tissue and muscle. Severity: Fat Layer Exposed (muscle is exposed. bone is palpable but not exposed.) Amount of bleeding with debridement: Mild Bleeding Controlled with: Pressure and Compression and gauze Patient tolerated procedure: Patient tolerated procedure well Debridement Free Text: Attempted to unroof as much of the undermining as possible with a curette to make packing the ulcer easier. Post-Debridement Measurements and Additional Note: Post-Debridement Measurements/Treatment PLACIDO - Nurse 1 - General Ulcer Assessment Start: 06/02/23 10:47 Freq: Status: Active Protocol: SUSY Activity Type Activity Date Activity User E-sign Co-sign Detail Recorded Client Recorded Date Recorded By Document 06/02/23 10:47 [employer] Laptop 06/02/23 10:52 06/02/23 10:47 WC - Today's Visit Information Type of service Follow-up Visit (Physician/OXYGEN SYSTEM TESTER ) Arrival Mode Ambulatory, Walker Patient Identification Verified (Name & Yes ) Patient Requires Transmission-Based No Precautions Vital Signs Temperature (97.8 F-99.1 F) 97.0 F L Temperature Source Temporal Pulse Rate (60-100) 74 Pulse Location Monitor Respiratory Rate (12-18) 18 Respiratory rate source Observation Blood Pressure (90/60-120/80) 111/65 Blood Pressure Mean (mm Hg) 80 Source Monitor Position Semi-Fowlers Blood Pressure Location Right Arm History Since Last Visit- (Skip if this is Patient's initial visit) Have you changed medications since your No last visit? Any new allergies or adverse reactions No Had a fall/change in ADL's that may No increase risk of falls Signs or symptoms of abuse and/or No neglect since last visit Have you been in the hospital since your No last visit? Has dressing in place as prescribed Yes Has compression in place as prescribed N/A Has offloadiing in place as prescribed No Experienced any changes in pain level or No management Left Footwear Regular Shoe Right Footwear Regular Shoe Pain Scale: 0-10 Numeric Is Patient Pain Free? Yes PLACIDO Jones Nurse 1 - General Ulcer Measurement Start: 06/02/23 10:47 Freq: Status: Active Protocol: Activity Type Activity Date Activity User E-sign Co-sign Detail Recorded Client Recorded Date Recorded By Document 06/02/23 10:47 [employer] Laptop 06/02/23 10:52 06/02/23 10:47 Wound Center Nurse 1 #5 Sacral -Combined with other wound No -Current Size (cm) - Length 0.5 -Current Size (cm) - Width 0.4 -Current Size (cm) - Depth 0.7 -Total Square Cm 0.20 -Photo Taken Yes -Epithelialization Medium 34-66% -Tunneling No -Undermining/Tunneling No -Circular Undermining Yes -Exudate Amt Small -Exudate Type Serosanguineous -Wound Margin Flat & Intact -Granulation Amt Medium (34-66%) -Granulation Quality Red -Slough/Fibrin Yes -Necrosis Amt Small (1-33%) -Necrotic Tissue Type Adherent Slough -Texture (Sandi-wound Skin Appearance) Assessed,Callus -Moisture (Sandi-wound Skin Appearance) No Abnormality, Assessed -Color (Sandi-wound Skin Appearance) Assessed -Temperature (Sandi-wound Skin No Abnormality Appearance) (Pt Warm) -Tenderness on Palpation (Sandi-wound No Skin Appearance) -Ulcer Cleansing Rinsed/ Irrigated with Saline -Foul Odor after Cleansing No -Anesthetic Used 5% Lidocaine Gel Lower Limb Edema Present NA WC - Nurse 2 - General Ulcer CM Notes Start: 06/02/23 10:47 Freq: Status: Active Protocol: Activity Type Activity Date Activity User E-sign Co-sign Detail Recorded Client Recorded Date Recorded By Document 06/02/23 10:56 Laptop 06/02/23 11:01 06/02/23 10:56 Wound Center Nurse 2 #5 Sacral -Time 10:57 -Correct Patient Yes -Correct Side, Site, Position Yes -Correct Procedure Yes -Procedure Performed Yes -Type of Procedure Debridement -Clinical Debridement Muscle / Fascia -Tissue Removed Muscle,Fascia -Post Debridement (cm) - Length 0.9 -Post Debridement (cm) - Width 0.7 -Post Debridement (cm) - Depth 0.5 -Total Square (Post) (cm) 0.63 -Area of Debridement (cm) - Length 0.9 -Area of Debridement (cm) - Width 0.7 -Total Square (Area) (cm) 0.63 -Tunneling No -Undermining/Tunneling No -Circular Undermining Yes -Wound/Ulcer Outcome Not Healed -Ulcer Cleansing Rinsed/ Irrigated with Saline -Foul Odor after Cleansing Yes, Due to Product Use -Bioengineered Tissue No -Bleeding Controlled with Pressure -Treatment Response Procedure Tolerated Well -Offloading No -Assistive Device(s) Walker -Debridement - Subq, 1st 20sq cm No -Debridement - Muscle / Fascia, 1st Yes 20sq cm Pain Scale: 0-10 Numeric Is Patient Pain Free? Yes - Nurse 3 - General Ulcer D/C NN Start: 06/02/23 10:47 Freq: Status: Active Protocol: Activity Type Activity Date Activity User E-sign Co-sign Detail Recorded Client Recorded Date Recorded By Document 06/02/23 11:04 Laptop 06/02/23 11:05 06/02/23 11:04 Wound Care Center Nurse 3 #5 Sacral -Ulcer Cleansing Rinsed/ Irrigated with Saline -Foul Odor after Cleansing No -Primary Dressing Applied Aquacel AG 2x2, Mepilex Border -Primary Dressing Covered/Secured with Dry Gauze -Aquacel AG 2x2 1 -Mepilex Border 1 Pain Scale: 0-10 Numeric Is Patient Pain Free? Yes - Visit Discharge Discharge Condition Stable Ambulatory Status Ambulatory, Walker Transportation Private Auto Accompanied by Medication Reconcilliation completed & Yes provided to patient/care provider Clinical Summary of Care Provided Yes Assessment/Plan Assessment/Plan (1) Ulcer of sacral region, stage 4: CODE(S): L98.429 - Non-pressure chronic ulcer of back with unspecified severity (2) Open wound of left buttock: CODE(S): S31.829A - Unspecified open wound of left buttock, initial encounter (3) Type 2 diabetes mellitus with diabetic polyneuropathy: CODE(S): E11.42 - Type 2 diabetes mellitus with diabetic polyneuropathy QUALIFIERS: Diabetes mellitus intermission coordinator insulin use: unspecified intermission coordinator insulin use status Qualified Code(s): E11.42 - Type 2 diabetes mellitus with diabetic polyneuropathy (4) History of excision of pilonidal cyst: CODE(S): Z98.890 - Other specified postprocedural states (5) Hidradenitis suppurativa of anus: CODE(S): L73.2 - Hidradenitis suppurativa (6) Smoker: CODE(S): F17.200 - Nicotine dependence, unspecified, uncomplicated PLAN: Plan Patient was evaluated at the wound center today. Wound care - To the sacral ulcer place moistened Aquacel-Ag covered by [employer] daily. Continues to have undermining now circumferential. Wash with soap and water at the time of the dressing change, pat dry. Stressed importance of continuing to off load. Wound culture obtained on 06/26/22 which was positive for Streptococcus agalactiae (B) and Corynebacterium striatum. He completed Augmentin. Wound cultures from 11/06/22 positive for Streptococcus group B, Corynebacterium striatum, Actinomyces odontolyticus, and Anaerobic cocci. Completed Augmentin and probiotic. A wound culture was obtained on 03/05/23 which was positive for Proteus mirabilis, Corynebacterium striatum and Staphylococcus epidermidis. He completed Augmentin. Prealbumin 11.8 from 09/11/22. Encouraged to increase his protein intake to help with wound healing. Discussed what are protein sources and why he needs to increase his protein intake. He has been drinking 1-2 Ensure shakes per day. Stressed that eating food is the important nutritional source and to supplement after meals. Encouraged patient to stop smoking as it may have deleterious effects on wound healing. He will have an operative debridement in the future after he has a further medical work up. He saw a cardiac arrhythmia specialist, Dr. Fletcher in [place], on 05/27/23, for cardiac issues he has been experiencing. He suggested placement of a loop recorder and further neurological work up. Patient is scheduled for EEG in the near future. Nothing was stated about him being able to have operative debridement. Follow up 3 weeks. Call or come in sooner if develop any concerns. Dr. Malcolm's consult note: Patient has a recurrence of his pilonidal cyst that was excised in March,. Just recently another wound opened up to the left and superior to the sacral ulcer. The sacral ulcer has a very small opening making wound care packing difficult. It is impossible to know how adequate the dressing changes are. I made the opening bigger with aggressive excisional debridement. The depth of the ulcer extends to the bone. It is palpable, but not exposed. Another operative excision and debridement would help this ulcer. Would also take a piece of bone as a partial ostectomy to evaluate for osteomyelitis. I anticipate that the new wound probably communicates with the recurrent sacral ulcer deeper down in the ulcer. Tissue that is removed will be sent to Pathology for analysis to rule out carcinoma and to Microbiology for culture. A positive culture would necessitate antibiotic therapy. There is also the possibility that some feces got into the ulcer which led to its recurrence. A temporary diverting colostomy may be necessary if wound healing issues arise again leading to another recurrence. After the ulcer heals and stays healed for a year, then he can have a discussion with the General Surgeon regarding reversing the colostomy. After surgery will try the VAC for wound care. If difficulties arise, then will switch to Dakin's dressing changes daily. His ulcer will not heal as it stands now because there is abnormal scar tissue that is getting in the way of healing. Recommend operative intervention with surgical preparation sacral area with excision recurrent complicated extensive pilonidal cyst ulcer and partial ostectomy for osteomyelitis. Surgery will be done under general anesthesia with a surgical observation overnight stay in the hospital. Will try and place the VAC the next day. I anticipate that both ulcers will communicate beneath the skin bridge into one larger wound. Patient was informed of the risks and complications of the procedure including alternatives to surgery. These were discussed with the patient personally. Patient voices understanding and wishes to proceed. Potential risks and complications included but not inclusive of bleeding, infection, hematoma, bruising, swelling, loss of sensation to skin, wound breakd own, need for wound care, poor scarring, poor aesthetic outcome, intra operative cardiac or neurologic events, DVT, PE, and reaction to anesthesia. Encouraged patient to stop smoking as it may have deleterious effects on wound healing.
--- NOTE | 2023-06-30 10:19 | PN.PCM_ITS ---
History of Present Illness Date of Service: 06/30/23 Chief Complaint: Recurrent pilonidal cyst ulcer sacral area. History of Wound: 77 year old man with a history of diabetes mellitus underwent surgery on 03/12/21 where he underwent surgical preparation sacral area with excision complicated extensive pilonidal cyst. With wound care, good nutrition, and some antibiotics, the sacral wound healed. It has since recurred. Wound care instituted with Silver dressing changes. Wound cultures from 11/06/22 positive for Streptococcus group B, Corynebacterium striatum, Actinomyces odontolyticus, and Anaerobic cocci. He was treated with Augmentin and has finished them. He was scheduled for a surgical debridement that had to be postponed due to a recent hospitalization at [facility] for elevated Ammonia level. He is having further medical workup before having further surgery. He saw a cardiac [facility] specialist, Dr. Fletcher in [place], on 05/27/23, for cardiac issues he has been experiencing. He suggested placement of a loop recorder and further neurological work up. Patient is scheduled for EEG in the near future. Nothing was stated about him being able to have operative debridement. Today he denies fever, chills, nausea. States his appetite is ok. Progress of Wound: His sacral ulcer is still present and stable. The outer skin becomes smaller but there is undermining present. He has an area of Hidradenitis on his right buttock that is actively oozing white drainage and is firm and tender to palpation today. Objective Data Objective Data Vital Signs: Vital Signs Temp Pulse Resp BP 97.0 F L 74 18 111/65 06/02/23 10:47 06/02/23 10:47 06/02/23 10:47 06/02/23 10:47 Charges/Coding Procedures Integumentary [id number]: [id number] Dena musc/fascia 20 sq cm/< Debridement Note Debridement Note Wound debrided: #5 Sacral area. Laterality: Not Applicable Wound Grade/Stage: 4 Type of Debridement: Excisional debridement Anesthesia Used: 4% Lidocaine Solution Depth: Down to and including healthy tissue, in the subcutaneous layer, to muscle and to bone (bone is palpable but not exposed.) Percentage of wound debrided: 100 Instrument Used: 3mm curette Tissue Removed: subcutaneous tissue and muscle. Severity: Fat Layer Exposed (muscle is exposed. bone is palpable but not exposed.) Amount of bleeding with debridement: Mild Bleeding Controlled with: Pressure and Compression and gauze Patient tolerated procedure: Patient tolerated procedure well Debridement Free Text: Attempted to unroof as much of the area that is causing the undermining to help make packing the ulcer easier Post-Debridement Measurements and Additional Note: Post-Debridement Measurements/Treatment PLACIDO - Nurse 1 - General Ulcer Assessment Start: 06/02/23 10:47 Freq: Status: Active Protocol: SUSY Activity Type Activity Date Activity User E-sign Co-sign Detail Recorded Client Recorded Date Recorded By Document 06/02/23 10:47 ASHLEY Laptop 06/02/23 10:52 JF Document 06/30/23 09:28 DL Desktop 06/30/23 09:34 DL 06/02/23 06/30/23 10:47 09:28 - Today's Visit Information Type of service Follow-up Visit (Physician/FIRE MARSHAL ) Arrival Mode Ambulatory, Walker Patient Identification Verified (Name & Yes ) Patient Requires Transmission-Based No Precautions Vital Signs Temperature (97.8 F-99.1 F) 97.0 F L Temperature Source Temporal Pulse Rate (60-100) 74 Pulse Location Monitor Respiratory Rate (12-18) 18 Respiratory rate source Observation Blood Pressure (90/60-120/80) 111/65 Blood Pressure Mean (mm Hg) 80 Source Monitor Position Semi-Fowlers Blood Pressure Location Right Arm History Since Last Visit- (Skip if this is Patient's initial visit) Have you changed medications since your No last visit? Any new allergies or adverse reactions No Had a fall/change in ADL's that may No increase risk of falls Signs or symptoms of abuse and/or No neglect since last visit Have you been in the hospital since your No last visit? Has dressing in place as prescribed Yes Has compression in place as prescribed N/A Has offloadiing in place as prescribed No Experienced any changes in pain level or No management Left Footwear Regular Shoe Right Footwear Regular Shoe Pain Scale: 0-10 Numeric Is Patient Pain Free? Yes Yes PLACIDO Jones Nurse 1 - General Ulcer Measurement Start: 06/02/23 10:47 Freq: Status: Active Protocol: Activity Type Activity Date Activity User E-sign Co-sign Detail Recorded Client Recorded Date Recorded By Document 06/02/23 10:47 Laptop 06/02/23 10:52 Document 06/30/23 09:28 DL Desktop 06/30/23 09:34 DL 06/02/23 06/30/23 10:47 09:28 Wound Center Nurse 1 #5 Sacral -Combined with other wound No -Current Size (cm) - Length 0.5 0.5 -Current Size (cm) - Width 0.4 0.1 -Current Size (cm) - Depth 0.7 0.7 -Total Square Cm 0.20 0.05 -Photo Taken Yes Yes -Epithelialization Medium 34-66% -Tunneling No -Undermining/Tunneling No -Circular Undermining Yes -Exudate Amt Small Medium -Exudate Type Serosanguineous Yellow/Green -Wound Margin Flat & Intact Distinct, Outline Attached -Granulation Amt Medium (34-66%) Large (67-100%) -Granulation Quality [place] -Slough/Fibrin Yes -Necrosis Amt Small (1-33%) Small (1-33%) -Necrotic Tissue Type Adherent Slough Adherent Slough -Structure Exposed N/A -Texture (Sandi-wound Skin Appearance) Assessed,Callus Scarring -Moisture (Sandi-wound Skin Appearance) No Abnormality, Dry/Scaly Assessed -Color (Sandi-wound Skin Appearance) Assessed No Abnormality -Temperature (Sandi-wound Skin No Abnormality No Abnormality Appearance) (Pt Warm) (Pt Warm) -Tenderness on Palpation (Sandi-wound No No Skin Appearance) -Ulcer Cleansing Rinsed/ Not Cleansed Irrigated with Saline -Foul Odor after Cleansing No No -Anesthetic Used 5% Lidocaine 5% Lidocaine Gel Gel Lower Limb Edema Present NA WC - Nurse 2 - General Ulcer CM Notes Start: 06/02/23 10:47 Freq: Status: Active Protocol: Activity Type Activity Date Activity User E-sign Co-sign Detail Recorded Client Recorded Date Recorded By Document 06/02/23 10:56 Laptop 06/02/23 11:01 Document 06/30/23 09:55 Laptop 06/30/23 09:58 06/02/23 06/30/23 10:56 09:55 Wound Center Nurse 2 #5 Sacral -Time 10:57 09:56 -Correct Patient Yes Yes -Correct Side, Site, Position Yes Yes -Correct Procedure Yes Yes -Procedure Performed Yes Yes -Type of Procedure Debridement Debridement -Clinical Debridement Muscle / Fascia Muscle / Fascia -Tissue Removed Muscle,Fascia Muscle,Fascia -Post Debridement (cm) - Length 0.9 0.5 -Post Debridement (cm) - Width 0.7 0.5 -Post Debridement (cm) - Depth 0.5 0.5 -Total Square (Post) (cm) 0.63 0.25 -Area of Debridement (cm) - Length 0.9 0.5 -Area of Debridement (cm) - Width 0.7 0.5 -Total Square (Area) (cm) 0.63 0.25 -Tunneling No No -Undermining/Tunneling No No -Circular Undermining Yes Yes -Wound/Ulcer Outcome Not Healed Not Healed -Ulcer Cleansing Rinsed/ Rinsed/ Irrigated with Irrigated with Saline Saline -Foul Odor after Cleansing Yes, Due to No Product Use -Bioengineered Tissue No No -Bleeding Controlled with Pressure Pressure -Treatment Response Procedure Procedure Tolerated Well Tolerated Well -Offloading No No -Assistive Device(s) Walker -Debridement - Subq, 1st 20sq cm No -Debridement - Muscle / Fascia, 1st Yes Yes 20sq cm Pain Scale: 0-10 Numeric Is Patient Pain Free? Yes Yes - Nurse 3 - General Ulcer D/C NN Start: 06/02/23 10:47 Freq: Status: Active Protocol: Activity Type Activity Date Activity User E-sign Co-sign Detail Recorded Client Recorded Date Recorded By Document 06/02/23 11:04 Laptop 06/02/23 11:05 Document 06/30/23 10:00 Laptop 06/30/23 10:03 06/02/23 06/30/23 11:04 10:00 Wound Care Center Nurse 3 #5 Sacral -Ulcer Cleansing Rinsed/ Rinsed/ Irrigated with Irrigated with Saline Saline -Foul Odor after Cleansing No No -Primary Dressing Applied Aquacel AG 2x2, Mepilex Border, Mepilex Border Promogran Jannet Matter -Primary Dressing Covered/Secured with Dry Gauze -Aquacel AG 2x2 1 -Mepilex Border 1 1 -Promogran Jannet Matter 1 Pain Scale: 0-10 Numeric Is Patient Pain Free? Yes Yes - Visit Discharge Discharge Condition Stable Stable Ambulatory Status Ambulatory, Ambulatory, Walker Walker Transportation Private Auto Private Auto Accompanied by Medication Reconcilliation completed & Yes Yes provided to patient/care provider Clinical Summary of Care Provided Yes Yes Assessment/Plan Assessment/Plan (1) Ulcer of sacral region, stage 4: CODE(S): L98.429 - Non-pressure chronic ulcer of back with unspecified severity (2) Open wound of left buttock: CODE(S): S31.829A - Unspecified open wound of left buttock, initial encounter (3) Type 2 diabetes mellitus with diabetic polyneuropathy: CODE(S): E11.42 - Type 2 diabetes mellitus with diabetic polyneuropathy QUALIFIERS: Diabetes mellitus senior care insulin use: unspecified senior care insulin use status Qualified Code(s): E11.42 - Type 2 diabetes m ellitus with diabetic polyneuropathy (4) History of excision of pilonidal cyst: CODE(S): Z98.890 - Other specified postprocedural states (5) Hidradenitis suppurativa of anus: CODE(S): L73.2 - Hidradenitis suppurativa (6) Smoker: CODE(S): F17.200 - Nicotine dependence, unspecified, uncomplicated PLAN: Plan Patient was evaluated at the wound center today. Wound care - To the sacral ulcer place moistened Aquacel-Ag covered by [employer] daily. Continues to have undermining now circumferential. Wash with soap and water at the time of the dressing change, pat dry. Stressed importance of continuing to off load. His hidradenitis flare on his right buttocks is firm, painful and has small amount of drainage. Will start him on Doxycycline to help temper this to help with pain control. Wound culture obtained on 06/26/22 which was positive for Streptococcus agalactiae (B) and Corynebacterium striatum. He completed Augmentin. Wound cultures from 11/06/22 positive for Streptococcus group B, Corynebacterium striatum, Actinomyces odontolyticus, and Anaerobic cocci. Completed Augmentin and probiotic. A wound culture was obtained on 03/05/23 which was positive for Proteus mirabilis, Corynebacterium striatum and Staphylococcus epidermidis. He completed Augmentin. Prealbumin 11.8 from 09/11/22. Encouraged to increase his protein intake to help with wound healing. Discussed what are protein sources and why he needs to increase his protein intake. He has been drinking 1-2 Ensure shakes per day. Stressed that eating food is the important nutritional source and to supplement after meals. Encouraged patient to stop smoking as it may have deleterious effects on wound healing. He will have an operative debridement in the future after he has a further medical work up. He saw a cardiac arrhythmia specialist, Dr. Fletcher in [place], on 05/27/23, for cardiac issues he has been experiencing. He suggested placement of a loop recorder and further neurological work up. Patient is scheduled for EEG in the near future. Nothing was stated about him being able to have operative debridement. Follow up 3 weeks. Call or come in sooner if develop any concerns. Dr. Malcolm's consult note: Patient has a recurrence of his pilonidal cyst that was excised in March,. Just recently another wound opened up to the left and superior to the sacral ulcer. The sacral ulcer has a very small opening making wound care packing difficult. It is impossible to know how adequate the dressing changes are. I made the opening bigger with aggressive excisional debridement. The depth of the ulcer extends to the bone. It is palpable, but not exposed. Another operative excision and debridement would help this ulcer. Would also take a piece of bone as a partial ostectomy to evaluate for osteomyelitis. I anticipate that the new wound probably communicates with the recurrent sacral ulcer deeper down in the ulcer. Tissue that is removed will be sent to Pathology for analysis to rule out carcinoma and to Microbiology for culture. A positive culture would necessitate antibiotic therapy. There is also the possibility that some feces got into the ulcer which led to its recurrence. A temporary diverting colostomy may be necessary if wound healing issues arise again leading to another recurrence. After the ulcer heals and stays healed for a year, then he can have a discussion with the General Surgeon regarding reversing the colostomy. After surgery will try the VAC for wound care. If difficulties arise, then will switch to Dakin's dressing changes daily. His ulcer will not heal as it stands now because there is abnormal scar tissue that is getting in the way of healing. Recommend operative intervention with surgical preparation sacral area with excision recurrent complicated extensive pilonidal cyst ulcer and partial ostectomy for osteomyelitis. Surgery will be done under general anesthesia with a surgical observation overnight stay in the hospital. Will try and place the VAC the next day. I anticipate that both ulcers will communicate beneath the skin bridge into one larger wound. Patient was informed of the risks and complications of the procedure including alternatives to surgery. These were discussed with the patient personally. Patient voices understanding and wishes to proceed. Potential risks and complications included but not inclusive of bleeding, infection, hematoma, bruising, swelling, loss of sensation to skin, wound breakdown, need for wound care, poor scarring, poor aesthetic outcome, intra operative cardiac or neurologic events, DVT, PE, and reaction to anesthesia. Encouraged patient to stop smoking as it may have deleterious effects on wound healing.
== END 2023-07-01 23:59 | disposition home or self-care (01) ==
LOC: WC 09:30
PROVIDERS: PCP Family Medicine; Referring Provider Family Medicine; Visit Provider Nurse Practitioner Family
DX: L98.422 Non-pressure chronic ulcer of back with fat layer exposed (principal); E11.42 Type 2 diabetes mellitus with diabetic polyneuropathy; S31.829A Unspecified open wound of left buttock, initial encounter; F17.200 Nicotine dependence, unspecified, uncomplicated; Z79.82 Long term (current) use of aspirin; Z79.899 Other long term (current) drug therapy; Z98.890 Other specified postprocedural states
CPT/HCPCS: 11043

== ENCOUNTER 2023-07-21 09:48 | Outpatient (RCR) | payer MEDICARE, SELFPAY ==
[2023-07-02 00:46] VITALS: BP 111/65; PULSE 74; RESP 18; TEMP 36.1
[2023-07-21 09:50] VITALS: BP 127/71; PULSE 78; RESP 20; TEMP 36.2
--- NOTE | 2023-07-21 10:58 | PN.PCM_ITS ---
History of Present Illness Date of Service: 07/21/23 Chief Complaint: Recurrent pilonidal cyst ulcer sacral area. History of Wound: 77 year old man with a history of diabetes mellitus underwent surgery on 03/12/21 where he underwent surgical preparation sacral area with excision complicated extensive pilonidal cyst. With wound care, good nutrition, and some antibiotics, the sacral wound healed. It has since recurred. Wound care instituted with Silver dressing changes. Wound cultures from 11/06/22 positive for Streptococcus group B, Corynebacterium striatum, Actinomyces odontolyticus, and Anaerobic cocci. He was treated with Augmentin and has finished them. He was scheduled for a surgical debridement that had to be postponed due to a recent hospitalization at [facility] for elevated Ammonia level. He is having further medical workup before having further surgery. He saw a cardiac [facility] specialist, Dr. Fletcher in [place], on 05/27/23, for cardiac issues he has been experiencing. He suggested placement of a loop recorder and further neurological work up. Patient is scheduled for EEG in the near future. Nothing was stated about him being able to have operative debridement. Today he denies fever, chills, nausea. States his appetite is ok. Progress of Wound: His sacral ulcer is still present and stable. The outer skin becomes smaller but there is undermining present. He has an area of Hidradenitis on his right buttock that is stable today but there is a new area that is just right of the sacral ulcer, it is small ulcer that is at the edged of the healed scar tissue, there is some depth to it, it is actively oozing white drainage. No erythema observed. Objective Data Objective Data Vital Signs: Vital Signs Temp Pulse Resp BP 97.2 F L 78 20 H 127/71 H 07/21/23 09:50 07/21/23 09:50 07/21/23 09:50 07/21/23 09:50 Charges/Coding Procedures Integumentary [id number]: [id number] Dena subq tissue 20 sq cm/< Debridement Note Debridement Note Wound debrided: #5 Sacral area and just to the right the new open hidradenitis area Laterality: Not Applicable Wound Grade/Stage: 4 Type of Debridement: Excisional debridement Anesthesia Used: 4% Lidocaine Solution Depth: Down to and including healthy tissue, in the subcutaneous layer, to muscle and to bone (bone is palpable but not exposed.) Percentage of wound debrided: 100 Instrument Used: 5mm curette Tissue Removed: subcutaneous tissue and muscle. Severity: Fat Layer Exposed (muscle is exposed. bone is palpable but not exposed.) Amount of bleeding with debridement: Mild Bleeding Controlled with: Pressure and Compression and gauze Patient tolerated procedure: Patient tolerated procedure well Debridement Free Text: Attempted to unroof as much of the area that is causing the undermining to help make packing the ulcer easier Post-Debridement Measurements and Additional Note: Post-Debridement Measurements/Treatment - Nurse 1 - General Ulcer Assessment Start: 07/21/23 09:50 Freq: Status: Active Protocol: SUSY Activity Type Activity Date Activity User E-sign Co-sign Detail Recorded Client Recorded Date Recorded By Document 07/21/23 09:50 DL [email or web address] 07/21/23 10:01 DL 07/21/23 09:50 WC - Today's Visit Information Type of service Follow-up Visit (Physician/MERCHANDISE DISPLAYER ) Arrival Mode Ambulatory, Walker Transfer Assistance None Patient Identification Verified (Name & Yes ) Patient Requires Transmission-Based No Precautions Vital Signs Temperature (97.8 F-99.1 F) 97.2 F L Temperature Source Temporal Pulse Rate (60-100) 78 Pulse Location Monitor Respiratory Rate (12-18) 20 H Respiratory rate source Observation Blood Pressure (90/60-120/80) 127/71 H Blood Pressure Mean (mm Hg) 89 Source Monitor History Since Last Visit- (Skip if this is Patient's initial visit) Have you changed medications since your No last visit? Any new allergies or adverse reactions No Had a fall/change in ADL's that may No increase risk of falls Signs or symptoms of abuse and/or No neglect since last visit Have you been in the hospital since your No last visit? Has dressing in place as prescribed Yes Has compression in place as prescribed N/A Experienced any changes in pain level or No management Pain Scale: 0-10 Numeric Is Patient Pain Free? Yes Karen Nurse 1 - General Ulcer Measurement Start: 07/21/23 09:50 Freq: Status: Active Protocol: Activity Type Activity Date Activity User E-sign Co-sign Detail Recorded Client Recorded Date Recorded By Document 07/21/23 09:50 DL [email or web address] 07/21/23 10:01 DL 07/21/23 09:50 Wound Center Nurse 1 #7 R Buttocks sup -Current Size (cm) - Length 0.7 -Current Size (cm) - Width 0.2 -Current Size (cm) - Depth 0.4 -Total Square Cm 0.14 -Photo Taken Yes -Exudate Amt Small -Exudate Type Purulent -Wound Margin Distinct, Outline Attached -Granulation Amt Small (1-33%) -Granulation Quality Red -Necrosis Amt None Present (0 %) -Necrotic Tissue Type Adherent Slough -Structure Exposed N/A -Texture (Sandi-wound Skin Appearance) Scarring -Moisture (Sandi-wound Skin Appearance) Dry/Scaly -Color (Sandi-wound Skin Appearance) No Abnormality -Temperature (Sandi-wound Skin No Abnormality Appearance) (Pt Warm) -Tenderness on Palpation (Sandi-wound No Skin Appearance) -Ulcer Cleansing Soap and Water -Foul Odor after Cleansing No -Anesthetic Used 5% Lidocaine Gel #8 R Buttock proximal to sacral ulcer -Current Size (cm) - Length 0.2 -Current Size (cm) - Width 0.2 -Current Size (cm) - Depth 0.5 -Total Square Cm 0.04 -Photo Taken Yes -Exudate Amt Small -Exudate Type Purulent -Wound Margin Distinct, Outline Attached -Granulation Amt Small (1-33%) -Granulation Quality [place] -Necrosis Amt Small (1-33%) -Structure Exposed N/A -Texture (Sandi-wound Skin Appearance) Scarring -Moisture (Sandi-wound Skin Appearance) Dry/Scaly -Color (Sandi-wound Skin Appearance) No Abnormality -Temperature (Sandi-wound Skin No Abnormality Appearance) (Pt Warm) -Tenderness on Palpation (Sandi-wound No Skin Appearance) -Ulcer Cleansing Soap and Water -Foul Odor after Cleansing No -Anesthetic Used 5% Lidocaine Gel #5 Sacral -Current Size (cm) - Length 0.5 -Current Size (cm) - Width 0.4 -Current Size (cm) - Depth 0.9 -Total Square Cm 0.20 -Maximum Distance #2 (cm) 0.2 -Circular Undermining Yes -Exudate Amt Small -Exudate Type Serosanguineous -Wound Margin Distinct, Outline Attached -Granulation Amt Small (1-33%) -Granulation Quality Red -Necrosis Amt None Present (0 %) -Structure Exposed N/A -Texture (Sandi-wound Skin Appearance) Scarring -Moisture (Sandi-wound Skin Appearance) Dry/Scaly -Color (Sandi-wound Skin Appearance) Assessed -Temperature (Sandi-wound Skin No Abnormality Appearance) (Pt Warm) -Tenderness on Palpation (Sandi-wound No Skin Appearance) -Ulcer Cleansing Rinsed/ Irrigated with Saline -Anesthetic Used 5% Lidocaine Gel WC - Nurse 2 - General Ulcer CM Notes Start: 07/21/23 09:50 Freq: Status: Active Protocol: Activity Type Activity Date Activity User E-sign Co-sign Detail Recorded Client Recorded Date Recorded By Document 07/21/23 10:06 Laptop 07/21/23 10:14 07/21/23 10:06 Wound Center Nurse 2 #8 R Buttock proximal to sacral ulcer -Time 10:08 -Correct Patient Yes -Correct Side, Site, Position Yes -Correct Procedure Yes -Procedure Performed Yes -Type of Procedure Debridement -Clinical Debridement Subcutaneous -Tissue Removed Subcutaneous -Post Debridement (cm) - Length 0.3 -Post Debridement (cm) - Width 0.9 -Post Debridement (cm) - Depth 0.5 -Total Square (Post) (cm) 0.27 -Area of Debridement (cm) - Length 0.3 -Area of Debridement (cm) - Width 0.9 -Total Square (Area) (cm) 0.27 -Tunneling No -Undermining/Tunneling No -Circular Undermining No -Wound/Ulcer Outcome Not Healed -Ulcer Cleansing Rinsed/ Irrigated with Saline -Foul Odor after Cleansing No -Bioengineered Tissue No -Bleeding Controlled with Pressure -Treatment Response Procedure Tolerated Well -Offloading No -Debridement - Subq, 1st 20sq cm Yes #5 Sacral -Time 10:09 -Correct Patient Yes -Correct Side, Site, Position Yes -Correct Procedure Yes -Procedure Performed Yes -Type of Procedure Debridement -Clinical Debridement Muscle / Fascia -Tissue Removed Muscle,Fascia -Post Debridement (cm) - Length 0.7 -Post Debridement (cm) - Width 0.8 -Post Debridement (cm) - Depth 0.3 -Total Square (Post) (cm) 0.56 -Area of Debridement (cm) - Length 0.7 -Area of Debridement (cm) - Width 0.8 -Total Square (Area) (cm) 0.56 -Tunneling No -Circular Undermining Yes -Wound/Ulcer Outcome Not Healed -Ulcer Cleansing Rinsed/ Irrigated with Saline -Foul Odor after Cleansing No -Bioengineered Tissue No -Bleeding Controlled with Pressure -Treatment Response Procedure Tolerated Well -Offloading No -Debridement - Muscle / Fascia, 1st Yes 20sq cm Pain Scale: 0-10 Numeric Is Patient Pain Free? Yes WC - Nurse 3 - General Ulcer D/C NN Start: 07/21/23 09:50 Freq: Status: Active Protocol: Activity Type Activity Date Activity User E-sign Co-sign Detail Recorded Client Recorded Date Recorded By Document 07/21/23 10:21 GM Desktop 07/21/23 10:28 GM 07/21/23 10:21 Wound Care Center Nurse 3 #8 R Buttock proximal to sacral ulcer -Ulcer Cleansing Not Cleansed -Foul Odor after Cleansing No -Negative Pressure Wound Therapy N/A -Primary Dressing Applied Aquacel AG 4x4, Mepilex Border -Aquacel AG 4x4 1 -Mepilex Border 1 #5 Sacral -Ulcer Cleansing Not Cleansed -Foul Odor after Cleansing No -Other Dressing applied part of the aquacel ag Pain Scale: 0-10 Numeric Is Patient Pain Free? Yes Teaching: Wound Center Dressing Your Wound -Person Taught Family -Teaching Method Discussion -Response to teaching Verbalize understanding WC - Visit Discharge Discharge Condition Stable Ambulatory Status Ambulatory, Walker Transportation Private Auto Medication Reconcilliation completed & Yes provided to patient/care provider Clinical Summary of Care Provided Yes Assessment/Plan Assessment/Plan (1) Ulcer of sacral region, stage 4: CODE(S): L98.429 - Non-pressure chronic ulcer of back with unspecified severity (2) Hidradenitis suppurativa: CODE(S): L73.2 - Hidradenitis suppurativa (3) Type 2 diabetes mellitus with diabetic polyneuropathy: CODE(S): E11.42 - Type 2 diabetes mellitus with diabetic polyneuropathy QUALIFIERS: Diabetes mellitus alf insulin use: 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 Wound care - To the sacral ulcer place moistened Aquacel-Ag covered by [place] SAP daily. Continues to have undermining now circumferential. Attempt to pack Aquacel-Ag into the new hidradenitis opening that is just to the right of the sacral ulcer cover with gauze daily. Wash with soap and water at the time of the dressing change, pat dry. Stressed importance of continuing to off load. His hidradenitis flare on his right buttocks is firm, painful and has small amount of drainage. Will start him on Doxycycline to help temper this to help with pain control. Wound culture obtained on 06/26/22 which was positive for Streptococcus agalactiae (B) and Corynebacterium striatum. He completed Augmentin. Wound cultures from 11/06/22 positive for Streptococcus group B, Corynebacterium striatum, Actinomyces odontolyticus, and Anaerobic cocci. Completed Augmentin and probiotic. A wound culture was obtained on 03/05/23 which was positive for Proteus mirabilis, Corynebacterium striatum and Staphylococcus epidermidis. He completed Augmentin. Prealbumin 11.8 from 09/11/22. Encouraged to increase his protein intake to help with wound healing. Discussed what are protein sources and why he needs to increase his protein intake. He has been drinking 1-2 Ensure shakes per day. Stressed that eating food is the important nutritional source and to supplement after meals. Encouraged patient to stop smoking as it may have deleterious effects on wound healing. He will have an operative debridement in the future after he has a further medical work up. He saw a cardiac arrhythmia specialist, Dr. Fletcher in [place], on 05/27/23, for cardiac issues he has been experiencing. He suggested placement of a loop recorder and further neurological work up. Patient is scheduled for EEG in the near future. Nothing was stated about him being able to have operative debridement. Follow up 3 weeks. Call or come in sooner if develop any concerns. Dr. Malcolm's consult note: Patient has a recurrence of his pilonidal cyst that was excised in March,. Just recently another wound opened up to the left and superior to the sacral ulcer. The sacral ulcer has a very small opening making wound care packing difficult. It is impossible to know how adequate the dressing changes are. I made the opening bigger with aggressive excisional debridement. The depth of the ulcer extends to the bone. It is palpable, but not exposed. Another operative excision and debridement would help this ulcer. Would also take a piece of bone as a partial ostectomy to evaluate for osteomyelitis. I anticipate that the new wound probably communicates with the recurrent sacral ulcer deeper down in the ulcer. Tissue that is removed will be sent to Pathology for analysis to rule out carcinoma and to Microbiology for culture. A positive culture would necessitate antibiotic therapy. There is also the possibility that some feces got into the ulcer which led to its recurrence. A temporary diverting colostomy may be necessary if wound healing issues arise again leading to another recurrence. After the ulcer heals and stays healed for a year, then he can have a discussion with the General Surgeon regarding reversing the colostomy. After surgery will try the VAC for wound care. If difficulties arise, then will switch to Dakin's dressing changes daily. His ulcer will not heal as it stands now because there is abnormal scar tissue that is getting in the way of healing. Recommend operative intervention with surgical preparation sacral area with excision recurrent complicated extensive pilonidal cyst ulcer and partial ostectomy for osteomyelitis. Surgery will be done under general anesthesia with a surgical observation overnight stay in the hospital. Will try and place the VAC the next day. I anticipate that both ulcers will communicate beneath the skin bridge into one larger wound. Patient was informed of the risks and complications of the procedure including alternatives to surgery. These were discussed with the patient personally. Patient voices understanding and wishes to proceed. Potential risks and complications included but not inclusive of bleeding, infection, hematoma, bruising, swelling, loss of sensation to skin, wound breakdown, need for wound care, poor scarring, poor aesthetic outcome, intra operative cardiac or neurologic events, DVT, PE, and reaction to anesthesia. Encouraged patient to stop smoking as it may have deleterious effects on wound healing.
== END 2023-07-31 23:59 | disposition home or self-care (01) ==
LOC: WC 09:48
PROVIDERS: PCP Family Medicine; Referring Provider Family Medicine; Visit Provider Nurse Practitioner Family
DX: L98.422 Non-pressure chronic ulcer of back with fat layer exposed (principal); E11.42 Type 2 diabetes mellitus with diabetic polyneuropathy; L73.2 Hidradenitis suppurativa; L05.91 Pilonidal cyst without abscess; L90.5 Scar conditions and fibrosis of skin; F17.200 Nicotine dependence, unspecified, uncomplicated; Z79.82 Long term (current) use of aspirin; Z79.899 Other long term (current) drug therapy; Z98.890 Other specified postprocedural states
CPT/HCPCS: 11042; 11043

== ENCOUNTER 2023-08-18 09:41 | Outpatient (RCR) | payer MEDICARE, SELFPAY ==
[2023-08-01 00:45] VITALS: BP 127/71; PULSE 78; RESP 20; TEMP 36.2
[2023-08-18 09:47] VITALS: BP 107/67; PULSE 78; RESP 20; TEMP 36.4
--- NOTE | 2023-08-18 11:51 | PCM.WC.PN ---
History of Present Illness Date of Service: 08/18/23 Chief Complaint: Recurrent pilonidal cyst ulcer sacral area. History of Wound: 77 year old man with a history of diabetes mellitus underwent surgery on 03/12/21 where he underwent surgical preparation sacral area with excision complicated extensive pilonidal cyst. With wound care, good nutrition, and some antibiotics, the sacral wound healed. It has since recurred. Wound care instituted with Silver dressing changes. Wound cultures from 11/06/22 positive for Streptococcus group B, Corynebacterium striatum, Actinomyces odontolyticus, and Anaerobic cocci. He was treated with Augmentin and has finished them. He was scheduled for a surgical debridement that had to be postponed due to a recent hospitalization at [place] for elevated Ammonia level. He is having further medical workup before having further surgery. He saw a cardiac arrhythmia specialist, Dr. Fletcher in [place], on 05/27/23, for cardiac issues he has been experiencing. He suggested placement of a loop recorder and further neurological work up. Patient is scheduled for EEG in the near future. Nothing was stated about him being able to have operative debridement. Today he denies fever, chills, nausea. States his appetite is ok. Progress of Wound: His sacral ulcer is slightly smaller. The undermining is mostly at 3 o'clock. He has an area of Hidradenitis on his right buttock that is stable today but will drain a thick, white drainage at times. There is no drainage or erythema today. There is firmness in this area with palpation. Objective Data Objective Data Vital Signs: Vital Signs Temp Pulse Resp BP 97.5 F L 78 20 H 107/67 08/18/23 09:47 08/18/23 09:47 08/18/23 09:47 08/18/23 09:47 Charges/Coding Procedures Integumentary [id number]: [id number] Dena musc/fascia 20 sq cm/< Debridement Note Debridement Note Wound debrided: #5 Sacral area and just to the right the new open hidradenitis area Laterality: Not Applicable Wound Grade/Stage: 4 Type of Debridement: Excisional debridement Anesthesia Used: 4% Lidocaine Solution Depth: Down to and including healthy tissue, in the subcutaneous layer, to muscle and to bone (bone is palpable but not exposed.) Percentage of wound debrided: 100 Instrument Used: 5mm curette Tissue Removed: subcutaneous tissue and muscle. Severity: Fat Layer Exposed (muscle is exposed. bone is palpable but not exposed.) Amount of bleeding with debridement: Mild Bleeding Controlled with: Pressure and Compression and gauze Patient tolerated procedure: Patient tolerated procedure well Debridement Free Text: Attempted to unroof as much of the area that is causing the undermining to help make wound care easier. The ulcer is dry. Post-Debridement Measurements and Additional Note: Post-Debridement Measurements/Treatment - Nurse 1 - General Ulcer Assessment Start: 08/18/23 09:47 Freq: Status: Active Protocol: SUSY Activity Type Activity Date Activity User E-sign Co-sign Detail Recorded Client Recorded Date Recorded By Document 08/18/23 09:47 DL [employer] 08/18/23 09:55 DL 08/18/23 09:47 WC - Today's Visit Information Type of service Follow-up Visit (Physician/TECHNICAL AIDE ) Arrival Mode Ambulatory Transfer Assistance None Patient Identification Verified (Name & Yes ) Patient Requires Transmission-Based No Precautions Vital Signs Temperature (97.8 F-99.1 F) 97.5 F L Temperature Source Temporal Pulse Rate (60-100) 78 Pulse Location Monitor Respiratory Rate (12-18) 20 H Respiratory rate source Observation Blood Pressure (90/60-120/80) 107/67 Blood Pressure Mean (mm Hg) 80 Source Monitor History Since Last Visit- (Skip if this is Patient's initial visit) Have you changed medications since your No last visit? Any new allergies or adverse reactions No Had a fall/change in ADL's that may No increase risk of falls Signs or symptoms of abuse and/or No neglect since last visit Have you been in the hospital since your No last visit? Has dressing in place as prescribed Yes Has compression in place as prescribed N/A Has offloadiing in place as prescribed Yes Experienced any changes in pain level or No management Pain Scale: 0-10 Numeric Is Patient Pain Free? Yes - Nurse 1 - General Ulcer Measurement Start: 08/18/23 09:47 Freq: Status: Active Protocol: Activity Type Activity Date Activity User E-sign Co-sign Detail Recorded Client Recorded Date Recorded By Document 08/18/23 09:47 DL [employer] 08/18/23 09:55 DL 08/18/23 09:47 Wound Center Nurse 1 #8 R Buttock proximal to sacral ulcer -Current Size (cm) - Length 0.1 -Current Size (cm) - Width 0.1 -Current Size (cm) - Depth 0.1 -Total Square Cm 0.01 -Photo Taken No -Exudate Amt Medium -Exudate Type Yellow/Green -Wound Margin Distinct, Outline Attached -Granulation Amt Small (1-33%) -Granulation Quality [place] -Necrosis Amt None Present (0 %) -Structure Exposed N/A -Texture (Sandi-wound Skin Appearance) Scarring -Moisture (Sandi-wound Skin Appearance) No Abnormality -Color (Sandi-wound Skin Appearance) No Abnormality -Ulcer Cleansing Soap and Water -Foul Odor after Cleansing No -Anesthetic Used 5% Lidocaine Gel #5 Sacral -Current Size (cm) - Length 0.4 -Current Size (cm) - Width 0.4 -Current Size (cm) - Depth 0.5 -Total Square Cm 0.16 -Exudate Amt Small -Exudate Type Serosanguineous -Wound Margin Thickened & Rolled Under -Granulation Amt Small (1-33%) -Granulation Quality [place] -Necrosis Amt Small (1-33%) -Necrotic Tissue Type Adherent Slough -Structure Exposed N/A -Texture (Sandi-wound Skin Appearance) Scarring -Moisture (Sandi-wound Skin Appearance) No Abnormality -Color (Sandi-wound Skin Appearance) No Abnormality -Temperature (Sandi-wound Skin No Abnormality Appearance) (Pt Warm) -Tenderness on Palpation (Sandi-wound No Skin Appearance) -Ulcer Cleansing Soap and Water -Foul Odor after Cleansing No -Anesthetic Used 4% Lidocaine Solution,5% Lidocaine Gel WC - Nurse 2 - General Ulcer CM Notes Start: 08/18/23 09:47 Freq: Status: Active Protocol: Activity Type Activity Date Activity User E-sign Co-sign Detail Recorded Client Recorded Date Recorded By Document 08/18/23 10:14 Laptop 08/18/23 10:20 08/18/23 10:14 Wound Center Nurse 2 #8 R Buttock proximal to sacral ulcer -Correct Patient No -Correct Side, Site, Position No -Correct Procedure No -Procedure Performed No -Post Debridement (cm) - Length 0 -Post Debridement (cm) - Width 0 -Post Debridement (cm) - Depth 0 -Total Square (Post) (cm) 0 -Area of Debridement (cm) - Length 0 -Area of Debridement (cm) - Width 0 -Total Square (Area) (cm) 0 -Wound/Ulcer Outcome Healed- Epithelialized #5 Sacral -Time 10:15 -Correct Patient Yes -Correct Side, Site, Position Yes -Correct Procedure Yes -Procedure Performed Yes -Type of Procedure Debridement -Clinical Debridement Muscle / Fascia -Tissue Removed Muscle,Fascia -Post Debridement (cm) - Length 0.6 -Post Debridement (cm) - Width 0.6 -Post Debridement (cm) - Depth 0.3 -Total Square (Post) (cm) 0.36 -Area of Debridement (cm) - Length 0.6 -Area of Debridement (cm) - Width 0.6 -Total Square (Area) (cm) 0.36 -Tunneling Yes -Tunneling Position (O'clock) 3 -Tunneling Distance (cm) 0.8 -Undermining/Tunneling No -Circular Undermining No -Wound/Ulcer Outcome Not Healed -Ulcer Cleansing Rinsed/ Irrigated with Saline -Foul Odor after Cleansing No -Bioengineered Tissue No -Bleeding Controlled with Pressure -Treatment Response Procedure Tolerated Well -Offloading No -Debridement - Muscle / Fascia, 1st Yes 20sq cm Pain Scale: 0-10 Numeric Is Patient Pain Free? Yes - Nurse 3 - General Ulcer D/C NN Start: 08/18/23 09:47 Freq: Status: Active Protocol: Activity Type Activity Date Activity User E-sign Co-sign Detail Recorded Client Recorded Date Recorded By Document 08/18/23 10:32 [facility] Desktop 08/18/23 10:35 [facility] 08/18/23 10:32 Wound Care Center Nurse 3 #5 Sacral -Ulcer Cleansing Rinsed/ Irrigated with Saline -Foul Odor after Cleansing No -Primary Dressing Applied C Hydrogel ($), Mepilex Border -Mepilex Border 1 Treatment Response Procedure Tolerated Well Pain Scale: 0-10 Numeric Is Patient Pain Free? Yes - Visit Discharge Discharge Condition Stable Ambulatory Status Ambulatory, Walker Transportation Private Auto Accompanied by Assessment/Plan Assessment/Plan (1) Ulcer of sacral region, stage 4: CODE(S): L98.429 - Non-pressure chronic ulcer of back with unspecified severity (2) Hidradenitis suppurativa: CODE(S): L73.2 - Hidradenitis suppurativa (3) Type 2 diabetes mellitus with diabetic polyneuropathy: CODE(S): E11.42 - Type 2 diabetes mellitus with diabetic polyneuropathy QUALIFIERS: Diabetes mellitus retirement insulin use: unspecified middle or intermediate school principal insulin use status Qualified Code(s): E11.42 - Type 2 diabetes mellitus with diabetic polyneuropathy (4) History of excision of pilonidal cyst: CODE(S): Z98.890 - Other specified postprocedural states (5) Hidradenitis suppurativa of anus: CODE(S): L73.2 - Hidradenitis suppurativa (6) Smoker: CODE(S): F17.200 - Nicotine dependence, unspecified, uncomplicated PLAN: Plan Patient was evaluated at the wound center today. Wound care - To the sacral ulcer stop Aquacel-Ag. Start Collagen hydrogel covered by [place] SAP daily. Wash ulcer and right buttocks with soap and water at the time of the dressing change, pat dry. Stressed importance of continuing to off load. His hidradenitis flare on his right buttocks is firm, painful and has small amount of drainage. Will start him on Doxycycline to help temper this to help with pain control. Wound culture obtained on 06/26/22 which was positive for Streptococcus agalactiae (B) and Corynebacterium striatum. He completed Augmentin. Wound cultures from 11/06/22 positive for Streptococcus group B, Corynebacterium striatum, Actinomyces odontolyticus, and Anaerobic cocci. Completed Augmentin and probiotic. A wound culture was obtained on 03/05/23 which was positive for Proteus mirabilis, Corynebacterium striatum and Staphylococcus epidermidis. He completed Augmentin. Prealbumin 11.8 from 09/11/22. Encouraged to increase his protein intake to help with wound healing. Discussed what are protein sources and why he needs to increase his protein intake. He has been drinking 1-2 Ensure shakes per day. Stressed that eating food is the important nutritional source and to supplement after meals. Encouraged patient to stop smoking as it may have deleterious effects on wound healing. He will have an operative debridement in the future after he has a further medical work up. He saw a cardiac arrhythmia specialist, Dr. Fletcher in [place], on 05/27/23, for cardiac issues he has been experiencing. He suggested placement of a loop recorder and further neurological work up. Patient is scheduled for EEG in the near future. Nothing was stated about him being able to have operative debridement. Follow up 3 weeks. Call or come in sooner if develop any concerns.
== END 2023-08-31 23:59 | disposition home or self-care (01) ==
LOC: WC 09:41
PROVIDERS: PCP Family Medicine; Referring Provider Family Medicine; Visit Provider Nurse Practitioner Family
DX: L98.422 Non-pressure chronic ulcer of back with fat layer exposed (principal); E11.42 Type 2 diabetes mellitus with diabetic polyneuropathy; L73.2 Hidradenitis suppurativa; F17.200 Nicotine dependence, unspecified, uncomplicated; Z79.82 Long term (current) use of aspirin; Z79.2 Long term (current) use of antibiotics; Z79.899 Other long term (current) drug therapy
CPT/HCPCS: 11043

== ENCOUNTER 2023-09-08 14:39 | Outpatient (RCR) | payer MEDICARE, SELFPAY ==
[2023-09-01 00:24] VITALS: BP 107/67; PULSE 78; RESP 20; TEMP 36.4
[2023-09-08 14:46] VITALS: BP 118/68; PULSE 84; RESP 18; TEMP 36.4
--- NOTE | 2023-09-08 16:19 | PN.PCM_ITS ---
History of Present Illness Date of Service: 09/08/23 Chief Complaint: Hidradenitis right buttock extending to sacral area. History of Wound: 78 year old man with a history of diabetes mellitus underwent surgery on 03/12/21 where he underwent surgical preparation sacral area with excision complicated extensive pilonidal cyst. With wound care, good nutrition, and some antibiotics, the sacral wound healed. He also has a history of hidradenitis involving his bilateral buttock areas and perineal area. He has developed a recent flare up of his hidradenitis involving the right buttock extending to the sacral area. There is intermittent drainage present. He denies fever. He complains of pain in this area. His Prealbumin from 09/11/22 was 11.8. Encourage nutritional supplementation with protein to help the healing process. Patient is diabetic. His last HgbA1c from 09/11/22 was 5.3. For elective surgeries, the HgbA1c needs to be less than 8. Today he denies fever, chills, nausea. States his appetite is ok. Progress of Wound: has a flare up of hidradenitis involving his right buttock extending to the sacral area. Objective Data Objective Data Vital Signs: Vital Signs Temp Pulse Resp BP 97.5 F L 84 18 118/68 09/08/23 14:46 09/08/23 14:46 09/08/23 14:46 09/08/23 14:46 His Prealbumin from 09/11/22 was 11.8. Encourage nutritional supplementation with protein to help the healing process. Lab / Micro Data Attestation: I reviewed the patient's lab results. Lab results narrative: Patient is diabetic. His last HgbA1c from 09/11/22 was 5.3. For elective surgeries, the HgbA1c needs to be less than 8. Charges/Coding Visit Charges Office Visits / Consults: 75518 OV L4 Est 30min (ICD-10 - L73.2, Z98.890, E11.42, F17.200) Debridement Note Debridement Note Wound debrided: #8 Right buttock with extension to the sacral area Laterality: Right Wound Grade/Stage: 2 No debridement was completed: No debridement was completed today (The patient has a flare up of his hidradenitis right buttock with extension to the sacral area. The area of hidradenitis needs to be excised in the operating room.) Post-Debridement Measurements and Additional Note: Post-Debridement Measurements/Treatment - Nurse 1 - General Ulcer Assessment Start: 09/08/23 14:46 Freq: Status: Active Protocol: SUSY Activity Type Activity Date Activity User E-sign Co-sign Detail Recorded Client Recorded Date Recorded By Document 09/08/23 14:46 KW Desktop 09/08/23 14:55 KW 09/08/23 14:46 WC - Today's Visit Information Type of service Follow-up Visit (Physician/STORAGE WORKER ) Arrival Mode Ambulatory, Walker Accompanied by Patient Identification Verified (Name & Yes ) Vital Signs Temperature (97.8 F-99.1 F) 97.5 F L Temperature Source Temporal Pulse Rate (60-100) 84 Pulse Location Monitor Respiratory Rate (12-18) 18 Respiratory rate source Observation Blood Pressure (90/60-120/80) 118/68 Blood Pressure Mean (mm Hg) 84 Source Monitor History Since Last Visit- (Skip if this is Patient's initial visit) Have you changed medications since your No last visit? Any new allergies or adverse reactions No Had a fall/change in ADL's that may No increase risk of falls Signs or symptoms of abuse and/or No neglect since last visit Have you been in the hospital since your No last visit? Has dressing in place as prescribed Yes Has compression in place as prescribed N/A Has offloadiing in place as prescribed Yes Experienced any changes in pain level or No management Pain Scale: 0-10 Numeric Is Patient Pain Free? Yes PLACIDO - Nurse 1 - General Ulcer Measurement Start: 09/08/23 14:46 Freq: Status: Active Protocol: Activity Type Activity Date Activity User E-sign Co-sign Detail Recorded Client Recorded Date Recorded By Document 09/08/23 14:46 KW [employer] 09/08/23 14:55 KW 09/08/23 14:46 Wound Center Nurse 1 #8 R Buttock proximal to sacral ulcer -Current Size (cm) - Length 0.4 -Current Size (cm) - Width 0.1 -Current Size (cm) - Depth 0.3 -Total Square Cm 0.04 -Exudate Amt Medium -Exudate Type Purulent -Wound Margin Distinct, Outline Attached -Granulation Amt Medium (34-66%) -Granulation Quality [place] -Necrosis Amt Small (1-33%) -Necrotic Tissue Type Adherent Slough -Texture (Sandi-wound Skin Appearance) Assessed -Moisture (Sandi-wound Skin Appearance) Assessed,Dry/ Scaly -Color (Sandi-wound Skin Appearance) Assessed -Temperature (Sandi-wound Skin No Abnormality Appearance) (Pt Warm) -Ulcer Cleansing Rinsed/ Irrigated with Saline #5 Sacral -Current Size (cm) - Length 0.1 -Current Size (cm) - Width 0.1 -Current Size (cm) - Depth 0.1 -Total Square Cm 0.01 -Exudate Amt Medium -Exudate Type Serosanguineous - Nurse 2 - General Ulcer CM Notes Start: 09/08/23 14:46 Freq: Status: Active Protocol: Activity Type Activity Date Activity User E-sign Co-sign Detail Recorded Client Recorded Date Recorded By Document 09/08/23 15:04 Laptop 09/08/23 15:13 09/08/23 15:04 Wound Center Nurse 2 #8 R Buttock proximal to sacral ulcer -Correct Patient No -Correct Side, Site, Position No -Correct Procedure No -Procedure Performed No -Wound/Ulcer Outcome Not Healed #5 Sacral -Correct Patient No -Correct Side, Site, Position No -Correct Procedure No -Procedure Performed No -Wound/Ulcer Outcome Not Healed Pain Scale: 0-10 Numeric Is Patient Pain Free? Yes - Nurse 3 - General Ulcer D/C NN Start: 09/08/23 14:46 Freq: Status: Active Protocol: Activity Type Activity Date Activity User E-sign Co-sign Detail Recorded Client Recorded Date Recorded By Document 09/08/23 15:23 KW Desktop 09/08/23 15:24 KW 09/08/23 15:23 Wound Care Center Nurse 3 #8 R Buttock proximal to sacral ulcer -Primary Dressing Applied Mepilex Border -Mepilex Border 1 #5 Sacral -Other Dressing covered with mepilex Pain Scale: 0-10 Numeric Is Patient Pain Free? Yes - Visit Discharge Discharge Condition Stable Ambulatory Status Ambulatory, Walker Transportation Private Auto Medication Reconcilliation completed & No provided to patient/care provider Clinical Summary of Care Provided Yes Assessment/Plan Assessment/Plan (1) Hidradenitis suppurativa of anus: CODE(S): L73.2 - Hidradenitis suppurativa (2) History of excision of pilonidal cyst: CODE(S): Z98.890 - Other specified postprocedural states (3) Type 2 diabetes mellitus with diabetic polyneuropathy: CODE(S): E11.42 - Type 2 diabetes mellitus with diabetic polyneuropathy QUALIFIERS: Diabetes mellitus care home insulin use: unspecified care home insulin use status Qualified Code(s): E11.42 - Type 2 diabetes mellitus with diabetic polyneuropathy (4) Smoker: CODE(S): F17.200 - Nicotine dependence, unspecified, uncomplicated PLAN: Plan His previous excision of pilonidal cyst has healed. However he has a flare up of his hidradenitis involving his right buttock area extending to the sacral area. Because of the intermittent drainage in his hidradenitis involving his right buttock area extending to the sacral area, will send script to his Pharmacy for Doxycycline that he will use for flare ups to help temporize the area from worsening before going to the operating room for excision of his hidradenitis. At the time of surgery, tissue that is removed will be sent to Pathology for analysis to rule out carcinoma and to Microbiology for culture. A positive culture will necessitate antibiotic therapy. Surgery will be performed under general anesthesia with a surgical observation overnight stay in the hospital. Postop, will leave the wound open and begin wound care either with the VAC if a seal can be maintained or daily dressing changes with Dakin's or Silver dressings. As the wound gets smaller and more superficial, the patient can continue wound care or proceed with delayed closure with skin grafting. Stressed importance of continuing to off load as pressure in this area may cause exacerbate the hidradenitis as well as causing him more pain. His Prealbumin from 09/11/22 was 11.8. Encourage nutritional supplementation with protein to help the healing process. Patient is diabetic. His last HgbA1c from 09/11/22 was 5.3. For elective surgeries, the HgbA1c needs to be less than 8. Encouraged patient to stop smoking as it may have deleterious effects on wound healing. For the patient's surgery which is excision hidradenitis right buttock area extending to the sacral area, will need to refer him to a tertiary center because no one in [place] is available to perform the surgery at this time. Postoperatively, can followup at the Wound Center. Patient was informed of the risks and complications of the procedure including alternatives to surgery. These were discussed with the patient personally. Patient voices understanding and wishes to proceed.
--- NOTE | 2023-09-22 10:31 | WC ---
Received a fax notification from [facility] referral line stating that they have left 2 messages with patient regarding an appt to be scheduled for a consultation per Dr Malcolm for possible surgical debridement. No calls have been made from patient to schedule. Left a voicemail with Rosamaria, patient' , to call physician hotline number at . If she has any concerns or questions regarding this to call me on the nurses line.
== END 2023-09-09 15:56 | disposition home or self-care (01) ==
LOC: WC 14:39
PROVIDERS: PCP Family Medicine; Referring Provider Family Medicine; Visit Provider Surgery
DX: L73.2 Hidradenitis suppurativa (principal); E11.42 Type 2 diabetes mellitus with diabetic polyneuropathy; F17.200 Nicotine dependence, unspecified, uncomplicated; Z79.82 Long term (current) use of aspirin; Z79.899 Other long term (current) drug therapy; Z98.890 Other specified postprocedural states
CPT/HCPCS: 99214; G0463

== ENCOUNTER → 2023-10-10 | Outpatient (CLI) | payer MEDICARE, SELFPAY ==
[2023-10-10 13:15] LABS: Anion Gap 6 (5-15); BUN 13 mg/dL (7-18); BUN/Creat Ratio 14.8 RATIO (10-20); Calcium,Total 9.5 mg/dL (8.5-10.1); Chloride 108 mmol/L (98-107); Creatinine, Serum 0.88 mg/dL (0.70-1.30); EST Glomerular Filtration Rate 89 mL/min (>60); Est Glom Filt Rate - Afr Amer 108 mL/min (>60); Glucose 85 mg/dL (74-106); Potassium 4.1 mmol/L (3.5-5.1); Sodium Level 137 mmol/L (136-145)
== END | disposition home or self-care (01) ==
LOC: LAB 11:45
PROVIDERS: PCP Family Medicine; Referring Provider Internal Medicine; Visit Provider Internal Medicine
DX: K74.60 Unspecified cirrhosis of liver (principal)
CPT/HCPCS: 36415; 80048

== ENCOUNTER → 2024-01-05 | Outpatient (CLI) | payer MEDICARE, SELFPAY ==
[2024-01-05 12:46] LABS: Absolute Lymphocyte Count 2.15 X10^3/uL (0.83-4.51); Absolute Neutrophil Count 10.1 X10^3/uL (2.0-7.7); Basophil# 0.11 X10^3/uL; Basophil% 0.8 % (0-1); Eosinophil# 0.46 X10^3/uL; Eosinophils% 3.3 % (0-5); Hemoglobin 12.1 g/dL (13.0-16.5); Lymphocyte # 2.15 X10^3/ul (0.83-4.51); Lymphocyte % 15.5 % (19-41); Mean Corp Hgb Conc 31.8 g/dL (32-36); Mean Corpuscular Hgb 30.1 pg (27.0-32.0); Mean Corpuscular Volume 94.5 fL (80-94); Mean Platelet Vol. 9.7 fl (6.2-12.0); Monocyte# 0.97 X10^3/uL; NRBC Flagged by Analyzer 0 % (0-5); Neutrophil # 10.13 X10^3/uL (2.7-7.7); Platelet Count 196 K/mm3 (150-450); RBC Distribution Width CV 14.6 % (11.6-14.6); RBC Distribution Width SD 50.8 fl (35.1-43.9); Red Blood Count 4.02 M/mm3 (4.6-6.2); White Blood Count 13.9 K/mm3 (4.4-11.0)
[2024-01-05 12:55] LABS: International Normalized Ratio 1.2; Prothrombin Time (Protime)PT. 14.9 SECONDS (11.7-14.9)
[2024-01-05 13:04] LABS: Hemoglobin A1c 5.4 % (3.8-5.6)
[2024-01-05 13:49] LABS: Hepatitis C Antibody Non-Reactive (Nonreactive); Vitamin B12 533 pg/mL (211-911)
[2024-01-05 13:53] LABS: ALB/GLOB Ratio 0.5 RATIO (0.9-2.4); AST(SGOT) 14 U/L (15-37); Alanine Aminotransfer ALT/SGPT 9 U/L (16-61); Albumin, Serum 2.9 g/dL (3.2-5.0); Alkaline Phosphatase 104 U/L (45-117); Anion Gap 5 (5-15); BUN 15 mg/dL (7-18); BUN/Creat Ratio 15.4 RATIO (10-20); Calcium,Total 9.2 mg/dL (8.5-10.1); Chloride 105 mmol/L (98-107); Cholesterol 77 mg/dL (200); Creatinine, Serum 0.98 mg/dL (0.70-1.30); EST Glomerular Filtration Rate 79 mL/min (>60); Est Glom Filt Rate - Afr Amer 96 mL/min (>60); Ferritin 173 ng/mL (26-388); Globulin 5.5 g/dL (2.2-4.2); Glucose 91 mg/dL (74-106); High Density Lipoprotein 70 mg/dL; Iron 33 ug/dL (65-175); Iron Binding Capacity,Total 300 ug/dL (250-450); Potassium 4.3 mmol/L (3.5-5.1); Protein, Total 8.4 g/dL (6.4-8.2); Sodium Level 136 mmol/L (136-145); Triglycerides 46 mg/dL; Very Low Density Lipoprotein 9 mg/dL (5-40)
[2024-01-06 15:08] LABS: ANTINUCLEAR ANTIBODIES DIRECT Negative (Negative); Anti-Mitochondrial AB <20.0 Units (0.0-20.0)
[2024-01-07 15:09] LABS: AFP, Tumor Marker < 1.8 ng/mL (0.0-8.4); Anti-Smooth Muscle ABS 36 Units (0-19); HCV Quant. RNA PCR HCV Not Detected IU/mL (.); HEPATITIS B SURFACE AG Negative (Negative); Hep C Antibodies Non Reactive (Non Reactive); Hepatitis A IgM Antibody Negative (Negative); Hepatitis B Core AB IgM Negative (Negative); Perinuclear Ab (P-ANCA) <1:20 titer (Neg:<1:20)
== END | disposition home or self-care (01) ==
PROVIDERS: PCP Family Medicine; Referring Provider Internal Medicine; Visit Provider Internal Medicine
DX: K74.60 Unspecified cirrhosis of liver (principal); F10.21 Alcohol dependence, in remission; E11.42 Type 2 diabetes mellitus with diabetic polyneuropathy; B19.20 Unspecified viral hepatitis C without hepatic coma
CPT/HCPCS: 80053; 80061; 80074; 82105; 82140; 82607; 82728; 82746; 83036; 83516; 83540; 83550; 85025; 85610; 86038; 86225; 86235; 86256; 86803; 87522; 87902

== ENCOUNTER 2024-01-19 14:31 | Outpatient (RCR) | payer MEDICARE, SELFPAY ==
[2024-01-19 14:45] VITALS: BP 105/59; PULSE 83; RESP 18; TEMP 36.3; BMI 20.9
--- NOTE | 2024-01-19 15:41 | PCM.WC.HP ---
History of Present Illness Date of Service: 01/19/24 Chief Complaint: Hidradenitis right buttock extending to sacral area. History of Wound: 78 year old man with a history of diabetes mellitus underwent surgery on 03/12/21 where he underwent surgical preparation sacral area with excision complicated extensive pilonidal cyst. With wound care, good nutrition, and some antibiotics, the sacral wound healed. He also has a history of hidradenitis involving his bilateral buttock areas and perineal area. He has developed a recent flare up of his hidradenitis involving the right buttock extending to the sacral area. There is intermittent drainage present. He denies fever. He complains of pain in this area. Patient is diabetic. He continues to have multiple other health issue with his liver and his heart. Today he denies fever, chills, nausea. States his appetite is ok. Progress of Wound: He is having right buttocks hidradenitis flare. He has been having increased pain and drainage from this area. His sacral ulcer remains healed at this time. 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 Pressure injury of sacral region, stage 4 Open wound of left buttock Ulcer of sacral region, stage 4 Hepatitis C Liver disease History of hidradenitis suppurativa Alcohol dependence Chronic pain of left knee Hyponatremia PAD (peripheral artery disease) Erectile dysfunction Microalbuminuria Acute and subacute hepatic failure without coma Malnutrition Muscle spasms of neck Other acute postprocedural pain Open wound of sacroiliac region with complication Wears dentures Alcohol use Diabetes Ambulates with cane History of edema History of stress test Hypertension Smoker Hidradenitis suppurativa of anus Pilonidal cyst Cancer Non-pressure chronic ulcer of right calf with fat layer exposed Edema leg Type 2 diabetes mellitus with diabetic polyneuropathy Home Medications ?Medication ?Instructions ?Recorded ?Last Taken ?Type losartan 50 mg tablet 50 mg PO DAILY 07/07/21 07/12/21 10:00 History 50 mg oxycodone-acetaminophen 5 mg-325 1 tab PO Q6H PRN pain (scale score 08/28/22 Unknown Rx mg tablet (Percocet) 7-10) 2 days #8 tabs aspirin 81 mg chewable tablet 1 tab PO DAILY 02/26/23 Unknown History atorvastatin 10 mg tablet 10 mg PO DAILY 02/26/23 Unknown History pantoprazole 40 mg tablet,delayed 40 mg PO DAILY 02/26/23 Unknown History release thiamine HCl (vitamin B1) 100 mg 100 mg PO DAILY 02/26/23 Unknown History tablet Lactobacillus acidophilus 10 10,000 mmu cells PO DAILY 30 days 03/07/23 Unknown Rx billion cell capsule (Probiotic) #30 caps ursodiol 300 mg capsule 300 mg PO BID #60 caps 03/10/23 Unknown Rx diclofenac sodium 1 % topical gel 2 g topical ONCE 09/03/23 Unknown History (Arthritis Pain (diclofenac)) levetiracetam 500 mg tablet 500 mg PO BID 09/03/23 Unknown History (Keppra) folic acid 1 mg tablet 1 mg PO DAILY 1 month #30 tabs 09/04/23 Unknown Rx lactulose 10 gram/15 mL oral 30 ml PO TID 1 month #2,700 mL 09/04/23 Unknown Rx solution mecobalamin (vitamin B12) 1,000 1,000 mcg PO DAILY 1 month #30 tabs 09/04/23 Unknown Rx mcg chewable tablet rifaximin 550 mg tablet (Xifaxan) 550 mg PO BID #60 tabs 09/04/23 Unknown Rx spironolactone 25 mg tablet 25 mg PO DAILY 09/11/23 Unknown History doxycycline hyclate 100 mg capsule 100 mg PO BID #60 caps 12/30/23 Unknown Rx ascorbic acid (vitamin C) 500 mg 500 mg PO BID 1 month #60 tabs 01/05/24 Unknown Rx tablet ferrous sulfate 325 mg (65 mg 325 mg PO DAILY 1 month #30 tabs 01/05/24 Unknown Rx iron) tablet,delayed release amoxicillin 500 mg-potassium 1 tab PO Q12H 7 days #14 tabs 01/19/24 Unknown Rx clavulanate 125 mg tablet Allergy/AdvReac Type Severity Reaction Status Date / Time acetaminophen AdvReac Vomiting Verified 09/04/23 11:45 Family History (Reviewed 01/26/24 @ 21:15 by Lesa Benedict DRUG AND ALCOHOL TREATMENT SPECIALIST, DRUG AND ALCOHOL TREATMENT SPECIALIST-C) Father Colon cancer Prostate cancer Mother CVA (cerebral vascular accident) Sister Asthma Brother Hypertension Other Cancer Diabetes Surgical History (Reviewed 01/26/24 @ 21:15 by Lesa Benedict DRUG AND ALCOHOL TREATMENT SPECIALIST, DRUG AND ALCOHOL TREATMENT SPECIALIST-C) History of amputation of right great toe (~2012) History of excision of pilonidal cyst Hx of colonoscopy History of transurethral resection of prostate Hx of laparoscopic partial gastrectomy Social History (Reviewed 01/26/24 @ 21:15 by Lesa Benedict DRUG AND ALCOHOL TREATMENT SPECIALIST, DRUG AND ALCOHOL TREATMENT SPECIALIST-C) Smoking Status: Current every day smoker tobacco type: cigarettes alcohol intake: former details: 3 months substance use type: marijuana caffeine: Yes Type: coffee Number of servings: 1 additional social history: Does Not Take Aspirin Does Not Take Ibuprofen ROS Constitutional Constitutional: Denies fever(s) or frequent falls Eyes Eyes: Reports systems reviewed and no addt'l complaints, except as documented ENT HEENT: Reports systems reviewed and no addt'l complaints, except as documented Cardiovascular Cardiovascular: Denies chest pain or dyspnea Respiratory/Chest Respiratory/Chest: Denies cough or dyspnea Gastrointestinal Gastrointestinal: Denies diarrhea, nausea or vomiting Genitourinary Genitourinary: Reports systems reviewed and no addt'l complaints, except as documented Musculoskeletal Musculoskeletal: Reports joint pain, joint stiffness and stiffness Integumentary Integumentary: Reports lesions and skin pain Neurologic Neurologic: Reports systems reviewed and no addt'l complaints, except as documented Psychiatric Psychiatric: Reports systems reviewed and no addt'l complaints, except as documented Endocrine Endocrinology: Reports as per HPI Hematologic/Lymphatic Hematologic/Lymphatic: Reports systems reviewed and no addt'l complaints, except as documented Vital Signs Vital Signs Vital Signs: 01/19/24 14:45 Temperature 97.3 F L Temperature Source Temporal Pulse Rate 83 Respiratory Rate 18 Blood Pressure 105/59 L Blood Pressure Mean 74 Blood Pressure Source Monitor Blood Pressure Position Sitting Blood Pressure Location Left Arm Oxygen Delivery Method Room Air Weight Weight: 155 lb Body Mass Index (BMI) 20.9 Physical Exam Const alert, oriented x3 and no apparent distress General Appearance: cooperative and well kempt Orientation / Consciousness: awake HEENT normocephalic Head and Scalp: atraumatic Eyes EOMs intact bilaterally General Eye: normal appearance of both eyes Neck full ROM Lymph Lymphatic: no lymphedema noted Resp normal respiratory effort, normal air movement and clear to auscultation bilaterally Effort and Inspection: able to speak in complete sentences Cardio regular rate and regular rhythm Peripheral Pulses: dorsalis pedis pulses present GI normal to inspection, nondistended, normoactive bowel sounds, soft to palpation and non-tender Back/Spine normal ROM Extremity full ROM and normal capillary refill Skin Wound Narrative: Right buttocks with several firm areas where able to express white/bloody drainage. It is very painful to palpation. There is no odor or warmth. Neuro oriented x3 and moves all extremities Sensorium / Orientation: awake and alert Psych thought process normal, cooperative and affect normal Debridement Note Debridement Note No debridement was completed: No debridement was completed today Post-Debridement Measurements and Additional Note: Post-Debridement Measurements/Treatment - Nurse 1 - General Ulcer Assessment Start: 01/19/24 14:36 Freq: Status: Active Protocol: [email or web address].[email or web address] Activity Type Activity Date Activity User E-sign Co-sign Detail Recorded Client Recorded Date Recorded By Document 01/19/24 14:45 KW wound center 01/19/24 14:59 KW 01/19/24 14:45 - Today's Visit Information Type of service Initial Visit Arrival Mode Ambulatory, Walker Accompanied by Patient Identification Verified (Name & Yes ) Height and Weight Height 6 ft Weight 155 lb Weight in Pounds 155.0 lbs Weight Measurement Method Estimated by Patient Body Mass Index (BMI) 20.9 BMI Classification Normal BSA - Adeola 1.91 Vital Signs Temperature (97.8 F-99.1 F) 97.3 F L Temperature Source Temporal Pulse Rate (60-100) 83 Pulse Location Monitor Respiratory Rate (12-18) 18 Respiratory rate source Observation Oxygen Delivery Method Room Air Blood Pressure (90/60-120/80) 105/59 L Blood Pressure Mean 74 Source Monitor Position Sitting Blood Pressure Location Left Arm History Since Last Visit- (Skip if this is Patient's initial visit) Left Footwear Regular Shoe Right Footwear Regular Shoe Pain Scale: 0-10 Numeric Is Patient Pain Free? No RT BUTTOCK -Description Sharp,Burning -Intensity 5 -Pain Behavior No Change in Behavior -Alleviating Factors/Interventions Medication Communication Assessment Preferred language Malian Able to Read Yes Able to Write Yes Communication Tools None Caregiver Communication Skills No Impairment Impairment Right Hearing Abillity Normal Left Hearing Abillity Normal Visual Assistive Devices None Teaching Assessment Preferences Verbal,Written, Demonstration Barriers to Learning None Readiness To Learn Excellent Willingness to Engage in Self Management High Activies Readiness to Engage in Self Management High Activities Anxiety Level Calm Cooperation Cooperative Perception Coherent Interest in Health Problem Asks Questions Education Importance Acknowledges Need Does Patient Smoke tobacco or other Yes substances Smoking Status Current every day smoker Functional Assessment Recent Decline in Ability to Perform Denies Any Declines Culture/Zoroastrianism/Paintless Dent Repair Technician Cultural/Zoroastrianism Needs that may affect No Treatment Plan Would you allow our hospital carpenter helper to No meet you for the purpose of spiritual/ emotional support? Paintless Dent Repair Technician to contact place of sikh No WC - Nurse 1 - General Ulcer Measurement Start: 01/19/24 14:36 Freq: Status: Active Protocol: Activity Type Activity Date Activity User E-sign Co-sign Detail Recorded Client Recorded Date Recorded By Document 01/19/24 14:45 KW wound center 01/19/24 14:59 KW 01/19/24 14:45 Wound Center Nurse 1 #9 RT BUTTOCK PROXIMAL -Current Size (cm) - Length 0.2 -Current Size (cm) - Width 0.4 -Current Size (cm) - Depth 0.1 -Total Square Cm 0.08 -Exudate Amt Small -Exudate Type Serosanguineous -Wound Margin Distinct, Outline Attached -Granulation Amt Large (67-100%) -Granulation Quality Red -Texture (Sandi-wound Skin Appearance) Assessed -Moisture (Sandi-wound Skin Appearance) Assessed -Color (Sandi-wound Skin Appearance) Assessed -Temperature (Sandi-wound Skin No Abnormality Appearance) (Pt Warm) -Tenderness on Palpation (Sandi-wound No Skin Appearance) -Ulcer Cleansing Soap and Water -Foul Odor after Cleansing Yes -Anesthetic Used 5% Lidocaine Gel #10 RT BUTTOCK DISTAL cluster -Current Size (cm) - Length 0.2 -Current Size (cm) - Width 0.2 -Current Size (cm) - Depth 1 -Total Square Cm 0.04 -Exudate Amt Small -Exudate Type Serosanguineous -Wound Margin Distinct, Outline Attached -Granulation Amt Large (67-100%) -Granulation Quality Red -Texture (Sandi-wound Skin Appearance) Assessed -Moisture (Sandi-wound Skin Appearance) Assessed -Color (Sandi-wound Skin Appearance) Assessed -Temperature (Sandi-wound Skin No Abnormality Appearance) (Pt Warm) -Tenderness on Palpation (Sandi-wound Yes Skin Appearance) -Ulcer Cleansing Soap and Water -Foul Odor after Cleansing No -Anesthetic Used 5% Lidocaine Gel WC - Nurse 2 - General Ulcer CM Notes Start: 01/19/24 14:36 Freq: Status: Active Protocol: Activity Type Activity Date Activity User E-sign Co-sign Detail Recorded Client Recorded Date Recorded By Document 01/19/24 15:15 DS [id number] 01/19/24 15:18 DS 01/19/24 15:15 Wound Center Nurse 2 -Time 15:15 -Correct Patient No -Correct Side, Site, Position No -Correct Procedure No -Procedure Performed No -Wound/Ulcer Outcome Not Healed -Wound Comment(s) no debridement done. expressed serosang drainage from HS abscess to right buttocks Pain Scale: 0-10 Numeric Is Patient Pain Free? No RT BUTTOCK -Description Aching -Intensity 3 -Duration (hours) Acute -Pain Behavior Moaning, Guarding -Alleviating Factors/Interventions Will continue to monitor, Emotional Support Charges/Coding Visit Charges Office Visits / Consults: [id number] OV L3 Est 20min Assessment/Plan Assessment/Plan (1) Hidradenitis suppurativa: CODE(S): L73.2 - Hidradenitis suppurativa (2) Type 2 diabetes mellitus with diabetic polyneuropathy: CODE(S): E11.42 - Type 2 diabetes mellitus with diabetic polyneuropathy QUALIFIERS: Diabetes mellitus alf insulin use: unspecified alf insulin use status Qualified Code(s): E11.42 - Type 2 diabetes mellitus with diabetic polyneuropathy (3) Smoker: CODE(S): F17.200 - Nicotine dependence, unspecified, uncomplicated (4) History of excision of pilonidal cyst: CODE(S): Z98.890 - Other specified postprocedural states PLAN: Plan Patient evaluated at the wound healing center for hidradenitis flare. He has no open wound. He has several areas of hidradenitis that are draining and painful. Will start him on Augmentin to help with this flare. Ideally would treat him with Doxycycline or Bactrim but with his history of liver issues, Augmentin seems to be the best choice due to how it is metabolized. He may wash this area with soap and water and cover with dry dressing to help absorb the drainage. He may try warm compresses for no more than 10-20 minutes at a time to help with the drainage. If he tries to sit on a heating pad he needs to not be on it for more than 20 minutes to prevent potential burn. Since he has no open wound, then will follow up with him in 2 weeks at my office.
== END 2024-01-21 15:52 | disposition home or self-care (01) ==
LOC: WC 14:31
PROVIDERS: PCP Family Medicine; Referring Provider Family Medicine; Visit Provider Nurse Practitioner Family
DX: L73.2 Hidradenitis suppurativa (principal); E11.51 Type 2 diabetes mellitus with diabetic peripheral angiopathy without gangrene; E11.42 Type 2 diabetes mellitus with diabetic polyneuropathy; G89.29 Other chronic pain; I10 Essential (primary) hypertension; F17.210 Nicotine dependence, cigarettes, uncomplicated; Z79.82 Long term (current) use of aspirin; Z79.899 Other long term (current) drug therapy; Z86.73 Personal history of transient ischemic attack (TIA), and cerebral infarction without residual deficits; Z89.411 Acquired absence of right great toe; Z98.890 Other specified postprocedural states
CPT/HCPCS: 99213; G0463

== ENCOUNTER → 2024-05-27 | Outpatient (CLI) | payer MEDICARE, SELFPAY | END | disposition home or self-care (01) | PROVIDERS: PCP Family Medicine; Referring Provider Surgery Plastic and Reconstructive Surgery; Visit Provider Surgery Plastic and Reconstructive Surgery | DX: L73.2 Hidradenitis suppurativa (principal) | CPT/HCPCS: 87070; 87077; 87186; 87205 ==

== ENCOUNTER 2024-05-31 09:24 | Outpatient (RCR) | payer MEDICARE, SELFPAY ==
[2024-05-31 09:39] VITALS: BP 101/67; PULSE 77; RESP 18; TEMP 36.6; BMI 19.7
--- NOTE | 2024-05-31 12:16 | PN.PCM_ITS ---
History of Present Illness Date of Service: 05/31/24 Chief Complaint: Hidradenitis right buttock History of Wound: 78 year old man with a history of hidradenitis suppurativa. On 05/27/24, Dr. Khan performed a right buttock hidradenitis I&D/unroofing under local anesthesia. Wound cultures obtained at that time. Patient's assists him with his dressing changes. They have been packing Iodoform gauze into the wounds. Wound cultures from 05/27/24 positive for Streptococcus agalactiae (B). Patient has a history of diabetes mellitus underwent surgery on 03/12/21 where he underwent surgical preparation sacral area with excision complicated extensive pilonidal cyst. With wound care, good nutrition, and some antibiotics, the sacral wound healed. He has a history of hidradenitis involving his bilateral buttock areas and perineal area and will have intermittent flare ups with drainage. He also has cirrhosis of his liver, Hepatitis C, peripheral arterial disease, and some cardiac arrhythmia issues. Today he denies fever, chills, nausea. States his appetite is ok. Progress of Wound: Right buttocks with superior and inferior wounds from recent I&D. The right superior ulcer has a tunnel at 6 o'clock, it does not connect the inferior to the superior opening. He also has a small opeining on his left buttocks that is draining today. Objective Data Objective Data Vital Signs: Vital Signs Temp Pulse Resp BP 97.8 F 77 18 101/67 05/31/24 09:39 05/31/24 09:39 05/31/24 09:39 05/31/24 09:39 Weight: 145 lb 10.724 oz Body Mass Index (BMI) 19.7 Charges/Coding Procedures Integumentary 111xxx-113xx: 36869 Global Visit Physical Exam Const alert, oriented x3 and no apparent distress General Appearance: cooperative and well kempt Orientation / Consciousness: awake HEENT normocephalic Head and Scalp: atraumatic Eyes EOMs intact bilaterally General Eye: normal appearance of both eyes Neck full ROM Lymph Lymphatic: no lymphedema noted Resp normal respiratory effort, normal air movement and clear to auscultation bilaterally Effort and Inspection: able to speak in complete sentences Cardio regular rate and regular rhythm Peripheral Pulses: dorsalis pedis pulses present GI normal to inspection, nondistended, normoactive bowel sounds, soft to palpation and non-tender Back/Spine normal ROM Extremity full ROM and normal capillary refill Skin Wound Narrative: Right buttocks with superior and inferior wounds from recent I&D. The right s uperior ulcer has a tunnel at 6 o'clock, it does not connect the inferior to the superior opening. He also has a small opeining on his left buttocks that is draining today. Neuro oriented x3 and moves all extremities Sensorium / Orientation: awake and alert Psych thought process normal, cooperative and affect normal Debridement Note Debridement Note No debridement was completed: No debridement was completed today Post-Debridement Measurements and Additional Note: Post-Debridement Measurements/Treatment - Nurse 1 - General Ulcer Assessment Start: 05/31/24 09:38 Freq: Status: Active Protocol: SUSY Activity Type Activity Date Activity User E-sign Co-sign Detail Recorded Client Recorded Date Recorded By Document 05/31/24 09:39 DL [id number] 05/31/24 10:05 DL 05/31/24 09:39 - Today's Visit Information Type of service Initial Visit Arrival Mode Ambulatory, Walker Transfer Assistance None Patient Identification Verified (Name & Yes ) Patient Requires Transmission-Based No Precautions Safety Precautions Fall Prevention Height and Weight Height 6 ft Weight 145 lb 10.724 oz Weight in Pounds 145.7 lbs Body Mass Index (BMI) 19.7 BMI Classification Normal BSA - Adeola 1.86 Vital Signs Temperature (97.8 F-99.1 F) 97.8 F Temperature Source Temporal Pulse Rate (60-100) 77 Pulse Location Monitor Respiratory Rate (12-18) 18 Respiratory rate source Observation Blood Pressure (90/60-120/80) 101/67 Blood Pressure Mean (mm Hg) 78 Source Monitor Pain Scale: 0-10 Numeric Is Patient Pain Free? Yes Communication Assessment Preferred language Persian Able to Read Yes Able to Write Yes Right Hearing Abillity Normal Left Hearing Abillity Normal Visual Assistive Devices None Teaching Assessment Preferences Verbal,Written, Demonstration Barriers to Learning None Readiness To Learn Good Willingness to Engage in Self Management Med Activies Readiness to Engage in Self Management Med Activities Anxiety Level Calm Cooperation Cooperative Perception Coherent Interest in Health Problem Asks Questions Education Importance Acknowledges Need Does Patient Smoke tobacco or other Yes substances Smoking Status Current some day smoker Is Patient Diabetic Yes Functional Assessment Recent Decline in Ability to Perform Denies Any Declines Culture/Latter Day/Accounts Administrator Cultural/Latter Day Needs that may affect No Treatment Plan Would you allow our hospital labor specialist to No meet you for the purpose of spiritual/ emotional support? Accounts Administrator to contact place [facility] No Teaching: Wound Center Diagnostic Tests Ordered -Person Taught Patient Discharge Instructions -Person Taught Patient Dressing Your Wound -Person Taught Patient WC - Nurse 1 - General Ulcer Measurement Start: 05/31/24 09:38 Freq: Status: Active Protocol: Activity Type Activity Date Activity User E-sign Co-sign Detail Recorded Client Recorded Date Recorded By Document 05/31/24 09:39 DL [id number] 05/31/24 10:05 DL 05/31/24 09:39 Wound Center Nurse 1 #12 R Buttocks inf -Current Size (cm) - Length 0.4 -Current Size (cm) - Width 0.5 -Current Size (cm) - Depth 0.7 -Total Square Cm 0.20 -Photo Taken Yes -Maximum Distance #2 (cm) 0.9 -Circular Undermining Yes -Classification - Thickness Full Thickness without Exposed Support Structure -Exudate Amt Medium -Exudate Type Serosanguineous -Wound Margin Distinct, Outline Attached -Granulation Amt Medium (34-66%) -Granulation Quality Red -Necrosis Amt Medium (34-66%) -Necrotic Tissue Type Adherent Slough -Structure Exposed N/A -Texture (Sandi-wound Skin Appearance) Scarring -Moisture (Sandi-wound Skin Appearance) No Abnormality -Color (Sandi-wound Skin Appearance) No Abnormality -Temperature (Sandi-wound Skin No Abnormality Appearance) (Pt Warm) -Tenderness on Palpation (Sandi-wound No Skin Appearance) -Ulcer Cleansing Soap and Water -Foul Odor after Cleansing No -Anesthetic Used 5% Lidocaine Gel #11 R Buttocks sup -Current Size (cm) - Length 1.3 -Current Size (cm) - Width 2 -Current Size (cm) - Depth 0.5 -Total Square Cm 2.6 -Photo Taken Yes -Maximum Distance #2 (cm) 1.3 -Circular Undermining Yes -Exudate Amt Large -Wound Margin Distinct, Outline Attached -Granulation Amt Large (67-100%) -Granulation Quality Red -Necrosis Amt Small (1-33%) -Necrotic Tissue Type Adherent Slough -Structure Exposed N/A -Texture (Sandi-wound Skin Appearance) Scarring -Moisture (Sandi-wound Skin Appearance) No Abnormality -Color (Sandi-wound Skin Appearance) No Abnormality -Temperature (Sandi-wound Skin No Abnormality Appearance) (Pt Warm) -Tenderness on Palpation (Sandi-wound No Skin Appearance) -Ulcer Cleansing Soap and Water -Foul Odor after Cleansing No -Anesthetic Used 5% Lidocaine Gel WC - Nurse 2 - General Ulcer CM Notes Start: 05/31/24 09:38 Freq: Status: Active Protocol: Activity Type Activity Date Activity User E-sign Co-sign Detail Recorded Client Recorded Date Recorded By Document 05/31/24 10:23 [id number] 05/31/24 10:28 05/31/24 10:23 Wound Center Nurse 2 13-left buttucks -Correct Patient No -Correct Side, Site, Position No -Correct Procedure No -Procedure Performed No -Post Debridement (cm) - Length 0.2 -Post Debridement (cm) - Width 0.2 -Post Debridement (cm) - Depth 0.2 -Total Square (Post) (cm) 0.04 -Area of Debridement (cm) - Length 0.2 -Area of Debridement (cm) - Width 0.2 -Total Square (Area) (cm) 0.04 -Wound/Ulcer Outcome Not Healed -Treatment Response Procedure Tolerated Well #12 R Buttocks inf -Correct Patient No -Correct Side, Site, Position No -Correct Procedure No -Procedure Performed No -Post Debridement (cm) - Length 0.6 -Post Debridement (cm) - Width 0.8 -Post Debridement (cm) - Depth 0.5 -Total Square (Post) (cm) 0.48 -Area of Debridement (cm) - Length 0.6 -Area of Debridement (cm) - Width 0.8 -Total Square (Area) (cm) 0.48 -Wound/Ulcer Outcome Not Healed #11 R Buttocks sup -Correct Patient No -Correct Side, Site, Position No -Correct Procedure No -Procedure Performed No -Post Debridement (cm) - Length 1.5 -Post Debridement (cm) - Width 2.5 -Post Debridement (cm) - Depth 0.4 -Total Square (Post) (cm) 3.75 -Area of Debridement (cm) - Length 1.5 -Area of Debridement (cm) - Width 2.5 -Total Square (Area) (cm) 3.75 -Tunneling Yes -Tunneling Position (O'clock) 6 -Tunneling Distance (cm) 3.7 -Undermining/Tunneling Yes -Undermining/Tunneling Starts (O'clock 2 ) -Maximum Distance (cm) 0.6 -Wound/Ulcer Outcome Not Healed Pain Scale: 0-10 Numeric Is Patient Pain Free? Yes - Nurse 3 - General Ulcer D/C NN Start: 05/31/24 09:38 Freq: Status: Active Protocol: Activity Type Activity Date Activity User E-sign Co-sign Detail Recorded Client Recorded Date Recorded By Document 05/31/24 11:00 DS [id number] 05/31/24 11:02 DS 05/31/24 11:00 Wound Care Center Nurse 3 13-left buttucks -Ulcer Cleansing Rinsed/ Irrigated with Saline -Primary Dressing Applied Nugauze, Iodoform 1/4in -Primary Dressing Covered/Secured with Dry Gauze & Roll Gauze -Nugauze, Iodoform 1/4in 0 #12 R Buttocks inf -Ulcer Cleansing Rinsed/ Irrigated with Saline -Primary Dressing Applied Nugauze, Iodoform 1/4in -Primary Dressing Covered/Secured with Dry Gauze & Roll Gauze -Nugauze, Iodoform 1/4in 1 #11 R Buttocks sup -Ulcer Cleansing Rinsed/ Irrigated with Saline -Primary Dressing Applied Aquacel AG 4x4 -Primary Dressing Covered/Secured with Dry Gauze & Roll Gauze -Aquacel AG 4x4 1 Pain Scale: 0-10 Numeric Is Patient Pain Free? Yes - Visit Discharge Discharge Condition Stable Ambulatory Status Ambulatory, Walker Transportation Private Auto Medication Reconcilliation completed & Yes provided to patient/care provider Clinical Summary of Care Provided Yes Assessment/Plan Assessment/Plan (1) Hidradenitis suppurativa: CODE(S): L73.2 - Hidradenitis suppurativa (2) Smoker: CODE(S): F17.200 - Nicotine dependence, unspecified, uncomplicated (3) Type 2 diabetes mellitus with diabetic polyneuropathy: CODE(S): E11.42 - Type 2 diabetes mellitus with diabetic polyneuropathy QUALIFIERS: Diabetes mellitus application project leader insulin use: unspecified nursing home insulin use status Qualified Code(s): E11.42 - Type 2 diabetes mellitus with diabetic polyneuropathy PLAN: Plan Patient was evaluated at the wound healing center today. Wound care - Right inferior buttocks and left buttocks pack 1/4 Iodoform into the wounds. Right superior wound, place Aquacel-Ag into the wound and pack into the tunneled area at 6 o'clock, top with ABD or gauze. Dressings to be changed daily and wash areas with soap and water at the time of the dressing changes. Wound cultures from 05/27/24 positive for Streptococcus agalactiae (B). Will place him on Augmentin. Encouraged patient to stop smoking as it may have deleterious effects on wound healing. Follow up one week with Dr. Khan.
--- NOTE | 2024-06-01 08:49 | WC ---
PHOTO 05/31/24 RIGHT BUTTOCKS SUPERIOR
--- NOTE | 2024-06-01 09:08 | WC ---
PHOTO 06/01/2024 RIGHT BUTTOCKS
== END 2024-05-31 23:59 | disposition home or self-care (01) ==
LOC: WC 09:24
PROVIDERS: PCP Family Medicine; Referring Provider Internal Medicine; Visit Provider Nurse Practitioner Family
DX: T81.89XA Other complications of procedures, not elsewhere classified, initial encounter (principal); K74.60 Unspecified cirrhosis of liver; E11.51 Type 2 diabetes mellitus with diabetic peripheral angiopathy without gangrene; Y83.8 Other surgical procedures as the cause of abnormal reaction of the patient, or of later complication, without mention of misadventure at the time of the procedure; L73.2 Hidradenitis suppurativa; B19.20 Unspecified viral hepatitis C without hepatic coma; I49.9 Cardiac arrhythmia, unspecified; Z79.82 Long term (current) use of aspirin; Z79.899 Other long term (current) drug therapy
CPT/HCPCS: 99214; G0463

== ENCOUNTER 2024-06-28 11:00 | Outpatient (RCR) | payer MEDICARE, SELFPAY ==
[2024-06-01 00:26] VITALS: BP 101/67; PULSE 77; RESP 18; TEMP 36.6; BMI 19.7
[2024-06-07 10:24] VITALS: BP 103/61; PULSE 75; RESP 18; TEMP 36.3; BMI 19.7
--- NOTE | 2024-06-07 12:03 | PN.PCM_ITS ---
History of Present Illness Date of Service: 06/07/24 Chief Complaint: Hidradenitis right buttock extending to sacral area. History of Wound: 78 year old man with a history of diabetes mellitus underwent surgery on 03/12/21 where he underwent surgical preparation sacral area with excision complicated extensive pilonidal cyst. With wound care, good nutrition, and some antibiotics, the sacral wound healed. He also has a history of hidradenitis involving his bilateral buttock areas and perineal area. He has developed a recent flare up of his hidradenitis involving the right buttock extending to the sacral area. There is intermittent drainage present. He denies fever. He complains of pain in this area. Patient is diabetic. He continues to have multiple other health issue with his liver and his heart. Today he denies fever, chills, nausea. States his appetite is ok. Progress of Wound: Right buttocks with superior and inferior wounds from recent I&D. The right superior ulcer has a tunnel at 6 o'clock, it does not connect the inferior to the superior opening, it is very small and only able to measure with a probe, it is too narrow for a curette. The undermining is almost resolved. The inferior wound is healing nicely, it is becoming difficult for his to pack. The left buttocks ulcer is healed today. Objective Data Objective Data Vital Signs: Vital Signs Temp Pulse Resp BP 97.4 F L 75 18 103/61 06/07/24 10:24 06/07/24 10:24 06/07/24 10:24 06/07/24 10:24 Weight: 145 lb 10.724 oz Body Mass Index (BMI) 19.7 Charges/Coding Procedures Integumentary 111xxx-113xx: 80278 Dena subq tissue 20 sq cm/< Debridement Note Debridement Note Wound debrided: Superior and inferior buttocks wound Laterality: Right Wound Grade/Stage: Stage III Type of Debridement: Excisional debridement Anesthesia Used: 5% Lidocaine Gel Depth: Down to and including healthy tissue and in the subcutaneous layer Percentage of wound debrided: 100 Instrument Used: 3mm curette and 5mm curette Tissue Removed: Non viable tissue and slough Severity: Fat Layer Exposed Amount of bleeding with debridement: Mild Bleeding Controlled with: Pressure and Compression and gauze Patient tolerated procedure: Patient tolerated procedure well Post-Debridement Measurements and Additional Note: Post-Debridement Measurements/Treatment WC - Nurse 1 - General Ulcer Assessment Start: 06/07/24 10:24 Freq: Status: Active Protocol: SUSY Activity Type Activity Date Activity User E-sign Co-sign Detail Recorded Client Recorded Date Recorded By Document 06/07/24 10:24 DL [id number] 06/07/24 10:31 DL 06/07/24 10:24 WC - Today's Visit Information Type of service Follow-up Visit (Physician/RN INTAKE ) Arrival Mode Ambulatory, Walker Transfer Assistance None Patient Identification Verified (Name & Yes ) Patient Requires Transmission-Based No Precautions Height and Weight Body Mass Index (BMI) 19.7 BMI Classification Normal Vital Signs Temperature (97.8 F-99.1 F) 97.4 F L Temperature Source Temporal Pulse Rate (60-100) 75 [address]ulse [address] Monitor Respiratory Rate (12-18) 18 Respiratory rate source Observation Blood Pressure (90/60-120/80) 103/61 Blood Pressure Mean (mm Hg) 75 Source Monitor History Since Last Visit- (Skip if this is Patient's initial visit) Have you changed medications since your No last visit? Any new allergies or adverse reactions No Had a fall/change in ADL's that may No increase risk of falls Signs or symptoms of abuse and/or No neglect since last visit Have you been in the hospital since your No last visit? Has dressing in place as prescribed Yes Has compression in place as prescribed N/A Has offloadiing in place as prescribed Yes Experienced any changes in pain level or No management Pain Scale: 0-10 Numeric Is Patient Pain Free? Yes PLACIDO - Nurse 1 - General Ulcer Measurement Start: 06/07/24 10:24 Freq: Status: Active Protocol: Activity Type Activity Date Activity User E-sign Co-sign Detail Recorded Client Recorded Date Recorded By Document 06/07/24 10:24 TRISTEN [id number] 06/07/24 10:31 DL 06/07/24 10:24 Wound Center Nurse 1 13-left buttucks -Current Size (cm) - Length 0.1 -Current Size (cm) - Width 0.1 -Current Size (cm) - Depth 0.1 -Total Square Cm 0.01 -Exudate Amt None Present -Wound Margin Flat & Intact -Granulation Amt Small (1-33%) -Granulation Quality [place] -Necrosis Amt None Present (0 %) -Structure Exposed N/A -Texture (Sandi-wound Skin Appearance) Scarring -Moisture (Sandi-wound Skin Appearance) Dry/Scaly -Color (Sandi-wound Skin Appearance) No Abnormality -Temperature (Sandi-wound Skin No Abnormality Appearance) (Pt Warm) -Ulcer Cleansing Rinsed/ Irrigated with Saline -Foul Odor after Cleansing No -Anesthetic Used 5% Lidocaine Gel #12 R Buttocks inf -Current Size (cm) - Length 0.2 -Current Size (cm) - Width 0.6 -Current Size (cm) - Depth 0.6 -Total Square Cm 0.12 -Exudate Amt Small -Exudate Type Serosanguineous -Wound Margin Thickened & Rolled Under -Granulation Amt Small (1-33%) -Granulation Quality [place] -Necrosis Amt None Present (0 %) -Structure Exposed N/A -Texture (Sandi-wound Skin Appearance) Scarring -Moisture (Sandi-wound Skin Appearance) No Abnormality -Color (Sandi-wound Skin Appearance) No Abnormality -Temperature (Sandi-wound Skin No Abnormality Appearance) (Pt Warm) -Tenderness on Palpation (Sandi-wound No Skin Appearance) -Ulcer Cleansing Rinsed/ Irrigated with Saline -Foul Odor after Cleansing No -Anesthetic Used 5% Lidocaine Gel #11 R Buttocks sup -Current Size (cm) - Length 1.3 -Current Size (cm) - Width 2.3 -Current Size (cm) - Depth 0.2 -Total Square Cm 2.99 -Exudate Amt Medium -Exudate Type Serosanguineous -Wound Margin Distinct, Outline Attached -Granulation Amt Large (67-100%) -Granulation Quality Red -Necrosis Amt Small (1-33%) -Necrotic Tissue Type Adherent Slough -Structure Exposed N/A -Texture (Sandi-wound Skin Appearance) Scarring -Moisture (Sandi-wound Skin Appearance) No Abnormality -Color (Sandi-wound Skin Appearance) No Abnormality -Temperature (Sandi-wound Skin No Abnormality Appearance) (Pt Warm) -Tenderness on Palpation (Sandi-wound No Skin Appearance) -Ulcer Cleansing Soap and Water -Foul Odor after Cleansing No -Anesthetic Used 5% Lidocaine Gel WC - Nurse 2 - General Ulcer CM Notes Start: 06/07/24 10:24 Freq: Status: Active Protocol: Activity Type Activity Date Activity User E-sign Co-sign Detail Recorded Client Recorded Date Recorded By Document 10/07/24 10:51 ASHLEY [id number] 06/07/24 10:56 ASHLEY 06/07/24 10:51 Wound Center Nurse 2 13-left buttucks -Time 10:52 -Correct Patient No -Correct Side, Site, Position No -Correct Procedure No -Procedure Performed No -Post Debridement (cm) - Length 0 -Post Debridement (cm) - Width 0 -Post Debridement (cm) - Depth 0 -Total Square (Post) (cm) 0 -Area of Debridement (cm) - Length 0 -Area of Debridement (cm) - Width 0 -Total Square (Area) (cm) 0 -Tunneling No -Undermining/Tunneling No -Circular Undermining No -Wound/Ulcer Outcome Healed- Epithelialized -Foul Odor after Cleansing No -Offloading No -Debridement - Subq, 1st 20sq cm No #12 R Buttocks inf -Time 10:52 -Correct Patient Yes -Correct Side, Site, Position Yes -Correct Procedure Yes -Procedure Performed Yes -Type of Procedure Debridement -Clinical Debridement Subcutaneous -Tissue Removed Subcutaneous -Post Debridement (cm) - Length 0.5 -Post Debridement (cm) - Width 0.5 -Post Debridement (cm) - Depth 0.4 -Total Square (Post) (cm) 0.25 -Area of Debridement (cm) - Length 0.5 -Area of Debridement (cm) - Width 0.5 -Total Square (Area) (cm) 0.25 -Tunneling No -Undermining/Tunneling No -Circular Undermining No -Wound/Ulcer Outcome Not Healed -Ulcer Cleansing Rinsed/ Irrigated with Saline -Foul Odor after Cleansing No -Bioengineered Tissue No -Bleeding Controlled with Pressure -Treatment Response Procedure Tolerated Well -Offloading No -Debridement - Subq, 1st 20sq cm No #11 R Buttocks sup -Time 10:53 -Correct Patient Yes -Correct Side, Site, Position Yes -Correct Procedure Yes -Procedure Performed Yes -Type of Procedure Debridement -Clinical Debridement Subcutaneous -Tissue Removed Subcutaneous -Post Debridement (cm) - Length 1.7 -Post Debridement (cm) - Width 2.5 -Post Debridement (cm) - Depth 0.2 -Total Square (Post) (cm) 4.25 -Area of Debridement (cm) - Length 1.7 -Area of Debridement (cm) - Width 2.5 -Total Square (Area) (cm) 4.25 -Tunneling Yes -Tunneling Position (O'clock) 6 -Tunneling Distance (cm) 3.5 -Undermining/Tunneling Yes -Undermining/Tunneling Starts (O'clock 2 ) -Maximum Distance (cm) 0.2 -Circular Undermining No -Wound/Ulcer Outcome Not Healed -Ulcer Cleansing Rinsed/ Irrigated with Saline -Foul Odor after Cleansing No -Bioengineered Tissue No -Bleeding Controlled with Pressure -Treatment Response Procedure Tolerated Well -Debridement - Subq, 1st 20sq cm Yes Pain Scale: 0-10 Numeric Is Patient Pain Free? Yes - Nurse 3 - General Ulcer D/C NN Start: 06/07/24 10:24 Freq: Status: Active Protocol: Activity Type Activity Date Activity User E-sign Co-sign Detail Recorded Client Recorded Date Recorded By Document 06/07/24 11:12 DL [id number] 06/07/24 11:14 DL 06/07/24 11:12 Wound Care Center Nurse 3 #12 R Buttocks inf -Ulcer Cleansing Rinsed/ Irrigated with Saline -Primary Dressing Applied Aquacel AG 2x2 -Primary Dressing Covered/Secured with Dry Gauze, Secured with Tape -Aquacel AG 2x2 1 #11 R Buttocks sup -Ulcer Cleansing Rinsed/ Irrigated with Saline -Foul Odor after Cleansing No -Primary Dressing Applied Aquacel AG 2x2 -Primary Dressing Covered/Secured with Dry Gauze, Secured with Tape -Aquacel AG 2x2 1 Treatment Response Procedure Tolerated Well Pain Scale: 0-10 Numeric Is Patient Pain Free? Yes - Visit Discharge Discharge Condition Stable Ambulatory Status Ambulatory Transportation Private Auto Assessment/Plan Assessment/Plan (1) Hidradenitis suppurativa: CODE(S): L73.2 - Hidradenitis suppurativa (2) Smoker: CODE(S): F17.200 - Nicotine dependence, unspecified, uncomplicated (3) Type 2 diabetes mellitus with diabetic polyneuropathy: CODE(S): E11.42 - Type 2 diabetes mellitus with diabetic polyneuropathy QUALIFIERS: Diabetes mellitus assisted insulin use: unspecified assisted insulin use status Qualified Code(s): E11.42 - Type 2 diabetes mellitus with diabetic polyneuropathy PLAN: Plan Patient was evaluated at the wound healing center today. Wound care - Right inferior buttocks pack / Iodoform into the wounds. Right superior wound, place Aquacel-Ag into the wound and pack into the tunneled area at 6 o'clock (if able to do), top with ABD or gauze. Dressings to be changed daily and wash areas with soap and water at the time of the dressing changes. Wound cultures from 05/27/24 positive for Streptococcus agalactiae (B). He is taking Augmentin. Encouraged patient to stop smoking as it may have deleterious effects on wound healing. Discussed plan of care with Dr. Khan. Follow up one week.
[2024-06-14 10:17] VITALS: BP 98/53; PULSE 76; RESP 18; TEMP 36.7; BMI 19.7
--- NOTE | 2024-06-14 11:19 | PN.PCM_ITS ---
History of Present Illness Date of Service: 06/14/24 Chief Complaint: Hidradenitis right buttock extending to sacral area. History of Wound: 78 year old man with a history of diabetes mellitus underwent surgery on 03/12/21 where he underwent surgical preparation sacral area with excision complicated extensive pilonidal cyst. With wound care, good nutrition, and some antibiotics, the sacral wound healed. He also has a history of hidradenitis involving his bilateral buttock areas and perineal area. He has developed a recent flare up of his hidradenitis involving the right buttock extending to the sacral area. There is intermittent drainage present. He denies fever. He complains of pain in this area. Patient is diabetic. He continues to have multiple other health issue with his liver and his heart. Today he denies fever, chills, nausea. States his appetite is ok. Progress of Wound: Right buttocks with superior and inferior wounds from I&D on 05/27/24. The right superior ulcer has a tunnel at 6 o'clock, it does not connect the inferior to t he superior opening, it is very small and only able to measure with a probe, it is too narrow for a curette. The undermining is stable from 4-7 o'clock. The inferior wound is healing nicely, it is becoming more difficult for his to pack. Objective Data Objective Data Vital Signs: Vital Signs Temp Pulse Resp BP O2 Del Method 98.0 F 76 18 98/53 L Room Air 06/14/24 10:17 06/14/24 10:17 06/14/24 10:17 06/14/24 10:17 06/14/24 10:17 Oxygen Delivery Method Room Air Weight: 145 lb 10.724 oz Body Mass Index (BMI) 19.7 Charges/Coding Procedures Integumentary 111xxx-113xx: [id number] Dena subq tissue 20 sq cm/< Debridement Note Debridement Note Wound debrided: Superior and inferior buttocks wound Laterality: Right Wound Grade/Stage: Stage III Type of Debridement: Excisional debridement Anesthesia Used: 5% Lidocaine Gel Depth: Down to and including healthy tissue and in the subcutaneous layer Percentage of wound debrided: 100 Instrument Used: 3mm curette Tissue Removed: Non viable tissue and slough Severity: Fat Layer Exposed Amount of bleeding with debridement: Mild Bleeding Controlled with: Pressure and Compression and gauze Patient tolerated procedure: Patient tolerated procedure well Post-Debridement Measurements and Additional Note: Post-Debridement Measurements/Treatment WC - Nurse 1 - General Ulcer Assessment Start: 06/07/24 10:24 Freq: Status: Active Protocol: SUSY Activity Type Activity Date Activity User E-sign Co-sign Detail Recorded Client Recorded Date Recorded By Document 06/07/24 10:24 DL [id number] 06/07/24 10:31 DL Document 06/14/24 10:17 KW [id number] 06/14/24 10:23 KW 06/07/24 06/14/24 10:24 10:17 WC - Today's Visit Information Type of service Follow-up Visit Follow-up Visit (Physician/STUFFED CASING TIER (Physician/STUFFED CASING TIER ) ) Arrival Mode Ambulatory, Ambulatory, Walker Walker Transfer Assistance None Accompanied by Patient Identification Verified (Name & Yes Yes ) Patient Requires Transmission-Based No Precautions Height and Weight Body Mass Index (BMI) 19.7 19.7 BMI Classification Normal Normal Vital Signs Temperature (97.8 F-99.1 F) 97.4 F L 98.0 F Temperature Source Temporal Temporal Pulse Rate (60-100) 75 76 Pulse Location Monitor Monitor Respiratory Rate (12-18) 18 18 Respiratory rate source Observation Observation Oxygen Delivery Method Room Air Blood Pressure (90/60-120/80) 103/61 98/53 L Blood Pressure Mean (mm Hg) 75 68 Source Monitor Monitor Position Sitting Blood Pressure Location Left Arm History Since Last Visit- (Skip if this is Patient's initial visit) Have you changed medications since your No No last visit? Any new allergies or adverse reactions No No Had a fall/change in ADL's that may No No increase risk of falls Signs or symptoms of abuse and/or No No neglect since last visit Have you been in the hospital since your No No last visit? Has dressing in place as prescribed Yes Yes Has compression in place as prescribed N/A N/A Has offloadiing in place as prescribed Yes N/A Experienced any changes in pain level or No No management Left Footwear Regular Shoe Right Footwear Regular Shoe Pain Scale: 0-10 Numeric Is Patient Pain Free? Yes Yes PLACIDO Jones Nurse 1 - General Ulcer Measurement Start: 06/07/24 10:24 Freq: Status: Active Protocol: Activity Type Activity Date Activity User E-sign Co-sign Detail Recorded Client Recorded Date Recorded By Document 06/07/24 10:24 DL [id number] 06/07/24 10:31 DL Document 06/14/24 10:17 KW [id number] 06/14/24 10:23 KW 06/07/24 06/14/24 10:24 10:17 Wound Center Nurse 1 13-left buttucks -Current Size (cm) - Length 0.1 -Current Size (cm) - Width 0.1 -Current Size (cm) - Depth 0.1 -Total Square Cm 0.01 -Exudate Amt None Present -Wound Margin Flat & Intact -Granulation Amt Small (1-33%) -Granulation Quality [place] -Necrosis Amt None Present (0 %) -Structure Exposed N/A -Texture (Sandi-wound Skin Appearance) Scarring -Moisture (Sandi-wound Skin Appearance) Dry/Scaly -Color (Sandi-wound Skin Appearance) No Abnormality -Temperature (Sandi-wound Skin No Abnormality Appearance) (Pt Warm) -Ulcer Cleansing Rinsed/ Irrigated with Saline -Foul Odor after Cleansing No -Anesthetic Used 5% Lidocaine Gel #12 R Buttocks inf -Current Size (cm) - Length 0.2 0.2 -Current Size (cm) - Width 0.6 0.3 -Current Size (cm) - Depth 0.6 0.3 -Total Square Cm 0.12 0.06 -Exudate Amt Small Small -Exudate Type Serosanguineous Serosanguineous -Wound Margin Thickened & Distinct, Rolled Under Outline Attached -Granulation Amt Small (1-33%) Large (67-100%) -Granulation Quality [place] -Necrosis Amt None Present (0 %) -Structure Exposed N/A -Texture (Sandi-wound Skin Appearance) Scarring Assessed -Moisture (Sandi-wound Skin Appearance) No Abnormality Assessed -Color (Sandi-wound Skin Appearance) No Abnormality Assessed -Temperature (Sandi-wound Skin No Abnormality No Abnormality Appearance) (Pt Warm) (Pt Warm) -Tenderness on Palpation (Sandi-wound No No Skin Appearance) -Ulcer Cleansing Rinsed/ Soap and Water Irrigated with Saline -Foul Odor after Cleansing No No -Anesthetic Used 5% Lidocaine 4% Lidocaine Gel Solution #11 R Buttocks sup -Current Size (cm) - Length 1.3 1.5 -Current Size (cm) - Width 2.3 2.1 -Current Size (cm) - Depth 0.2 0.1 -Total Square Cm 2.99 3.15 -Exudate Amt Medium Small -Exudate Type Serosanguineous Serosanguineous -Wound Margin Distinct, Distinct, Outline Outline Attached Attached -Granulation Amt Large (67-100%) Large (67-100%) -Granulation Quality Red [place],Red -Necrosis Amt Small (1-33%) -Necrotic Tissue Type Adherent Slough -Structure Exposed N/A -Texture (Sandi-wound Skin Appearance) Scarring Assessed -Moisture (Sandi-wound Skin Appearance) No Abnormality Assessed -Color (Sandi-wound Skin Appearance) No Abnormality Assessed -Temperature (Sandi-wound Skin No Abnormality No Abnormality Appearance) (Pt Warm) (Pt Warm) -Tenderness on Palpation (Sandi-wound No No Skin Appearance) -Ulcer Cleansing Soap and Water Soap and Water -Foul Odor after Cleansing No No -Anesthetic Used 5% Lidocaine 4% Lidocaine Gel Solution WC - Nurse 2 - General Ulcer CM Notes Start: 06/07/24 10:24 Freq: Status: Active Protocol: Activity Type Activity Date Activity User E-sign Co-sign Detail Recorded Client Recorded Date Recorded By Document 06/07/24 10:51 [id number] 06/07/24 10:56 Document 06/14/24 10:50 [facility] [id number] 06/14/24 10:56 [facility] 06/07/24 06/14/24 10:51 10:50 Wound Center Nurse 2 13-left buttucks -Time 10:52 -Correct Patient No -Correct Side, Site, Position No -Correct Procedure No -Procedure Performed No -Post Debridement (cm) - Length 0 -Post Debridement (cm) - Width 0 -Post Debridement (cm) - Depth 0 -Total Square (Post) (cm) 0 -Area of Debridement (cm) - Length 0 -Area of Debridement (cm) - Width 0 -Total Square (Area) (cm) 0 -Tunneling No -Undermining/Tunneling No -Circular Undermining No -Wound/Ulcer Outcome Healed- Epithelialized -Foul Odor after Cleansing No -Offloading No -Debridement - Subq, 1st 20sq cm No #12 R Buttocks inf -Time 10:52 10:50 -Correct Patient Yes Yes -Correct Side, Site, Position Yes Yes -Correct Procedure Yes Yes -Procedure Performed Yes Yes -Type of Procedure Debridement Debridement -Clinical Debridement Subcutaneous Subcutaneous -Tissue Removed Subcutaneous Subcutaneous -Post Debridement (cm) - Length 0.5 0.3 -Post Debridement (cm) - Width 0.5 0.7 -Post Debridement (cm) - Depth 0.4 0.3 -Total Square (Post) (cm) 0.25 0.21 -Area of Debridement (cm) - Length 0.5 0.3 -Area of Debridement (cm) - Width 0.5 0.7 -Total Square (Area) (cm) 0.25 0.21 -Tunneling No No -Undermining/Tunneling No No -Circular Undermining No No -Wound/Ulcer Outcome Not Healed Not Healed -Ulcer Cleansing Rinsed/ Rinsed/ Irrigated with Irrigated with Saline Saline -Foul Odor after Cleansing No No -Bioengineered Tissue No -Bleeding Controlled with Pressure Pressure -Treatment Response Procedure Procedure Tolerated Well Tolerated Well -Offloading No -Debridement - Subq, 1st 20sq cm No Yes #11 R Buttocks sup -Time 10:53 10:50 -Correct Patient Yes Yes -Correct Side, Site, Position Yes Yes -Correct Procedure Yes Yes -Procedure Performed Yes Yes -Type of Procedure Debridement Debridement -Clinical Debridement Subcutaneous Subcutaneous -Tissue Removed Subcutaneous Subcutaneous -Post Debridement (cm) - Length 1.7 1.5 -Post Debridement (cm) - Width 2.5 2 -Post Debridement (cm) - Depth 0.2 0.1 -Total Square (Post) (cm) 4.25 3.0 -Area of Debridement (cm) - Length 1.7 1.5 -Area of Debridement (cm) - Width 2.5 2 -Total Square (Area) (cm) 4.25 3.0 -Tunneling Yes Yes -Tunneling Position (O'clock) 6 6 -Tunneling Distance (cm) 3.5 2.7 -Undermining/Tunneling Yes Yes -Undermining/Tunneling Starts (O'clock 2 4 ) -Undermining/Tunneling Ends (O'clock) 7 -Maximum Distance (cm) 0.2 2.7 -Circular Undermining No -Wound/Ulcer Outcome Not Healed Not Healed -Ulcer Cleansing Rinsed/ Rinsed/ Irrigated with Irrigated with Saline Saline -Foul Odor after Cleansing No No -Bioengineered Tissue No No -Bleeding Controlled with Pressure Pressure -Treatment Response Procedure Procedure Tolerated Well Tolerated Well -Debridement - Subq, 1st 20sq cm Yes No Pain Scale: 0-10 Numeric Is Patient Pain Free? Yes Yes - Nurse 3 - General Ulcer D/C NN Start: 06/07/24 10:24 Freq: Status: Active Protocol: Activity Type Activity Date Activity User E-sign Co-sign Detail Recorded Client Recorded Date Recorded By Document 06/07/24 11:12 DL [id number] 06/07/24 11:14 DL Document 06/14/24 11:04 DL [id number] 06/14/24 11:09 DL 06/07/24 06/14/24 11:12 11:04 Wound Care Center Nurse 3 #12 R Buttocks inf -Ulcer Cleansing Rinsed/ Rinsed/ Irrigated with Irrigated with Saline Saline -Foul Odor after Cleansing No -Primary Dressing Applied Aquacel AG 2x2 -Other Dressing Iodoform 1/4 -Primary Dressing Covered/Secured with Dry Gauze, Dry Gauze, Secured with Secured with Tape Tape -Aquacel AG 2x2 1 #11 R Buttocks sup -Ulcer Cleansing Rinsed/ Rinsed/ Irrigated with Irrigated with Saline Saline -Foul Odor after Cleansing No No -Primary Dressing Applied Aquacel AG 2x2 Aquacel AG 4x4 -Primary Dressing Covered/Secured with Dry Gauze, Dry Gauze, Secured with Secured with Tape Tape -Aquacel AG 2x2 1 -Aquacel AG 4x4 1 Treatment Response Procedure Procedure Tolerated Well Tolerated Well Pain Scale: 0-10 Numeric Is Patient Pain Free? 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 Wound care - Right inferior buttocks pack 1/4 Iodoform into the wounds. Right superior wound, place Aquacel-Ag into the wound and pack into the tunneled area at 6 o'clock (if able to do), top with ABD or gauze. Dressings to be changed daily and wash areas with soap and water at the time of the dressing changes. Wound cultures from 05/27/24 positive for Streptococcus agalactiae (B). He is taking Augmentin. Encouraged patient to stop smoking as it may have deleterious effects on wound healing. Discussed plan of care with Dr. Khan. Follow up two weeks, per patient request.
[2024-06-28 11:06] VITALS: BP 107/71; PULSE 75; RESP 18; TEMP 36.3; BMI 19.7
--- NOTE | 2024-06-28 11:58 | PCM.WC.PN ---
History of Present Illness Date of Service: 06/28/24 Chief Complaint: Hidradenitis right buttock extending to sacral area. History of Wound: 78 year old man with a history of diabetes mellitus underwent surgery on 03/12/21 where he underwent surgical preparation sacral area with excision complicated extensive pilonidal cyst. With wound care, good nutrition, and some antibiotics, the sacral wound healed. He also has a history of hidradenitis involving his bilateral buttock areas and perineal area. He has developed a recent flare up of his hidradenitis involving the right buttock extending to the sacral area. There is intermittent drainage present. He denies fever. He complains of pain in this area. Patient is diabetic. He continues to have multiple other health issue with his liver and his heart. Today he denies fever, chills, nausea. States his appetite is ok. Progress of Wound: Right buttocks with superior and inferior ulcers. The right superior ulcer has a tunnel at 6 o'clock, it does not connect to the inferior opening. The inferior ulcer is very small, difficult to pack, it also has a tunnel at 6 o'clock, but does not connect to the tunnel from the superior wound. There is a new wound on the left buttocks. He also is having some white drainage on the left side below the left buttock wound. Objective Data Objective Data Vital Signs: Vital Signs Temp Pulse Resp BP O2 Del Method 97.4 F L 75 18 107/71 Room Air 06/28/24 11:06 06/28/24 11:06 06/28/24 11:06 06/28/24 11:06 06/28/24 11:06 Oxygen Delivery Method Room Air Weight: 145 lb 10.724 oz Body Mass Index (BMI) 19.7 Charges/Coding Procedures Integumentary 111xxx-113xx: [id number] Dena subq tissue 20 sq cm/< Debridement Note Debridement Note Wound debrided: Superior and inferior buttocks wound Laterality: Right Wound Grade/Stage: Stage III Type of Debridement: Excisional debridement Anesthesia Used: 5% Lidocaine Gel Depth: Down to and including healthy tissue and in the subcutaneous layer Percentage of wound debrided: 100 Instrument Used: 3mm curette Tissue Removed: Non viable tissue and slough Severity: Fat Layer Exposed Amount of bleeding with debridement: Mild Bleeding Controlled with: Pressure, Compression and gauze and Silver Nitrate (to the inferior wound only) Patient tolerated procedure: Patient tolerated procedure well Post-Debridement Measurements and Additional Note: Post-Debridement Measurements/Treatment WC - Nurse 1 - General Ulcer Assessment Start: 06/07/24 10:24 Freq: Status: Active Protocol: SUSY Activity Type Activity Date Activity User E-sign Co-sign Detail Recorded Client Recorded Date Recorded By Document 06/07/24 10:24 DL [id number] 06/07/24 10:31 DL Document 06/14/24 10:17 KW [id number] 06/14/24 10:23 KW Document 06/28/24 11:06 KW [id number] 06/28/24 11:20 KW 06/07/24 06/14/24 06/28/24 10:24 10:17 11:06 WC - Today's Visit Information Type of service Follow-up Visit Follow-up Visit Follow-up Visit (Physician/MEMORIAL ADVISER (Physician/MEMORIAL ADVISER (Physician/MEMORIAL ADVISER ) ) ) Arrival Mode Ambulatory, Ambulatory, Ambulatory, Walker Walker Walker Transfer Assistance None Accompanied by Patient Identification Verified (Name & Yes Yes Yes ) Patient Requires Transmission-Based No Precautions Height and Weight Body Mass Index (BMI) 19.7 19.7 19.7 BMI Classification Normal Normal Normal Vital Signs Temperature (97.8 F-99.1 F) 97.4 F L 98.0 F 97.4 F L Temperature Source Temporal Temporal Temporal Pulse Rate (60-100) 75 76 75 Pulse Location Monitor Monitor Monitor Respiratory Rate (12-18) 18 18 18 Respiratory rate source Observation Observation Observation Oxygen Delivery Method Room Air Room Air Blood Pressure (90/60-120/80) 103/61 98/53 L 107/71 Blood Pressure Mean (mm Hg) 75 68 83 Source Monitor Monitor Monitor Position Sitting Sitting Blood Pressure Location Left Arm Right Arm History Since Last Visit- (Skip if this is Patient's initial visit) Have you changed medications since your No No No last visit? Any new allergies or adverse reactions No No No Had a fall/change in ADL's that may No No No increase risk of falls Signs or symptoms of abuse and/or No No No neglect since last visit Have you been in the hospital since your No No No last visit? Has dressing in place as prescribed Yes Yes Yes Has compression in place as prescribed N/A N/A N/A Has offloadiing in place as prescribed Yes N/A N/A Experienced any changes in pain level or No No No management Left Footwear Regular Shoe Regular Shoe Right Footwear Regular Shoe Regular Shoe Pain Scale: 0-10 Numeric Is Patient Pain Free? Yes Yes Yes WC - Nurse 1 - General Ulcer Measurement Start: 06/07/24 10:24 Freq: Status: Active Protocol: Activity Type Activity Date Activity User E-sign Co-sign Detail Recorded Client Recorded Date Recorded By Document 06/07/24 10:24 DL [id number] 06/07/24 10:31 DL Document 06/14/24 10:17 KW [id number] 06/14/24 10:23 KW Document 06/28/24 11:06 KW [id number] 06/28/24 11:20 KW 06/07/24 06/14/24 06/28/24 10:24 10:17 11:06 Wound Center Nurse 1 13-left buttucks -Current Size (cm) - Length 0.1 -Current Size (cm) - Width 0.1 -Current Size (cm) - Depth 0.1 -Total Square Cm 0.01 -Exudate Amt None Present -Wound Margin Flat & Intact -Granulation Amt Small (1-33%) -Granulation Quality [place] -Necrosis Amt None Present (0 %) -Structure Exposed N/A -Texture (Sandi-wound Skin Appearance) Scarring -Moisture (Sandi-wound Skin Appearance) Dry/Scaly -Color (Sandi-wound Skin Appearance) No Abnormality -Temperature (Sandi-wound Skin No Abnormality Appearance) (Pt Warm) -Ulcer Cleansing Rinsed/ Irrigated with Saline -Foul Odor after Cleansing No -Anesthetic Used 5% Lidocaine Gel #14 LT BUTTOCK CLUSTER -Current Size (cm) - Length 0.5 -Current Size (cm) - Width 0.5 -Current Size (cm) - Depth 0.3 -Total Square Cm 0.25 -Date of Last Picture (Recall this 06/28/24 field) -Exudate Amt Small -Exudate Type Serosanguineous -Wound Margin Distinct, Outline Attached -Granulation Amt Large (67-100%) -Granulation Quality Red -Texture (Sandi-wound Skin Appearance) Assessed -Moisture (Sandi-wound Skin Appearance) Assessed -Color (Sandi-wound Skin Appearance) Assessed -Temperature (Sandi-wound Skin No Abnormality Appearance) (Pt Warm) -Tenderness on Palpation (Sandi-wound No Skin Appearance) -Ulcer Cleansing Rinsed/ Irrigated with Saline -Foul Odor after Cleansing No -Anesthetic Used 5% Lidocaine Gel -Wound Comment(s) the 2 spots are connected and you can go through to the other #12 R Buttocks inf -Current Size (cm) - Length 0.2 0.2 0.5 -Current Size (cm) - Width 0.6 0.3 0.1 -Current Size (cm) - Depth 0.6 0.3 0.2 -Total Square Cm 0.12 0.06 0.05 -Date of Last Picture (Recall this 06/28/24 field) -Exudate Amt Small Small Small -Exudate Type Serosanguineous Serosanguineous Serosanguineous -Wound Margin Thickened & Distinct, Distinct, Rolled Under Outline Outline Attached Attached -Granulation Amt Small (1-33%) Large (67-100%) -Granulation Quality [place] -Necrosis Amt None Present (0 Small (1-33%) %) -Necrotic Tissue Type Adherent Slough -Structure Exposed N/A -Texture (Sandi-wound Skin Appearance) Scarring Assessed Assessed -Moisture (Sandi-wound Skin Appearance) No Abnormality Assessed Assessed -Color (Sandi-wound Skin Appearance) No Abnormality Assessed Assessed -Temperature (Sandi-wound Skin No Abnormality No Abnormality No Abnormality Appearance) (Pt Warm) (Pt Warm) (Pt Warm) -Tenderness on Palpation (Sandi-wound No No No Skin Appearance) -Ulcer Cleansing Rinsed/ Soap and Water Rinsed/ Irrigated with Irrigated with Saline Saline -Foul Odor after Cleansing No No No -Anesthetic Used 5% Lidocaine 4% Lidocaine 5% Lidocaine Gel Solution Gel #11 R Buttocks sup -Current Size (cm) - Length 1.3 1.5 1.2 -Current Size (cm) - Width 2.3 2.1 2 -Current Size (cm) - Depth 0.2 0.1 0.1 -Total Square Cm 2.99 3.15 2.4 -Date of Last Picture (Recall this 06/28/24 field) -Undermining/Tunneling Yes -Undermining/Tunneling Starts (O'clock 3 ) -Undermining/Tunneling Ends (O'clock) 5 -Maximum Distance (cm) 1.4 -Exudate Amt Medium Small Small -Exudate Type Serosanguineous Serosanguineous Serosanguineous -Wound Margin Distinct, Distinct, Distinct, Outline Outline Outline Attached Attached Attached -Granulation Amt Large (67-100%) Large (67-100%) Large (67-100%) -Granulation Quality Red [place],Red Red -Necrosis Amt Small (1-33%) -Necrotic Tissue Type Adherent Slough -Structure Exposed N/A -Texture (Sandi-wound Skin Appearance) Scarring Assessed Assessed -Moisture (Sandi-wound Skin Appearance) No Abnormality Assessed Assessed -Color (Sandi-wound Skin Appearance) No Abnormality Assessed Assessed -Temperature (Sandi-wound Skin No Abnormality No Abnormality No Abnormality Appearance) (Pt Warm) (Pt Warm) (Pt Warm) -Tenderness on Palpation (Sandi-wound No No No Skin Appearance) -Ulcer Cleansing Soap and Water Soap and Water Rinsed/ Irrigated with Saline -Foul Odor after Cleansing No No No -Anesthetic Used 5% Lidocaine 4% Lidocaine 5% Lidocaine Gel Solution Gel WC - Nurse 2 - General Ulcer CM Notes Start: 06/07/24 10:24 Freq: Status: Active Protocol: Activity Type Activity Date Activity User E-sign Co-sign Detail Recorded Client Recorded Date Recorded By Document 06/07/24 10:51 [id number] 06/07/24 10:56 Document 06/14/24 10:[address] [facility] [id number] 06/14/24 10:[address] [facility] Document 06/28/24 11:35 [id number] 06/28/24 11:42 06/07/24 06/14/24 06/28/24 10:51 10:50 11:35 Wound Center Nurse 2 13-left buttucks -Time 10:52 -Correct Patient No -Correct Side, Site, Position No -Correct Procedure No -Procedure Performed No -Post Debridement (cm) - Length 0 -Post Debridement (cm) - Width 0 -Post Debridement (cm) - Depth 0 -Total Square (Post) (cm) 0 -Area of Debridement (cm) - Length 0 -Area of Debridement (cm) - Width 0 -Total Square (Area) (cm) 0 -Tunneling No -Undermining/Tunneling No -Circular Undermining No -Wound/Ulcer Outcome Healed- Epithelialized -Foul Odor after Cleansing No -Offloading No -Debridement - Subq, 1st 20sq cm No #14 LT BUTTOCK CLUSTER -Time 11:35 -Correct Patient Yes -Correct Side, Site, Position Yes -Correct Procedure Yes -Procedure Performed Yes -Type of Procedure Debridement -Clinical Debridement Subcutaneous -Tissue Removed Subcutaneous -Tunneling No -Undermining/Tunneling No -Circular Undermining No -Wound/Ulcer Outcome Not Healed -Ulcer Cleansing Rinsed/ Irrigated with Saline -Foul Odor after Cleansing No -Bioengineered Tissue No -Bleeding Controlled with Pressure,Silver Nitrate -Treatment Response Procedure Tolerated Well -Offloading No -Debridement - Subq, 1st 20sq cm No #12 R Buttocks inf -Time 10:52 10:50 11:36 -Correct Patient Yes Yes Yes -Correct Side, Site, Position Yes Yes Yes -Correct Procedure Yes Yes Yes -Procedure Performed Yes Yes Yes -Type of Procedure Debridement Debridement Debridement -Clinical Debridement Subcutaneous Subcutaneous Subcutaneous -Tissue Removed Subcutaneous Subcutaneous Subcutaneous -Post Debridement (cm) - Length 0.5 0.3 0.2 -Post Debridement (cm) - Width 0.5 0.7 0.6 -Post Debridement (cm) - Depth 0.4 0.3 0.1 -Total Square (Post) (cm) 0.25 0.21 0.12 -Area of Debridement (cm) - Length 0.5 0.3 0.2 -Area of Debridement (cm) - Width 0.5 0.7 0.6 -Total Square (Area) (cm) 0.25 0.21 0.12 -Tunneling No No Yes -Tunneling Position (O'clock) 6 -Tunneling Distance (cm) 4.3 -Undermining/Tunneling No No No -Circular Undermining No No No -Wound/Ulcer Outcome Not Healed Not Healed Not Healed -Ulcer Cleansing Rinsed/ Rinsed/ Rinsed/ Irrigated with Irrigated with Irrigated with Saline Saline Saline -Foul Odor after Cleansing No No No -Bioengineered Tissue No No -Bleeding Controlled with Pressure Pressure Pressure,Silver Nitrate -Treatment Response Procedure Procedure Tolerated Well Tolerated Well -Offloading No -Debridement - Subq, 1st 20sq cm No Yes No #11 R Buttocks sup -Time 10:53 10:50 11:38 -Correct Patient Yes Yes Yes -Correct Side, Site, Position Yes Yes Yes -Correct Procedure Yes Yes Yes -Procedure Performed Yes Yes Yes -Type of Procedure Debridement Debridement Debridement -Clinical Debridement Subcutaneous Subcutaneous Subcutaneous -Tissue Removed Subcutaneous Subcutaneous Subcutaneous -Post Debridement (cm) - Length 1.7 1.5 1.3 -Post Debridement (cm) - Width 2.5 2 2 -Post Debridement (cm) - Depth 0.2 0.1 0.1 -Total Square (Post) (cm) 4.25 3.0 2.6 -Area of Debridement (cm) - Length 1.7 1.5 1.3 -Area of Debridement (cm) - Width 2.5 2 2.0 -Total Square (Area) (cm) 4.25 3.0 2.60 -Tunneling Yes Yes Yes -Tunneling Position (O'clock) 6 6 6 -Tunneling Distance (cm) 3.5 2.7 3.1 -Undermining/Tunneling Yes Yes No -Undermining/Tunneling Starts (O'clock 2 4 ) -Undermining/Tunneling Ends (O'clock) 7 -Maximum Distance (cm) 0.2 2.7 -Circular Undermining No No -Wound/Ulcer Outcome Not Healed Not Healed Not Healed -Ulcer Cleansing Rinsed/ Rinsed/ Rinsed/ Irrigated with Irrigated with Irrigated with Saline Saline Saline -Foul Odor after Cleansing No No No -Bioengineered Tissue No No No -Bleeding Controlled with Pressure Pressure Pressure -Treatment Response Procedure Procedure Procedure Tolerated Well Tolerated Well Tolerated Well -Offloading No -Debridement - Subq, 1st 20sq cm Yes No Yes Pain Scale: 0-10 Numeric Is Patient Pain Free? Yes Yes Yes WC - Nurse 3 - General Ulcer D/C NN Start: 06/07/24 10:24 Freq: Status: Active Protocol: Activity Type Activity Date Activity User E-sign Co-sign Detail Recorded Client Recorded Date Recorded By Document 06/07/24 11:12 DL [id number] 06/07/24 11:14 DL Document 06/14/24 11:04 DL [id number] 06/14/24 11:09 DL Document 06/28/24 11:42 JF [id number] 06/28/24 11:45 JF 06/07/24 06/14/24 06/28/24 11:12 11:04 11:42 Wound Care Center Nurse 3 #14 LT BUTTOCK CLUSTER -Ulcer Cleansing Rinsed/ Irrigated with Saline -Foul Odor after Cleansing No -Primary Dressing Applied Aquacel AG 4x4, Mepilex Border -Aquacel AG 4x4 1 -Mepilex Border 1 #12 R Buttocks inf -Ulcer Cleansing Rinsed/ Rinsed/ Rinsed/ Irrigated with Irrigated with Irrigated with Saline Saline Saline -Foul Odor after Cleansing No No -Primary Dressing Applied Aquacel AG 2x2 Mepilex Border, Nugauze, Iodoform 1/4in -Other Dressing Iodoform 1/4 -Primary Dressing Covered/Secured with Dry Gauze, Dry Gauze, Secured with Secured with Tape Tape -Aquacel AG 2x2 1 -Aquacel AG 4x4 0 -Mepilex Border 0 -Nugauze, Iodoform 1/4in 0 #11 R Buttocks sup -Ulcer Cleansing Rinsed/ Rinsed/ Rinsed/ Irrigated with Irrigated with Irrigated with Saline Saline Saline -Foul Odor after Cleansing No No No -Primary Dressing Applied Aquacel AG 2x2 Aquacel AG 4x4 Aquacel AG 4x4, Mepilex Border -Primary Dressing Covered/Secured with Dry Gauze, Dry Gauze, Secured with Secured with Tape Tape -Aquacel AG 2x2 1 -Aquacel AG 4x4 1 0 -Mepilex Border 0 Treatment Response Procedure Procedure Tolerated Well Tolerated Well Pain Scale: 0-10 Numeric Is Patient Pain Free? Yes Yes Yes WC - Visit Discharge Discharge Condition Stable Stable Stable Ambulatory Status Ambulatory Ambulatory Ambulatory, Walker Transportation Private Auto Private Auto Private Auto Accompanied by Medication Reconcilliation completed & Yes provided to patient/care provider Clinical Summary of Care Provided Yes Notes: Dressing applied per Pts today Additional Wound Wound debrided: Buttocks wound Laterality: Left Wound Grade/Stage: Stage III Type of Debridement: Excisional debridement Anesthesia Used: 5% Lidocaine Gel Depth: Down to and including healthy tissue and in the subcutaneous layer Percentage of wound debrided: 100 Instrument Used: 3mm curette Tissue Removed: Non viable tissue and slough Severity: Fat Layer Exposed Amount of bleeding with debridement: Mild Bleeding Controlled with: Pressure and Compression and gauze Patient tolerated procedure: Patient tolerated procedure well Assessment/Plan Assessment/Plan (1) Non-pressure chronic ulcer of buttock with fat layer exposed: CODE(S): L98.412 - Non-pressure chronic ulcer of buttock with fat layer exposed (2) Open wound of left buttock: CODE(S): S31.829A - Unspecified open wound of left buttock, initial encounter QUALIFIERS: Encounter type: initial encounter Qualified Code(s): S31.829A - Unspecified open wound of left buttock, initial encounter (3) Hidradenitis suppurativa: CODE(S): L73.2 - Hidradenitis suppurativa (4) Type 2 diabetes mellitus with diabetic polyneuropathy: CODE(S): E11.42 - Type 2 diabetes mellitus with diabetic polyneuropathy QUALIFIERS: Diabetes mellitus fdc insulin use: unspecified fdc insulin use status Qualified Code(s): E11.42 - Type 2 diabetes mellitus with diabetic polyneuropathy (5) Smoker: CODE(S): F17.200 - Nicotine dependence, unspecified, uncomplicated PLAN: Plan Patient was evaluated at the wound healing center today. Wound care - Right inferior buttocks pack 1/4 Iodoform into the wounds. Right superior ulcer, place Aquacel-Ag into the wound and pack into the tunneled area at 6 o'clock (if able to do), top with gauze/ABD/Foam bordered dressing. Left buttocks place Aquacel-Ag and cover with gauze/ABD/Foam bordered dressing. Dressings to be changed daily and wash areas with soap and water at the time of the dressing changes. Wound cultures from 05/27/24 positive for Streptococcus agalactiae (B). He completed Augmentin. Encouraged patient to stop smoking as it may have deleterious effects on wound healing. Discussed plan of care with Dr. Khan. Follow up two weeks, per patient request.
--- NOTE | 2024-06-28 13:08 | WC ---
PHOTO 06/28/24 RIGHT SUP BUTTOCK
--- NOTE | 2024-06-28 13:09 | WC ---
PHOTO 06/28/24 RIGHT INFERIOR BUTTOCKS
--- NOTE | 2024-06-28 13:10 | WC ---
PHOTO 06/28/24 LEFT BUTTOCK
== END 2024-07-01 23:59 | disposition home or self-care (01) ==
LOC: WC 11:00
PROVIDERS: PCP Family Medicine; Referring Provider Internal Medicine; Visit Provider Nurse Practitioner Family
DX: L98.412 Non-pressure chronic ulcer of buttock with fat layer exposed (principal); E11.42 Type 2 diabetes mellitus with diabetic polyneuropathy; S31.829A Unspecified open wound of left buttock, initial encounter; L73.2 Hidradenitis suppurativa; F17.200 Nicotine dependence, unspecified, uncomplicated; Z79.82 Long term (current) use of aspirin; Z79.899 Other long term (current) drug therapy
CPT/HCPCS: 11042

== ENCOUNTER 2024-07-12 10:56 | Outpatient (RCR) | payer MEDICARE, SELFPAY ==
[2024-07-02 00:16] VITALS: BP 101/67; PULSE 77; RESP 18; TEMP 36.6; BMI 19.7
[2024-07-12 10:59] VITALS: BP 96/56; PULSE 78; RESP 18; TEMP 36.6; BMI 19.7
--- NOTE | 2024-07-12 13:14 | PCM.WC.PN ---
History of Present Illness Date of Service: 07/12/24 Chief Complaint: Hidradenitis right buttock extending to sacral area. History of Wound: 78 year old man with a history of diabetes mellitus underwent surgery on 03/12/21 where he underwent surgical preparation sacral area with excision complicated extensive pilonidal cyst. With wound care, good nutrition, and some antibiotics, the sacral wound healed. He also has a history of hidradenitis involving his bilateral buttock areas and perineal area. He has developed a recent flare up of his hidradenitis involving the right buttock extending to the sacral area. There is intermittent drainage present. He denies fever. He complains of pain in this area. Patient is diabetic. He continues to have multiple other health issue with his liver and his heart. Today he denies fever, chills, nausea. States his appetite is ok. Progress of Wound: Right buttocks with superior and inferior ulcers. The right superior ulcer is smaller but continues to have a tunnel at 6 o'clock, it does not connect to the inferior opening. The inferior ulcer is very small, difficult to pack, it also has a tunnel at 6 o'clock, but does not connect to the tunnel from the superior wound. There wound on the left buttocks some white drainage on the left side below the left buttock wound. Objective Data Objective Data Vital Signs: Vital Signs Temp Pulse Resp BP 98 F 78 18 96/56 L 07/12/24 10:59 07/12/24 10:59 07/12/24 10:59 07/12/24 10:59 Weight: 145 lb 10.724 oz Body Mass Index (BMI) 19.7 Charges/Coding Procedures Integumentary 111xxx-113xx: [id number] Dena subq tissue 20 sq cm/< Debridement Note Debridement Note Wound debrided: Superior and inferior buttocks wound Laterality: Right Wound Grade/Stage: Stage III Type of Debridement: Excisional debridement Anesthesia Used: 5% Lidocaine Gel Depth: Down to and including healthy tissue and in the subcutaneous layer Percentage of wound debrided: 100 Instrument Used: 3mm curette Tissue Removed: Non viable tissue and slough Severity: Fat Layer Exposed Amount of bleeding with debridement: Mild Bleeding Controlled with: Pressure, Compression and gauze and Silver Nitrate (to the inferior wound only) Patient tolerated procedure: Patient tolerated procedure well Post-Debridement Measurements and Additional Note: Post-Debridement Measurements/Treatment WC - Nurse 1 - General Ulcer Assessment Start: 07/12/24 10:57 Freq: Status: Active Protocol: SUSY Activity Type Activity Date Activity User E-sign Co-sign Detail Recorded Client Recorded Date Recorded By Document 07/12/24 10:59 DL [id number] 07/12/24 11:11 DL 07/12/24 10:59 WC - Today's Visit Information Type of service Follow-up Visit (Physician/MANAGER SUPPLY ) Arrival Mode Ambulatory, Walker Transfer Assistance None Patient Identification Verified (Name & Yes ) Patient Requires Transmission-Based No Precautions Height and Weight Body Mass Index (BMI) 19.7 BMI Classification Normal Vital Signs Temperature (97.8 F-99.1 F) 98 F Temperature Source Temporal Pulse Rate (60-100) 78 Pulse Location Monitor Respiratory Rate (12-18) 18 Respiratory rate source Observation Blood Pressure (90/60-120/80) 96/56 L Blood Pressure Mean (mm Hg) 69 Source Monitor History Since Last Visit- (Skip if this is Patient's initial visit) Have you changed medications since your No last visit? Any new allergies or adverse reactions No Had a fall/change in ADL's that may No increase risk of falls Signs or symptoms of abuse and/or No neglect since last visit Have you been in the hospital since your No last visit? Has dressing in place as prescribed Yes Has compression in place as prescribed N/A Has offloadiing in place as prescribed Yes Experienced any changes in pain level or No management Pain Scale: 0-10 Numeric Is Patient Pain Free? Yes PLACIDO - Nurse 1 - General Ulcer Measurement Start: 07/12/24 10:57 Freq: Status: Active Protocol: Activity Type Activity Date Activity User E-sign Co-sign Detail Recorded Client Recorded Date Recorded By Document 07/12/24 10:59 TRISTEN [id number] 07/12/24 11:11 DL 07/12/24 10:59 Wound Center Nurse 1 #14 LT BUTTOCK CLUSTER -Current Size (cm) - Length 0.2 -Current Size (cm) - Width 0.4 -Current Size (cm) - Depth 0.2 -Total Square Cm 0.08 -Exudate Amt Small -Wound Margin Thickened & Rolled Under -Granulation Amt Small (1-33%) -Granulation Quality Banner -Necrosis Amt None Present (0 %) -Structure Exposed N/A -Texture (Sandi-wound Skin Appearance) Scarring -Moisture (Sandi-wound Skin Appearance) No Abnormality -Color (Sandi-wound Skin Appearance) No Abnormality -Temperature (Sandi-wound Skin No Abnormality Appearance) (Pt Warm) -Tenderness on Palpation (Sandi-wound No Skin Appearance) -Ulcer Cleansing Soap and Water -Foul Odor after Cleansing No -Anesthetic Used 5% Lidocaine Gel #12 R Buttocks inf -Current Size (cm) - Length 0.1 -Current Size (cm) - Width 0.1 -Current Size (cm) - Depth 0.1 -Total Square Cm 0.01 -Photo Taken Yes -Exudate Amt None Present -Wound Margin Thickened & Rolled Under -Granulation Amt Small (1-33%) -Granulation Quality Banner -Necrosis Amt None Present (0 %) -Structure Exposed N/A -Texture (Sandi-wound Skin Appearance) Scarring -Moisture (Sandi-wound Skin Appearance) No Abnormality -Color (Sandi-wound Skin Appearance) No Abnormality -Temperature (Sandi-wound Skin No Abnormality Appearance) (Pt Warm) -Tenderness on Palpation (Sandi-wound No Skin Appearance) -Ulcer Cleansing Soap and Water -Foul Odor after Cleansing No -Anesthetic Used 5% Lidocaine Gel #11 R Buttocks sup -Current Size (cm) - Length 1 -Current Size (cm) - Width 2 -Current Size (cm) - Depth 0.2 -Total Square Cm 2 -Exudate Amt Medium -Exudate Type Serosanguineous -Wound Margin Distinct, Outline Attached -Granulation Amt Large (67-100%) -Granulation Quality Red -Necrosis Amt Small (1-33%) -Necrotic Tissue Type Adherent Slough -Structure Exposed N/A -Texture (Sandi-wound Skin Appearance) Scarring -Moisture (Sandi-wound Skin Appearance) No Abnormality -Color (Sandi-wound Skin Appearance) No Abnormality -Temperature (Sandi-wound Skin No Abnormality Appearance) (Pt Warm) -Tenderness on Palpation (Sandi-wound No Skin Appearance) -Ulcer Cleansing Soap and Water -Foul Odor after Cleansing No -Anesthetic Used 5% Lidocaine Gel WC - Nurse 2 - General Ulcer CM Notes Start: 07/12/24 10:57 Freq: Status: Active Protocol: Activity Type Activity Date Activity User E-sign Co-sign Detail Recorded Client Recorded Date Recorded By Document 07/12/24 11:24 ASHLEY [id number] 07/12/24 11:29 ASHLEY 07/12/24 11:24 Wound Center Nurse 2 #14 LT BUTTOCK CLUSTER -Time 11:24 -Correct Patient Yes -Correct Side, Site, Position Yes -Correct Procedure Yes -Procedure Performed Yes -Type of Procedure Debridement -Clinical Debridement Subcutaneous -Tissue Removed Subcutaneous -Post Debridement (cm) - Length 0.5 -Post Debridement (cm) - Width 0.5 -Post Debridement (cm) - Depth 0.2 -Total Square (Post) (cm) 0.25 -Area of Debridement (cm) - Length 0.5 -Area of Debridement (cm) - Width 0.5 -Total Square (Area) (cm) 0.25 -Tunneling No -Undermining/Tunneling No -Circular Undermining No -Wound/Ulcer Outcome Not Healed -Ulcer Cleansing Rinsed/ Irrigated with Saline -Foul Odor after Cleansing No -Bioengineered Tissue No -Bleeding Controlled with Pressure -Treatment Response Procedure Tolerated Well -Offloading No -Debridement - Subq, 1st 20sq cm No #12 R Buttocks inf -Time 11:25 -Correct Patient Yes -Correct Side, Site, Position Yes -Correct Procedure Yes -Procedure Performed Yes -Type of Procedure Debridement -Clinical Debridement Subcutaneous -Tissue Removed Subcutaneous -Post Debridement (cm) - Length 0.5 -Post Debridement (cm) - Width 0.4 -Post Debridement (cm) - Depth 0.3 -Total Square (Post) (cm) 0.20 -Area of Debridement (cm) - Length 0.5 -Area of Debridement (cm) - Width 0.4 -Total Square (Area) (cm) 0.20 -Tunneling Yes -Tunneling Position (O'clock) 6 -Tunneling Distance (cm) 4.0 -Undermining/Tunneling No -Circular Undermining No -Wound/Ulcer Outcome Not Healed -Ulcer Cleansing Rinsed/ Irrigated with Saline -Foul Odor after Cleansing No -Bioengineered Tissue No -Bleeding Controlled with Pressure -Treatment Response Procedure Tolerated Well -Offloading No -Debridement - Subq, 1st 20sq cm No #11 R Buttocks sup -Time 11:26 -Correct Patient Yes -Correct Side, Site, Position Yes -Correct Procedure Yes -Procedure Performed Yes -Type of Procedure Debridement -Clinical Debridement Subcutaneous -Tissue Removed Subcutaneous -Post Debridement (cm) - Length 1.2 -Post Debridement (cm) - Width 1.7 -Post Debridement (cm) - Depth 0.1 -Total Square (Post) (cm) 2.04 -Area of Debridement (cm) - Length 1.2 -Area of Debridement (cm) - Width 1.7 -Total Square (Area) (cm) 2.04 -Tunneling Yes -Tunneling Position (O'clock) 6 -Tunneling Distance (cm) 2.6 -Undermining/Tunneling No -Circular Undermining No -Wound/Ulcer Outcome Not Healed -Ulcer Cleansing Rinsed/ Irrigated with Saline -Foul Odor after Cleansing No -Bioengineered Tissue No -Bleeding Controlled with Pressure -Treatment Response Procedure Tolerated Well -Offloading No -Debridement - Subq, 1st 20sq cm Yes Pain Scale: 0-10 Numeric Is Patient Pain Free? Yes - Nurse 3 - General Ulcer D/C NN Start: 07/12/24 10:57 Freq: Status: Active Protocol: Activity Type Activity Date Activity User E-sign Co-sign Detail Recorded Client Recorded Date Recorded By Document 07/12/24 11:45 DL [id number] 07/12/24 11:47 DL 07/12/24 11:45 Wound Care Center Nurse 3 #14 LT BUTTOCK CLUSTER -Ulcer Cleansing Rinsed/ Irrigated with Saline -Foul Odor after Cleansing No -Primary Dressing Applied Aquacel AG 4x4 -Primary Dressing Covered/Secured with Dry Gauze, Secured with Tape -Aquacel AG 4x4 1 #12 R Buttocks inf -Ulcer Cleansing Wound Cleanser -Foul Odor after Cleansing No -Other Dressing aqaucel ag -Primary Dressing Covered/Secured with Dry Gauze, Secured with Tape #11 R Buttocks sup -Ulcer Cleansing Rinsed/ Irrigated with Saline -Foul Odor after Cleansing No -Other Dressing aquacel ag -Primary Dressing Covered/Secured with Dry Gauze & Roll Gauze Treatment Response Procedure Tolerated Well Pain Scale: 0-10 Numeric Is Patient Pain Free? Yes - Visit Discharge Discharge Condition Stable Ambulatory Status Ambulatory, Walker Transportation Private Auto Additional Wound Wound debrided: Buttocks wound Laterality: Left Wound Grade/Stage: Stage II Type of Debridement: Excisional debridement Anesthesia Used: 5% Lidocaine Gel Depth: Down to and including healthy tissue and in the subcutaneous layer Percentage of wound debrided: 100 Instrument Used: 3mm curette Tissue Removed: Non viable tissue and slough Severity: Fat Layer Exposed Amount of bleeding with debridement: Mild Bleeding Controlled with: Pressure and Compression and gauze Patient tolerated procedure: Patient tolerated procedure well Assessment/Plan Assessment/Plan (1) Non-pressure chronic ulcer of buttock with fat layer exposed: CODE(S): L98.412 - Non-pressure chronic ulcer of buttock with fat layer exposed (2) Open wound of left buttock: CODE(S): S31.829A - Unspecified open wound of left buttock, initial encounter QUALIFIERS: Encounter type: initial encounter Qualified Code(s): S31.829A - Unspecified open wound of left buttock, initial encounter (3) Hidradenitis suppurativa: CODE(S): L73.2 - Hidradenitis suppurativa (4) Type 2 diabetes mellitus with diabetic polyneuropathy: CODE(S): E11.42 - Type 2 diabetes mellitus with diabetic polyneuropathy QUALIFIERS: Diabetes mellitus terminal 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 Wound care - Right superior and inferior buttocks ulcers pack 1/4 Iodoform into the tunnels and top with Aquacel-Ag top with gauze/ABD/Foam bordered dressing. Left buttocks place Aquacel-Ag and cover with gauze/ABD/Foam bordered dressing. Dressings to be changed daily and wash areas with soap and water at the time of the dressing changes. Wound cultures from 05/27/24 positive for Streptococcus agalactiae (B). He completed Augmentin. Encouraged patient to stop smoking as it may have deleterious effects on wound healing. Discussed plan of care with Dr. Khan. Patient has multiple appointments over the next several weeks. Follow up 3-4 weeks.
== END 2024-07-31 23:59 | disposition home or self-care (01) ==
LOC: WC 10:56
PROVIDERS: PCP Family Medicine; Referring Provider Internal Medicine; Visit Provider Nurse Practitioner Family
DX: L98.412 Non-pressure chronic ulcer of buttock with fat layer exposed (principal); E11.42 Type 2 diabetes mellitus with diabetic polyneuropathy; L73.2 Hidradenitis suppurativa; S31.829A Unspecified open wound of left buttock, initial encounter; F17.200 Nicotine dependence, unspecified, uncomplicated; Z79.82 Long term (current) use of aspirin; Z79.899 Other long term (current) drug therapy
CPT/HCPCS: 11042

== ENCOUNTER → 2024-07-24 | Outpatient (CLI) | payer MEDICARE, SELFPAY ==
[2024-07-24 11:49] LABS: Absolute Lymphocyte Count 2.01 X10^3/uL (0.83-4.51); Basophil# 0.08 X10^3/uL; Basophil% 0.6 % (0-1); Eosinophil# 0.31 X10^3/uL; Eosinophils% 2.3 % (0-5); Hematocrit 33.1 % (40-54); Hemoglobin 10.8 g/dL (13.0-16.5); Lymphocyte # 2.01 X10^3/ul (0.83-4.51); Mean Corp Hgb Conc 32.6 g/dL (32-36); Mean Corpuscular Volume 91.9 fL (80-94); Mean Platelet Vol. 8.8 fl (6.2-12.0); Monocyte# 0.82 X10^3/uL; Monocyte% 6.1 % (0-10); NRBC Flagged by Analyzer 0 % (0-5); Neutrophil # 10.02 X10^3/uL (2.7-7.7); Platelet Count 257 K/mm3 (150-450); RBC Distribution Width SD 47.3 fl (35.1-43.9); White Blood Count 13.4 K/mm3 (4.4-11.0)
[2024-07-24 11:58] LABS: International Normalized Ratio 1.1; Prothrombin Time (Protime)PT. 14.1 SECONDS (11.7-14.9)
[2024-07-24 12:17] LABS: ALB/GLOB Ratio 0.5 RATIO (0.9-2.4); AST(SGOT) 16 U/L (15-37); Alanine Aminotransfer ALT/SGPT 13 U/L (16-61); Albumin, Serum 2.8 g/dL (3.2-5.0); Alkaline Phosphatase 81 U/L (45-117); Anion Gap 4 (5-15); BUN 17 mg/dL (7-18); BUN/Creat Ratio 19.5 RATIO (10-20); Calcium,Total 9.3 mg/dL (8.5-10.1); Chloride 107 mmol/L (98-107); Creatinine, Serum 0.87 mg/dL (0.70-1.30); EST Glomerular Filtration Rate 90 mL/min (>60); Est Glom Filt Rate - Afr Amer 109 mL/min (>60); Globulin 5.7 g/dL (2.2-4.2); Glucose 94 mg/dL (74-106); Lipase 46 U/L (13-75); Potassium 4.2 mmol/L (3.5-5.1); Protein, Total 8.5 g/dL (6.4-8.2); Sodium Level 137 mmol/L (136-145)
[2024-07-26 08:33] LABS: HIV - WCH Non-Reactive (Nonreactive)
[2024-07-26 15:07] LABS: Anti-Mitochondrial AB <20.0 Units (0.0-20.0)
[2024-07-29 17:07] LABS: AFP, Tumor Marker 1.9 ng/mL (0.0-8.4); Albumin 2.8 g/dL (2.9-4.4); Alpha-1-Globulins 0.3 g/dL (0.0-0.4); Alpha-2-Globulins 1.1 g/dL (0.4-1.0); Angiotensin Convert Enzyme 53 U/L (14-82); Anti-Smooth Muscle ABS 32 Units (0-19); Carbohydrate AG 19-9 31 U/mL (0-35); Carcinoembryonic Antigen 4.4 ng/mL (0.0-4.7); Endomysial Antibody IgA Negative (Negative); Free Lambda Light Chains 93.4 mg/L (5.7-26.3); Gamma Globulin 2.6 g/dL (0.4-1.8); Haptoglobin 309 mg/dL (34-355); Immunoglobulin A 1097 mg/dL (61-437); Immunoglobulin E 4576 IU/mL (6-495); Immunoglobulin G 2431 mg/dL (603-1613); Immunoglobulin M 88 mg/dL (15-143); PROEL- TOTAL PROTEIN 8.3 g/dL (6.0-8.5); t-Transglutaminase IgA <2 U/mL (0-3)
== END | disposition home or self-care (01) ==
PROVIDERS: PCP Family Medicine; Referring Provider Internal Medicine; Visit Provider Internal Medicine
DX: K75.4 Autoimmune hepatitis (principal); L98.426 Non-pressure chronic ulcer of back with bone involvement without evidence of necrosis; K70.30 Alcoholic cirrhosis of liver without ascites; E11.42 Type 2 diabetes mellitus with diabetic polyneuropathy; E11.51 Type 2 diabetes mellitus with diabetic peripheral angiopathy without gangrene; B19.20 Unspecified viral hepatitis C without hepatic coma; L73.2 Hidradenitis suppurativa; D64.9 Anemia, unspecified; R76.8 Other specified abnormal immunological findings in serum
CPT/HCPCS: 80053; 82105; 82164; 82378; 82784; 82785; 83010; 83516; 83690; 83883; 84165; 85025; 85610; 86140; 86255; 86301; 86334; 86703

== ENCOUNTER → 2024-08-02 | Outpatient (CLI) | payer MEDICARE, SELFPAY ==
[2024-08-02] VITALS (14 sets, daily range): BP systolic 93–115; BP diastolic 62–72; PULSE 69–73; RESP 15–18; TEMP 36.6; O2SAT 92–100; BMI 20.5
--- NOTE | 2024-08-02 | LIVB_PTH ---
PATIENT: PETRA VEE LOC: CT U#:[id number] AGE/SX: 78/M ROOM: RE08/02/[address]: Dr. Kelvin Bartlett MD : 1945 BED: DIS: 08/02/2024 SPEC #: [id number] RECD: 08/02/24 11:25 STATUS: SALAS RELisseth #: [id number] AIDEN: 08/02/24 00:[address]: Kelvin Bartlett DEPT: SURGICAL PATHOLOGY RECD BY: Kailey Henderson ENTERED: 08/02/24 11:26 SP TYPE: LIVER BX OTHR DR: Dr. Patricio Ortega MD Tissues: Liver, NOS Procedures: PAS with Diastase (control) Trichrome (control) Special Stain Group I PAS Stain (control) Surgery Specimen Level V Retic (control) Iron Stain (control) HEADER OPERATION: CT guided liver biospy PRE-OP DIAGNOSIS: Hepatitis/cirrhosis TISSUE SUBMITTED: 18 gauge x 4 cores MICROSCOPIC DIAGNOSIS Liver, CT guided core biopsy: Minimal change. See comment. AM. 08/03/2024 COMMENT Sections show minimal portal inflammation. The sinusoids are mildly expanded. Iron stain does not reveal accumulation of iron in liver parenchyma. Reticulin stain reveals normal hepatic parenchymal architecture. PAS and PASD stains do not reveal accumulation of abnormal proteins. Trichrome stain does not reveal fibrosis or cirrhosis. All matched controls are appropriate. Clinical correlation is suggested. MICROSCOPIC DESCRIPTION Slides are reviewed. GROSS DESCRIPTION Received is one container labeled with the patient's name and not further designated. The specimen consists of multiple elongated fragments of light galarza soft tissue measuring in aggregate 1.5 x 0.2 x 0.1cm. The entire specimen is submitted in one cassette. . 08/02/2024 TC:3 [facility]:[id number] ADDENDUM ADDENDUM ADDENDUM ADDENDUM ADDENDUM ADDENDUM ADDENDUM ADDENDUM ADDENDUM ADDENDUM 08/19/2024 08:41 ADDENDUM 08/19/2024 08:41 ADDENDUM 08/19/2024 08:41 ADDENDUM 08/19/2024 08:41 ADDENDUM 08/19/2024 08:41 This addendum is added to incorporate an outside pathology consultation report. The case was examined at [facility] (#[id number]) and the following diagnosis was rendered. Liver, CT guided core biopsy: Mild sinusoidal dilatation, congestion, and portal fibrosis with short fibrous septa. Please see complete above mentioned consultation report in EMR
--- NOTE | 2024-08-02 09:02 | CT_ITS ---
PROCEDURE: CT DIRECTED CORE LIVER BIOPSY INDICATION: Male, 78 years old. 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 Nancy Sharif CONSENT: Written informed consent was obtained having explained the risks, benefits and alternatives in detail with the patient who accepted the risks and agreed to proceed. Laboratory review and clinical assessment was performed. CONSCIOUS SEDATION PROTOCOL: The Drugs used were: 2 mg Versed, IV., and 50 mcg Fentanyl, IV. The sedation time was: 20 minutes. Conscious sedation was started at 10:05 AM and terminated at 1025. The conscious sedation protocol was independently monitored. RADIATION DOSAGE (If Supplied By Facility): CTDIvol = ( 15 ) mGy, DLP = ( 286 ) mGycm Individualized dose optimization techniques were used for this CT. TECHNIQUE: Using CT image guidance with image documentation, a suitable location in the right lobe of the liver was identified. Using an anterior approach, puncture of the medial right lobe of the liver was uneventful with an 18-gauge core needle system. 4, 18-gauge core samples were obtained, and submitted in formalin to the pathologist for further assessment. Followup CT scan revealed no distinct sequelae. CT/Biopsy/Inj or Needle Placement IMPRESSION: 1. CT directed core needle biopsy of the liver, using CT image guidance with image documentation as described. 2. Conscious Sedation protocol utilized with independent monitoring. Electronically Signed: Hebert Cruz MD at 15:11 EST ,
[2024-08-02] MEDS: Midazolam 2 MG/2 ML Syringe IV ×2 (10:05→10:16)
[2024-08-02] MEDS: fentaNYL 100 MCG/2 ML Ampul IV (10:07)
[2024-08-02] MEDS: Lidocaine 2% (20 ml mdv) 20 ML Vial INFILT (10:18)
--- NOTE | 2024-08-02 11:30 | NURSING ---
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 PATIENT AND FAMILY ARE AWARE. FAMILY STATES PATIENT HAS BEEN DEALING WITH THIS FOR ABOUT 1 YEAR. PATIENT HAD TO RESCHEDULE CARDIOLOGY APPOINTMENT. ENCOURAGED PATIENT TO FOLLOW UP WITH CARDIOLOGY SOON POSSIBLE. PATIENT AND FAMILY IN AGREEMENT AND VERBALIZE UNDERSTANDING.
== END | disposition home or self-care (01) ==
PROVIDERS: PCP Family Medicine; Referring Provider Internal Medicine; Visit Provider Internal Medicine
DX: K70.30 Alcoholic cirrhosis of liver without ascites (principal); B19.20 Unspecified viral hepatitis C without hepatic coma; R76.8 Other specified abnormal immunological findings in serum
CPT/HCPCS: 47000; 77012; 88307; 88312; 99156; A4216

== ENCOUNTER 2024-08-30 10:30 | Outpatient (RCR) | payer MEDICARE, SELFPAY ==
[2024-08-01 00:15] VITALS: BP 101/67; PULSE 77; RESP 18; TEMP 36.6; BMI 19.7
[2024-08-09 10:47] VITALS: BP 106/60; PULSE 82; RESP 18; TEMP 36.4; BMI 19.7
--- NOTE | 2024-08-09 14:12 | PCM.WC.PN ---
History of Present Illness Date of Service: 08/09/24 Chief Complaint: Hidradenitis right buttock extending to sacral area. History of Wound: 78 year old man with a history of diabetes mellitus underwent surgery on 03/12/21 where he underwent surgical preparation sacral area with excision complicated extensive pilonidal cyst. With wound care, good nutrition, and some antibiotics, the sacral wound healed. He also has a history of hidradenitis involving his bilateral buttock areas and perineal area. He has developed a recent flare up of his hidradenitis involving the right buttock extending to the sacral area. There is intermittent drainage present. He denies fever. He complains of pain in this area. Patient is diabetic. He continues to have multiple other health issue with his liver and his heart. Today he denies fever, chills, nausea. States his appetite is ok. Progress of Wound: Right buttocks with superior and inferior ulcers. The right superior ulcer is smaller but continues to have a tunnel at 6 o'clock, it does not connect to the inferior opening. The inferior ulcer is very small, difficult to pack, it also has a tunnel at 6 o'clock, but does not connect to the tunnel from the superior wound. There wound on the left buttocks is very small, difficult to see the base. His states she is having a difficult time packing anything into that ulcer. Objective Data Objective Data Vital Signs: Vital Signs Temp Pulse Resp BP 97.6 F L 82 18 106/60 08/09/24 10:47 08/09/24 10:47 08/09/24 10:47 08/09/24 10:47 Weight: 145 lb 10.724 oz Body Mass Index (BMI) 19.7 Charges/Coding Procedures Integumentary [id number]: [id number] Dena subq tissue 20 sq cm/< Debridement Note Debridement Note Wound debrided: Superior and inferior buttocks wound Laterality: Right Wound Grade/Stage: Stage III Type of Debridement: Excisional debridement Anesthesia Used: 5% Lidocaine Gel Depth: Down to and including healthy tissue and in the subcutaneous layer Percentage of wound debrided: 100 Instrument Used: 3mm curette Tissue Removed: Non viable tissue and slough Severity: Fat Layer Exposed Amount of bleeding with debridement: Mild Bleeding Controlled with: Pressure, Compression and gauze and Silver Nitrate (to the inferior wound only) Patient tolerated procedure: Patient tolerated procedure well Post-Debridement Measurements and Additional Note: Post-Debridement Measurements/Treatment PLACIDO - Nurse 1 - General Ulcer Assessment Start: 08/09/24 10:46 Freq: Status: Active Protocol: SUSY Activity Type Activity Date Activity User E-sign Co-sign Detail Recorded Client Recorded Date Recorded By Document 08/09/24 10:47 TRISTEN [id number] 08/09/24 10:55 DL 08/09/24 10:47 WC - Today's Visit Information Type of service Follow-up Visit (Physician/GIN CLERK ) Arrival Mode Ambulatory, Walker Transfer Assistance None Patient Identification Verified (Name & Yes ) Patient Requires Transmission-Based No Precautions Height and Weight Body Mass Index (BMI) 19.7 BMI Classification Normal Vital Signs Temperature (97.8 F-99.1 F) 97.6 F L Temperature Source Temporal Pulse Rate (60-100) 82 Pulse Location Monitor Respiratory Rate (12-18) 18 Respiratory rate source Observation Blood Pressure (90/60-120/80) 106/60 Blood Pressure Mean (mm Hg) 75 Source Monitor History Since Last Visit- (Skip if this is Patient's initial visit) Have you changed medications since your No last visit? Any new allergies or adverse reactions No Had a fall/change in ADL's that may No increase risk of falls Signs or symptoms of abuse and/or No neglect since last visit Have you been in the hospital since your No last visit? Has dressing in place as prescribed Yes Has compression in place as prescribed N/A Has offloadiing in place as prescribed Yes Experienced any changes in pain level or No management Pain Scale: 0-10 Numeric Is Patient Pain Free? Yes - Nurse 1 - General Ulcer Measurement Start: 08/09/24 10:46 Freq: Status: Active Protocol: Activity Type Activity Date Activity User E-sign Co-sign Detail Recorded Client Recorded Date Recorded By Document 08/09/24 10:47 TRISTEN [id number] 08/09/24 10:55 DL 08/09/24 10:47 Wound Center Nurse 1 #14 LT BUTTOCK CLUSTER -Current Size (cm) - Length 0.2 -Current Size (cm) - Width 0.4 -Current Size (cm) - Depth 0.2 -Total Square Cm 0.08 -Undermining/Tunneling Starts (O'clock 7 ) -Undermining/Tunneling Ends (O'clock) 11 -Maximum Distance (cm) 1.3 -Exudate Amt Medium -Exudate Type Yellow/Green -Wound Margin Thickened -Granulation Amt Small (1-33%) -Granulation Quality [place] -Necrosis Amt None Present (0 %) -Structure Exposed N/A -Texture (Sandi-wound Skin Appearance) Scarring -Moisture (Sandi-wound Skin Appearance) No Abnormality -Color (Sandi-wound Skin Appearance) No Abnormality -Temperature (Sandi-wound Skin No Abnormality Appearance) (Pt Warm) -Tenderness on Palpation (Sandi-wound Yes Skin Appearance) -Ulcer Cleansing Soap and Water -Foul Odor after Cleansing No -Anesthetic Used 5% Lidocaine Gel #12 R Buttocks inf -Current Size (cm) - Length 0.1 -Current Size (cm) - Width 0.1 -Current Size (cm) - Depth 0.1 -Total Square Cm 0.01 -Exudate Amt None Present -Exudate Type Yellow/Green -Wound Margin Indistinct, Non -Visible -Granulation Amt None Present (0 %) -Granulation Quality Red -Necrosis Amt None Present (0 %) -Necrotic Tissue Type Adherent Slough -Structure Exposed N/A -Texture (Sandi-wound Skin Appearance) Scarring -Moisture (Sandi-wound Skin Appearance) Dry/Scaly -Color (Sandi-wound Skin Appearance) No Abnormality -Temperature (Sandi-wound Skin No Abnormality Appearance) (Pt Warm) -Tenderness on Palpation (Sandi-wound Yes Skin Appearance) -Ulcer Cleansing Soap and Water -Foul Odor after Cleansing No -Anesthetic Used 5% Lidocaine Gel #11 R Buttocks sup -Current Size (cm) - Length 4 -Current Size (cm) - Width 1.1 -Current Size (cm) - Depth 0.1 -Total Square Cm 4.4 -Exudate Amt Medium -Exudate Type Serosanguineous -Wound Margin Distinct, Outline Attached -Granulation Amt Medium (34-66%) -Granulation Quality Red -Necrosis Amt Medium (34-66%) -Necrotic Tissue Type Adherent Slough -Structure Exposed N/A -Texture (Sandi-wound Skin Appearance) Scarring -Moisture (Sandi-wound Skin Appearance) Dry/Scaly -Color (Sandi-wound Skin Appearance) No Abnormality -Temperature (Sandi-wound Skin No Abnormality Appearance) (Pt Warm) -Ulcer Cleansing Soap and Water -Foul Odor after Cleansing No -Anesthetic Used 5% Lidocaine Gel WC - Nurse 2 - General Ulcer CM Notes Start: 08/09/24 10:46 Freq: Status: Active Protocol: Activity Type Activity Date Activity User E-sign Co-sign Detail Recorded Client Recorded Date Recorded By Document 08/09/24 11:13 ASHLEY [id number] 08/09/24 11:16 ASHLEY 08/09/24 11:13 Wound Center Nurse 2 #14 LT BUTTOCK CLUSTER -Time 11:14 -Correct Patient Yes -Correct Side, Site, Position Yes -Correct Procedure Yes -Procedure Performed Yes -Type of Procedure Debridement -Clinical Debridement Subcutaneous -Tissue Removed Subcutaneous -Post Debridement (cm) - Length 0.5 -Post Debridement (cm) - Width 0.8 -Post Debridement (cm) - Depth 1.4 -Total Square (Post) (cm) 0.40 -Area of Debridement (cm) - Length 0.5 -Area of Debridement (cm) - Width 0.8 -Total Square (Area) (cm) 0.40 -Tunneling No -Undermining/Tunneling No -Circular Undermining No -Wound/Ulcer Outcome Not Healed -Ulcer Cleansing Rinsed/ Irrigated with Saline -Foul Odor after Cleansing No -Bioengineered Tissue No -Bleeding Controlled with Pressure -Treatment Response Procedure Tolerated Well -Offloading No -Debridement - Subq, 1st 20sq cm No #12 R Buttocks inf -Time 11:14 -Correct Patient Yes -Correct Side, Site, Position Yes -Correct Procedure Yes -Procedure Performed Yes -Type of Procedure Debridement -Clinical Debridement Subcutaneous -Tissue Removed Subcutaneous -Post Debridement (cm) - Length 0.4 -Post Debridement (cm) - Width 0.4 -Post Debridement (cm) - Depth 0.1 -Total Square (Post) (cm) 0.16 -Area of Debridement (cm) - Length 0.4 -Area of Debridement (cm) - Width 0.4 -Total Square (Area) (cm) 0.16 -Tunneling Yes -Tunneling Position (O'clock) 6 -Tunneling Distance (cm) 4.0 -Undermining/Tunneling No -Circular Undermining No -Wound/Ulcer Outcome Not Healed -Ulcer Cleansing Rinsed/ Irrigated with Saline -Foul Odor after Cleansing No -Bioengineered Tissue No -Bleeding Controlled with Pressure -Treatment Response Procedure Tolerated Well -Offloading No -Debridement - Subq, 1st 20sq cm No #11 R Buttocks sup -Time 11:15 -Correct Patient Yes -Correct Side, Site, Position Yes -Correct Procedure Yes -Procedure Performed Yes -Type of Procedure Debridement -Clinical Debridement Subcutaneous -Tissue Removed Subcutaneous -Post Debridement (cm) - Length 0.5 -Post Debridement (cm) - Width 1.1 -Post Debridement (cm) - Depth 0.1 -Total Square (Post) (cm) 0.55 -Area of Debridement (cm) - Length 0.5 -Area of Debridement (cm) - Width 1.1 -Total Square (Area) (cm) 0.55 -Tunneling Yes -Tunneling Position (O'clock) 6 -Tunneling Distance (cm) 3.5 -Undermining/Tunneling No -Circular Undermining No -Wound/Ulcer Outcome Not Healed -Ulcer Cleansing Rinsed/ Irrigated with Saline -Foul Odor after Cleansing No -Bioengineered Tissue No -Bleeding Controlled with Pressure -Treatment Response Procedure Tolerated Well -Offloading No -Debridement - Subq, 1st 20sq cm Yes Pain Scale: 0-10 Numeric Is Patient Pain Free? Yes - Nurse 3 - General Ulcer D/C NN Start: 08/09/24 10:46 Freq: Status: Active Protocol: Activity Type Activity Date Activity User E-sign Co-sign Detail Recorded Client Recorded Date Recorded By Document 08/09/24 11:28 [id number] 08/09/24 11:29 08/09/24 11:28 Wound Care Center Nurse 3 #14 LT BUTTOCK CLUSTER -Primary Dressing Applied Aquacel AG 2x2 -Primary Dressing Covered/Secured with Dry Gauze, Secured with Tape -Aquacel AG 2x2 1 #12 R Buttocks inf -Other Dressing pack with iodoform -Primary Dressing Covered/Secured with Dry Gauze, Secured with Tape #11 R Buttocks sup -Other Dressing pack iodoform -Primary Dressing Covered/Secured with Dry Gauze, Secured with Tape Pain Scale: 0-10 Numeric Is Patient Pain Free? Yes - Visit Discharge Discharge Condition Stable Ambulatory Status Ambulatory, Walker Transportation Private Auto Medication Reconcilliation completed & No provided to patient/care provider Clinical Summary of Care Provided Yes Additional Wound Wound debrided: Buttocks wound Laterality: Left Wound Grade/Stage: Stage II Type of Debridement: Excisional debridement Anesthesia Used: 5% Lidocaine Gel Depth: Down to and including healthy tissue and in the subcutaneous layer Percentage of wound debrided: 100 Instrument Used: 3mm curette Tissue Removed: Non viable tissue and slough Severity: Fat Layer Exposed Amount of bleeding with debridement: Mild Bleeding Controlled with: Pressure and Compression and gauze Patient tolerated procedure: Patient tolerated procedure well Assessment/Plan Assessment/Plan (1) Non-pressure chronic ulcer of buttock with fat layer exposed: CODE(S): L98.412 - Non-pressure chronic ulcer of buttock with fat layer exposed (2) Open wound of left buttock: CODE(S): S31.829A - Unspecified open wound of left buttock, initial encounter QUALIFIERS: Encounter type: initial encounter Qualified Code(s): S31.829A - Unspecified open wound of left buttock, initial encounter (3) Hidradenitis suppurativa: CODE(S): L73.2 - Hidradenitis suppurativa (4) Type 2 diabetes mellitus with diabetic polyneuropathy: CODE(S): E11.42 - Type 2 diabetes mellitus with diabetic polyneuropathy QUALIFIERS: Diabetes mellitus group home insulin 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 Wound care - Right superior and inferior buttocks ulcers pack 1/4 Iodoform into the tunnels and top with Aquacel-Ag top with gauze/ABD/Foam bordered dressing. Left buttocks place Aquacel-Ag and cover with gauze/ABD/Foam bordered dressing. Dressings to be changed daily and wash areas with soap and water at the time of the dressing changes. Wound cultures from 05/27/24 positive for Streptococcus agalactiae (B). He completed Augmentin. Encouraged patient to stop smoking as it may have deleterious effects on wound healing. Discussed plan of care with Dr. Khan. Follow up 3 weeks due to the holidays.
[2024-08-30 10:37] VITALS: BP 113/66; PULSE 80; RESP 14; TEMP 37.1; BMI 19.7
--- NOTE | 2024-08-30 11:36 | PCM.WC.PN ---
History of Present Illness Date of Service: 08/30/24 Chief Complaint: Hidradenitis right buttock extending to sacral area. History of Wound: 78 year old man with a history of diabetes mellitus underwent surgery on 03/12/21 where he underwent surgical preparation sacral area with excision complicated extensive pilonidal cyst. With wound care, good nutrition, and some antibiotics, the sacral wound healed. He also has a history of hidradenitis involving his bilateral buttock areas and perineal area. He has developed a recent flare up of his hidradenitis involving the right buttock extending to the sacral area. There is intermittent drainage present. He denies fever. He complains of pain in this area. Patient is diabetic. He continues to have multiple other health issue with his liver and his heart. Today he denies fever, chills, nausea. States his appetite is ok. Progress of Wound: Right buttocks with superior and inferior clustser ulcers. The right superior ulcer is smaller but continues to have a tunnel at 6 o'clock, it does not connect to the inferior opening. The inferior ulcer cluster tunneling connect to each other. Thee ulcer on the left buttocks is very small, difficult to see the base. Objective Data Objective Data Vital Signs: Vital Signs Temp Pulse Resp BP 98.8 F 80 14 113/66 08/30/24 10:37 08/30/24 10:37 08/30/24 10:37 08/30/24 10:37 Weight: 145 lb 10.724 oz Body Mass Index (BMI) 19.7 Charges/Coding Procedures Integumentary [id number]: [id number] Dena subq tissue 20 sq cm/< Debridement Note Debridement Note Wound debrided: Superior and inferior cluster buttocks ulcer Laterality: Right Wound Grade/Stage: Stage III Type of Debridement: Excisional debridement Anesthesia Used: 5% Lidocaine Gel Depth: Down to and including healthy tissue and in the subcutaneous layer Percentage of wound debrided: 100 Instrument Used: 3mm curette Tissue Removed: Non viable tissue and slough Severity: Fat Layer Exposed Amount of bleeding with debridement: Mild Bleeding Controlled with: Pressure and Compression and gauze Patient tolerated procedure: Patient tolerated procedure well Post-Debridement Measurements and Additional Note: Post-Debridement Measurements/Treatment WC - Nurse 1 - General Ulcer Assessment Start: 08/09/24 10:46 Freq: Status: Active Protocol: SUSY Activity Type Activity Date Activity User E-sign Co-sign Detail Recorded Client Recorded Date Recorded By Document 08/09/24 10:47 DL [id number] 08/09/24 10:55 DL Document 08/30/24 10:37 ML [id number] 08/30/24 10:45 ML 08/09/24 08/30/24 10:47 10:37 WC - Today's Visit Information Type of service Follow-up Visit Follow-up Visit (Physician/PICK UP DRIVER (Physician/PICK UP DRIVER ) ) Arrival Mode Ambulatory, Ambulatory, Walker Walker Transfer Assistance None None Patient Identification Verified (Name & Yes Yes ) Patient Requires Transmission-Based No No Precautions Height and Weight Body Mass Index (BMI) 19.7 19.7 BMI Classification Normal Normal Vital Signs Temperature (97.8 F-99.1 F) 97.6 F L 98.8 F Temperature Source Temporal Temporal Pulse Rate (60-100) 82 80 Pulse Location Monitor Monitor Respiratory Rate (12-18) 18 14 Respiratory rate source Observation Observation Blood Pressure (90/60-120/80) 106/60 113/66 Blood Pressure Mean (mm Hg) 75 81 Source Monitor Monitor Position Supine Blood Pressure Location Right Arm History Since Last Visit- (Skip if this is Patient's initial visit) Have you changed medications since your No No last visit? Any new allergies or adverse reactions No No Had a fall/change in ADL's that may No increase risk of falls Signs or symptoms of abuse and/or No No neglect since last visit Have you been in the hospital since your No last visit? Has dressing in place as prescribed Yes Yes Has compression in place as prescribed N/A N/A Has offloadiing in place as prescribed Yes N/A Experienced any changes in pain level or No No management Pain Scale: 0-10 Numeric Is Patient Pain Free? Yes Yes - Nurse 1 - General Ulcer Measurement Start: 08/09/24 10:46 Freq: Status: Active Protocol: Activity Type Activity Date Activity User E-sign Co-sign Detail Recorded Client Recorded Date Recorded By Document 08/09/24 10:47 DL [id number] 08/09/24 10:55 DL Document 08/30/24 10:37 ML [id number] 08/30/24 10:45 ML 08/09/24 08/30/24 10:47 10:37 Wound Center Nurse 1 #14 LT BUTTOCK CLUSTER -Current Size (cm) - Length 0.2 0.3 -Current Size (cm) - Width 0.4 0.6 -Current Size (cm) - Depth 0.2 0.3 -Total Square Cm 0.08 0.18 -Undermining/Tunneling Yes -Undermining/Tunneling Starts (O'clock 7 6 ) -Undermining/Tunneling Ends (O'clock) 11 12 -Maximum Distance (cm) 1.3 1.5 -Exudate Amt Medium Small -Exudate Type Yellow/Green Sanguineous -Wound Margin Thickened -Granulation Amt Small (1-33%) Medium (34-66%) -Granulation Quality Braymer Braymer,Red -Slough/Fibrin No -Necrosis Amt None Present (0 Medium (34-66%) %) -Structure Exposed N/A -Texture (Sandi-wound Skin Appearance) Scarring Assessed -Moisture (Sandi-wound Skin Appearance) No Abnormality Assessed -Color (Sandi-wound Skin Appearance) No Abnormality Assessed -Temperature (Sandi-wound Skin No Abnormality No Abnormality Appearance) (Pt Warm) (Pt Warm) -Tenderness on Palpation (Sandi-wound Yes Yes Skin Appearance) -Ulcer Cleansing Soap and Water Soap and Water -Foul Odor after Cleansing No No -Anesthetic Used 5% Lidocaine 5% Lidocaine Gel Gel #12 R Buttocks inf -Current Size (cm) - Length 0.1 0.2 -Current Size (cm) - Width 0.1 0.2 -Current Size (cm) - Depth 0.1 0.2 -Total Square Cm 0.01 0.04 -Circular Undermining Yes -Exudate Amt None Present Medium -Exudate Type Yellow/Green -Wound Margin Indistinct, Non -Visible -Granulation Amt None Present (0 %) -Granulation Quality Red -Necrosis Amt None Present (0 %) -Necrotic Tissue Type Adherent Slough -Structure Exposed N/A -Texture (Sandi-wound Skin Appearance) Scarring -Moisture (Sandi-wound Skin Appearance) Dry/Scaly -Color (Sandi-wound Skin Appearance) No Abnormality -Temperature (Sandi-wound Skin No Abnormality Appearance) (Pt Warm) -Tenderness on Palpation (Sandi-wound Yes Skin Appearance) -Ulcer Cleansing Soap and Water -Foul Odor after Cleansing No -Anesthetic Used 5% Lidocaine Gel #11 R Buttocks sup -Current Size (cm) - Length 4 0.6 -Current Size (cm) - Width 1.1 1 -Current Size (cm) - Depth 0.1 0.1 -Total Square Cm 4.4 0.6 -Undermining/Tunneling Yes -Undermining/Tunneling Starts (O'clock 4 ) -Undermining/Tunneling Ends (O'clock) 8 -Maximum Distance (cm) 1.1 -Exudate Amt Medium Medium -Exudate Type Serosanguineous Serosanguineous -Wound Margin Distinct, Distinct, Outline Outline Attached Attached -Granulation Amt Medium (34-66%) Medium (34-66%) -Granulation Quality Red Braymer,Red -Slough/Fibrin Yes -Necrosis Amt Medium (34-66%) Medium (34-66%) -Necrotic Tissue Type Adherent Slough -Structure Exposed N/A -Texture (Sandi-wound Skin Appearance) Scarring Assessed -Moisture (Sandi-wound Skin Appearance) Dry/Scaly Assessed -Color (Sandi-wound Skin Appearance) No Abnormality Assessed -Temperature (Sandi-wound Skin No Abnormality Appearance) (Pt Warm) -Tenderness on Palpation (Sandi-wound Yes Skin Appearance) -Ulcer Cleansing Soap and Water Soap and Water -Foul Odor after Cleansing No No -Anesthetic Used 5% Lidocaine 5% Lidocaine Gel Gel WC - Nurse 2 - General Ulcer CM Notes Start: 08/09/24 10:46 Freq: Status: Active Protocol: Activity Type Activity Date Activity User E-sign Co-sign Detail Recorded Client Recorded Date Recorded By Document 08/09/24 11:13 [id number] 08/09/24 11:16 Document 08/30/24 10:57 DS [id number] 08/30/24 11:05 DS 08/09/24 08/30/24 11:13 10:57 Wound Center Nurse 2 #14 LT BUTTOCK CLUSTER -Time 11:14 10:57 -Correct Patient Yes Yes -Correct Side, Site, Position Yes Yes -Correct Procedure Yes Yes -Procedure Performed Yes Yes -Type of Procedure Debridement Debridement -Clinical Debridement Subcutaneous Subcutaneous -Tissue Removed Subcutaneous Dermis, Subcutaneous -Post Debridement (cm) - Length 0.5 0.5 -Post Debridement (cm) - Width 0.8 0.6 -Post Debridement (cm) - Depth 1.4 0.1 -Total Square (Post) (cm) 0.40 0.30 -Area of Debridement (cm) - Length 0.5 0.5 -Area of Debridement (cm) - Width 0.8 0.6 -Total Square (Area) (cm) 0.40 0.30 -Tunneling No Yes -Tunneling Position (O'clock) 6 -Tunneling Distance (cm) 3.0 -Undermining/Tunneling No No -Circular Undermining No No -Wound/Ulcer Outcome Not Healed Not Healed -Ulcer Cleansing Rinsed/ Rinsed/ Irrigated with Irrigated with Saline Saline -Foul Odor after Cleansing No -Bioengineered Tissue No No -Bleeding Controlled with Pressure Pressure -Treatment Response Procedure Procedure Tolerated Well Tolerated Well -Offloading No -Debridement - Subq, 1st 20sq cm No No #12 R Buttocks inf -Time 11:14 10:58 -Correct Patient Yes Yes -Correct Side, Site, Position Yes Yes -Correct Procedure Yes Yes -Procedure Performed Yes Yes -Type of Procedure Debridement Debridement -Clinical Debridement Subcutaneous Subcutaneous -Tissue Removed Subcutaneous Subcutaneous -Post Debridement (cm) - Length 0.4 3.2 -Post Debridement (cm) - Width 0.4 0.5 -Post Debridement (cm) - Depth 0.1 0.1 -Total Square (Post) (cm) 0.16 1.60 -Area of Debridement (cm) - Length 0.4 3.2 -Area of Debridement (cm) - Width 0.4 0.5 -Total Square (Area) (cm) 0.16 1.60 -Tunneling Yes Yes -Tunneling Position (O'clock) 6 6 -Tunneling Distance (cm) 4.0 4.8 -Undermining/Tunneling No No -Circular Undermining No No -Wound/Ulcer Outcome Not Healed Not Healed -Ulcer Cleansing Rinsed/ Rinsed/ Irrigated with Irrigated with Saline Saline -Foul Odor after Cleansing No -Bioengineered Tissue No No -Bleeding Controlled with Pressure Pressure -Treatment Response Procedure Procedure Tolerated Well Tolerated Well -Offloading No -Debridement - Subq, 1st 20sq cm No Yes #11 R Buttocks sup -Time 11:15 10:58 -Correct Patient Yes Yes -Correct Side, Site, Position Yes Yes -Correct Procedure Yes Yes -Procedure Performed Yes Yes -Type of Procedure Debridement Debridement -Clinical Debridement Subcutaneous Subcutaneous -Tissue Removed Subcutaneous Subcutaneous -Post Debridement (cm) - Length 0.5 0.5 -Post Debridement (cm) - Width 1.1 1.1 -Post Debridement (cm) - Depth 0.1 0.1 -Total Square (Post) (cm) 0.55 0.55 -Area of Debridement (cm) - Length 0.5 0.5 -Area of Debridement (cm) - Width 1.1 1.1 -Total Square (Area) (cm) 0.55 0.55 -Tunneling Yes Yes -Tunneling Position (O'clock) 6 -Tunneling Distance (cm) 3.5 -Undermining/Tunneling No No -Circular Undermining No No -Wound/Ulcer Outcome Not Healed Not Healed -Ulcer Cleansing Rinsed/ Rinsed/ Irrigated with Irrigated with Saline Saline -Foul Odor after Cleansing No -Bioengineered Tissue No No -Bleeding Controlled with Pressure Pressure -Treatment Response Procedure Procedure Tolerated Well Tolerated Well -Offloading No -Debridement - Subq, 1st 20sq cm Yes No Pain Scale: 0-10 Numeric Is Patient Pain Free? Yes Yes WC - Nurse 3 - General Ulcer D/C NN Start: 08/09/24 10:46 Freq: Status: Active Protocol: Activity Type Activity Date Activity User E-sign Co-sign Detail Recorded Client Recorded Date Recorded By Document 08/09/24 11:28 KW [id number] 08/09/24 11:29 KW Document 08/30/24 11:14 [id number] 08/30/24 11:15 08/09/24 08/30/24 11:28 11:14 Wound Care Center Nurse 3 #14 LT BUTTOCK CLUSTER -Ulcer Cleansing Not Cleansed -Foul Odor after Cleansing No -Primary Dressing Applied Aquacel AG 2x2 Nugauze, Iodoform 1/4in -Primary Dressing Covered/Secured with Dry Gauze, Dry Gauze, Secured with Secured with Tape Tape -Aquacel AG 2x2 1 -Nugauze, Iodoform 1/4in 1 #12 R Buttocks inf -Ulcer Cleansing Not Cleansed -Foul Odor after Cleansing No -Other Dressing pack with iodoform -Primary Dressing Covered/Secured with Dry Gauze, Dry Gauze, Secured with Secured with Tape Tape #11 R Buttocks sup -Ulcer Cleansing Not Cleansed -Foul Odor after Cleansing No -Other Dressing pack iodoform -Primary Dressing Covered/Secured with Dry Gauze, Dry Gauze, Secured with Secured with Tape Tape Pain Scale: 0-10 Numeric Is Patient Pain Free? Yes Yes WC - Visit Discharge Discharge Condition Stable Stable Ambulatory Status Ambulatory, Ambulatory, Walker Walker Transportation Private Auto Private Auto Medication Reconcilliation completed & No provided to patient/care provider Clinical Summary of Care Provided Yes Additional Wound Wound debrided: Buttocks ulcer Laterality: Left Wound Grade/Stage: Stage II Type of Debridement: Excisional debridement Anesthesia Used: 5% Lidocaine Gel Depth: Down to and including healthy tissue and in the subcutaneous layer Percentage of wound debrided: 100 Instrument Used: 3mm curette Tissue Removed: Non viable tissue and slough Severity: Fat Layer Exposed Amount of bleeding with debridement: Mild Bleeding Controlled with: Pressure and Compression and gauze Patient tolerated procedure: Patient tolerated procedure well Assessment/Plan Assessment/Plan (1) Non-pressure chronic ulcer of buttock with fat layer exposed: CODE(S): L98.412 - Non-pressure chronic ulcer of buttock with fat layer exposed (2) Hidradenitis suppurativa: CODE(S): L73.2 - Hidradenitis suppurativa (3) Type 2 diabetes mellitus with diabetic polyneuropathy: CODE(S): E11.42 - Type 2 diabetes mellitus with diabetic polyneuropathy QUALIFIERS: Diabetes mellitus care home insulin use: unspecified terminal make up operator insulin use status Qualified Code(s): E11.42 - Type 2 diabetes mellitus with diabetic polyneuropathy (4) Smoker: CODE(S): F17.200 - Nicotine dependence, unspecified, uncomplicated PLAN: Plan Patient was evaluated at the wound healing center today. Wound care - Left buttocks and right superior and inferior cluster buttocks ulcers pack 1/4 Iodoform into the tunnels and top with gauze. If unable to pack tunnels then place Aquacel-Ag on top of the ulcer opening and top with gauze/ABD/Foam bordered dressing. Dressings to be changed daily and as needed and wash areas with soap and water at the time of the dressing changes. Wound cultures from 05/27/24 positive for Streptococcus agalactiae (B). He completed Augmentin. Encouraged patient to stop smoking as it may have deleterious effects on wound healing. Follow up 3 weeks per patient request.
--- NOTE | 2024-08-30 16:03 | PN.PCM_ITS ---
History of Present Illness Date of Service: 08/30/24 Chief Complaint: Hidradenitis right buttock extending to sacral area. History of Wound: 78 year old man with a history of diabetes mellitus underwent surgery on 03/12/21 where he underwent surgical preparation sacral area with excision complicated extensive pilonidal cyst. With wound care, good nutrition, and some antibiotics, the sacral wound healed. He also has a history of hidradenitis involving his bilateral buttock areas and perineal area. He has developed a recent flare up of his hidradenitis involving the right buttock extending to the sacral area. There is intermittent drainage present. He denies fever. He complains of pain in this area. Patient is diabetic. He continues to have multiple other health issue with his liver and his heart. Today he denies fever, chills, nausea. States his appetite is ok. Progress of Wound: Right buttocks with superior and inferior ulcers. The right superior ulcer is smaller but continues to have a tunnel at 6 o'clock, it does not connect to the inferior opening. The inferior ulcer is very small, difficult to pack, it also has a tunnel at 6 o'clock, but does not connect to the tunnel from the superior wound. There wound on the left buttocks is very small, difficult to see the base. His states she is having a difficult time packing anything into that ulcer. Objective Data Objective Data Vital Signs: Vital Signs Temp Pulse Resp BP 98.8 F 80 14 113/66 08/30/24 10:37 08/30/24 10:37 08/30/24 10:37 08/30/24 10:37 Weight: 145 lb 10.724 oz Body Mass Index (BMI) 19.7 Debridement Note Debridement Note Post-Debridement Measurements and Additional Note: Post-Debridement Measurements/Treatment - Nurse 1 - General Ulcer Assessment Start: 08/09/24 10:46 Freq: Status: Active Protocol: SUSY Activity Type Activity Date Activity User E-sign Co-sign Detail Recorded Client Recorded Date Recorded By Document 08/09/24 10:47 DL [id number] 08/09/24 10:55 DL Document 08/30/24 10:37 ML [id number] 08/30/24 10:45 ML 08/09/24 08/30/24 10:47 10:37 - Today's Visit Information Type of service Follow-up Visit Follow-up Visit (Physician/HANDLE LATHE OPERATOR (Physician/HANDLE LATHE OPERATOR ) ) Arrival Mode Ambulatory, Ambulatory, Walker Walker Transfer Assistance None None Patient Identification Verified (Name & Yes Yes ) Patient Requires Transmission-Based No No Precautions Height and Weight Body Mass Index (BMI) 19.7 19.7 BMI Classification Normal Normal Vital Signs Temperature (97.8 F-99.1 F) 97.6 F L 98.8 F Temperature Source Temporal Temporal Pulse Rate (60-100) 82 80 Pulse Location Monitor Monitor Respiratory Rate (12-18) 18 14 Respiratory rate source Observation Observation Blood Pressure (90/60-120/80) 106/60 113/66 Blood Pressure Mean (mm Hg) 75 81 Source Monitor Monitor Position Supine Blood Pressure Location Right Arm History Since Last Visit- (Skip if this is Patient's initial visit) Have you changed medications since your No No last visit? Any new allergies or adverse reactions No No Had a fall/change in ADL's that may No increase risk of falls Signs or symptoms of abuse and/or No No neglect since last visit Have you been in the hospital since your No last visit? Has dressing in place as prescribed Yes Yes Has compression in place as prescribed N/A N/A Has offloadiing in place as prescribed Yes N/A Experienced any changes in pain level or No No management Pain Scale: 0-10 Numeric Is Patient Pain Free? Yes Yes WC - Nurse 1 - General Ulcer Measurement Start: 08/09/24 10:46 Freq: Status: Active Protocol: Activity Type Activity Date Activity User E-sign Co-sign Detail Recorded Client Recorded Date Recorded By Document 08/09/24 10:47 DL [id number] 08/09/24 10:55 DL Document 08/30/24 10:37 ML [id number] 08/30/24 10:45 ML 08/09/24 08/30/24 10:47 10:37 Wound Center Nurse 1 #14 LT BUTTOCK CLUSTER -Current Size (cm) - Length 0.2 0.3 -Current Size (cm) - Width 0.4 0.6 -Current Size (cm) - Depth 0.2 0.3 -Total Square Cm 0.08 0.18 -Undermining/Tunneling Yes -Undermining/Tunneling Starts (O'clock 7 6 ) -Undermining/Tunneling Ends (O'clock) 11 12 -Maximum Distance (cm) 1.3 1.5 -Exudate Amt Medium Small -Exudate Type Yellow/Green Sanguineous -Wound Margin Thickened -Granulation Amt Small (1-33%) Medium (34-66%) -Granulation Quality [place] Lignite,Red -Slough/Fibrin No -Necrosis Amt None Present (0 Medium (34-66%) %) -Structure Exposed N/A -Texture (Sandi-wound Skin Appearance) Scarring Assessed -Moisture (Sandi-wound Skin Appearance) No Abnormality Assessed -Color (Sandi-wound Skin Appearance) No Abnormality Assessed -Temperature (Sandi-wound Skin No Abnormality No Abnormality Appearance) (Pt Warm) (Pt Warm) -Tenderness on Palpation (Sandi-wound Yes Yes Skin Appearance) -Ulcer Cleansing Soap and Water Soap and Water -Foul Odor after Cleansing No No -Anesthetic Used 5% Lidocaine 5% Lidocaine Gel Gel #12 R Buttocks inf- Cluster -Current Size (cm) - Length 0.1 0.2 -Current Size (cm) - Width 0.1 0.2 -Current Size (cm) - Depth 0.1 0.2 -Total Square Cm 0.01 0.04 -Circular Undermining Yes -Exudate Amt None Present Medium -Exudate Type Yellow/Green -Wound Margin Indistinct, Non -Visible -Granulation Amt None Present (0 %) -Granulation Quality Red -Necrosis Amt None Present (0 %) -Necrotic Tissue Type Adherent Slough -Structure Exposed N/A -Texture (Sandi-wound Skin Appearance) Scarring -Moisture (Sandi-wound Skin Appearance) Dry/Scaly -Color (Sandi-wound Skin Appearance) No Abnormality -Temperature (Sandi-wound Skin No Abnormality Appearance) (Pt Warm) -Tenderness on Palpation (Sandi-wound Yes Skin Appearance) -Ulcer Cleansing Soap and Water -Foul Odor after Cleansing No -Anesthetic Used 5% Lidocaine Gel #11 R Buttocks sup -Current Size (cm) - Length 4 0.6 -Current Size (cm) - Width 1.1 1 -Current Size (cm) - Depth 0.1 0.1 -Total Square Cm 4.4 0.6 -Undermining/Tunneling Yes -Undermining/Tunneling Starts (O'clock 4 ) -Undermining/Tunneling Ends (O'clock) 8 -Maximum Distance (cm) 1.1 -Exudate Amt Medium Medium -Exudate Type Serosanguineous Serosanguineous -Wound Margin Distinct, Distinct, Outline Outline Attached Attached -Granulation Amt Medium (34-66%) Medium (34-66%) -Granulation Quality Red [place],Red -Slough/Fibrin Yes -Necrosis Amt Medium (34-66%) Medium (34-66%) -Necrotic Tissue Type Adherent Slough -Structure Exposed N/A -Texture (Sandi-wound Skin Appearance) Scarring Assessed -Moisture (Sandi-wound Skin Appearance) Dry/Scaly Assessed -Color ([place]ndi-wound Skin Appearance) No Abnormality Assessed -Temperature (Sandi-wound Skin No Abnormality Appearance) (Pt Warm) -Tenderness on Palpation (Sandi-wound Yes Skin Appearance) -Ulcer Cleansing Soap and Water Soap and Water -Foul Odor after Cleansing No No -Anesthetic Used 5% Lidocaine 5% Lidocaine Gel Gel WC - Nurse 2 - General Ulcer CM Notes Start: 08/09/24 10:46 Freq: Status: Active Protocol: Activity Type Activity Date Activity User E-sign Co-sign Detail Recorded Client Recorded Date Recorded By Document 08/09/24 11:13 [id number] 08/09/24 11:16 Document 08/30/24 10:57 DS [id number] 08/30/24 11:05 DS 08/09/24 08/30/24 11:13 10:57 Wound Center Nurse 2 #14 LT BUTTOCK CLUSTER -Time 11:14 10:57 -Correct Patient Yes Yes -Correct Side, Site, Position Yes Yes -Correct Procedure Yes Yes -Procedure Performed Yes Yes -Type of Procedure Debridement Debridement -Clinical Debridement Subcutaneous Subcutaneous -Tissue Removed Subcutaneous Dermis, Subcutaneous -Post Debridement (cm) - Length 0.5 0.5 -Post Debridement (cm) - Width 0.8 0.6 -Post Debridement (cm) - Depth 1.4 0.1 -Total Square (Post) (cm) 0.40 0.30 -Area of Debridement (cm) - Length 0.5 0.5 -Area of Debridement (cm) - Width 0.8 0.6 -Total Square (Area) (cm) 0.40 0.30 -Tunneling No Yes -Tunneling Position (O'clock) 6 -Tunneling Distance (cm) 3.0 -Undermining/Tunneling No No -Circular Undermining No No -Wound/Ulcer Outcome Not Healed Not Healed -Ulcer Cleansing Rinsed/ Rinsed/ Irrigated with Irrigated with Saline Saline -Foul Odor after Cleansing No -Bioengineered Tissue No No -Bleeding Controlled with Pressure Pressure -Treatment Response Procedure Procedure Tolerated Well Tolerated Well -Offloading No -Debridement - Subq, 1st 20sq cm No No #12 R Buttocks inf- Cluster -Time 11:14 10:58 -Correct Patient Yes Yes -Correct Side, Site, Position Yes Yes -Correct Procedure Yes Yes -Procedure Performed Yes Yes -Type of Procedure Debridement Debridement -Clinical Debridement Subcutaneous Subcutaneous -Tissue Removed Subcutaneous Subcutaneous -Post Debridement (cm) - Length 0.4 3.2 -Post Debridement (cm) - Width 0.4 0.5 -Post Debridement (cm) - Depth 0.1 0.1 -Total Square (Post) (cm) 0.16 1.60 -Area of Debridement (cm) - Length 0.4 3.2 -Area of Debridement (cm) - Width 0.4 0.5 -Total Square (Area) (cm) 0.16 1.60 -Tunneling Yes Yes -Tunneling Position (O'clock) 6 6 -Tunneling Distance (cm) 4.0 4.8 -Undermining/Tunneling No No -Circular Undermining No No -Wound/Ulcer Outcome Not Healed Not Healed -Ulcer Cleansing Rinsed/ Rinsed/ Irrigated with Irrigated with Saline Saline -Foul Odor after Cleansing No -Bioengineered Tissue No No -Bleeding Controlled with Pressure Pressure -Treatment Response Procedure Procedure Tolerated Well Tolerated Well -Offloading No -Debridement - Subq, 1st 20sq cm No Yes #11 R Buttocks sup -Time 11:15 10:58 -Correct Patient Yes Yes -Correct Side, Site, Position Yes Yes -Correct Procedure Yes Yes -Procedure Performed Yes Yes -Type of Procedure Debridement Debridement -Clinical Debridement Subcutaneous Subcutaneous -Tissue Removed Subcutaneous Subcutaneous -Post Debridement (cm) - Length 0.5 0.5 -Post Debridement (cm) - Width 1.1 1.1 -Post Debridement (cm) - Depth 0.1 0.1 -Total Square (Post) (cm) 0.55 0.55 -Area of Debridement (cm) - Length 0.5 0.5 -Area of Debridement (cm) - Width 1.1 1.1 -Total Square (Area) (cm) 0.55 0.55 -Tunneling Yes Yes -Tunneling Position (O'clock) 6 -Tunneling Distance (cm) 3.5 -Undermining/Tunneling No No -Circular Undermining No No -Wound/Ulcer Outcome Not Healed Not Healed -Ulcer Cleansing Rinsed/ Rinsed/ Irrigated with Irrigated with Saline Saline -Foul Odor after Cleansing No -Bioengineered Tissue No No -Bleeding Controlled with Pressure Pressure -Treatment Response Procedure Procedure Tolerated Well Tolerated Well -Offloading No -Debridement - Subq, 1st 20sq cm Yes No Pain Scale: 0-10 Numeric Is Patient Pain Free? Yes Yes - Nurse 3 - General Ulcer D/C NN Start: 08/09/24 10:46 Freq: Status: Active Protocol: Activity Type Activity Date Activity User E-sign Co-sign Detail Recorded Client Recorded Date Recorded By Document 08/09/24 11:28 KW [id number] 08/09/24 11:29 Document 08/30/24 11:14 [id number] 08/30/24 11:15 08/09/24 08/30/24 11:28 11:14 Wound Care Center Nurse 3 #14 LT BUTTOCK CLUSTER -Ulcer Cleansing Not Cleansed -Foul Odor after Cleansing No -Primary Dressing Applied Aquacel AG 2x2 Nugauze, Iodoform 1/4in -Primary Dressing Covered/Secured with Dry Gauze, Dry Gauze, Secured with Secured with Tape Tape -Aquacel AG 2x2 1 -Nugauze, Iodoform 1/4in 1 #12 R Buttocks inf- Cluster -Ulcer Cleansing Not Cleansed -Foul Odor after Cleansing No -Other Dressing pack with iodoform -Primary Dressing Covered/Secured with Dry Gauze, Dry Gauze, Secured with Secured with Tape Tape #11 R Buttocks sup -Ulcer Cleansing Not Cleansed -Foul Odor after Cleansing No -Other Dressing pack iodoform -Primary Dressing Covered/Secured with Dry Gauze, Dry Gauze, Secured with Secured with Tape Tape Pain Scale: 0-10 Numeric Is Patient Pain Free? Yes Yes - Visit Discharge Discharge Condition Stable Stable Ambulatory Status Ambulatory, Ambulatory, Walker Walker Transportation Private Auto Private Auto Medication Reconcilliation completed & No provided to patient/care provider Clinical Summary of Care Provided Yes
--- NOTE | 2024-09-06 09:54 | WC ---
PHOTO RIGHT BUTTOCK SUP/INF
== END 2024-08-31 23:59 | disposition home or self-care (01) ==
LOC: WC 10:30
PROVIDERS: PCP Family Medicine; Referring Provider Internal Medicine; Visit Provider Nurse Practitioner Family
DX: L73.2 Hidradenitis suppurativa (principal); L98.412 Non-pressure chronic ulcer of buttock with fat layer exposed; E11.42 Type 2 diabetes mellitus with diabetic polyneuropathy; F17.200 Nicotine dependence, unspecified, uncomplicated; Z79.82 Long term (current) use of aspirin; Z79.899 Other long term (current) drug therapy
CPT/HCPCS: 11042

== ENCOUNTER 2024-09-27 10:55 | Outpatient (RCR) | payer MEDICARE, SELFPAY ==
[2024-09-01 00:37] VITALS: BP 101/67; PULSE 77; RESP 18; TEMP 36.6; BMI 19.7
[2024-09-27 10:57] VITALS: BP 104/57; PULSE 79; RESP 18; TEMP 37.1; BMI 19.7
--- NOTE | 2024-09-27 12:54 | PCM.WC.PN ---
History of Present Illness Date of Service: 09/27/24 Chief Complaint: Hidradenitis right buttock extending to sacral area. History of Wound: 79 year old man with a history of diabetes mellitus underwent surgery on 03/12/21 where he underwent surgical preparation sacral area with excision complicated extensive pilonidal cyst. With wound care, good nutrition, and some antibiotics, the sacral wound healed. He also has a history of hidradenitis involving his bilateral buttock areas and perineal area. He has developed a recent flare up of his hidradenitis involving the right buttock extending to the sacral area. There is intermittent drainage present. He denies fever. He complains of pain in this area. Patient is diabetic. He continues to have multiple other health issue with his liver and his heart. Today he denies fever, chills, nausea. States his appetite is ok. Progress of Wound: Right buttocks with superior and inferior ulcers. The right superior ulcer is smaller but continues to have a tunnel at 6 o'clock, it does not connect to the inferior opening and is not as deep as it used to be. The inferior ulcer is no longer a cluster and the tunneling is stable. Ulcer cluster on the left buttocks are smaller. He is having discomfort sitting and he has tenderness and firmness on his right ischial area and with palpation there is some white drainage. Objective Data Objective Data Vital Signs: Vital Signs Temp Pulse Resp BP O2 Del Method 98.8 F 79 18 104/57 L Room Air 09/27/24 10:57 09/27/24 10:57 09/27/24 10:57 09/27/24 10:57 09/27/24 10:57 Oxygen Delivery Method Room Air Weight: 145 lb 10.724 oz Body Mass Index (BMI) 19.7 Charges/Coding Procedures Integumentary 111xxx-113xx: [id number] Dena subq tissue 20 sq cm/< Debridement Note Debridement Note Wound debrided: Superior and inferior buttocks ulcers Laterality: Right Wound Grade/Stage: Stage III Type of Debridement: Excisional debridement Anesthesia Used: 5% Lidocaine Gel Depth: Down to and including healthy tissue and in the subcutaneous layer Percentage of wound debrided: 100 Instrument Used: 3mm curette Tissue Removed: Non viable tissue and slough Severity: Fat Layer Exposed Amount of bleeding with debridement: Mild Bleeding Controlled with: Pressure and Compression and gauze Patient tolerated procedure: Patient tolerated procedure well Post-Debridement Measurements and Additional Note: Post-Debridement Measurements/Treatment - Nurse 1 - General Ulcer Assessment Start: 09/27/24 10:57 Freq: Status: Active Protocol: SUSY Activity Type Activity Date Activity User E-sign Co-sign Detail Recorded Client Recorded Date Recorded By Document 09/27/24 10:57 DL [id number] 09/27/24 11:06 DL 09/27/24 10:57 WC - Today's Visit Information Type of service Follow-up Visit (Physician/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 ) Arrival Mode Ambulatory, Walker Accompanied by Patient Identification Verified (Name & Yes ) Height and Weight Body Mass Index (BMI) 19.7 BMI Classification Normal Vital Signs Temperature (97.8 F-99.1 F) 98.8 F Temperature Source Temporal Pulse Rate (60-100) 79 Pulse Location Monitor Respiratory Rate (12-18) 18 Respiratory rate source Observation Oxygen Delivery Method Room Air Blood Pressure (90/60-120/80) 104/57 L Blood Pressure Mean (mm Hg) 72 Source Monitor Position Sitting Blood Pressure Location Left Arm History Since Last Visit- (Skip if this is Patient's initial visit) Have you changed medications since your No last visit? Any new allergies or adverse reactions No Had a fall/change in ADL's that may No increase risk of falls Signs or symptoms of abuse and/or No neglect since last visit Have you been in the hospital since your No last visit? Has dressing in place as prescribed Yes Has compression in place as prescribed Yes Has offloadiing in place as prescribed N/A Experienced any changes in pain level or No management Left Footwear Regular Shoe Right Footwear Regular Shoe Pain Scale: 0-10 Numeric Is Patient Pain Free? Yes - Nurse 1 - General Ulcer Measurement Start: 09/27/24 10:57 Freq: Status: Active Protocol: Activity Type Activity Date Activity User E-sign Co-sign Detail Recorded Client Recorded Date Recorded By Document 09/27/24 10:57 DL [id number] 09/27/24 11:06 DL 09/27/24 10:57 Wound Center Nurse 1 #14 LT BUTTOCK CLUSTER -Current Size (cm) - Length 1.1 -Current Size (cm) - Width 3.7 -Current Size (cm) - Depth 0.3 -Total Square Cm 4.07 -Date of Last Picture (Recall this 09/27/24 field) -Exudate Amt Medium -Exudate Type Serosanguineous -Wound Margin Distinct, Outline Attached -Granulation Amt Large (67-100%) -Granulation Quality [place] -Texture (Sandi-wound Skin Appearance) Assessed -Moisture (Sandi-wound Skin Appearance) Assessed -Color (Sandi-wound Skin Appearance) Assessed -Ulcer Cleansing Rinsed/ Irrigated with Saline -Foul Odor after Cleansing No -Anesthetic Used 5% Lidocaine Gel #12 R Buttocks inf- Cluster -Current Size (cm) - Length 0.1 -Current Size (cm) - Width 0.1 -Current Size (cm) - Depth 0.2 -Total Square Cm 0.01 -Date of Last Picture (Recall this 09/27/24 field) -Exudate Amt Medium -Exudate Type Serosanguineous -Wound Margin Distinct, Outline Attached -Granulation Amt Large (67-100%) -Granulation Quality Red -Texture (Sandi-wound Skin Appearance) Assessed -Moisture (Sandi-wound Skin Appearance) Assessed,Dry/ Scaly -Color (Sandi-wound Skin Appearance) Assessed -Anesthetic Used 5% Lidocaine Gel #11 R Buttocks sup -Current Size (cm) - Length 0.2 -Current Size (cm) - Width 0.4 -Current Size (cm) - Depth 0.1 -Total Square Cm 0.08 -Undermining/Tunneling Starts (O'clock 7 ) -Undermining/Tunneling Ends (O'clock) 11 -Maximum Distance (cm) 3 -Exudate Amt Medium -Exudate Type Serosanguineous -Wound Margin Distinct, Outline Attached -Granulation Amt Large (67-100%) -Granulation Quality [place] -Texture (Sandi-wound Skin Appearance) Assessed -Moisture (Sandi-wound Skin Appearance) Assessed -Color (Sandi-wound Skin Appearance) Assessed -Temperature (Sandi-wound Skin No Abnormality Appearance) (Pt Warm) -Tenderness on Palpation (Sandi-wound No Skin Appearance) -Ulcer Cleansing Rinsed/ Irrigated with Saline -Foul Odor after Cleansing No -Anesthetic Used 5% Lidocaine Gel WC - Nurse 2 - General Ulcer CM Notes Start: 09/27/24 10:57 Freq: Status: Active Protocol: Activity Type Activity Date Activity User E-sign Co-sign Detail Recorded Client Recorded Date Recorded By Document 09/27/24 11:29 [id number] 09/27/24 11:35 JF 09/27/24 11:29 Wound Center Nurse 2 #14 LT BUTTOCK CLUSTER -Time 11:32 -Correct Patient Yes -Correct Side, Site, Position Yes -Correct Procedure Yes -Procedure Performed Yes -Type of Procedure Debridement -Clinical Debridement Subcutaneous -Tissue Removed Subcutaneous -Post Debridement (cm) - Length 1.3 -Post Debridement (cm) - Width 2.0 -Post Debridement (cm) - Depth 0.2 -Total Square (Post) (cm) 2.60 -Area of Debridement (cm) - Length 1.3 -Area of Debridement (cm) - Width 2.0 -Total Square (Area) (cm) 2.60 -Tunneling Yes -Tunneling Position (O'clock) 6 -Tunneling Distance (cm) 1.6 -Undermining/Tunneling No -Circular Undermining No -Wound/Ulcer Outcome Not Healed -Ulcer Cleansing Rinsed/ Irrigated with Saline -Foul Odor after Cleansing No -Bioengineered Tissue No -Bleeding Controlled with Pressure -Treatment Response Procedure Tolerated Well -Offloading No -Debridement - Subq, 1st 20sq cm No #12 R Buttocks inf- Cluster -Time 11:33 -Correct Patient Yes -Correct Side, Site, Position Yes -Correct Procedure Yes -Procedure Performed Yes -Type of Procedure Debridement -Clinical Debridement Subcutaneous -Tissue Removed Subcutaneous -Post Debridement (cm) - Length 0.5 -Post Debridement (cm) - Width 0.5 -Post Debridement (cm) - Depth 0.1 -Total Square (Post) (cm) 0.25 -Area of Debridement (cm) - Length 0.5 -Area of Debridement (cm) - Width 0.5 -Total Square (Area) (cm) 0.25 -Tunneling No -Undermining/Tunneling No -Circular Undermining No -Wound/Ulcer Outcome Not Healed -Ulcer Cleansing Rinsed/ Irrigated with Saline -Foul Odor after Cleansing No -Bioengineered Tissue No -Bleeding Controlled with Pressure -Treatment Response Procedure Tolerated Well -Offloading No -Debridement - Subq, 1st 20sq cm No #11 R Buttocks sup -Time 11:33 -Correct Patient Yes -Correct Side, Site, Position Yes -Correct Procedure Yes -Procedure Performed Yes -Type of Procedure Debridement -Clinical Debridement Subcutaneous -Tissue Removed Subcutaneous -Post Debridement (cm) - Length 0.6 -Post Debridement (cm) - Width 1.0 -Post Debridement (cm) - Depth 0.2 -Total Square (Post) (cm) 0.60 -Area of Debridement (cm) - Length 0.6 -Area of Debridement (cm) - Width 1.0 -Total Square (Area) (cm) 0.60 -Tunneling Yes -Tunneling Position (O'clock) 6 -Tunneling Distance (cm) 3 -Undermining/Tunneling No -Circular Undermining No -Wound/Ulcer Outcome Not Healed -Ulcer Cleansing Rinsed/ Irrigated with Saline -Foul Odor after Cleansing No -Bioengineered Tissue No -Bleeding Controlled with Pressure -Treatment Response Procedure Tolerated Well -Offloading No -Debridement - Subq, 1st 20sq cm Yes Pain Scale: 0-10 Numeric Is Patient Pain Free? Yes - Nurse 3 - General Ulcer D/C NN Start: 09/27/24 10:57 Freq: Status: Active Protocol: Activity Type Activity Date Activity User E-sign Co-sign Detail Recorded Client Recorded Date Recorded By Document 09/27/24 11:42 [id number] 09/27/24 11:46 09/27/24 11:42 Wound Care Center Nurse 3 #14 LT BUTTOCK CLUSTER -Primary Dressing Applied Aquacel AG 2x2, Nugauze, Iodoform 1/4in -Primary Dressing Covered/Secured with Dry Gauze, Secured with Tape -Aquacel AG 2x2 1 -Nugauze, Iodoform 1/4in 1 #12 R Buttocks inf- Cluster -Other Dressing iodoform 1/4 inch with gauze #11 R Buttocks sup -Other Dressing iodoform 1/4 with gauze Pain Scale: 0-10 Numeric Is Patient Pain Free? Yes - Visit Discharge Discharge Condition Stable Ambulatory Status Ambulatory Transportation Private Auto Medication Reconcilliation completed & No provided to patient/care provider Clinical Summary of Care Provided Yes Additional Wound Wound debrided: Buttocks ulcer cluster Laterality: Left Wound Grade/Stage: Stage II Type of Debridement: Excisional debridement Anesthesia Used: 5% Lidocaine Gel Depth: Down to and including healthy tissue and in the subcutaneous layer Percentage of wound debrided: 100 Instrument Used: 3mm curette Tissue Removed: Non viable tissue and slough Severity: Fat Layer Exposed Amount of bleeding with debridement: Mild Bleeding Controlled with: Pressure and Compression and gauze Patient tolerated procedure: Patient tolerated procedure well Assessment/Plan Assessment/Plan (1) Non-pressure chronic ulcer of buttock with fat layer exposed: CODE(S): L98.412 - Non-pressure chronic ulcer of buttock with fat layer exposed (2) Hidradenitis suppurativa: CODE(S): L73.2 - Hidradenitis suppurativa (3) Type 2 diabetes mellitus with diabetic polyneuropathy: CODE(S): E11.42 - Type 2 diabetes mellitus with diabetic polyneuropathy QUALIFIERS: Diabetes mellitus custodial insulin use: unspecified custodial insulin use status Qualified Code(s): E11.42 - Type 2 diabetes mellitus with diabetic polyneuropathy (4) Smoker: CODE(S): F17.200 - Nicotine dependence, unspecified, uncomplicated PLAN: Plan Patient was evaluated at the wound healing center today. With his hidradenitis flare on his right ischial area, recommend warm water sitz baths ideally 2-3 times per day for 15-20 minutes. He is not able to get in and out of a bath tub. Recommend a portable sitz bath that sits on a toilet. If unable to do a sitz bath, then apply warm, moist compresses to the area to help with drainage and discomfort. Wound care - Left buttocks cluster and right superior and inferior buttocks ulcers pack 1/4 Iodoform into the tunnels and top with gauze. If unable to pack tunnels then place Aquacel-Ag on top of the ulcer opening and top with gauze/ABD/Foam bordered dressing. Dressings to be changed daily and as needed and wash areas with soap and water at the time of the dressing changes. Wound cultures from 05/27/24 positive for Streptococcus agalactiae (B). He completed Augmentin. Encouraged patient to stop smoking as it may have deleterious effects on wound healing. Follow up 3 weeks per patient request.
--- NOTE | 2024-09-28 09:26 | WC ---
PHOTO 09/27/24 RIGHT BUTTOCKS
--- NOTE | 2024-09-28 09:28 | WC ---
PHOTO 09/27/24 LEFT BUTTOCKS
== END 2024-10-01 23:59 | disposition home or self-care (01) ==
LOC: WC 10:55
PROVIDERS: PCP Family Medicine; Referring Provider Internal Medicine; Visit Provider Nurse Practitioner Family
DX: L73.2 Hidradenitis suppurativa (principal); L98.412 Non-pressure chronic ulcer of buttock with fat layer exposed; E11.42 Type 2 diabetes mellitus with diabetic polyneuropathy; F17.200 Nicotine dependence, unspecified, uncomplicated; Z79.82 Long term (current) use of aspirin; Z79.899 Other long term (current) drug therapy
CPT/HCPCS: 11042

== ENCOUNTER → 2024-10-11 | Outpatient (CLI) | payer MEDICARE, SELFPAY ==
--- NOTE | 2024-10-11 10:00 | RAD_ITS ---
PROCEDURE: BONE SURVEY COMP(AXIAL APPEND) REASON FOR EXAM: Hypergammaglobulinemia COMPARISON: None. TECHNIQUE: Multiple images of the axial and appendicular skeleton. FINDINGS: Skull: No lytic or blastic bone lesion. Patient is edentulous. C-T-L Spine: No evidence of compression fracture. No lytic or blastic bone lesion. Advanced spondylotic changes throughout the cervical spine. [id number] spondylotic change involving the lower thoracic and lumbar spine. Ribs: Unremarkable. No lytic or blastic bone lesions identified bilaterally. AP Pelvis: Unremarkable. No lytic or blastic bone lesions identified. Anatomic alignment of the bilateral SI joints and pubic symphysis. AP Humeri and forearms: No lytic or blastic bone lesion. Mild degenerative changes involving the bilateral shoulders. AP Femurs and lower extremities: 2.1 cm solitary blastic lesion seen within the proximal left femur. No periostitis. Mild degenerative changes involving the bilateral knees. Vascular calcifications are noted. RAD/Bone Survey Comp(Axial&Append) IMPRESSION: 1. 2.1 cm solitary blastic lesion within the proximal left femur. No additiona l lytic or blastic lesion seen within the remaining axial or appendicular skeleton. Reading Location: [facility]
[2024-10-11 11:30] LABS: Absolute Lymphocyte Count 1.64 X10^3/uL (0.83-4.51); Basophil# 0.09 X10^3/uL; Basophil% 0.9 % (0-1); Eosinophil# 0.45 X10^3/uL; Eosinophils% 4.5 % (0-5); Hematocrit 33.1 % (40-54); Hemoglobin 10.6 g/dL (13.0-16.5); Lymphocyte # 1.64 X10^3/ul (0.83-4.51); Lymphocyte % 16.3 % (19-41); Mean Corpuscular Hgb 28.7 pg (27.0-32.0); Mean Corpuscular Volume 89.7 fL (80-94); Mean Platelet Vol. 9.5 fl (6.2-12.0); Monocyte# 0.84 X10^3/uL; Monocyte% 8.3 % (0-10); NRBC Flagged by Analyzer 0 % (0-5); Neutrophil # 6.98 X10^3/uL (2.7-7.7); Neutrophil % 69.4 % (47-70); Platelet Count 226 K/mm3 (150-450); RBC Distribution Width CV 15.9 % (11.6-14.6); RBC Distribution Width SD 52.2 fl (35.1-43.9); RET-HE 29.9 pg (30-35); Red Blood Count 3.69 M/mm3 (4.6-6.2); Reticulocyte Count 1.07 % (0.5-1.5); White Blood Count 10.1 K/mm3 (4.4-11.0)
[2024-10-11 11:52] LABS: Erythrocyte Sedimentation Rate 44 mm/hr (0-20)
[2024-10-11 11:59] LABS: Vitamin B12 784 pg/mL (211-911)
[2024-10-11 12:38] LABS: ALB/GLOB Ratio 0.5 RATIO (0.9-2.4); AST(SGOT) 11 U/L (15-37); Alanine Aminotransfer ALT/SGPT 10 U/L (16-61); Albumin, Serum 2.6 g/dL (3.2-5.0); Alkaline Phosphatase 81 U/L (45-117); Anion Gap 3 (5-15); BUN 15 mg/dL (7-18); BUN/Creat Ratio 15.1 RATIO (10-20); Calcium,Total 8.7 mg/dL (8.5-10.1); Chloride 110 mmol/L (98-107); Creatinine, Serum 0.99 mg/dL (0.70-1.30); EST Glomerular Filtration Rate 77 mL/min (>60); Est Glom Filt Rate - Afr Amer 94 mL/min (>60); Globulin 5.3 g/dL (2.2-4.2); Glucose 85 mg/dL (74-106); LDH 146 U/L (87-241); Potassium 4.2 mmol/L (3.5-5.1); Protein, Total 7.9 g/dL (6.4-8.2); Sodium Level 139 mmol/L (136-145)
[2024-10-13 15:07] LABS: Albumin 2.8 g/dL (2.9-4.4); Alpha-1-Globulins 0.3 g/dL (0.0-0.4); Alpha-2-Globulins 0.9 g/dL (0.4-1.0); Free Kappa Light Chains 123.9 mg/L (3.3-19.4); Free Lambda Light Chains 81.2 mg/L (5.7-26.3); Gamma Globulin 2.2 g/dL (0.4-1.8); Immunoglobulin A 893 mg/dL (61-437); Immunoglobulin G 2109 mg/dL (603-1613); Immunoglobulin M 74 mg/dL (15-143); PROEL- TOTAL PROTEIN 7.5 g/dL (6.0-8.5)
== END | disposition home or self-care (01) ==
PROVIDERS: PCP Family Medicine; Referring Provider Internal Medicine Medical Oncology; Visit Provider Internal Medicine Medical Oncology
DX: D89.2 Hypergammaglobulinemia, unspecified (principal)
CPT/HCPCS: 36415; 77075; 80053; 82607; 82746; 82784; 83615; 83883; 84165; 85025; 85045; 85652; 86140; 86334

== ENCOUNTER 2024-10-25 11:02 | Outpatient (RCR) | payer MEDICARE, SELFPAY ==
[2024-10-02 02:09] VITALS: BP 104/57; PULSE 79; RESP 18; TEMP 37.1; BMI 19.7
[2024-10-25 11:05] VITALS: BP 107/60; PULSE 66; RESP 20; TEMP 36.6; BMI 19.7
--- NOTE | 2024-10-25 13:13 | PCM.WC.PN ---
History of Present Illness Date of Service: 10/25/24 Chief Complaint: Hidradenitis right buttock extending to sacral area. History of Wound: 79 year old man with a history of diabetes mellitus underwent surgery on 03/12/21 where he underwent surgical preparation sacral area with excision complicated extensive pilonidal cyst. With wound care, good nutrition, and some antibiotics, the sacral wound healed. He also has a history of hidradenitis involving his bilateral buttock areas and perineal area. He has developed a recent flare up of his hidradenitis involving the right buttock extending to the sacral area. There is intermittent drainage present. He denies fever. He complains of pain in this area. Patient is diabetic. He continues to have multiple other health issue with his liver and his heart. Today he denies fever, chills, nausea. States his appetite is ok. Progress of Wound: Right buttocks with superior ulcer is larger but beefy pink in color. Inferior ulcer continues to have a deep tunnel at 6 o'clock which is difficult to pack. The right superior ulcer has a tunnel at 6 o'clock which is also difficult to pack. The inferior ulcer is currently closed with no tunnel. He is having discomfort sitting due to the tenderness of this area. He had a wound culture at his last visit on 09/27/24 which took 10 days to get back due to lab being sent out to another lab which showed rare gram positive cocci, which most likely was skin contaminant. Objective Data Objective Data Vital Signs: Vital Signs Temp Pulse Resp BP 98 F 66 20 H 107/60 10/25/24 11:05 10/25/24 11:05 10/25/24 11:05 10/25/24 11:05 Weight: 145 lb 10.724 oz Body Mass Index (BMI) 19.7 Charges/Coding Procedures Integumentary [id number]: [id number] Dena subq tissue 20 sq cm/< Debridement Note Debridement Note Wound debrided: Inferior buttocks ulcer Laterality: Right Wound Grade/Stage: Stage II Type of Debridement: Excisional debridement Anesthesia Used: 5% Lidocaine Gel and - (Lidocaine 1%/epi) Depth: Down to and including healthy tissue and in the subcutaneous layer Percentage of wound debrided: 100 Instrument Used: Forceps and - (Sharp scissors) Tissue Removed: Non viable tissue and slough, unroofed top of ulcer opening to help pack it Severity: Fat Layer Exposed Amount of bleeding with debridement: Mild Bleeding Controlled with: Pressure and Compression and gauze Patient tolerated procedure: Patient tolerated procedure well Debridement Free Text: Lidocaine 1%/epi injected around the right inferior and left superior ulcer openings. After waiting a few minutes for him to become numb, used pick ups and sharp scissors to make the opening larger to make packing this area easier. This was done to both the right and left superior buttock ulcers. Patient tolerated it well. Post-Debridement Measurements and Additional Note: Post-Debridement Measurements/Treatment WC - Nurse 1 - General Ulcer Assessment Start: 10/25/24 11:05 Freq: Status: Active Protocol: SUSY Activity Type Activity Date Activity User E-sign Co-sign Detail Recorded Client Recorded Date Recorded By Document 10/25/24 11:05 TRISTEN [id number] 10/25/24 11:15 DL 10/25/24 11:05 WC - Today's Visit Information Type of service Follow-up Visit (Physician/[employer] ) Arrival Mode Ambulatory, Walker Transfer Assistance None Patient Identification Verified (Name & Yes ) Patient Requires Transmission-Based No Precautions Height and Weight Body Mass Index (BMI) 19.7 BMI Classification Normal Vital Signs Temperature (97.8 F-99.1 F) 98 F Temperature Source Temporal Pulse Rate (60-100) 66 Pulse Location Monitor Respiratory Rate (12-18) 20 H Respiratory rate source Observation Blood Pressure (90/60-120/80) 107/60 Blood Pressure Mean (mm Hg) 75 Source Monitor History Since Last Visit- (Skip if this is Patient's initial visit) Have you changed medications since your No last visit? Any new allergies or adverse reactions No Had a fall/change in ADL's that may No increase risk of falls Signs or symptoms of abuse and/or No neglect since last visit Have you been in the hospital since your No last visit? Has dressing in place as prescribed Yes Has compression in place as prescribed N/A Has offloadiing in place as prescribed Yes Experienced any changes in pain level or No management Pain Scale: 0-10 Numeric Is Patient Pain Free? Yes - Nurse 1 - General Ulcer Measurement Start: 10/25/24 11:05 Freq: Status: Active Protocol: Activity Type Activity Date Activity User E-sign Co-sign Detail Recorded Client Recorded Date Recorded By Document 10/25/24 11:05 DL [id number] 10/25/24 11:15 DL 10/25/24 11:05 Wound Center Nurse 1 #14 LT BUTTOCK CLUSTER -Combined with (Name of Wound-Exactly .2 as it is documented) -Current Size (cm) - Length 0.4 -Current Size (cm) - Width 0.2 -Total Square Cm 0.08 -Exudate Amt Small -Exudate Type Serosanguineous -Wound Margin Thickened & Rolled Under -Granulation Amt Small (1-33%) -Granulation Quality Howard,Red -Necrosis Amt None Present (0 %) -Structure Exposed N/A -Texture (Sandi-wound Skin Appearance) Scarring -Moisture (Sandi-wound Skin Appearance) No Abnormality -Color (Sandi-wound Skin Appearance) No Abnormality -Temperature (Sandi-wound Skin No Abnormality Appearance) (Pt Warm) -Tenderness on Palpation (Sandi-wound No Skin Appearance) -Ulcer Cleansing Rinsed/ Irrigated with Saline -Foul Odor after Cleansing No -Anesthetic Used 5% Lidocaine Gel #12 R Buttocks inf- Cluster -Current Size (cm) - Length 0.2 -Current Size (cm) - Width 0.2 -Current Size (cm) - Depth 0.1 -Total Square Cm 0.04 -Exudate Amt Small -Wound Margin Flat & Intact -Granulation Amt Small (1-33%) -Granulation Quality Howard -Necrosis Amt None Present (0 %) -Structure Exposed N/A -Texture (Sandi-wound Skin Appearance) Scarring -Moisture (Sandi-wound Skin Appearance) Dry/Scaly -Color (Sandi-wound Skin Appearance) No Abnormality -Temperature (Sandi-wound Skin No Abnormality Appearance) (Pt Warm) -Tenderness on Palpation (Sandi-wound No Skin Appearance) -Ulcer Cleansing Rinsed/ Irrigated with Saline -Foul Odor after Cleansing No -Anesthetic Used 5% Lidocaine Gel #11 R Buttocks sup Cluster -Current Size (cm) - Length 1.3 -Current Size (cm) - Width 4 -Current Size (cm) - Depth 0.2 -Total Square Cm 5.2 -Undermining/Tunneling Starts (O'clock 2 ) -Undermining/Tunneling Ends (O'clock) 4 -Maximum Distance (cm) 0.5 -Exudate Amt Medium -Exudate Type Serosanguineous -Wound Margin Distinct, Outline Attached -Granulation Amt Large (67-100%) -Granulation Quality Red -Necrosis Amt None Present (0 %) -Structure Exposed N/A -Texture (Sandi-wound Skin Appearance) Scarring -Moisture (Sandi-wound Skin Appearance) Dry/Scaly -Color (Sandi-wound Skin Appearance) No Abnormality -Temperature (Sandi-wound Skin No Abnormality Appearance) (Pt Warm) -Ulcer Cleansing Rinsed/ Irrigated with Saline -Foul Odor after Cleansing No -Anesthetic Used 5% Lidocaine Gel WC - Nurse 2 - General Ulcer CM Notes Start: 10/25/24 11:05 Freq: Status: Active Protocol: Activity Type Activity Date Activity User E-sign Co-sign Detail Recorded Client Recorded Date Recorded By Document 10/25/24 11:34 ASHLEY [id number] 10/25/24 11:48 ASHLEY 10/25/24 11:34 Wound Center Nurse 2 #14 LT BUTTOCK CLUSTER -Time 11:34 -Correct Patient Yes -Correct Side, Site, Position Yes -Correct Procedure Yes -Procedure Performed Yes -Type of Procedure Debridement -Clinical Debridement Subcutaneous -Tissue Removed Subcutaneous -Post Debridement (cm) - Length 1.7 -Post Debridement (cm) - Width 1.3 -Post Debridement (cm) - Depth 0.5 -Total Square (Post) (cm) 2.21 -Area of Debridement (cm) - Length 1.7 -Area of Debridement (cm) - Width 0.3 -Total Square (Area) (cm) 0.51 -Tunneling Yes -Tunneling Position (O'clock) 6 -Tunneling Distance (cm) 0.5 -Undermining/Tunneling No -Circular Undermining No -Wound/Ulcer Outcome Not Healed -Ulcer Cleansing Rinsed/ Irrigated with Saline -Foul Odor after Cleansing No -Bioengineered Tissue No -Bleeding Controlled with Pressure -Treatment Response Procedure Tolerated Well -Offloading No -Debridement - Subq, 1st 20sq cm Yes #12 R Buttocks inf- Cluster -Time 11:37 -Correct Patient Yes -Correct Side, Site, Position Yes -Correct Procedure Yes -Procedure Performed Yes -Type of Procedure Debridement -Clinical Debridement Subcutaneous -Tissue Removed Subcutaneous -Post Debridement (cm) - Length 1 -Post Debridement (cm) - Width 0.8 -Post Debridement (cm) - Depth 0.3 -Total Square (Post) (cm) 0.8 -Area of Debridement (cm) - Length 1 -Area of Debridement (cm) - Width 0.8 -Total Square (Area) (cm) 0.8 -Tunneling Yes -Tunneling Position (O'clock) 6 -Tunneling Distance (cm) 2.9 -Undermining/Tunneling No -Circular Undermining No -Wound/Ulcer Outcome Not Healed -Ulcer Cleansing Rinsed/ Irrigated with Saline -Foul Odor after Cleansing No -Bioengineered Tissue No -Bleeding Controlled with Pressure -Treatment Response Procedure Tolerated Well -Debridement - Subq, 1st 20sq cm No #11 R Buttocks sup Cluster -Time 11:38 -Correct Patient Yes -Correct Side, Site, Position Yes -Correct Procedure Yes -Procedure Performed Yes -Type of Procedure Debridement -Clinical Debridement Subcutaneous -Tissue Removed Subcutaneous -Post Debridement (cm) - Length 1.6 -Post Debridement (cm) - Width 2.2 -Post Debridement (cm) - Depth 0.1 -Total Square (Post) (cm) 3.52 -Area of Debridement (cm) - Length 1.6 -Area of Debridement (cm) - Width 2.2 -Total Square (Area) (cm) 3.52 -Tunneling No -Undermining/Tunneling No -Circular Undermining No -Wound/Ulcer Outcome Not Healed -Ulcer Cleansing Rinsed/ Irrigated with Saline -Foul Odor after Cleansing No -Bioengineered Tissue No -Bleeding Controlled with Pressure -Treatment Response Procedure Tolerated Well -Debridement - Subq, 1st 20sq cm No Pain Scale: 0-10 Numeric Is Patient Pain Free? Yes WC - Nurse 3 - General Ulcer D/C NN Start: 10/25/24 11:05 Freq: Status: Active Protocol: Activity Type Activity Date Activity User E-sign Co-sign Detail Recorded Client Recorded Date Recorded By Document 10/25/24 12:06 KW [id number] 10/25/24 12:07 KW 10/25/24 12:06 Wound Care Center Nurse 3 #14 LT BUTTOCK CLUSTER -Ulcer Cleansing Rinsed/ Irrigated with Saline -Primary Dressing Applied Aquacel AG 4x4 -Primary Dressing Covered/Secured with Dry Gauze, Secured with Tape -Aquacel AG 4x4 1 #12 R Buttocks inf- Cluster -Other Dressing pt own iodoform -Primary Dressing Covered/Secured with Dry Gauze, Secured with Tape #11 R Buttocks sup Cluster -Other Dressing aquacel Pain Scale: 0-10 Numeric Is Patient Pain Free? Yes WC - Visit Discharge Discharge Condition Stable Ambulatory Status Ambulatory, Walker Transportation Private Auto Accompanied by Medication Reconcilliation completed & No provided to patient/care provider Clinical Summary of Care Provided Yes Additional Wound Wound debrided: Superior ulcer Laterality: Left Wound Grade/Stage: Stage II Type of Debridement: Excisional debridement Anesthesia Used: 5% Lidocaine Gel and - (Lidocaine1%/epi) Depth: Down to and including healthy tissue and in the subcutaneous layer Percentage of wound debrided: 100 Instrument Used: Forceps and - (sharp scissors) Tissue Removed: Non viable tissue and slough Severity: Fat Layer Exposed Amount of bleeding with debridement: Mild Bleeding Controlled with: Pressure and Compression and gauze Patient tolerated procedure: Patient tolerated procedure well Operative Diagnosis: see discription above Assessment/Plan Assessment/Plan (1) Non-pressure chronic ulcer of buttock with fat layer exposed: CODE(S): L98.412 - Non-pressure chronic ulcer of buttock with fat layer exposed (2) Hidradenitis suppurativa: CODE(S): L73.2 - Hidradenitis suppurativa (3) Type 2 diabetes mellitus with diabetic polyneuropathy: CODE(S): E11.42 - Type 2 diabetes mellitus with diabetic polyneuropathy QUALIFIERS: Diabetes mellitus alf insulin use: unspecified alf insulin use status Qualified Code(s): E11.42 - Type 2 diabetes mellitus with diabetic polyneuropathy (4) Smoker: CODE(S): F17.200 - Nicotine dependence, unspecified, uncomplicated PLAN: Plan Patient was evaluated at the wound healing center today. With his hidradenitis flare on his right ischial area, recommend warm water sitz baths ideally 2-3 times per day for 15-20 minutes. He is not able to get in and out of a bath tub. Recommend a portable sitz bath that sits on a toilet. If unable to do a sitz bath, then apply warm, moist compresses to the area to help with drainage and discomfort. He continues to have significant swelling and discomfort on his bilateral buttock from his hidradenitis. Will continue to treat conservatively due to his multiple medical issues. Did make tunnel openings larger today to make packing the tunnels easier. Patient tolerated it well. Wound care - Right superior ulcer place Aquacel-Ag covered with gauze daily. Left superior and right inferior buttocks ulcers pack 1/4 Iodoform into the tunnels and top with gauze. If unable to pack tunnels then place Aquacel-Ag on top of the ulcer opening and top with gauze/ABD/Foam bordered dressing. Dressings to be changed daily and as needed and wash areas with soap and water at the time of the dressing changes. Wound cultures from 09/27/24 showed rare gram positive cocci. Most likely skin contaminant. Not treated with antibiotics at this time. Encouraged patient to stop smoking as it may have deleterious effects on wound healing. Follow up 3-4 weeks per patient request.
== END 2024-10-29 23:59 | disposition home or self-care (01) ==
LOC: WC 11:02
PROVIDERS: PCP Family Medicine; Referring Provider Internal Medicine; Visit Provider Surgery Plastic and Reconstructive Surgery
DX: L73.2 Hidradenitis suppurativa (principal); L98.412 Non-pressure chronic ulcer of buttock with fat layer exposed; E11.42 Type 2 diabetes mellitus with diabetic polyneuropathy; F17.200 Nicotine dependence, unspecified, uncomplicated; Z79.82 Long term (current) use of aspirin; Z79.899 Other long term (current) drug therapy
CPT/HCPCS: 11042

== ENCOUNTER 2024-11-22 10:45 | Outpatient (RCR) | payer MEDICARE, SELFPAY ==
[2024-10-30 01:15] VITALS: BP 107/60; PULSE 66; RESP 20; TEMP 36.6; BMI 19.7
[2024-11-22 10:50] VITALS: BP 124/59; PULSE 82; RESP 18; TEMP 37.2; BMI 19.7
--- NOTE | 2024-11-22 14:37 | WC ---
PHOTO 11/22/24 LEFT BUTTOCK CLUSTER
--- NOTE | 2024-11-22 14:41 | WC ---
PHOTO 11/22/24 R BUTTOCK SUP/INF
--- NOTE | 2024-11-22 21:11 | PCM.WC.PN ---
History of Present Illness Date of Service: 11/22/24 Chief Complaint: Hidradenitis right buttock extending to sacral area. History of Wound: 79 year old man with a history of diabetes mellitus underwent surgery on 03/12/21 where he underwent surgical preparation sacral area with excision complicated extensive pilonidal cyst. With wound care, good nutrition, and some antibiotics, the sacral wound healed. He also has a history of hidradenitis involving his bilateral buttock areas and perineal area. He has developed a recent flare up of his hidradenitis involving the right buttock extending to the sacral area. There is intermittent drainage present. He denies fever. He complains of pain in this area. Patient is diabetic. He continues to have multiple other health issue with his liver and his heart. Today he denies fever, chills, nausea. States his appetite is ok. Subjective Subjective Doing well today. HS wounds that were opened last winter are healing well and are no longer draining. Still has some perianal HS drainage, but improving. Objective Data Objective Data Vital Signs: Vital Signs Temp Pulse Resp BP 98.9 F 82 18 124/59 H 11/22/24 10:50 11/22/24 10:50 11/22/24 10:50 11/22/24 10:50 Weight: 145 lb 10.724 oz Body Mass Index (BMI) 19.7 Charges/Coding Visit Charges Office Visits / Consults: 34321 OV L3 Est 20min Physical Exam Narrative 2 small wounds on the right buttock that no longer tunnel, they're superficial and are not draining.Partial thickness with granulation tissue at the base, no fat exposed. They're TTP. Perianal region has HS Johnson stage 1 lesions, but they're quite small and localized. Debridement Note Debridement Note No debridement was completed: No debridement was completed today Post-Debridement Measurements and Additional Note: Post-Debridement Measurements/Treatment WC - Nurse 1 - General Ulcer Assessment Start: 11/22/24 10:50 Freq: Status: Active Protocol: PLACIDO.LEESA Activity Type Activity Date Activity User E-sign Co-sign Detail Recorded Client Recorded Date Recorded By Document 11/22/24 10:50 DL [id number] 11/22/24 10:58 DL 11/22/24 10:50 - Today's Visit Information Type of service Follow-up Visit (Physician/EMBEDDED SYSTEMS DEVELOPER ) Arrival Mode Ambulatory, Walker Transfer Assistance None Patient Identification Verified (Name & Yes ) Patient Requires Transmission-Based No Precautions Height and Weight Body Mass Index (BMI) 19.7 BMI Classification Normal Vital Signs Temperature (97.8 F-99.1 F) 98.9 F Temperature Source Temporal Pulse Rate (60-100) 82 Pulse Location Monitor Respiratory Rate (12-18) 18 Respiratory rate source Observation Blood Pressure (90/60-120/80) 124/59 H Blood Pressure Mean (mm Hg) 80 Source Monitor History Since Last Visit- (Skip if this is Patient's initial visit) Have you changed medications since your No last visit? Any new allergies or adverse reactions No Had a fall/change in ADL's that may No increase risk of falls Signs or symptoms of abuse and/or No neglect since last visit Have you been in the hospital since your No last visit? Has dressing in place as prescribed No Has compression in place as prescribed N/A Has offloadiing in place as prescribed Yes Experienced any changes in pain level or No management Pain Scale: 0-10 Numeric Is Patient Pain Free? Yes WC - Nurse 1 - General Ulcer Measurement Start: 11/22/24 10:50 Freq: Status: Active Protocol: Activity Type Activity Date Activity User E-sign Co-sign Detail Recorded Client Recorded Date Recorded By Document 11/22/24 10:50 DL [id number] 11/22/24 10:58 DL 11/22/24 10:50 Wound Center Nurse 1 #14 LT BUTTOCK CLUSTER -Combined with other wound No -Current Size (cm) - Length 0.4 -Current Size (cm) - Width 0.4 -Current Size (cm) - Depth 0.3 -Total Square Cm 0.16 -Date of Last Picture (Recall this 11/22/24 field) -Photo Taken Yes -Tunneling No -Undermining/Tunneling No -Circular Undermining No -Exudate Amt Medium -Exudate Type Serosanguineous -Wound Margin Thickened -Granulation Amt Large (67-100%) -Granulation Quality Red -Slough/Fibrin No -Necrosis Amt None Present (0 %) -Texture (Sandi-wound Skin Appearance) Assessed, Scarring -Moisture (Sandi-wound Skin Appearance) Assessed -Color (Sandi-wound Skin Appearance) Assessed -Temperature (Sandi-wound Skin No Abnormality Appearance) (Pt Warm) -Tenderness on Palpation (Sandi-wound No Skin Appearance) -Ulcer Cleansing Soap and Water -Foul Odor after Cleansing No -Anesthetic Used 5% Lidocaine Gel #12 R Buttocks inf- Cluster -Combined with other wound No -Current Size (cm) - Length 1.3 -Current Size (cm) - Width 0.9 -Current Size (cm) - Depth 0.1 -Total Square Cm 1.17 -Date of Last Picture (Recall this 11/22/24 field) -Photo Taken Yes -Tunneling No -Undermining/Tunneling No -Circular Undermining No -Exudate Amt Medium -Exudate Type Serosanguineous -Wound Margin Thickened -Granulation Amt Large (67-100%) -Granulation Quality Red -Slough/Fibrin No -Necrosis Amt None Present (0 %) -Texture (Sandi-wound Skin Appearance) Assessed, Scarring -Moisture (Sandi-wound Skin Appearance) Assessed -Color (Sandi-wound Skin Appearance) Assessed -Temperature (Sandi-wound Skin No Abnormality Appearance) (Pt Warm) -Tenderness on Palpation (Sandi-wound No Skin Appearance) -Ulcer Cleansing Soap and Water -Foul Odor after Cleansing No -Anesthetic Used 5% Lidocaine Gel #11 R Buttocks sup Cluster -Combined with other wound No -Current Size (cm) - Length 2.1 -Current Size (cm) - Width 4 -Current Size (cm) - Depth 0.1 -Total Square Cm 8.4 -Date of Last Picture (Recall this 11/22/24 field) -Photo Taken Yes -Epithelialization Small 1-33% -Tunneling No -Undermining/Tunneling No -Circular Undermining No -Exudate Amt Medium -Exudate Type Serosanguineous -Wound Margin Thickened -Granulation Amt Large (67-100%) -Granulation Quality Red -Slough/Fibrin No -Necrosis Amt None Present (0 %) -Texture (Sandi-wound Skin Appearance) Assessed, Scarring -Moisture (Sandi-wound Skin Appearance) Assessed,Dry/ Scaly -Color (Sandi-wound Skin Appearance) Assessed -Temperature (Sandi-wound Skin No Abnormality Appearance) (Pt Warm) -Tenderness on Palpation (Sandi-wound No Skin Appearance) -Ulcer Cleansing Soap and Water -Foul Odor after Cleansing No -Anesthetic Used 5% Lidocaine Gel WC - Nurse 2 - General Ulcer CM Notes Start: 11/22/24 10:50 Freq: Status: Active Protocol: Activity Type Activity Date Activity User E-sign Co-sign Detail Recorded Client Recorded Date Recorded By Document 11/22/24 11:35 JF [id number] 11/22/24 11:36 JF 11/22/24 11:35 Wound Center Nurse 2 #14 LT BUTTOCK CLUSTER -Correct Patient No -Correct Side, Site, Position No -Correct Procedure No -Wound/Ulcer Outcome Not Healed #12 R Buttocks inf- Cluster -Correct Patient No -Correct Side, Site, Position No -Correct Procedure No -Procedure Performed No -Wound/Ulcer Outcome Not Healed #11 R Buttocks sup Cluster -Correct Patient No -Correct Side, Site, Position No -Correct Procedure No -Procedure Performed No -Wound/Ulcer Outcome Not Healed Pain Scale: 0-10 Numeric Is Patient Pain Free? Yes - Nurse 3 - General Ulcer D/C NN Start: 11/22/24 10:50 Freq: Status: Active Protocol: Activity Type Activity Date Activity User E-sign Co-sign Detail Recorded Client Recorded Date Recorded By Document 11/22/24 11:44 KW [id number] 11/22/24 11:45 11/22/24 11:44 Wound Care Center Nurse 3 #14 LT BUTTOCK CLUSTER -Primary Dressing Applied Aquacel AG 4x4 -Primary Dressing Covered/Secured with Dry Gauze, Secured with Tape -Aquacel AG 4x4 1 #12 R Buttocks inf- Cluster -Other Dressing aquacel ag -Primary Dressing Covered/Secured with Dry Gauze, Secured with Tape #11 R Buttocks sup Cluster -Other Dressing aquacel -Primary Dressing Covered/Secured with Dry Gauze, Secured with Tape Pain Scale: 0-10 Numeric Is Patient Pain Free? Yes - Visit Discharge Discharge Condition Stable Ambulatory Status Ambulatory, Walker Transportation Private Auto Medication Reconcilliation completed & No provided to patient/care provider Clinical Summary of Care Provided Yes Assessment/Plan Assessment/Plan (1) Non-pressure chronic ulcer of buttock with fat layer exposed: CODE(S): L98.412 - Non-pressure chronic ulcer of buttock with fat layer exposed (2) Hidradenitis suppurativa: CODE(S): L73.2 - Hidradenitis suppurativa (3) Type 2 diabetes mellitus with diabetic polyneuropathy: CODE(S): E11.42 - Type 2 diabetes mellitus with diabetic polyneuropathy QUALIFIERS: Diabetes mellitus manager terminal insulin use: unspecified shelter insulin use status Qualified Code(s): E11.42 - Type 2 diabetes mellitus with diabetic polyneuropathy (4) Smoker: CODE(S): F17.200 - Nicotine dependence, unspecified, uncomplicated PLAN: Plan Continue Aquacel Ag to the open wounds (healing very well!). Recommend following up with dermatology for potential medical management options for early stage HS lesions that persist around the gluteal cleft as these are quite small and controlled. They might improve if smoking cessation (discussed). Follow up 3-4 weeks per patient request.
== END 2024-11-29 23:59 | disposition home or self-care (01) ==
LOC: WC 10:45
PROVIDERS: PCP Family Medicine; Referring Provider Internal Medicine; Visit Provider Surgery Plastic and Reconstructive Surgery
DX: L73.2 Hidradenitis suppurativa (principal); L98.411 Non-pressure chronic ulcer of buttock limited to breakdown of skin; E11.42 Type 2 diabetes mellitus with diabetic polyneuropathy; F17.200 Nicotine dependence, unspecified, uncomplicated; Z79.82 Long term (current) use of aspirin; Z79.899 Other long term (current) drug therapy
CPT/HCPCS: 99214; G0463

== ENCOUNTER → 2024-11-22 | Outpatient (CLI) | payer MEDICARE, SELFPAY ==
--- NOTE | 2024-11-22 08:31 | NM_ITS ---
PROCEDURE: BONE SCAN WHOLE BODY 11/22/2024 REASON FOR EXAM: BONE LESION SEEN ON XRAY, hypogammaglobulinemia. COMPARISON: Whole-body plain radiographic bone survey of October 11, 2024. FINDINGS: Patient was injected intravenously 25 mCi of 99 technetium measuring 8. Anterior and posterior whole-body delayed planar syndrome chandni only were obtained in the anterior and posterior projections. Degenerative activity is seen in the acromioclavicular joints, shoulders, whole spine, and sacroiliac joints. Otherwise, normal uptake of bone scanning agent is seen within the axial and appendicular skeleton. These notably no evidence of increased uptake along the proximal left femoral shaft which is the area of sclerosis seen on the recent plain radiograph. NM/Bone Scan Whole Body IMPRESSION: No evidence of increased activity along the proximal left femur indicates a mojgan ign lesion such as an old healed bone infarct. Degenerative changes are noted without evidence of suspicion for metastatic dis ease. However, should be noted that bone scan imaging is insensitive in detecting early myelomatous disease. Continued labor atory and clinical correlation suggested, and if any if clinical suspicion were to arise, MRI would be more definitive. Reading Location: [place] [id number]
== END | disposition home or self-care (01) ==
LOC: NM 08:30
PROVIDERS: PCP Family Medicine; Referring Provider Internal Medicine Hematology & Oncology; Visit Provider Internal Medicine Hematology & Oncology
DX: M89.9 Disorder of bone, unspecified (principal)
CPT/HCPCS: 78306; 99214; A9503; G0463

== ENCOUNTER 2024-12-13 09:11 | Outpatient (RCR) | payer MEDICARE, SELFPAY ==
[2024-11-30 00:46] VITALS: BP 124/59; PULSE 82; RESP 18; TEMP 37.2; BMI 19.7
--- NOTE | 2024-12-08 15:52 | WC ---
Lesa Benedict EVAPORATOR transfers care of this patient over to Dr. Khan as of 12/08/24
[2024-12-13 10:43] VITALS: BP 106/61; PULSE 80; TEMP 36.3; BMI 19.7
--- NOTE | 2024-12-13 14:35 | PCM.WC.PN ---
History of Present Illness Date of Service: 12/13/24 Chief Complaint: Hidradenitis right buttock extending to sacral area. History of Wound: 79 year old man with a history of diabetes mellitus underwent surgery on 03/12/21 where he underwent surgical preparation sacral area with excision complicated extensive pilonidal cyst. With wound care, good nutrition, and some antibiotics, the sacral wound healed. He also has a history of hidradenitis involving his bilateral buttock areas and perineal area. He has developed a recent flare up of his hidradenitis involving the right buttock extending to the sacral area. There is intermittent drainage present. He denies fever. He complains of pain in this area. Patient is diabetic. He continues to have multiple other health issue with his liver and his heart. Today he denies fever, chills, nausea. States his appetite is ok. Subjective Subjective Doing well today. HS wounds no longer draining. Still has some perianal HS drainage, but improving. Objective Data Objective Data Vital Signs: Vital Signs Temp Pulse Resp BP 97.4 F L 80 18 106/61 12/13/24 10:43 12/13/24 10:43 11/30/24 00:46 12/13/24 10:43 Weight: 145 lb 10.724 oz Body Mass Index (BMI) 19.7 Charges/Coding Procedures Integumentary 111xxx-113xx: [id number] Dena subq tissue 20 sq cm/< Physical Exam Narrative 2 small wounds on the right buttock that now connect with a tunnel, they're superficial and are not draining. Partial thickness with granulation tissue at the base, no fat exposed. They're TTP. Perianal region has HS Johnson stage 1 lesions, but they're quite small and localized. Debridement Note Debridement Note Wound debrided: Right gluteal wound Laterality: Right Wound Grade/Stage: Stage III Type of Debridement: Excisional debridement Anesthesia Used: 4% Lidocaine Solution and - (And 5 cc of 1% lidocaine with 1-200,000 epinephrine) Depth: in the subcutaneous layer Percentage of wound debrided: 100 Instrument Used: 7mm curette, Forceps and - (Scissors for sharp excision) Tissue Removed: Necrotic fat and skin (connectived the 2 small wounds). Severity: Fat Layer Exposed Amount of bleeding with debridement: Mild Bleeding Controlled with: Compression and gauze Patient tolerated procedure: Patient tolerated procedure well Post-Debridement Measurements and Additional Note: Post-Debridement Measurements/Treatment PLACIDO - Nurse 1 - General Ulcer Assessment Start: 12/13/24 10:42 Freq: Status: Active Protocol: SUSY Activity Type Activity Date Activity User E-sign Co-sign Detail Recorded Client Recorded Date Recorded By Document 12/13/24 10:43 DL [id number] 12/13/24 10:52 DL 12/13/24 10:43 WC - Today's Visit Information Type of service Follow-up Visit (Physician/CLIENT SOLUTIONS DIRECTOR ) Arrival Mode Ambulatory Transfer Assistance Transfer Board Patient Identification Verified (Name & Yes ) Patient Requires Transmission-Based No Precautions Height and Weight Body Mass Index (BMI) 19.7 BMI Classification Normal Vital Signs Temperature (97.8 F-99.1 F) 97.4 F L Temperature Source Temporal Pulse Rate (60-100) 80 Pulse Location Monitor Respiratory rate source Observation Blood Pressure (90/60-120/80) 106/61 Blood Pressure Mean (mm Hg) 76 Source Monitor History Since Last Visit- (Skip if this is Patient's initial visit) Have you changed medications since your No last visit? Any new allergies or adverse reactions No Had a fall/change in ADL's that may No increase risk of falls Signs or symptoms of abuse and/or No neglect since last visit Have you been in the hospital since your No last visit? Has dressing in place as prescribed Yes Has compression in place as prescribed Yes Has offloadiing in place as prescribed Yes Experienced any changes in pain level or No management Pain Scale: 0-10 Numeric Is Patient Pain Free? Yes PLACIDO - Nurse 1 - General Ulcer Measurement Start: 12/13/24 10:42 Freq: Status: Active Protocol: Activity Type Activity Date Activity User E-sign Co-sign Detail Recorded Client Recorded Date Recorded By Document 12/13/24 10:43 DL [id number] 12/13/24 10:52 DL 12/13/24 10:43 Wound Center Nurse 1 #14 LT BUTTOCK CLUSTER -Current Size (cm) - Length 0.1 -Current Size (cm) - Width 0.1 -Current Size (cm) - Depth 0.1 -Total Square Cm 0.01 -Photo Taken Yes -Exudate Amt None Present -Wound Margin Indistinct, Non -Visible -Granulation Amt Large (67-100%) -Granulation Quality [place] -Necrosis Amt None Present (0 %) -Structure Exposed N/A -Texture (Sandi-wound Skin Appearance) Scarring -Moisture (Sandi-wound Skin Appearance) No Abnormality -Color (Sandi-wound Skin Appearance) No Abnormality -Temperature (Sandi-wound Skin No Abnormality Appearance) (Pt Warm) -Tenderness on Palpation (Sandi-wound No Skin Appearance) -Ulcer Cleansing Soap and Water -Foul Odor after Cleansing No -Anesthetic Used 5% Lidocaine Gel #12 R Buttocks inf- Cluster -Current Size (cm) - Length 4.5 -Current Size (cm) - Width 4.2 -Current Size (cm) - Depth 0.1 -Total Square Cm 18.90 -Photo Taken Yes -Maximum Distance #2 (cm) 0.3 -Circular Undermining Yes -Exudate Amt Medium -Exudate Type Serosanguineous -Wound Margin Distinct, Outline Attached -Granulation Amt Large (67-100%) -Granulation Quality [place],Red -Necrosis Amt None Present (0 %) -Structure Exposed N/A -Texture (Sandi-wound Skin Appearance) Scarring -Moisture (Sandi-wound Skin Appearance) No Abnormality -Color (Sandi-wound Skin Appearance) No Abnormality -Temperature (Sandi-wound Skin No Abnormality Appearance) (Pt Warm) -Tenderness on Palpation (Sandi-wound No Skin Appearance) -Ulcer Cleansing Soap and Water -Foul Odor after Cleansing No -Anesthetic Used 5% Lidocaine Gel WC - Nurse 2 - General Ulcer CM Notes Start: 12/13/24 10:42 Freq: Status: Active Protocol: Activity Type Activity Date Activity User E-sign Co-sign Detail Recorded Client Recorded Date Recorded By Document 12/13/24 11:20 DS [id number] 12/13/24 11:24 DS 12/13/24 11:20 Wound Center Nurse 2 #14 LT BUTTOCK CLUSTER -Time 11:23 -Correct Patient Yes -Correct Side, Site, Position Yes -Procedure Performed No -Wound/Ulcer Outcome Not Healed #12 R Buttocks inf- Cluster -Time 11:20 -Correct Patient Yes -Correct Side, Site, Position Yes -Correct Procedure Yes -Procedure Performed Yes -Type of Procedure Debridement -Clinical Debridement Subcutaneous -Tissue Removed Subcutaneous -Post Debridement (cm) - Length 4.0 -Post Debridement (cm) - Width 1.0 -Post Debridement (cm) - Depth 0.1 -Total Square (Post) (cm) 4.00 -Area of Debridement (cm) - Length 4.0 -Area of Debridement (cm) - Width 1.0 -Total Square (Area) (cm) 4.00 -Tunneling No -Undermining/Tunneling No -Circular Undermining No -Wound/Ulcer Outcome Not Healed -Ulcer Cleansing Rinsed/ Irrigated with Saline -Foul Odor after Cleansing No -Bioengineered Tissue No -Injectable Lidocaine w/ Epi (%) 1 -Injectable Lidocaine w/ Epi (mls) 10 -Bleeding Controlled with Pressure -Treatment Response Procedure Tolerated Well -Debridement - Subq, 1st 20sq cm Yes Pain Scale: 0-10 Numeric Is Patient Pain Free? Yes - Nurse 3 - General Ulcer D/C NN Start: 12/13/24 10:42 Freq: Status: Active Protocol: Activity Type Activity Date Activity User E-sign Co-sign Detail Recorded Client Recorded Date Recorded By Document 12/13/24 11:43 ASHLEY [id number] 12/13/24 11:44 ASHLEY 12/13/24 11:43 Wound Care Center Nurse 3 #14 LT BUTTOCK CLUSTER -Ulcer Cleansing Rinsed/ Irrigated with Saline -Foul Odor after Cleansing No -Primary Dressing Applied Aquacel AG 4x4 -Primary Dressing Covered/Secured with Dry Gauze, Secured with Tape -Aquacel AG 4x4 1 #12 R Buttocks inf- Cluster -Ulcer Cleansing Rinsed/ Irrigated with Saline -Foul Odor after Cleansing No -Primary Dressing Applied Aquacel AG 4x4 -Aquacel AG 4x4 0 -Wound Comment(s) excel sap used to secure dressing from patient's home product. Pain Scale: 0-10 Numeric Is Patient Pain Free? Yes - Visit Discharge Discharge Condition Stable Ambulatory Status Ambulatory, Walker Transportation Private Auto Accompanied by Medication Reconcilliation completed & Yes provided to patient/care provider Clinical Summary of Care Provided Yes Assessment/Plan Assessment/Plan (1) Non-pressure chronic ulcer of buttock with fat layer exposed: CODE(S): L98.412 - Non-pressure chronic ulcer of buttock with fat layer exposed (2) Hidradenitis suppurativa: CODE(S): L73.2 - Hidradenitis suppurativa (3) Type 2 diabetes mellitus with diabetic polyneuropathy: CODE(S): E11.42 - Type 2 diabetes mellitus with diabetic polyneuropathy QUALIFIERS: Diabetes mellitus assisted insulin use: unspecified assisted insulin use status Qualified Code(s): E11.42 - Type 2 diabetes mellitus with diabetic polyneuropathy (4) Smoker: CODE(S): F17.200 - Nicotine dependence, unspecified, uncomplicated PLAN: Plan Continue Aquacel Ag to the open wounds. Recommend following up with dermatology for potential medical management options for early stage HS lesions that persist around the gluteal cleft as these are quite small and controlled. They might improve if smoking cessation (discussed). Follow up 3-4 weeks per patient request.
== END 2024-12-29 23:59 | disposition home or self-care (01) ==
LOC: WC 09:11
PROVIDERS: PCP Family Medicine; Referring Provider Internal Medicine; Visit Provider Surgery Plastic and Reconstructive Surgery
DX: L98.412 Non-pressure chronic ulcer of buttock with fat layer exposed (principal); E11.42 Type 2 diabetes mellitus with diabetic polyneuropathy; L73.2 Hidradenitis suppurativa; Z79.82 Long term (current) use of aspirin; Z79.899 Other long term (current) drug therapy; F17.200 Nicotine dependence, unspecified, uncomplicated
CPT/HCPCS: 11042

== ENCOUNTER 2025-01-17 10:10 | Outpatient (RCR) | payer MEDICARE, SELFPAY ==
[2024-12-30 00:16] VITALS: BP 106/61; PULSE 80; RESP 18; TEMP 36.3; BMI 19.7
[2025-01-17 10:27] VITALS: BP 105/55; PULSE 75; RESP 16; TEMP 37.4; BMI 19.7
--- NOTE | 2025-01-17 17:23 | PCM.WC.PN ---
History of Present Illness Date of Service: 01/17/25 Chief Complaint: Hidradenitis right buttock extending to sacral area. History of Wound: 79 year old man with a history of diabetes mellitus underwent surgery on 03/12/21 where he underwent surgical preparation sacral area with excision complicated extensive pilonidal cyst. With wound care, good nutrition, and some antibiotics, the sacral wound healed. He also has a history of hidradenitis involving his bilateral buttock areas and perineal area. He has developed a recent flare up of his hidradenitis involving the right buttock extending to the sacral area. There is intermittent drainage present. He denies fever. He complains of pain in this area. Patient is diabetic. He continues to have multiple other health issue with his liver and his heart. Today he denies fever, chills, nausea. States his appetite is ok. Subjective Subjective Current encounter, 17 Jan 2025 : doing well today. HS wounds no longer draining. No perianal drainage. He and his report that the wounds feel smaller and he appears to be healing. Objective Data Objective Data Vital Signs: Vital Signs Temp Pulse Resp BP 99.3 F H 75 16 105/55 L 01/17/25 10:27 01/17/25 10:27 01/17/25 10:27 01/17/25 10:27 Weight: 145 lb 10.724 oz Body Mass Index (BMI) 19.7 Charges/Coding Visit Charges Office Visits / Consults: 11855 OV L2 Est 10min Physical Exam Narrative 1 small l wound on the right buttock no tunneling. It is partial-thickness. It measures 1 x 3 cm with granulation tissue at the base and is just through the dermis Perianal region without any hidradenitis suppurativa lesions at this point Debridement Note Debridement Note No debridement was completed: No debridement was completed today Post-Debridement Measurements and Additional Note: Post-Debridement Measurements/Treatment PLACIDO - Nurse 1 - General Ulcer Assessment Start: 01/17/25 10:25 Freq: Status: Active Protocol: SUSYEXT Activity Type Activity Date Activity User E-sign Co-sign Detail Recorded Client Recorded Date Recorded By Document 01/17/25 10:27 ASHLEY [id number] 01/17/25 10:33 ASHLEY 01/17/25 10:27 - Today's Visit Information Type of service Follow-up Visit (Physician/[employer] SUPERVISOR ) Arrival Mode Ambulatory, Walker Patient Identification Verified (Name & Yes ) Patient Requires Transmission-Based No Precautions Height and Weight Body Mass Index (BMI) 19.7 BMI Classification Normal Vital Signs Temperature (97.8 F-99.1 F) 99.3 F H Temperature Source Temporal Pulse Rate (60-100) 75 Pulse Location Monitor Respiratory Rate (12-18) 16 Respiratory rate source Observation Blood Pressure (90/60-120/80) 105/55 L Blood Pressure Mean (mm Hg) 71 Source Monitor Position Sitting Blood Pressure Location Right Arm History Since Last Visit- (Skip if this is Patient's initial visit) Have you changed medications since your No last visit? Any new allergies or adverse reactions No Had a fall/change in ADL's that may No increase risk of falls Signs or symptoms of abuse and/or No neglect since last visit Have you been in the hospital since your No last visit? Has dressing in place as prescribed Yes Has compression in place as prescribed N/A Has offloadiing in place as prescribed Yes Experienced any changes in pain level or No management Left Footwear Regular Shoe Right Footwear Regular Shoe Pain Scale: 0-10 Numeric Is Patient Pain Free? Yes WC - Nurse 1 - General Ulcer Measurement Start: 01/17/25 10:25 Freq: Status: Active Protocol: Activity Type Activity Date Activity User E-sign Co-sign Detail Recorded Client Recorded Date Recorded By Document 01/17/25 10:27 ASHLEY [id number] 01/17/25 10:33 ASHLEY 01/17/25 10:27 Wound Center Nurse 1 #14 LT BUTTOCK CLUSTER -Combined with other wound No -Current Size (cm) - Length 0.1 -Current Size (cm) - Width 0.1 -Current Size (cm) - Depth 0.2 -Total Square Cm 0.01 -Photo Taken No -Epithelialization Medium 34-66% -Tunneling No -Undermining/Tunneling No -Circular Undermining No -Exudate Amt Small -Exudate Type Serosanguineous -Wound Margin Flat & Intact -Granulation Amt Large (67-100%) -Granulation Quality Red -Slough/Fibrin Yes -Necrosis Amt Small (1-33%) -Necrotic Tissue Type Adherent Slough -Structure Exposed N/A -Texture (Sandi-wound Skin Appearance) Assessed, Scarring -Moisture (Sandi-wound Skin Appearance) Assessed,Dry/ Scaly -Color (Sandi-wound Skin Appearance) Assessed -Temperature (Sandi-wound Skin No Abnormality Appearance) (Pt Warm) -Tenderness on Palpation (Sandi-wound No Skin Appearance) -Ulcer Cleansing Rinsed/ Irrigated with Saline -Foul Odor after Cleansing No -Anesthetic Used 5% Lidocaine Gel #12 R Buttocks inf- Cluster -Combined with other wound No -Current Size (cm) - Length 3.0 -Current Size (cm) - Width 1.4 -Current Size (cm) - Depth 0.1 -Total Square Cm 4.20 -Photo Taken No -Epithelialization Medium 34-66% -Tunneling No -Undermining/Tunneling No -Circular Undermining No -Exudate Amt Small -Exudate Type Serosanguineous -Wound Margin Flat & Intact -Granulation Amt Large (67-100%) -Granulation Quality Red -Slough/Fibrin Yes -Necrosis Amt Small (1-33%) -Necrotic Tissue Type Adherent Slough -Structure Exposed N/A -Texture (Sandi-wound Skin Appearance) Assessed, Scarring -Moisture (Sandi-wound Skin Appearance) Assessed,Dry/ Scaly -Color (Sandi-wound Skin Appearance) Assessed -Temperature (Sandi-wound Skin No Abnormality Appearance) (Pt Warm) -Tenderness on Palpation (Sandi-wound No Skin Appearance) -Ulcer Cleansing Rinsed/ Irrigated with Saline -Foul Odor after Cleansing No -Anesthetic Used 5% Lidocaine Gel Lower Limb Edema Present NA WC - Nurse 2 - General Ulcer CM Notes Start: 01/17/25 10:25 Freq: Status: Active Protocol: Activity Type Activity Date Activity User E-sign Co-sign Detail Recorded Client Recorded Date Recorded By Document 01/17/25 11:23 [facility] [id number] 01/17/25 11:26 [facility] 01/17/25 11:23 Wound Center Nurse 2 #14 LT BUTTOCK CLUSTER -Time 11:23 -Procedure Performed No -Post Debridement (cm) - Length 0 -Post Debridement (cm) - Width 0 -Post Debridement (cm) - Depth 0 -Total Square (Post) (cm) 0 -Area of Debridement (cm) - Length 0 -Area of Debridement (cm) - Width 0 -Total Square (Area) (cm) 0 -Tunneling No -Undermining/Tunneling No -Circular Undermining No -Wound/Ulcer Outcome Healed- Epithelialized -Bleeding Controlled with NA #12 R Buttocks inf- Cluster -Time 11:23 -Procedure Performed No -Post Debridement (cm) - Length 3 -Post Debridement (cm) - Width 1.3 -Post Debridement (cm) - Depth 0.1 -Total Square (Post) (cm) 3.9 -Area of Debridement (cm) - Length 3 -Area of Debridement (cm) - Width 1.3 -Total Square (Area) (cm) 3.9 -Wound/Ulcer Outcome Not Healed -Bleeding Controlled with NA Pain Scale: 0-10 Numeric Is Patient Pain Free? Yes WC - Nurse 3 - General Ulcer D/C NN Start: 01/17/25 10:25 Freq: Status: Active Protocol: Activity Type Activity Date Activity User E-sign Co-sign Detail Recorded Client Recorded Date Recorded By Document 01/17/25 11:35 ASHLEY [id number] 01/17/25 11:35 ASHLEY 01/17/25 11:35 Wound Care Center Nurse 3 #12 R Buttocks inf- Cluster -Ulcer Cleansing Rinsed/ Irrigated with Saline -Primary Dressing Applied Aquacel AG 4x4, Silicone Border Foam 4x4 -Aquacel AG 4x4 1 -Silicone Border Foam 4x4 2 Pain Scale: 0-10 Numeric Is Patient Pain Free? Yes WC - Visit Discharge Discharge Condition Stable Ambulatory Status Ambulatory, Walker Transportation Private Auto Accompanied by Medication Reconcilliation completed & Yes provided to patient/care provider Clinical Summary of Care Provided Yes Assessment/Plan Assessment/Plan (1) Non-pressure chronic ulcer of buttock with fat layer exposed: CODE(S): L98.412 - Non-pressure chronic ulcer of buttock with fat layer exposed (2) Hidradenitis suppurativa: CODE(S): L73.2 - Hidradenitis suppurativa (3) Type 2 diabetes mellitus with diabetic polyneuropathy: CODE(S): E11.42 - Type 2 diabetes mellitus with diabetic polyneuropathy QUALIFIERS: Diabetes mellitus group home insulin use: unspecified group home insulin use status Qualified Code(s): E11.42 - Type 2 diabetes mellitus with diabetic polyneuropathy (4) Smoker: CODE(S): F17.200 - Nicotine dependence, unspecified, uncomplicated PLAN: Plan Continue Aquacel Ag to the open wound Recommend following up with dermatology for potential medical management options for early stage HS lesions that persist around the gluteal cleft as these are quite small and controlled. Patient is would like to defer dermatology at this point for financial reasons. I also discussed with the patient that his wound might improve if smoking cessation (discussed). Patient making significant progress. Will likely heal by next appointment Follow up 4-6 weeks per patient request.
== END 2025-01-29 23:59 | disposition home or self-care (01) ==
LOC: WC 10:10
PROVIDERS: PCP Family Medicine; Referring Provider Internal Medicine; Visit Provider Surgery Plastic and Reconstructive Surgery
DX: L98.412 Non-pressure chronic ulcer of buttock with fat layer exposed (principal); E11.42 Type 2 diabetes mellitus with diabetic polyneuropathy; Z79.82 Long term (current) use of aspirin; Z79.899 Other long term (current) drug therapy
CPT/HCPCS: 99212; G0463

== ENCOUNTER 2025-02-21 10:07 | Outpatient (RCR) | payer MEDICARE, SELFPAY ==
[2025-01-30 00:31] VITALS: BP 105/55; PULSE 75; RESP 16; TEMP 37.4; BMI 19.7
[2025-02-21 10:40] VITALS: BP 102/61; PULSE 79; RESP 16; TEMP 36.7; BMI 19.7
--- NOTE | 2025-02-21 13:28 | PN.PCM_ITS ---
History of Present Illness Date of Service: 02/21/25 Chief Complaint: Hidradenitis right buttock extending to sacral area. History of Wound: 79 year old man with a history of diabetes mellitus underwent surgery on 03/12/21 where he underwent surgical preparation sacral area with excision complicated extensive pilonidal cyst. With wound care, good nutrition, and some antibiotics, the sacral wound healed. He also has a history of hidradenitis involving his bilateral buttock areas and perineal area. He has developed a recent flare up of his hidradenitis involving the right buttock extending to the sacral area. There is intermittent drainage present. He denies fever. He complains of pain in this area. Patient is diabetic. He continues to have multiple other health issue with his liver and his heart. Today he denies fever, chills, nausea. States his appetite is ok. Subjective Subjective The patient is a 79-year-old male presenting with right gluteal wounds and hydradenitis suppurativa. The right gluteal wounds have been healing well, with most areas closed and no longer tunneling. Currently, there is a 2 x 1 cm wound and a smaller 0.5 x 0.5 cm wound remaining. The patient reports minimal drainage, primarily observed when dressings are changed. The patient has a history of hydradenitis suppurativa, which is currently well- managed. There is old scar tissue at the gluteal cleft, but no active drainage or infection is present. Attestation: Documentation on this patient encounter was supported using ambient scribe technology/ voice AI technology. The patient consented to recording for the purpose of documenting the encounter. Provider reviewed content of the generated note prior to signature. Objective Data Objective Data Vital Signs: Vital Signs Temp Pulse Resp BP O2 Del Method 98.0 F 79 16 102/61 Room Air 02/21/25 10:40 02/21/25 10:40 02/21/25 10:40 02/21/25 10:40 02/21/25 10:40 Oxygen Delivery Method Room Air Weight: 145 lb 10.724 oz Body Mass Index (BMI) 19.7 Charges/Coding Visit Charges Office Visits / Consults: 33418 OV L3 Est 20min Physical Exam Narrative - Integumentary: Reports minimal drainage from right gluteal wounds, denies pain or active infection - Integumentary: Right gluteal wounds mostly healed, with a 2 x 1 cm wound and a 0.5 x 0.5 cm wound remaining, no tunneling observed - Integumentary: Presence of old scar tissue at the gluteal cleft, no drainage observed Debridement Note Debridement Note No debridement was completed: No debridement was completed today Post-Debridement Measurements and Additional Note: Post-Debridement Measurements/Treatment PLACIDO - Nurse 1 - General Ulcer Assessment Start: 02/21/25 10:40 Freq: Status: Active Protocol: SUSY Activity Type Activity Date Activity User E-sign Co-sign Detail Recorded Client Recorded Date Recorded By Document 02/21/25 10:40 KW [id number] 02/21/25 10:49 02/21/25 10:40 WC - Today's Visit Information Type of service Follow-up Visit (Physician/ADJUSTMENT EXAMINER ) Arrival Mode Ambulatory, Walker Accompanied by Patient Identification Verified (Name & Yes ) Height and Weight Body Mass Index (BMI) 19.7 BMI Classification Normal Vital Signs Temperature (97.8 F-99.1 F) 98.0 F Temperature Source Temporal Pulse Rate (60-100) 79 Pulse Location Monitor Respiratory Rate (12-18) 16 Respiratory rate source Observation Oxygen Delivery Method Room Air Blood Pressure (90/60-120/80) 102/61 Blood Pressure Mean (mm Hg) 74 Source Monitor Position Semi-Fowlers Blood Pressure Location Right Arm History Since Last Visit- (Skip if this is Patient's initial visit) Have you changed medications since your No last visit? Any new allergies or adverse reactions No Had a fall/change in ADL's that may No increase risk of falls Signs or symptoms of abuse and/or No neglect since last visit Have you been in the hospital since your No last visit? Has dressing in place as prescribed Yes Has compression in place as prescribed N/A Has offloadiing in place as prescribed N/A Experienced any changes in pain level or No management Left Footwear Regular Shoe Right Footwear Regular Shoe Pain Scale: 0-10 Numeric Is Patient Pain Free? Yes PLACIDO Jones Nurse 1 - General Ulcer Measurement Start: 02/21/25 10:40 Freq: Status: Active Protocol: Activity Type Activity Date Activity User E-sign Co-sign Detail Recorded Client Recorded Date Recorded By Document 02/21/25 10:40 KW [id number] 02/21/25 10:49 02/21/25 10:40 Wound Center Nurse 1 #12 R Buttocks inf- Cluster -Current Size (cm) - Length 4.6 -Current Size (cm) - Width 2.6 -Current Size (cm) - Depth 0.3 -Total Square Cm 11.96 -Date of Last Picture (Recall this 02/21/25 field) -Exudate Amt Medium -Exudate Type Serosanguineous -Wound Margin Distinct, Outline Attached -Granulation Amt Large (67-100%) -Granulation Quality [place] -Texture (Sandi-wound Skin Appearance) Assessed -Moisture (Sandi-wound Skin Appearance) Assessed -Color (Sandi-wound Skin Appearance) Assessed -Temperature (Sandi-wound Skin No Abnormality Appearance) (Pt Warm) -Tenderness on Palpation (Sandi-wound No Skin Appearance) -Ulcer Cleansing Soap and Water -Foul Odor after Cleansing No -Anesthetic Used 5% Lidocaine Gel WC - Nurse 2 - General Ulcer CM Notes Start: 02/21/25 10:40 Freq: Status: Active Protocol: Activity Type Activity Date Activity User E-sign Co-sign Detail Recorded Client Recorded Date Recorded By Document 02/21/25 10:58 DS [id number] 02/21/25 11:00 DS 02/21/25 10:58 Wound Center Nurse 2 -Time 10:58 -Correct Patient Yes -Correct Side, Site, Position Yes -Procedure Performed No -Post Debridement (cm) - Length 4.6 -Post Debridement (cm) - Width 2.6 -Post Debridement (cm) - Depth 0.3 -Total Square (Post) (cm) 11.96 -Area of Debridement (cm) - Length 4.6 -Area of Debridement (cm) - Width 2.6 -Total Square (Area) (cm) 11.96 -Tunneling No -Undermining/Tunneling No -Circular Undermining No -Wound/Ulcer Outcome Not Healed Pain Scale: 0-10 Numeric Is Patient Pain Free? Yes WC - Nurse 3 - General Ulcer D/C NN Start: 02/21/25 10:40 Freq: Status: Active Protocol: Activity Type Activity Date Activity User E-sign Co-sign Detail Recorded Client Recorded Date Recorded By Document 02/21/25 11:05 ML [id number] 02/21/25 11:06 ML 02/21/25 11:05 Wound Care Center Nurse 3 #12 R Buttocks inf- Cluster -Ulcer Cleansing Rinsed/ Irrigated with Saline -Primary Dressing Applied Aquacel AG 4x4 -Primary Dressing Covered/Secured with Dry Gauze, Secured with Tape -Aquacel AG 4x4 1 Pain Scale: 0-10 Numeric Is Patient Pain Free? Yes Assessment/Plan Assessment/Plan (1) Hidradenitis suppurativa: CODE(S): L73.2 - Hidradenitis suppurativa PLAN: Assessment and Plan The 79-year-old male with a history of hydradenitis suppurativa presents with right gluteal wounds. The wounds are healing well, with most areas closed and no tunneling. Minimal drainage is noted, and the patient is advised to continue current wound care practices. The hydradenitis suppurativa is well-managed, with no active drainage or inf ection. Old scar tissue is present at the gluteal cleft, which is not causing any symptoms. 1. Right Gluteal Wound The patient is advised to continue using Aquasil daily for wound care. Pressure should be minimized on the affected area to promote healing. Follow-up is suggested if the condition worsens, otherwise, the patient can continue current care and return for a check-up in a month if desired. 2. Hydradenitis Suppurativa The condition is currently well-managed, with no active drainage or infection. Old scar tissue is present but not symptomatic. Long-term management options, including medication, were discussed, but no changes are currently necessary. PLAN: Plan - Continue using Aquasil daily on the wounds. - Avoid putting pressure on the wound area to help it heal. - Follow up in a month or sooner if the condition worsens.
--- NOTE | 2025-02-22 13:59 | WC ---
PHOTO 02/21/25 RIGHT BUTTOCKS CLUSTER
== END 2025-02-28 23:59 | disposition home or self-care (01) ==
LOC: WC 10:07
PROVIDERS: PCP Family Medicine; Referring Provider Internal Medicine; Visit Provider Surgery Plastic and Reconstructive Surgery
DX: Z09 Encounter for follow-up examination after completed treatment for conditions other than malignant neoplasm (principal); E11.9 Type 2 diabetes mellitus without complications; L73.2 Hidradenitis suppurativa
CPT/HCPCS: 99213; G0463

== ENCOUNTER → 2025-08-10 | Outpatient (CLI) | payer MEDICARE, SELFPAY ==
--- NOTE | 2025-08-10 10:02 | US_ITS ---
PROCEDURE: ABD LIMITED W/ ELASTOGRAPHY REASON FOR EXAM: CIRRHOSIS, R/O MASS, ASCITES COMPARISON: September 24, 2022 TECHNIQUE: Procedure Code: [id number] Modality: US Procedure: ABD LIMITED W/ ELASTOGRAPHY Right upper quadrant abdominal ultrasound. [employer] ElastQ Imaging shear wave elastography for non-invasive assessment of liver tissue stiffness. Jessica EPIQ Elite. FINDINGS: LIVER: Size: Unremarkable Length: 16.5 cm Echotexture: Diffusely echogenic suggesting fatty infiltration Contour: Normal Lesions: None identified Elastography: EQI Med: 93 kPa EQI Med Rafael: 1.74 m/s IQR/Med: 9.3 %* Metavir score F2-F3 GALLBLADDER: Multiple gallstones. No wall thickening. No pericholecystic fluid. COMMON BILE DUCT: Dilated measuring up to 8 mm. PANCREAS: Obscured by bowel gas. Spleen: The spleen measures 7 x 3 x 3.3 cm. No mass. Right kidney: 10.9 x 6 x 6.1 cm. No stone. No hydronephrosis or mass. 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 Hepatic steatosis. No focal liver mass. Reading Location: [id number]
== END | disposition home or self-care (01) ==
LOC: US 09:58
PROVIDERS: PCP Family Medicine; Referring Provider Internal Medicine; Visit Provider Internal Medicine
DX: K70.30 Alcoholic cirrhosis of liver without ascites (principal)
CPT/HCPCS: 76705; 76981